=== PATIENT | male | born 1940 | race Caucasian/White ===

== ENCOUNTER → 2016-12-06 | Outpatient (CLI) | payer BC ==
[~2016-12-06] MED LIST: ALLO300T2 PO; ALPR0.5T PO; ASPI81TA28 PO; BUPRTAB51 PO; CHOL1TAB42 PO; CIPR-255 PO; CYAN100020 PO; FINA5TAB4 PO; HYG25 PO; IBUP-1277 PO; OMEG10007 PO; OXYC1TAB3 PO; SILO8CAP PO; TAMS0.4C38 PO; TNR25 PO; ZNTT/150 PO
--- NOTE | 2016-12-06 11:32 | DIAGNOSTIC IMAGING REPORT ---
KUB CLINICAL HISTORY: Ureteral tract infection. COMPARISON STUDY: 03/31/2016 FINDINGS: There is no pathologic bowel dilatation. There is a faint 4 mm density located lateral to the left L1 transverse process. A calculus cannot be excluded. There are postsurgical degenerative changes present within the lumbar spine. There are stable pelvic basin calcifications likely representing phleboliths. IMPRESSION: 1. No evidence of pathologic bowel dilatation 2. 4 mm left renal calculus versus overlying enteric contents Electronically signed by: Kaushik Obregon M.D. 12/06/2016 11:30 AM Dictated Date/Time: 12/06/2016 11:29 AM
--- NOTE | 2016-12-12 09:14 | CODING QUERY MEDICAL NECESSITY ---
SUPPORTING DIAGNOSIS NEEDED A supporting diagnosis is required for the test/procedure performed on this patient in order for us to be reimbursed by the patient's insurance. Please provide a supporting diagnosis for the following test/procedure listed below next to the test name along with your signature. *If there is no additional diagnosis for this patient that would support the following test/procedure please document that below next to the test/procedure. Test(s)/Procedure(s) that require a supporting diagnosis: DOS 12/06 * PSA DIAGNOSIS: Provider Signature: Date: Thank you Jia Rodgers [facility] Information Management Once completed, please kindly fax back to [phone] For questions please call [phone]
== END | disposition home or self-care (01) ==
LOC: C.RAD 10:44
PROVIDERS: ATTEND Urology
DX: N39.0 Urinary tract infection, site not specified (principal); N40.1 Benign prostatic hyperplasia with lower urinary tract symptoms

== ENCOUNTER → 2017-02-19 | Outpatient (CLI) | payer BC ==
[~2017-02-19] MED LIST changes: +GADAVIST IV PRN
--- NOTE | 2017-02-19 14:32 | DIAGNOSTIC IMAGING REPORT ---
LUMBAR SPINE MRI WITH AND WITHOUT CONTRAST HISTORY: Back pain LUMBAR SPINAL Stenosis, unstable BALANCE TECHNIQUE: Multiplanar multisequence MRI of the lumbar spine was performed both before and after the intravenous administration of contrast. COMPARISON: None. FINDINGS: For the purpose of the report the L5-S1 disc space will be located on axial image 23 of 25. Severe degenerative disc change throughout. This is most prominent from L2 through L5. L1-L2: No significant central canal or neural foraminal narrowing. L2-L3: Significant multifactorial spinal stenosis. Broad-based disc herniation. Hypertrophic change posterior elements and ligamentum flavum. L3-L4: Prior posterior laminectomy. Multifactorial spinal stenosis. Broad-based disc herniation with posterior osteophytic reaction. L4-L5: Broad-based posterior osteophytic reaction. Posterior laminectomy and fusion. Neuroforamina are patent bilaterally. L5-S1: Mild lateral bulging disc and mild narrowing of the neuroforamina bilaterally. No significant impact with thecal sac. IMPRESSION: 1. Severe degenerative disc changes throughout. 2. Findings consistent with posterior laminectomy and fusion at L4-L5. 3. Multifactorial spinal stenosis at L2-L3 and L3-L4. 4. Posterior bulging disc combined with posterior osteophytic reaction at L4-L5 and to lesser extent L5-S1. Electronically signed by: Edgard Nick M.D. 02/19/2017 2:30 PM Dictated Date/Time: 02/19/2017 2:22 PM
== END | disposition home or self-care (01) ==
LOC: C.MRIBC 13:10
PROVIDERS: ATTEND Family Medicine
DX: M51.16 Intervertebral disc disorders with radiculopathy, lumbar region (principal); Z98.1 Arthrodesis status; R26.89 Other abnormalities of gait and mobility

== ENCOUNTER → 2017-04-09 | Day surgery (SDC) | payer BC ==
[2017-04-03 10:11] VITALS: Ht 180.3 cm; Wt 93.2 kg
[~2017-04-09] VITALS: Ht 180.3 cm; Wt 93.2 kg
[~2017-04-09] MED LIST changes: -CIPR-255 PO; -FINA5TAB4 PO; -GADAVIST IV PRN; +LIDOCAINE HCL 1% MPF 5 ML VIAL ONE; -SILO8CAP PO; +SODIUM CHLORIDE 0.9% INJ 10 ML VIAL ONE
--- NOTE | 2017-04-09 14:29 | History & Physical Bridge - SC ---
H&P Re-Evaluation Bridge Note: I have examined the patient, reviewed the History & Physical and in the interval since the performance of the History & Physical I have noted the following changes of clinical significance: No changes noted
[2017-04-09 14:51] VITALS: TEMP 37
--- NOTE | 2017-04-09 14:56 | Discharge Instructions ---
Discharge Instructions Date of Service Apr 09, 2017. Visit Reason for Visit: Lumbar Radiculopathy Discharge Discharge Diagnosis / Problem: leg back pain Discharge Goals Goal(s): Decrease discomfort, Improve function Activity Recommendations Activity Limitations: resume your previous activity Anesthesia . Post Anesthesia Instructions: If you have had General Anesthesia or IV Sedation: * Do not drive today. * Resume driving when surgeon permits. * Do not make important decisions or sign legal documents today. * Call surgeon for: 1. Temperature elevations greater than 101 degrees F. 2. Uncontrollable pain. 3. Excessive bleeding. 4. Persistent nausea and vomiting. 5. Medication intolerance (nausea, vomiting or rash). * For nausea and vomiting use only clear liquids such as: tea, soda, bouillon until nausea subsides, then gradually increase diet as tolerated. * If you have any concerns or questions, call your surgeon's office. If physician is unavailable and it is an emergency, call 911 or go to the nearest emergency room. . Diet Recommendations Recommended Home Diet: resume previous diet Procedures Procedures Performed: Caudal Epidural Steroid Injection Pending Studies Studies pending at discharge: no Medical Emergencies . Who to Call and When: Medical Emergencies: If at any time you feel your situation is an emergency, please call 911 immediately. . Non-Emergent Contact Non-Emergency issues call your: Specialist . . "Provider Documentation" section prepared by Yaniv Stauffer. .
[2017-04-09 15:00] VITALS: BP 129/83; PULSE 80; O2SAT 99
--- NOTE | 2017-04-09 15:24 | OPERATIVE REPORT ---
DATE OF OPERATION: 04/09/2017 PREOPERATIVE DIAGNOSES: Post-laminectomy syndrome with residual right S1 radiculopathy and chronic low back pain. POSTOPERATIVE DIAGNOSES: Same. PROCEDURE: Caudal epidural steroid injection under fluoroscopic guidance. INDICATIONS: The patient is a 76-year-old white male who has a 10-year history of difficulty with ambulation following a lumbar decompression surgery. He has foot drop. He also has radicular pain from the back and follows an S1 dermatomal distribution. He presents today for a caudal epidural injection to help him with the pain he experiences. PHYSICAL EXAMINATION: Pleasant male seated comfortably. He is in a forward flexed posture. He has weakness with a left plantar flexor, 4+/5 and intact sensation distally. Negative seated straight leg raises. CONSENT: Verbal and written consent was obtained from the patient. Risks and benefits were reviewed. Risks include, but are not limited to abscess and allergic reaction. The patient wishes to proceed. DESCRIPTION OF PROCEDURE: The patient was taken back to the special procedures room of the [facility], where he was maintained in a prone position. Backside was cleansed with Betadine x3 and a dry sterile dressing was applied. Fluoroscope was used from a lateral view to identify the sacral hiatus and the canal and the overlying skin was anesthetized with 4 mL of lidocaine 1% with a 25-gauge 1-1/2 inch needle. A 25-gauge 3-1/2 inch needle was then directed through the hiatus and into the canal under lateral fluoroscopic guidance. He then underwent placement of the needle and injection after negative aspiration of 4 mL of preservative free sodium chloride and 40 mg of Depo-Medrol. Injection was well tolerated. DISPOSITION: 1. The patient was taken out into the discharge recovery area, where he will be discharged home once discharge criteria have been met. 2. Follow up in the [facility] office in 2-4 weeks. I attest to the content of the Intraoperative Record and any orders documented therein. Any exception s are noted below.
== END | disposition home or self-care (01) ==
LOC: X.SURG 13:20
PROVIDERS: ATTEND Physical Medicine & Rehabilitation
DX: M96.1 Postlaminectomy syndrome, not elsewhere classified (principal); M54.17 Radiculopathy, lumbosacral region; I10 Essential (primary) hypertension; F41.9 Anxiety disorder, unspecified; N40.0 Benign prostatic hyperplasia without lower urinary tract symptoms; Z79.82 Long term (current) use of aspirin; Z79.899 Other long term (current) drug therapy

== ENCOUNTER → 2017-08-29 | Day surgery (SDC) | payer BC ==
[2017-08-15 10:22] VITALS: Ht 180.3 cm; Wt 93.2 kg
[~2017-08-29] VITALS: Ht 180.3 cm; Wt 93.2 kg
[~2017-08-29] MED LIST changes: +IOPAMIDOL INJ 61% 15 ML VIAL ONE
[2017-08-29 13:18] VITALS: BP 134/80; PULSE 83; TEMP 36.5; O2SAT 98
--- NOTE | 2017-08-29 13:25 | Discharge Instructions ---
Discharge Instructions Date of Service Aug 29, 2017. Visit Reason for Visit: Lumbar Radiculopathy Discharge Discharge Diagnosis / Problem: leg pain Discharge Goals Goal(s): Decrease discomfort, Improve function Medications Stopped Medications Name(s): last dose asa and ibuprofen on thursday 08/23 Activity Recommendations Activity Limitations: resume your previous activity Anesthesia . Post Anesthesia Instructions: If you have had General Anesthesia or IV Sedation: * Do not drive today. * Resume driving when surgeon permits. * Do not make important decisions or sign legal documents today. * Call surgeon for: 1. Temperature elevations greater than 101 degrees F. 2. Uncontrollable pain. 3. Excessive bleeding. 4. Persistent nausea and vomiting. 5. Medication intolerance (nausea, vomiting or rash). * For nausea and vomiting use only clear liquids such as: tea, soda, bouillon until nausea subsides, then gradually increase diet as tolerated. * If you have any concerns or questions, call your surgeon's office. If physician is unavailable and it is an emergency, call 911 or go to the nearest emergency room. . Diet Recommendations Recommended Home Diet: resume previous diet Procedures Procedures Performed: Lumbar Epidural Steroid Injection via Caudal Approach Pending Studies Studies pending at discharge: no Medical Emergencies . Who to Call and When: Medical Emergencies: If at any time you feel your situation is an emergency, please call 911 immediately. . Non-Emergent Contact Non-Emergency issues call your: Specialist . . "Provider Documentation" section prepared by Yaniv Stauffer. .
--- NOTE | 2017-08-29 13:42 | OPERATIVE REPORT ---
DATE OF OPERATION: 08/29/2017 PREOPERATIVE DIAGNOSIS: Post-laminectomy syndrome with persistent radiculopathy. POSTOPERATIVE DIAGNOSIS: Same. PROCEDURE: Caudal epidural steroid injection under fluoroscopic guidance. SURGEON: Dr. Yaniv Stauffer. INDICATIONS: The patient is a 77-year-old white male who underwent a caudal epidural injection in March. He reports that he did fantastic for 3 months. Since that time the pain relief has been gradually wearing off and is problematic and symptomatic to him again. He wishes to have another caudal epidural injection to provide him with extended pain relief. PHYSICAL EXAMINATION: GENERAL: Pleasant male seated comfortably in no apparent distress. MUSCULOSKELETAL: The patient has a well-healed incision. He is nontender to palpation lumbar spine. He has no focal or motor deficit weaknesses of his lower extremities with negative seated straight leg raises. CONSENT: Verbal and written consent was obtained from the patient. Risks and benefits were reviewed. Risks include but are not limited to epidural abscess and allergic reaction. The patient wishes to proceed. PROCEDURE: The patient was taken back to the special procedures room of the [facility] where he was maintained in a prone position. Backside was cleansed with Betadine x3 and a dry sterile dressing was applied. Fluoroscope was used to identify the sacral hiatus and overlying skin was anesthetized with 4 mL of lidocaine 1% with a 25 gauge 1.5-inch needle. A 25 gauge 3.5 inch spinal needle was then directed under lateral fluoroscopic guidance into the canal. He then underwent injection after negative aspiration of 40 mg of Depo-Medrol, 4 mL of preservative free sodium chloride. Injection was well tolerated. DISPOSITION: 1. The patient is taken out into the discharge recovery area where he will be discharged home once discharge criteria have been met. 2. Follow up in the [facility] office in 2-4 weeks. I attest to the content of the Intraoperative Record and any orders documented therein. Any exception s are noted below.
== END | disposition home or self-care (01) ==
LOC: X.SURG 12:02
PROVIDERS: ATTEND Physical Medicine & Rehabilitation
DX: M96.1 Postlaminectomy syndrome, not elsewhere classified (principal); M54.16 Radiculopathy, lumbar region; Z98.890 Other specified postprocedural states; I10 Essential (primary) hypertension; Z82.49 Family history of ischemic heart disease and other diseases of the circulatory system; Z79.899 Other long term (current) drug therapy; Z79.82 Long term (current) use of aspirin

== ENCOUNTER → 2017-11-28 | Outpatient (CLI) | payer BC ==
[~2017-11-28] MED LIST changes: -IOPAMIDOL INJ 61% 15 ML VIAL ONE; -LIDOCAINE HCL 1% MPF 5 ML VIAL ONE; +RANI150T85 PO; -SODIUM CHLORIDE 0.9% INJ 10 ML VIAL ONE; -ZNTT/150 PO
--- NOTE | 2017-11-28 16:20 | DIAGNOSTIC IMAGING REPORT ---
KUB HISTORY: Acute urinary tract infection with history of kidney stones N39.0 Urinary tract infection COMPARISON: KUB 12/06/2016 FINDINGS: The bowel gas pattern is non-obstructive. There is no organomegaly. Previously questioned left renal calculus is not identified. No definite renal or ureteral calculi are identified. The renal shadows are partially secured by bowel gas. Calcifications of the pelvis appear unchanged suggesting phleboliths. No pneumoperitoneum or pneumatosis. No fracture. Degenerative changes are noted within the spine, hips and pelvis. IMPRESSION: No renal or ureteral calculi identified. Electronically signed by: Pedro Pablo Riggs M.D. 11/28/2017 4:19 PM Dictated Date/Time: 11/28/2017 4:17 PM
[2017-11-28 17:34] LABS: BLOOD UREA NITROGEN 25 mg/dl (7-18); CREATININE 1.42 mg/dl (0.60-1.40)
== END | disposition home or self-care (01) ==
LOC: C.LAB 15:34
PROVIDERS: ATTEND Urology
DX: N39.0 Urinary tract infection, site not specified (principal)

== ENCOUNTER → 2018-01-08 | Day surgery (SDC) | payer BC ==
[2018-01-01 10:06] VITALS: Ht 180.3 cm; Wt 93.2 kg
[~2018-01-08] VITALS: Ht 180.3 cm; Wt 93.2 kg
[~2018-01-08] MED LIST changes: -HYG25 PO; +IOPAMIDOL INJ 61% 15 ML VIAL ONE; +LIDOCAINE HCL 1% MPF 5 ML VIAL ONE; +SODIUM CHLORIDE 0.9% INJ 10 ML VIAL ONE
--- NOTE | 2018-01-08 13:50 | [facility] Post Operative Brief Note ---
Immediate Operative Summary Operative Date Jan 08, 2018. Pre-Operative Diagnosis LUMBAR RADICULOPATHY Post-Operative Diagnosis SAME. Procedure(s) Performed LUMBARE EPIDURAL STEROID INJECTION, CAUDAL APPROACH Surgeon DR. Berta ERVIN Shipping Support Surgeon(s) None Estimated Blood Loss 0 Findings Consistent with Post-Op Diagnosis Specimens NA Drains None Anesthesia Type Local Complication(s) none Disposition Disposition:
[2018-01-08 13:52] VITALS: TEMP 36.4
--- NOTE | 2018-01-08 13:52 | Discharge Instructions ---
Discharge Instructions Date of Service Jan 08, 2018. Visit Reason for Visit: Lumbar Radiculopathy Discharge Discharge Diagnosis / Problem: low back pain Discharge Goals Goal(s): Decrease discomfort, Improve function Medications Stopped Medications Name(s): aspirin 81mg daily and advil prn, last doses 01/03/18 Activity Recommendations Activity Limitations: resume your previous activity Anesthesia . Post Anesthesia Instructions: If you have had General Anesthesia or IV Sedation: * Do not drive today. * Resume driving when surgeon permits. * Do not make important decisions or sign legal documents today. * Call surgeon for: 1. Temperature elevations greater than 101 degrees F. 2. Uncontrollable pain. 3. Excessive bleeding. 4. Persistent nausea and vomiting. 5. Medication intolerance (nausea, vomiting or rash). * For nausea and vomiting use only clear liquids such as: tea, soda, bouillon until nausea subsides, then gradually increase diet as tolerated. * If you have any concerns or questions, call your surgeon's office. If physician is unavailable and it is an emergency, call 911 or go to the nearest emergency room. . Diet Recommendations Recommended Home Diet: resume previous diet Procedures Procedures Performed: LUMBARE EPIDURAL STEROID INJECTION, CAUDAL APPROACH Pending Studies Studies pending at discharge: no Medical Emergencies . Who to Call and When: Medical Emergencies: If at any time you feel your situation is an emergency, please call 911 immediately. . Non-Emergent Contact Non-Emergency issues call your: Specialist . . "Provider Documentation" section prepared by Yaniv Stauffer. .
[2018-01-08 14:21] VITALS: BP 152/84; PULSE 70; O2SAT 97
--- NOTE | 2018-01-08 16:09 | OPERATIVE REPORT ---
DATE OF OPERATION: 01/08/2018 PREOPERATIVE DIAGNOSES: Lumbar foraminal stenosis, post-laminectomy syndrome with persistent low back pain and proximal radicular complaints. POSTOPERATIVE DIAGNOSES: Same. PROCEDURE: Caudal epidural steroid injection under fluoroscopic guidance. INDICATIONS: The patient is a 77-year-old white male that had a caudal epidural injection on 08/29/2017. He has done very good for 3 months, essentially minimal pain; however, the pain is starting to return and become problematic to him. He presents today for an injection to provide him with relief. PHYSICAL EXAMINATION: GENERAL: Pleasant male, seated comfortably. EXTREMITIES: His lumbar paraspinal muscles were palpated and noted to be nontender. He has mild tenderness to palpation over the left sciatic notch. Left foot drop with a brace in place. Otherwise, no focal weakness. CONSENT: Verbal and written consent was obtained from the patient. Risks and benefits were reviewed. Risks include but are not limited to abscess and allergic reaction. The patient wishes to proceed. DESCRIPTION OF PROCEDURE: The patient was taken back to the special procedures room of the [facility] where he was maintained in a prone position. Backside was cleansed with Betadine x3 and a dry sterile dressing was applied. Fluoroscope was used to identify the sacral hiatus in the lateral view and the overlying skin was anesthetized with 4 mL of lidocaine 1% with a 25 gauge 1.5-inch needle. A 25 gauge 3.5 inch spinal needle was then directed into the spinal canal and advanced under lateral fluoroscopic guidance. He then underwent injection after negative aspiration of 4 mL of preservative free sodium chloride and 40 mg of Depo-Medrol. Injection was well tolerated. DISPOSITION: 1. The patient is taken out into the discharge recovery area where he will be discharged home once discharge criteria are met. 2. Follow up in the [facility] office in 4 weeks' time. I attest to the content of the Intraoperative Record and any orders documented therein. Any exception s are noted below.
== END | disposition home or self-care (01) ==
LOC: X.SURG 12:23
PROVIDERS: ATTEND Physical Medicine & Rehabilitation
DX: M48.061 Spinal stenosis, lumbar region without neurogenic claudication (principal); M54.17 Radiculopathy, lumbosacral region; M96.1 Postlaminectomy syndrome, not elsewhere classified; Z98.890 Other specified postprocedural states; Z85.828 Personal history of other malignant neoplasm of skin; N40.0 Benign prostatic hyperplasia without lower urinary tract symptoms; F32.9 Major depressive disorder, single episode, unspecified; I10 Essential (primary) hypertension; Z82.49 Family history of ischemic heart disease and other diseases of the circulatory system; Z88.0 Allergy status to penicillin; Z88.5 Allergy status to narcotic agent; F41.9 Anxiety disorder, unspecified

== ENCOUNTER 2019-12-18 23:29 | Observation (INO) ==
[2019-12-18] MEDS ORDERED: ONDANSETRON INJ 2 MG/ML 2 ML VIAL IV STA (23:39)
[2019-12-18] MEDS ORDERED: SODIUM CHLORIDE 0.9% 1000ML 1,000 ML IV ONE (23:39)
[2019-12-19 00:06] LABS: Basophils # (auto) 0.01 K/uL (0-0.2); Basophils % (auto) 0.1 %; Eosinophils # (auto) 0.02 K/uL (0-0.5); Eosinophils % (auto) 0.2 %; Hematocrit (blood only) 45.2 % (42-52); Hemoglobin 16.4 g/dL (14.0-18.0); Immature Granulocytes # (auto) 0.03 K/uL (0.00-0.02); Immature Granulocytes % (auto) 0.3 %; Lymphocytes # (auto) 1.29 K/uL (1.2-3.4); Lymphocytes % (auto) 11.1 %; Mean Corpuscular Hemoglobin 32.5 pg (25-34); Mean Corpuscular Hgb Conc 36.3 g/dL (32-36); Mean Corpuscular Volume 89.5 fL (80-100); Mean Platelet Volume 9.1 fL (7.4-10.4); Monocytes # (auto) 0.29 K/uL (0.11-0.59); Monocytes % (auto) 2.5 %; Neutrophils # (auto) 10.02 K/uL (1.4-6.5); Neutrophils % (auto) 85.8 %; Platelet Count 229 K/uL (130-400); RDW Coefficient of Variation 13.2 % (11.5-14.5); RDW Standard Deviation 42.5 fL (36.4-46.3); Red Blood Count 5.05 M/uL (4.7-6.1); White Blood Count 11.66 K/uL (4.8-10.8)
[2019-12-19] MEDS ORDERED: IOVERSOL 100ml IV PRN (00:08)
[2019-12-19 00:15] LABS: iSTAT Creatinine 0.9 mg/dl (0.6-1.3); iSTAT Hemoglobin 16.3 g/dl (14.0-18.0); iSTAT Ionized Calcium 1.17 mmol/l (1.12-1.32); iSTAT Potassium 3.8 mmol/L (3.3-5.0)
[2019-12-19 00:18] LABS: INR 1.1 (0.9-1.1); Partial Thromboplastin Ratio 0.8; Partial Thromboplastin Time 23.4 Seconds (21.0-31.0); Prothrombin Time 11.1 Seconds (9.0-12.0)
--- NOTE | 2019-12-19 00:18 | Emergency Department Note ---
History of Present Illness General Chief complaint: Vomiting Stated complaint: nausea vomitting Time Seen by Provider: 12/18/19 23:32 Source: patient, EMS, RN notes reviewed and old records reviewed Mode of arrival: EMS Limitations: no limitations History of Present Illness Provider complaint: Nausea, vomiting and diarrhea Onset (ago): day(s) 1 Location: abdomen Radiation: non-radiation Pain Consistency: + colicky Maximum Pain Intensity: 3 Current Pain Intensity: 0 Relieved By: + none Exacerbated By: + none Associated symptoms: + denies other symptoms Treatments prior to arrival: none This is an 79-year-old male that presents emergency department complaining of nausea vomiting and severe dizziness. Patient is complaining of nausea vomiting and diarrhea. He states it is been ongoing for the past 24 hours. He denies any sick contacts. He reports his is not sick. He also reports he has not had any abnormal food. He denies any abdominal pain. Patient reports the dizziness gets much worse if he looks down Home Medications Home Medications Medication Instructions Recorded Confirmed Type allopurinol 300 mg PO QAM 08/03/18 12/19/19 History alprazolam [Xanax] 0.5 mg PO Q6H PRN 08/03/18 12/19/19 History bupropion HCl [Wellbutrin XL] 300 mg PO QAM 08/03/18 12/19/19 History cholecalciferol (vitamin D3) 5,000 unit PO QAM 08/03/18 12/19/19 History [Vitamin D3] cyanocobalamin (vitamin B-12) 1,000 mcg PO QAM 08/03/18 12/19/19 History [Vitamin B-12] ibuprofen 200 - 600 mg PO QID PRN 08/03/18 12/19/19 History omega 6-uki-mqz-fish oil [Fish Oil] 1 cap PO QAM 08/03/18 12/19/19 History oxycodone [Roxicodone] 1 - 2 tab PO Q6H PRN 08/03/18 12/19/19 History ranitidine HCl [Zantac] 150 mg PO BID 08/03/18 12/19/19 History tamsulosin 0.4 mg capsule 0.4 mg PO DAILY #90 cap 12/03/19 12/19/19 Rx finasteride 5 mg tablet 5 mg PO DAILY #90 tab 12/06/19 12/19/19 Rx Allergies Allergy/AdvReac Type Severity Reaction Status Date / Time Penicillins Allergy Intermediate HIVES Verified 12/19/19 00:34 morphine AdvReac Mild N&V Verified 12/19/19 00:34 Past Med/Surg History Social History Preferred Language: [place] Communication Ability: Effective Bid Manager Required: No Beliefs That Will Affect Care: None Current Living Situation: Spouse Feels Safe at Home: Yes Smoking Status: Former smoker Tobacco Type: cigarettes ; Cigarettes Per Day: 55 years ago ; Second Hand Exposure: No ; Hx Alcohol Use: Yes Alcohol type: beer, wine and hard liquor Hx Substance Use: No Physical Exam Vital Signs Vital Signs - 24 hr 12/18/19 23:37 12/18/19 23:48 12/19/19 00:04 Temperature 37.1 C Temperature Source Oral Pulse Rate 89 Pulse Rate [Bilateral Apical] 95 H Respiratory Rate 20 20 Respiratory Effort / Characteristics Non-Labored Non-Labored Respiratory Depth Normal Normal Blood Pressure 159/100 H Blood Pressure [Right Arm] 179/103 H Blood Pressure Mean 119 Blood Pressure Mean [Right Arm] 128 Blood Pressure Position Lying Blood Pressure Position [Right Arm] Pulse Oximetry 97 97 96 Oxygen Delivery Method Room Air Room Air Room Air Sepsis Recent Fever Within 48 Hours No Sepsis Action Taken by Nursing No Action Required 12/19/19 00:39 12/19/19 01:15 12/19/19 01:39 Temperature Temperature Source Pulse Rate Pulse Rate [Bilateral Apical] 93 H 95 H 91 H Respiratory Rate 20 20 20 Respiratory Effort / Characteristics Non-Labored Respiratory Depth Normal Blood Pressure Blood Pressure [Right Arm] 185/97 H 187/113 H 184/93 H Blood Pressure Mean Blood Pressure Mean [Right Arm] 126 137 123 Blood Pressure Position Blood Pressure Position [Right Arm] Pulse Oximetry 96 96 94 Oxygen Delivery Method Room Air Room Air Room Air Sepsis Recent Fever Within 48 Hours Sepsis Action Taken by Nursing 12/19/19 01:53 12/19/19 02:43 12/19/19 03:34 Temperature Temperature Source Pulse Rate Pulse Rate [Bilateral Apical] 88 85 87 Respiratory Rate 18 20 20 Respiratory Effort / Characteristics Non-Labored Non-Labored Respiratory Depth Normal Normal Blood Pressure Blood Pressure [Right Arm] 143/77 H 156/93 H 137/70 Blood Pressure Mean Blood Pressure Mean [Right Arm] 99 114 92 Blood Pressure Position Blood Pressure Position [Right Arm] Lying Lying Pulse Oximetry 93 94 97 Oxygen Delivery Method Room Air Room Air Room Air Sepsis Recent Fever Within 48 Hours Sepsis Action Taken by Nursing Course Administered Medications Ondansetron HCl (Zofran Odt) 4 mg PO Q6H PRN PRN Reason: Nausea Stop: 01/18/20 05:00 Last Admin: 12/19/19 05:13 Dose: 4 mg Documented by: [id number] Discontinued Medications Hydromorphone HCl (Dilaudid) 0.5 mg IV Q15M PRN PRN Reason: Pain Stop: 01/02/20 00:32 Last Admin: 12/19/19 01:42 Dose: 0.5 mg Documented by: [id number] Admin: 12/19/19 00:43 Dose: 0.5 mg Documented by: [id number] Sodium Chloride (Nss 1000ml) 1,000 mls @ 999 mls/hr IV .Q1H1M ONE Stop: 12/19/19 00:39 Last Infusion: 12/19/19 01:29 Dose: 0 mls/hr Documented by: [id number] Admin: 12/19/19 00:00 Dose: 999 mls/hr Documented by: [id number] Acetaminophen (Ofirmev) 1,000 mg in 100 mls @ 400 mls/hr IV NOW STA Stop: 12/19/19 00:47 Last Infusion: 12/19/19 01:14 Dose: 0 mls/hr Documented by: [id number] Admin: 12/19/19 00:42 Dose: 400 mls/hr Documented by: [id number] Ioversol (Optiray 320 100ml) 119 ml IV ONCE PRN PRN Reason: Interaction Checking Stop: 12/23/19 00:07 Last Admin: 12/19/19 00:08 Dose: 119 ml Documented by: [id number] Meclizine HCl (Antivert) 25 mg PO NOW STA Stop: 12/19/19 00:34 Last Admin: 12/19/19 00:42 Dose: 25 mg Documented by: [id number] Metoclopramide HCl (Reglan) 10 mg IV NOW STA Stop: 12/19/19 00:34 Last Admin: 12/19/19 00:42 Dose: 10 mg Documented by: [id number] Ondansetron HCl (Zofran) 4 mg IV NOW STA Stop: 12/18/19 23:40 Last Admin: 12/19/19 00:00 Dose: 4 mg Documented by: [id number] Ondansetron HCl (Zofran Odt) Confirm Administered Dose 8 mg .ROUTE .STK-MED ONE Stop: 12/19/19 05:08 Last Admin: 12/19/19 05:09 Dose: Not Given Documented by: [id number] Medical Decision Making Differential Diagnosis Appendicitis, ovarian cyst, ovarian torsion, ectopic , TOA, PID, infections, diverticulitis, UTI, obstruction, mesenteric ischemia, aortic pathology, inflammatory bowel disease, renal colic, PUD, pancreatitis, biliary pathology, hernia, volvulus, constipation, as well as other pathologies. Medical Records Attestation: I reviewed the patient's medical records. Home Medications Current Medication List: was personally reviewed by me Laboratory Data Attestation: I reviewed the patient's lab results. Result diagrams: 12/18/19 23:55 12/18/19 23:55 Lab Results 12/18/19 12/18/19 12/18/19 Range/Units 23:55 23:55 23:55 WBC 11.66 H (4.8-10.8) K/uL RBC 5.05 (4.7-6.1) M/uL Hgb 16.4 (14.0-18.0) g/dL POC Hgb (14.0-18.0) g/dl Hct 45.2 (42-52) % POC Hct (42-52) % MCV 89.5 (80-100) fL MCH 32.5 (25-34) pg MCHC 36.3 H (32-36) g/dL RDW Std Deviation 42.5 (36.4-46.3) fL RDW Coeff of Jaelyn 13.2 (11.5-14.5) % Plt Count 229 (130-400) K/uL MPV 9.1 (7.4-10.4) fL Immature Gran % (Auto) 0.3 % Neut % (Auto) 85.8 % Lymph % (Auto) 11.1 % [place] % (Auto) 2.5 % Eos % (Auto) 0.2 % Baso % (Auto) 0.1 % Immature Gran # (Auto) 0.03 H (0.00-0.02) K/uL Neut # (Auto) 10.02 H (1.4-6.5) K/uL Lymph # (Auto) 1.29 (1.2-3.4) K/uL [place] # (Auto) 0.29 (0.11-0.59) K/uL Eos # (Auto) 0.02 (0-0.5) K/uL Baso # (Auto) 0.01 (0-0.2) K/uL PT 11.1 (9.0-12.0) Seconds INR 1.1 (0.9-1.1) APTT 23.4 (21.0-31.0) Seconds PTT Ratio 0.8 POC Sodium (135-144) mmol/L Sodium 137 (136-145) mmol/L POC Potassium (3.3-5.0) mmol/L Potassium 3.7 (3.5-5.1) mmol/L POC Chloride (101-112) mmol/L Chloride 104 (98-107) mmol/L Carbon Dioxide 27 (21-32) mmol/L POC Total CO2 (24-31) mEq/l Anion Gap 6.0 (3-11) POC Anion Gap (16-25) mmol/L POC BUN (7-18) mg/dl BUN 14 (7-18) mg/dl Creatinine 1.10 (0.6-1.4) mg/dl POC Creatinine (0.6-1.3) mg/dl Est Cr Clr Drug Dosing 62.1 ml/min Est GFR ( Amer) 72.6 Est GFR (Non-Af Amer) 62.6 BUN/Creatinine Ratio 12.7 (10-20) Glucose 140 H (70-99) mg/dl POC Glucose (other) (70-99) mg/dl Calcium 9.5 (8.5-10.1) mg/dl POC Ioniz Calcium Kevin (1.12-1.32) mmol/l Total Bilirubin 0.8 (0.2-1) mg/dl AST 34 (15-37) U/L ALT 45 (12-78) U/L Alkaline Phosphatase 102 (45-117) U/L Total Creatine Kinase 255 (39-308) U/L CK-MB (CK-2) 6.4 H (0.5-3.6) ng/ml CK/CKMB % Calc 2.5 (0-3.0) Troponin I < 0.015 (0-0.045) ng/ml Total Protein 8.1 (6.4-8.2) gm/dl Albumin 4.0 (3.4-5.0) gm/dl Globulin 4.1 H (2.5-4.0) gm/dl Albumin/Globulin Ratio 1.0 (0.9-2) Lipase 39 L (73-393) U/L 12/19/19 Range/Units 00:02 WBC (4.8-10.8) K/uL RBC (4.7-6.1) M/uL Hgb (14.0-18.0) g/dL POC Hgb 16.3 (14.0-18.0) g/dl Hct (42-52) % POC Hct 48 (42-52) % MCV (80-100) fL MCH (25-34) pg MCHC (32-36) g/dL RDW Std Deviation (36.4-46.3) fL RDW Coeff of Jaelyn (11.5-14.5) % Plt Count (130-400) K/uL MPV (7.4-10.4) fL Immature Gran % (Auto) % Neut % (Auto) % Lymph % (Auto) % [place] % (Auto) % Eos % (Auto) % Baso % (Auto) % Immature Gran # (Auto) (0.00-0.02) K/uL Neut # (Auto) (1.4-6.5) K/uL Lymph # (Auto) (1.2-3.4) K/uL [place] # (Auto) (0.11-0.59) K/uL Eos # (Auto) (0-0.5) K/uL Baso # (Auto) (0-0.2) K/uL PT (9.0-12.0) Seconds INR (0.9-1.1) APTT (21.0-31.0) Seconds PTT Ratio POC Sodium 139 (135-144) mmol/L Sodium (136-145) mmol/L POC Potassium 3.8 (3.3-5.0) mmol/L Potassium (3.5-5.1) mmol/L POC Chloride 100 L (101-112) mmol/L Chloride (98-107) mmol/L Carbon Dioxide (21-32) mmol/L POC Total CO2 26 (24-31) mEq/l Anion Gap (3-11) POC Anion Gap 18.0 (16-25) mmol/L POC BUN 14 (7-18) mg/dl BUN (7-18) mg/dl Creatinine (0.6-1.4) mg/dl POC Creatinine 0.9 (0.6-1.3) mg/dl Est Cr Clr Drug Dosing ml/min Est GFR ( Amer) Est GFR (Non-Af Amer) BUN/Creatinine Ratio (10-20) Glucose (70-99) mg/dl POC Glucose (other) 144 H (70-99) mg/dl Calcium (8.5-10.1) mg/dl POC Ioniz Calcium Kevin 1.17 (1.12-1.32) mmol/l Total Bilirubin (0.2-1) mg/dl AST (15-37) U/L ALT (12-78) U/L Alkaline Phosphatase (45-117) U/L Total Creatine Kinase (39-308) U/L CK-MB (CK-2) (0.5-3.6) ng/ml CK/CKMB % Calc (0-3.0) Troponin I (0-0.045) ng/ml Total Protein (6.4-8.2) gm/dl Albumin (3.4-5.0) gm/dl Globulin (2.5-4.0) gm/dl Albumin/Globulin Ratio (0.9-2) Lipase (73-393) U/L Imaging Data Attestation: I personally reviewed and interpreted this imaging study as follows: My Impression: 1 view of the chest was interpreted by me shows no evidence of pneumonia congestion or pneumothorax Radiologist's Impression: CT the head: No intracranial hemorrhage, mass-effect, edema or acute cortical infarct. Confluent chronic microvascular ischemic changes and age-related volume loss. CT abdomen pelvis with contrast: Colonic diverticulosis without diverticulitis. Liver gallbladder pancreas spleen adrenal glands, are within normal limits. Few cortical cysts and a single nonobstructing stone within the right kidney. Normal appendix. ECG Data Attestation: I personally reviewed and interpreted this ECG as follows: Indication: + vomiting Rate (beats per minute): 89 Rhythm: + normal sinus ECG Intervals/blocks: + First degree AV block ECG [place]: + Normal ECG ST segments: no ST depression and no ST elevation Comparison ECG Date: from (05/13/2012) Change: no significant change Blood Pressure Blood Pressure Findings: Elevated blood pressure Blood Pressure Disposition: elevated BP felt to be situational MDM Narrative This is an 79-year-old male who presents emergency department complaining of dizziness. Patient was given Zofran as well as a normal saline bolus. This had no improvement in the patient's symptoms. On my reexamination the patient reports feeling dizzy when he looks to the right. I suspect he has benign positional vertigo therefore tried Reglan along with meclizine with no improvement in his symptoms. The patient was also given Dilaudid for his chronic back pain. He was sent for CAT scan of the head and his EKG does not show any acute findings. I attempted to have the patient ambulated by nursing staff with no success. Because of this I did discuss the case with the hospitalist service who did agree to meet the patient. Patient is in agreement with the treatment plan. Impression & Plan Gastroenteritis, Dizziness Discharge Plan Visit Data *Final* Discharge Date/Time: 12/19/19 04:41 Chief Complaint: Vomiting Stated Complaint: nausea vomitting Other Complaint: Diarrhea Dizziness ED Provider: Johnathon Bautista Discharge Problem: Gastroenteritis, Dizziness Patient Disposition: Admitted As Inpatient Discharge Instructions Interventions: ED Discharge Assessment Last Done: 12/19/19 04:41
[2019-12-19 00:31] LABS: Alanine Aminotransferase 45 U/L (12-78); Aspartate Aminotransferase 34 U/L (15-37); BUN Creatinine Ratio 12.7 (10-20); Blood Urea Nitrogen 14 mg/dl (7-18); Calcium 9.5 mg/dl (8.5-10.1); Carbon Dioxide 27 mmol/L (21-32); Chloride 104 mmol/L (98-107); Creatinine Clr Calc Pharmacy 62.1 ml/min; Est GFR (African American) 72.6; Est GFR (Non-African American) 62.6; Glucose 140 mg/dl (70-99); Lipase 39 U/L (73-393); Potassium 3.7 mmol/L (3.5-5.1); Sodium 137 mmol/L (136-145)
[2019-12-19] MEDS ORDERED: ACETAMINOPHEN 1,000 MG/100 ML VIAL IV STA (00:33)
[2019-12-19] MEDS ORDERED: MECLIZINE HCL 25 MG TAB PO STA (00:33)
[2019-12-19] MEDS ORDERED: METOCLOPRAMIDE HCL INJ 5 MG/ML 2 ML VIAL IV STA (00:33)
[2019-12-19 00:37] LABS: Alkaline Phosphatase 102 U/L (45-117); Bilirubin,Total 0.8 mg/dl (0.2-1); Creatine Kinase 255 U/L (39-308); Creatine Kinase MB 6.4 ng/ml (0.5-3.6); Globulin 4.1 gm/dl (2.5-4.0); Total Protein 8.1 gm/dl (6.4-8.2); Troponin I < 0.015 ng/ml (0-0.045)
[2019-12-19] MEDS: HYDROmorphone INJ 0.5 MG/0.5 ML SYR IV PRN ×2 (00:43→01:42)
--- NOTE | 2019-12-19 04:27 | History & Physical Report ---
Date of Service December 19, 2019 Assessment & Plan (1) Diarrhea: Mr. Rosenthal is an 79yo gentleman with a PMHx significant for Anxiety, BPH, Gout, GERD and chronic pain who presents with a 2 day history of N/V and diarrhea. Diarrhea/Nausea/Vomiting -Pt with 2 day Hx of symptoms and associated dizziness -CT abdomen with no indication of diverticulitis or appendicitis -ED orders for c diff, stool culture and norovirus pending -has meclizine ordered for dizziness; no concern for need for fluid replacement given stable vitals. -Zofran ODT for nausea -Dilaudid ordered for pain -PT/OT pending Anxiety -continue home xanax Depression -continue home buproprion GERD -hold home Zantac; consider discontinuing on discharge given current warnings -started on famotidine/Pepcid 20mg BID Gout -continue home allopurinol BPH -continue home Flomax and Finasteride Chronic Pain -hold home ibuprofen -continue home oxycodone and IV Dilaudid as above FEN/GI: Full liquids DVT Prophylaxis: Lovenox SQ CODE STATUS: Full Dispo: Med Surg Admission and Anticipated Discharge Date Admission Date: 12/19/2019 History of Present Illness Primary Care Provider: Santosh Cassidy MD Mr. Rosenthal is an 79yo gentleman with a PMHx significant for Anxiety, BPH, Gout, GERD and chronic pain who presents with a 2 day history of N/V and diarrhea. States he has been going to the bathroom every 25 minutes, with semi- solid stool. Has not noticed any foul smell or blood in the stools. Does not recall any change to dietary habits before this, no recent hamburger meat ingestion. No recent travel. No associated fevers, chills or night sweats. No recent/known COVID contacts. Has associated dizziness and headache. PMHx: as above PSH: Hx of back surgery Meds: As below Allergies: morphine and penicillins SH: Quit smoking 55 years ago. No alcohol use and no recreational drug use. Lives at home with . [facility] house was remodeled to accommodate him on the first floor. Ambulatory and able to perform self care at baseline. ED Course: Dilaudid and meclizine, pending c diff, stool culture and norovirus Allergies Allergy/AdvReac Type Severity Reaction Status Date / Time Penicillins Allergy Intermediate HIVES Verified 12/19/19 00:34 morphine AdvReac Mild N&V Verified 12/19/19 00:34 Home Medications Home Medications Medication Instructions Recorded Confirmed Type allopurinol 300 mg PO QAM 08/03/18 12/19/19 History alprazolam [Xanax] 0.5 mg PO Q6H PRN 08/03/18 12/19/19 History bupropion HCl [Wellbutrin XL] 300 mg PO QAM 08/03/18 12/19/19 History cholecalciferol (vitamin D3) 5,000 unit PO QAM 08/03/18 12/19/19 History [Vitamin D3] cyanocobalamin (vitamin B-12) 1,000 mcg PO QAM 08/03/18 12/19/19 History [Vitamin B-12] ibuprofen 200 - 600 mg PO QID PRN 08/03/18 12/19/19 History omega 7-bcp-qvz-fish oil [Fish Oil] 1 cap PO QAM 08/03/18 12/19/19 History oxycodone [Roxicodone] 1 - 2 tab PO Q6H PRN 08/03/18 12/19/19 History ranitidine HCl [Zantac] 150 mg PO BID 08/03/18 12/19/19 History tamsulosin 0.4 mg capsule 0.4 mg PO DAILY #90 cap 12/03/19 12/19/19 Rx finasteride 5 mg tablet 5 mg PO DAILY #90 tab 12/06/19 12/19/19 Rx Past Med/Surg History Social History Preferred Language: Belgian Communication Ability: Effective Grounds Caretaker Required: No Beliefs That Will Affect Care: None Current Living Situation: Spouse Feels Safe at Home: Yes Smoking Status: Never smoker Second Hand Exposure: No ; Hx Alcohol Use: Yes Alcohol type: beer, wine and hard liquor Hx Substance Use: No Review of Systems Constitutional: no fever, no chills and no sweats Eyes: no worsening vision and no problem reported Ear, Nose, Mouth, Throat: + dizziness; no ear pain, no ear discharge, no nasal congestion and no sore throat Respiratory: no cough and no dyspnea Cardiovascular: + lightheadedness; no chest pain, no dyspnea, no palpitations and no syncope Gastrointestinal: + abdominal pain, + nausea, + vomiting and + diarrhea/loose stools; no constipation and no blood in stools Genitourinary: no dysuria Musculoskeletal: + back pain Neurologic: + dizziness and + headache(s); no tingling, no numbness and no syncope Physical Exam Physical Exam: General: Alert, oriented, laying in bed Skin: No noted rashes or bruises Psych: Appropriate mood and affect Neuro: CNII-XII grossly intact, strength 5/5 in UE and LE bilaterally. HEENT: NC/AT Chest: Nontender to palpation. CV: RRR, Normal s1, s2. No murmurs appreciated Resp: Breath sounds clear bilaterally, no increased effort of breathing. No crackles/rhonchi/rales. Abdomen: BS+. Soft, tender in lower abdominal quadrants to deep palpation, nondistended. No guarding. No organomegaly appreciated. Extremities: No edema in lower extremities bilaterally. Results & Data Results & Data ([facility]) Vital Signs (Past 12 Hours) Vital Signs Temp Pulse Pulse Resp BP BP Pulse Ox 12/19/19 03:34 87 20 137/70 97 12/19/19 02:43 85 20 156/93 H 94 12/19/19 01:53 88 18 143/77 H 93 12/19/19 01:39 91 H 20 184/93 H 94 12/19/19 01:15 95 H 20 187/113 H 96 12/19/19 00:39 93 H 20 185/97 H 96 12/19/19 00:04 95 H 20 179/103 H 96 12/18/19 23:48 97 12/18/19 23:37 37.1 C 89 20 159/100 H 97 Supervising Physician Co-Signing Physician Notes Patient seen and examined, chart reviewed, case discussed with Dr. Martinez and I agree with her assessment and plan as documented above. Briefly, patient is an 79yo C male presenting with n/v/d, vertigo, inability to walk On exam he is afebrile, HD stable, NAD Skin -no rash HEENT - NC/AT, PERRL, EOMI, MMM Heart - +S1/S2, regular, no m/r/g Lungs- CTA Abd - +BS, soft, NT/ND Ext - no edema Neuro - no deficits, +symptoms with head turning and ambulation Labs and images reviewed Assessment/Plan: -Symptomatic management of n/v/d, IVF and electrolytes -Meclizine PRN -Zofran PRN -PT/OT evaluation '-Remainder of plan as above Resident Activity Tracking Resident Involvement: Resident Care Provided Care Provided: [facility]
[2019-12-19] MEDS ORDERED: ALPRAZolam 0.5 MG TABLET PO PRN (05:01)
[2019-12-19] MEDS ORDERED: MECLIZINE HCL 25 MG TAB PO PRN (05:01)
[2019-12-19] MEDS ORDERED: HYDROmorphone INJ 1 MG/ML SYRINGE IV PRN (05:01)
[2019-12-19] MEDS ORDERED: ONDANSETRON 4 MG OD TAB PO PRN (05:01)
--- NOTE | 2019-12-19 05:01 | Billing Data ---
Date of Service December 19, 2019 Coding Level of Care Code 15498 OBS Care - Level 3
[2019-12-19] MEDS ORDERED: ONDANSETRON 4 MG OD TAB ONE (05:07)
[2019-12-19] MEDS ORDERED: OXYCODONE HCL IR 5 MG TAB (IMMEDIATE RELEASE) PO PRN (05:12)
--- NOTE | 2019-12-19 07:23 | CT Scan Report ---
CT OF THE HEAD WITHOUT CONTRAST CLINICAL HISTORY: Nausea and vomiting. COMPARISON STUDY: No previous studies for comparison. TECHNIQUE: Helical axial images of the head were obtained without IV contrast. Automated exposure con trol was utilized for the study. A dose lowering technique was utilized adhering to the principles o f ALARA. FINDINGS: No acute intracranial hemorrhage, midline shift or mass effect is present. The ventricular system is unremarkable. The basilar cisterns are patent. No extra-axial collections are present. Ther e are no findings to suggest acute dural sinus thrombosis or acute territorial infarct. No significan t calvarial abnormalities are present. Visualized portions of the sinuses and mastoid air cells are c lear. White matter hypodensities suggest extensive small vessel disease. IMPRESSION: 1. No acute intracranial findings. 2. Extensive small vessel disease. ACT 112: Negative or not required by law. Electronically signed by: Clifton Jasso M.D. 12/19/2019 7:22 AM
--- NOTE | 2019-12-19 07:31 | CT Scan Report ---
CT OF THE ABDOMEN AND PELVIS WITH CONTRAST CLINICAL HISTORY: Abdominal pain and nausea. COMPARISON STUDY: CT of the abdomen and pelvis January 25, 2014. KUB June 26, 2018. TECHNIQUE: Following IV administration of 93 mL of Optiray-320, axial images of the abdomen and pelvi s were obtained from the lung bases to the proximal femurs. Images were reviewed in the axial, sagitt al, and coronal planes. IV contrast was administered without complication. Automated exposure contro l was utilized for the study. A dose lowering technique was utilized adhering to the principles of A ANNIE. CT DOSE: 1939.53 mGy.cm FINDINGS: Lung bases are unremarkable. No pneumatosis, free air or portal venous gas is present. The liver, spleen, adrenal glands and pancreas are unremarkable. Water attenuation bilateral renal lesion s reflect cysts. A 4 mm right renal calculus is noted. There are no ureteral calculi or hydronephrosi s. There is no biliary or pancreatic ductal dilatation. The appendix is normal. Colonic diverticulosi s is noted without evidence for acute diverticulitis. The caliber and wall thickness of small and lar ge bowel are normal. Postoperative findings within the lumbar spine are noted. There are no suspiciou s osseous lesions. IMPRESSION: 1. No acute process within the abdomen or pelvis. 2. Colonic diverticulosis without evidence for acute diverticulitis. No bowel obstruction. 3. 4 mm right renal calculus. No ureteral calculi or hydronephrosis. ACT 112: Negative or not required by law. Electronically signed by: Clifton Jasso M.D. 12/19/2019 7:30 AM
--- NOTE | 2019-12-19 07:33 | XRay Report ---
XR chest 1V portable CLINICAL HISTORY: Chest Pain COMPARISON STUDY: Chest radiograph June 22, 2015. FINDINGS: Lung volumes are normal. Linear left basilar opacity suggests atelectasis. There is no pneu mothorax or pleural effusion. Cardiac size is normal. Mediastinal contours are normal. There is no ev idence for pulmonary edema. IMPRESSION: No acute cardiopulmonary findings. ACT 112: Negative or not required by law. Electronically signed by: Clifton Jasso M.D. 12/19/2019 7:31 AM
[2019-12-19] MEDS ORDERED: OMEGA-3 (PURIFIED FISH OIL) 1 GM CAP PO SCH (09:00)
[2019-12-19] MEDS ORDERED: CHOLECALCIFEROL 1,000 UNITS 25 MCG TAB PO SCH (09:00)
[2019-12-19] MEDS ORDERED: TAMSULOSIN HCL 0.4 MG CAP PO SCH (09:00)
[2019-12-19] MEDS ORDERED: FAMOTIDINE 20 MG TAB PO SCH (09:00)
[2019-12-19] MEDS ORDERED: allopurinoL 300 MG TAB PO SCH (09:00)
[2019-12-19] MEDS ORDERED: BuPROPion XL 300 MG TABCR PO SCH (09:00)
[2019-12-19] MEDS ORDERED: FINASTERIDE 5 MG TAB PO SCH (09:00)
[2019-12-19] MEDS ORDERED: CYANOCOBALAMIN 500 MCG TABLET (VITAMIN B-12) PO SCH (09:00)
[2019-12-19] MEDS ORDERED: ENOXAPARIN INJ 40 MG/0.4 ML SYR SQ SCH (09:00)
--- NOTE | 2019-12-19 10:12 | Electrocardiogram Report ---
Test Reason : Blood Pressure : / mmHG Vent. Rate : 089 BPM Atrial Rate : 092 BPM P-R Int : 226 ms QRS Dur : 078 ms QT Int : 374 ms P-R-T Axes : 053 052 046 degrees QTc Int : 455 ms Sinus rhythm with 1st degree A-V block Low voltage QRS Borderline ECG When compared with ECG of 13-MAY-2012 13:16, No significant change was found Confirmed by Erwin Stovall ([id number]) on 12/19/2019 10:12:25 AM Referred By: REFERRED SELF Confirmed By:Erwin Stovall
--- NOTE | 2019-12-19 13:56 | Discharge Summary ---
Date of Service December 19, 2019 Admission HPI Per Admitting Provider Mr. Rosenthal is an 79yo gentleman with a PMHx significant for Anxiety, BPH, Gout, GERD and chronic pain who presents with a 2 day history of N/V and diarrhea. States he has been going to the bathroom every 25 minutes, with semi- solid stool. Has not noticed any foul smell or blood in the stools. Does not recall any change to dietary habits before this, no recent hamburger meat ingestion. No recent travel. No associated fevers, chills or night sweats. No recent/known COVID contacts. Has associated dizziness and headache. PMHx: as above PSH: Hx of back surgery Meds: As below Allergies: morphine and penicillins SH: Quit smoking 55 years ago. No alcohol use and no recreational drug use. Rachana danay at home with . [facility] house was remodeled to accommodate him on the first floor. Ambulatory and able to perform self care at baseline. ED Course: Dilaudid and meclizine, pending c diff, stool culture and norovirus Principal Diagnosis Viral gastroenteritis Discharge Exam Constitutional WD/WN, vitals as above Eyes + anicteric sclerae; normal pupil size Respiratory normal respiratory effort, lungs clear to auscultation Cardiovascular RRR, no murmur, no edema Gastrointestinal (Abdomen) normal bowel sounds, soft, nontender, no hepatosplenomegaly Skin no rashes, warm and dry Neurologic moves all extremities and awake; not confused Genitourinary no CVA tenderness Lymphatic no cervical or axillary lymphadenopathy Discharge Data Allergies Allergy/AdvReac Type Severity Reaction Status Date / Time Penicillins Allergy Intermediate HIVES Verified 12/19/19 00:34 morphine AdvReac Mild N&V Verified 12/19/19 00:34 Consultations 12/19/19 02:53 ED Decision to Admit Stat Ordered Studies 12/18/19 23:39 CT abd pelvis IV con only Stat CT head/brain wo con Stat Hospital Course (1) Diarrhea: Shaggy Rosenthal is a 79 year old male observed at [facility] on December 19 2019 due to intractable nausea, vomiting and diarrhea. CT scan showed no acute pathology. Lab work was generally unremarkable other than a mildly raised white blood count. History, examination, labs and imaging consistent with viral gastroenteritis. Ondansetron prescribed as needed for any further nausea or vomiting. He improved throughout the day on full liquid diet and was discharged in the afternoon. Total Time Total Time Spent Total Time Spent (In Minutes): 25 Total Time Includes: Examination of the Patient, Discharge Planning and Medication Reconciliation Discharge Plan Discharge Items Patient Disposition: Home - Self-Care Reason For Visit: DIARRHEA Discharge Diagnosis: Gastroenteritis Activity: Resume your previous activity Non-emergency contact: Primary Care Provider Call non-emergency contact if: you have any medication questions and your symptoms worsen Follow-up/Referrals: Santosh Cassidy MD [Primary Care Provider] - (no routine follow up required) Diet: Regular Addtl Attending Provider Instructions: You were observed at [facility] on December 19 2019 due to intractable nausea, vomiting and diarrhea. CT scan showed no acute pathology. Lab work was generally unremarkable other than a mildly raised white blood count. History, examination, labs and imaging consistent with viral gastroenteritis. Ondansetron prescribed as needed for any further nausea or vomiting. Recommend slowly advancing your diet as tolerated over the next 24-48 hours. Kind regards, Dr Chau Zarco Pending Studies at Discharge: No Stand-Alone Forms: My [facility] Medications and DC Order Prescriptions: New ondansetron 4 mg tablet,disintegrating 4 mg PO Q6H PRN (Reason: nausea and vomiting) Qty: 10 RF: 0 Continued finasteride 5 mg tablet 5 mg PO DAILY Qty: 90 RF: 1 tamsulosin [Flomax] 0.4 mg capsule 0.4 mg PO DAILY Qty: 90 RF: 0 cyanocobalamin (vitamin B-12) [Vitamin B-12] 1,000 mcg Tablet 1,000 mcg PO QAM RF: 0 alprazolam [Xanax] 0.5 mg Tablet 0.5 mg PO Q6H PRN (Reason: Anxiety) RF: 0 ranitidine HCl [Zantac] 150 mg Tablet 150 mg PO BID RF: 0 ibuprofen 200 mg Tablet 200 - 600 mg PO QID PRN (Reason: Pain) RF: 0 allopurinol 300 mg Tablet 300 mg PO QAM RF: 0 oxycodone [Roxicodone] 5 mg Tablet 1 - 2 tab PO Q6H PRN (Reason: Pain) RF: 0 bupropion HCl [Wellbutrin XL] 300 mg Tablet Extended Release 24 Hr 300 mg PO QAM RF: 0 cholecalciferol (vitamin D3) [Vitamin D3] 5,000 unit Tablet 5,000 unit PO QAM RF: 0 omega 9-rlb-zwy-fish oil [Fish Oil] 1,000 mg (120 mg-180 mg) Capsule 1 cap PO QAM RF: 0 Discharge Orders: Discharge Order (Routine); Ordered 12/19/19 Ordered By: Chau Zarco Admission Data Admit Date/Time: 12/19/19 04:14 Attending Provider: Chau Zarco Admit Provider: Alyssia Martinez Primary Care Provider: Santosh Cassidy Other Interventions: Discharge Summary Assessment (RN) Last Done: 12/19/19 14:02 DC Date/Time DO NOT enter until pt leaves facility: 12/19/19 14:29 Coding Level of Care Code Admit/DC Same Day >8hr Level 2 Diagnoses Diarrhea R19.7
== END 2019-12-19 14:29 | disposition home or self-care (01) ==
LOC: 2N 23:29 → ED 23:29 → SUATTDRO 12-19 04:14 → 2N 12-19 04:41

== ENCOUNTER 2020-02-14 15:13 | Observation (INO) ==
[2020-02-14] MEDS ORDERED: SODIUM CHLORIDE 0.9% 500 ML IV SCH (16:00)
[2020-02-14 16:01] LABS: Basophils # (auto) 0.03 K/uL (0-0.2); Basophils % (auto) 0.3 %; Eosinophils # (auto) 0.32 K/uL (0-0.5); Eosinophils % (auto) 3.5 %; Hemoglobin 14.6 g/dL (14.0-18.0); Immature Granulocytes # (auto) 0.02 K/uL (0.00-0.02); Immature Granulocytes % (auto) 0.2 %; Lymphocytes # (auto) 2.91 K/uL (1.2-3.4); Lymphocytes % (auto) 31.6 %; Mean Corpuscular Hemoglobin 31.9 pg (25-34); Mean Corpuscular Hgb Conc 34.8 g/dL (32-36); Mean Corpuscular Volume 91.7 fL (80-100); Mean Platelet Volume 9.3 fL (7.4-10.4); Monocytes % (auto) 9.8 %; Neutrophils # (auto) 5.02 K/uL (1.4-6.5); Neutrophils % (auto) 54.6 %; Platelet Count 233 K/uL (130-400); RDW Coefficient of Variation 14.2 % (11.5-14.5); RDW Standard Deviation 47.4 fL (36.4-46.3); Red Blood Count 4.58 M/uL (4.7-6.1)
--- NOTE | 2020-02-14 16:06 | Emergency Department Note ---
Impression & Plan Weakness, Fall, Generally unsteady ED Provider Note NAME: ABIGAIL KAY AGE: 79 SEX: M : 1940 ARRIVES VIA: Walk-In INFORMANT: [Patient][son, josefina ] ED PROVIDER(S): [Naman Sullivan MD] CHIEF COMPLAINT: Weakness HISTORY OF PRESENT ILLNESS: The patient is an 79-year-old male who presents to the ED with weakness that has been increasing for 3 to 4 months. The patient had back surgery last year and seemed to be doing well. Since October, he has had a decline in his stability and has become more weak. In the last weeks timeframe, he has fallen at least 5 times. He denies any injury. Patient states that his weakness is diffuse. It is not one-sided. He states that he starts to lose his balance and then cannot recover and falls. He was able to get up the last time on his own but times before, he has required assistance. The patient spoke to his doctor's office today, they referred him to the ED for further work-up. Of note, the patient is on Bactrim. He has frequent UTIs and has been on Bactrim since testing positive for UTI 3 days ago. He does not feel any different since being on the Bactrim. He denies any urinary complaints currently or even before the Bactrim was prescribed. There has been no recent vomiting or diarrhea, no headache, no chest pain or shortness of breath. The patient states that he has not had fever. The patient denies any known coronavirus exposures. He is here with his son. His son lives just 2 doors down. REVIEW OF SYSTEMS: See HPI for pertinent positives and negatives. A total of ten systems were reviewed and were otherwise negative. PMHx/PSHx: See Below SOCIAL HISTORY: See Below. PHYSICAL EXAM: GENERAL: Patient is in no acute distress. HEENT: No acute trauma, normocephalic atraumatic, mucous membranes moist, no nasal congestion, no scleral icterus. NECK: No stridor, no adenopathy, no meningismus, trachea is midline. LUNGS: Clear to auscultation bilaterally, no wheeze, no rhonchi, breath sounds equal. HEART: Without murmurs gallops or rubs, regular rate and rhythm. ABDOMEN: Soft, nontender, bowel sounds positive, no hernias, no peritonitis. EXTREMITIES: No cyanosis, mild bilateral pedal edema, full range of motion of all the joints without pain or difficulty, no signs for acute trauma. NEUROLOGIC: Oriented x 3, no acute motor or sensory deficits, no focal weakness. No speech slur or facial droop, no one-sided weakness. No extremity drift or cerebellar dysfunction. He can raise both legs off the bed without any difficulty. SKIN: No rash, no jaundice, no diaphoresis. DIFFERENTIAL DIAGNOSIS: Infection, dehydration, metabolic abnormality, medication reaction, stroke, hypo/hyperglycemia, electrolyte disturbance, anemia, hypoxia, cardiac sources, intracerebral event, toxicologic, neurologic, as well as other pathologies. EMERGENCY DEPARTMENT COURSE/PROCEDURES: ECG: Indication is weakness. The EKG shows a sinus rhythm with a first-degree AV block. The rate is 89. The QTc is 467. There is no ST elevation, no PVCs. 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 Continuous Cardiac Monitoring: An order was placed for continuous cardiac monitoring. The monitor shows a rate of 88 with sinus rhythm and a first-degree AV block. Orthostatic vital signs are negative. MEDICAL DECISION MAKING: There is no leukocytosis or concerning anemia. There is a normal platelet count. No coagulopathy. No significant electrolyte abnormality or kidney failure. There were a few subtle liver enzyme elevations, the bilirubin though was normal. The patient appeared to be in a euthyroid state. Urinalysis did not show infection or significant hematuria. Some contamination was seen. EKG shows a sinus rhythm, no acute ischemia. Cardiac enzyme testing x1 is not consistent with acute cardiac injury. Chest film does not show pneumonia or CHF. There was no pneumothorax. Brain CT shows no acute bleed or mass-effect. On exam, the patient had equal strength in both lower extremities, there was no speech slur, he was awake and interactive. As per the nursing staff, the patient had a very difficult time ambulating to the bathroom. Official orthostatic vital signs were negative. The patient received IV saline for hydration. He is currently resting comfortably. Given the frequent falls, given his escalating symptoms, given the weakness noted by the nursing staff, I do not think the patient is safe for discharge home. Further work-up/care is required. The patient may in fact require rehab therapy at some point. I spoke to the patient and his son, case management has been involved. The on- call hospitalist was consulted. Past Med/Surg History Medical History Anxiety BPH (benign prostatic hyperplasia) Chronic pain syndrome GERD (gastroesophageal reflux disease) Gout Insomnia Kidney stones Microscopic hematuria Spinal stenosis Surgical History History of back surgery History of colonoscopy History of lithotripsy S/P TURP Family History Grandmother Family history of diabetes mellitus Social History Preferred Language: Salvadorean Communication Ability: Effective Senior Underwriter Required: No Beliefs That Will Affect Care: None Current Living Situation: Spouse Other Information That Helps Us Care for You: No Feels Safe at Home: Yes Safety Concerns: Feels Safe At This Time Smoking Status: Former smoker Tobacco Type: cigarettes ; Cigarettes Per Day: 55 years ago ; Do You Dip or Chew Tobacco: No ; Second Hand Exposure: No ; Tobacco Cessation Education Requested by Patient: No Hx Alcohol Use: No Hx Substance Use: No Allergies Allergies Allergy/AdvReac Type Severity Reaction Status Date / Time Penicillins Allergy Intermediate HIVES Verified 02/14/20 16:11 morphine AdvReac Mild N&V Verified 02/14/20 16:11 Home Meds Home Medications Medication Instructions Recorded Confirmed allopurinol [Zyloprim] 300 mg PO QAM 08/03/18 02/14/20 bupropion HCl [Wellbutrin XL] 300 mg PO QAM 08/03/18 02/14/20 cholecalciferol (vitamin D3) 5,000 unit PO QAM 08/03/18 02/14/20 [Vitamin D3] cyanocobalamin (vitamin B-12) 1,000 mcg PO QAM 08/03/18 02/14/20 [Vitamin B-12] ibuprofen [Advil] 200 - 600 mg PO QID PRN 08/03/18 02/14/20 omega 3-ksc-kvg-fish oil [Fish Oil] 1 cap PO QAM 08/03/18 02/14/20 oxycodone [Roxicodone] 1 - 2 tab PO Q6H PRN 08/03/18 02/14/20 alprazolam [Xanax] 1 mg PO Q6H PRN 02/14/20 02/14/20 finasteride [Proscar] 5 mg PO QAM 02/14/20 02/14/20 sulfamethoxazole-trimethoprim 1 tab PO BID 02/14/20 02/14/20 [Bactrim DS] tamsulosin [Flomax] 0.4 mg PO QAM 02/14/20 02/14/20 Results & Data (ED) Vital Signs Vital Signs - 24 hr 02/14/20 15:19 02/14/20 16:09 02/14/20 16:17 Temperature 36.8 C Temperature Source Oral Pulse Rate - Lying 87 Pulse Rate - Sitting 88 Pulse Rate - Standing 90 Pulse Rate 93 H Pulse Rate [Apical] 72 Pulse Rate from SpO2 Sensor Pulse Rhythm [Apical] Regular Respiratory Rate 20 18 Respiratory Effort / Characteristics Non-Labored Spontaneous Non-Labored Spontaneous Respiratory Depth Normal Normal Respiratory Pattern Regular Regular Blood Pressure - Lying 170/94 H Blood Pressure - Sitting 162/102 H Blood Pressure- Standing 165/100 H Blood Pressure 151/95 H Blood Pressure [Right Arm] 165/100 H Blood Pressure Mean 113 Blood Pressure Mean [Right Arm] 121 Pulse Oximetry 97 98 Oxygen Delivery Method Room Air Room Air Sepsis Recent Fever Within 48 Hours No Sepsis Action Taken by Nursing No Action Required 02/14/20 18:29 02/14/20 18:30 02/14/20 19:00 Temperature Temperature Source Pulse Rate - Lying Pulse Rate - Sitting Pulse Rate - Standing Pulse Rate 84 85 Pulse Rate [Apical] 84 Pulse Rate from SpO2 Sensor 84 87 Pulse Rhythm [Apical] Regular Respiratory Rate 18 15 19 Respiratory Effort / Characteristics Non-Labored Spontaneous Respiratory Depth Normal Respiratory Pattern Regular Blood Pressure - Lying Blood Pressure - Sitting Blood Pressure- Standing Blood Pressure 162/98 H 176/100 H Blood Pressure [Right Arm] 162/98 H Blood Pressure Mean 132 127 Blood Pressure Mean [Right Arm] 119 Pulse Oximetry 97 97 98 Oxygen Delivery Method Room Air Sepsis Recent Fever Within 48 Hours Sepsis Action Taken by Nursing 02/14/20 19:30 Temperature Temperature Source Pulse Rate - Lying Pulse Rate - Sitting Pulse Rate - Standing Pulse Rate 86 Pulse Rate [Apical] Pulse Rate from SpO2 Sensor Pulse Rhythm [Apical] Respiratory Rate 15 Respiratory Effort / Characteristics Respiratory Depth Respiratory Pattern Blood Pressure - Lying Blood Pressure - Sitting Blood Pressure- Standing Blood Pressure 144/91 H Blood Pressure [Right Arm] Blood Pressure Mean 121 Blood Pressure Mean [Right Arm] Pulse Oximetry Oxygen Delivery Method Sepsis Recent Fever Within 48 Hours Sepsis Action Taken by Half-Way Medications Current Medication List: was personally reviewed by me Laboratory Data Attestation: I reviewed the patient's lab results. Result diagrams: 02/14/20 15:49 02/14/20 15:49 Lab Results 02/14/20 02/14/20 02/14/20 Range/Units 15:49 15:49 15:49 WBC 9.20 (4.8-10.8) K/uL RBC 4.58 L (4.7-6.1) M/uL Hgb 14.6 (14.0-18.0) g/dL Hct 42.0 (42-52) % MCV 91.7 (80-100) fL MCH 31.9 (25-34) pg MCHC 34.8 (32-36) g/dL RDW Std Deviation 47.4 H (36.4-46.3) fL RDW Coeff of Jaelyn 14.2 (11.5-14.5) % Plt Count 233 (130-400) K/uL MPV 9.3 (7.4-10.4) fL Immature Gran % (Auto) 0.2 % Neut % (Auto) 54.6 % Lymph % (Auto) 31.6 % Warrick % (Auto) 9.8 % Eos % (Auto) 3.5 % Baso % (Auto) 0.3 % Immature Gran # (Auto) 0.02 (0.00-0.02) K/uL Neut # (Auto) 5.02 (1.4-6.5) K/uL Lymph # (Auto) 2.91 (1.2-3.4) K/uL Warrick # (Auto) 0.90 H (0.11-0.59) K/uL Eos # (Auto) 0.32 (0-0.5) K/uL Baso # (Auto) 0.03 (0-0.2) K/uL PT 10.9 (9.0-12.0) Seconds INR 1.0 (0.9-1.1) APTT 25.3 (21.0-31.0) Seconds PTT Ratio 0.9 Sodium 135 L (136-145) mmol/L Potassium 3.7 (3.5-5.1) mmol/L Chloride 105 (98-107) mmol/L Carbon Dioxide 24 (21-32) mmol/L Anion Gap 6.0 (3-11) BUN 16 (7-18) mg/dl Creatinine 1.06 (0.6-1.4) mg/dl Est Cr Clr Drug Dosing 59.6 ml/min Est GFR ( Amer) 75.9 Est GFR (Non-Af Amer) 65.5 BUN/Creatinine Ratio 14.8 (10-20) Glucose 100 H (70-99) mg/dl Calcium 9.0 (8.5-10.1) mg/dl Magnesium 2.1 (1.8-2.4) mg/dl Total Bilirubin 0.7 (0.2-1) mg/dl AST 90 H (15-37) U/L ALT 79 H (12-78) U/L Alkaline Phosphatase 82 (45-117) U/L Troponin I < 0.015 (0-0.045) ng/ml Total Protein 6.7 (6.4-8.2) gm/dl Albumin 3.6 (3.4-5.0) gm/dl Globulin 3.1 (2.5-4.0) gm/dl Albumin/Globulin Ratio 1.1 (0.9-2) TSH 1.320 (0.300-4.500) uIu/ml Urine Color Urine Appearance (Clear) Urine pH (4.5-7.5) Ur Specific [place] (1.000-1.030) Urine Protein (Negative) Urine Glucose (UA) (Negative) Urine Ketones (Negative) Urine Blood (Negative) Urine Nitrite (Negative) Urine Bilirubin (Negative) Urine Urobilinogen (Negative) Ur Leukocyte Esterase (Negative) Urine WBC (Auto) (0-5) /hpf Urine RBC (Auto) (0-4) /hpf U Hyaline Cast (Auto) (0-5) /lpf U Epithel Cells (Auto) (0-5) /lpf Urine Bacteria (Auto) (Negative) 02/14/20 Range/Units 16:52 WBC (4.8-10.8) K/uL RBC (4.7-6.1) M/uL Hgb (14.0-18.0) g/dL Hct (42-52) % MCV (80-100) fL MCH (25-34) pg MCHC (32-36) g/dL RDW Std Deviation (36.4-46.3) fL RDW Coeff of Jaelyn (11.5-14.5) % Plt Count (130-400) K/uL MPV (7.4-10.4) fL Immature Gran % (Auto) % Neut % (Auto) % Lymph % (Auto) % Warrick % (Auto) % Eos % (Auto) % Baso % (Auto) % Immature Gran # (Auto) (0.00-0.02) K/uL Neut # (Auto) (1.4-6.5) K/uL Lymph # (Auto) (1.2-3.4) K/uL Warrick # (Auto) (0.11-0.59) K/uL Eos # (Auto) (0-0.5) K/uL Baso # (Auto) (0-0.2) K/uL PT (9.0-12.0) Seconds INR (0.9-1.1) APTT (21.0-31.0) Seconds PTT Ratio Sodium (136-145) mmol/L Potassium (3.5-5.1) mmol/L Chloride (98-107) mmol/L Carbon Dioxide (21-32) mmol/L Anion Gap (3-11) BUN (7-18) mg/dl Creatinine (0.6-1.4) mg/dl Est Cr Clr Drug Dosing ml/min Est GFR ( Amer) Est GFR (Non-Af Amer) BUN/Creatinine Ratio (10-20) Glucose (70-99) mg/dl Calcium (8.5-10.1) mg/dl Magnesium (1.8-2.4) mg/dl Total Bilirubin (0.2-1) mg/dl AST (15-37) U/L ALT (12-78) U/L Alkaline Phosphatase (45-117) U/L Troponin I (0-0.045) ng/ml Total Protein (6.4-8.2) gm/dl Albumin (3.4-5.0) gm/dl Globulin (2.5-4.0) gm/dl Albumin/Globulin Ratio (0.9-2) TSH (0.300-4.500) uIu/ml Urine Color Yellow Urine Appearance Clear (Clear) Urine pH 6.5 (4.5-7.5) Ur Specific [place] 1.017 (1.000-1.030) Urine Protein Trace H (Negative) Urine Glucose (UA) Negative (Negative) Urine Ketones Negative (Negative) Urine Blood Trace H (Negative) Urine Nitrite Negative (Negative) Urine Bilirubin Negative (Negative) Urine Urobilinogen Negative (Negative) Ur Leukocyte Esterase Negative (Negative) Urine WBC (Auto) 1-5 (0-5) /hpf Urine RBC (Auto) 0-4 (0-4) /hpf U Hyaline Cast (Auto) 5-10 H (0-5) /lpf U Epithel Cells (Auto) >30 H (0-5) /lpf Urine Bacteria (Auto) Negative (Negative) Administered Medications Alprazolam (Xanax) 1 mg PO Q6H PRN PRN Reason: Anxiety Stop: 03/15/20 20:50 Last Admin: 02/14/20 21:43 Dose: 1 mg Documented by: [id number] Heparin Sodium (Porcine) (Heparin Sodium (Porcine)) 5,000 units SQ Q12 VÍCTOR Stop: 03/15/20 20:59 Last Admin: 02/14/20 21:51 Dose: Not Given Documented by: [id number] Zolpidem Tartrate (Ambien) 5 mg PO HS PRN PRN Reason: Sleep Stop: 03/15/20 20:50 Last Admin: 02/14/20 21:43 Dose: 5 mg Documented by: [id number] Discontinued Medications Sodium Chloride (Nss) 500 mls @ 999 mls/hr IV .Q31M VÍCTOR Stop: 02/14/20 16:30 Last Infusion: 02/14/20 17:48 Dose: 0 mls/hr Documented by: [id number] Admin: 02/14/20 16:00 Dose: 999 mls/hr Documented by: [id number] Imaging Data Radiologist's Impression: XR chest 1V portable CLINICAL HISTORY: weakness COMPARISON STUDY: 12/19/2019 FINDINGS: The cardiac and mediastinal contours are normal. There is no evidence of focal pulmonary consolidation. There is no evidence of failure. No pleural effusions are visualized.[Osteoarthritic changes are present within both shoulders IMPRESSION: No active disease in the chest. CT head/brain wo con CLINICAL HISTORY: confusion, falls, weakness COMPARISON STUDY: 12/19/2019 TECHNIQUE: Axial CT of the brain is performed from the vertex to the skull base. IV contrast was not administered for this examination. A dose lowering technique was utilized adhering to the principles of ALARA. CT DOSE: 614.27 mGy.cm FINDINGS: No intra or extra-axial mass lesions are visualized. There is no CT evidence of acute cortical infarction. There is no evidence of midline shift. There is no acute hemorrhage. No calvarial fractures are visualized. There are moderate white matter hypodensities likely on a small vessel basis. There is no evidence of pathologic ventricular dilatation. There is no evidence of acute sinusitis IMPRESSION: No acute intracranial findings Blood Pressure Blood Pressure Findings: Elevated blood pressure Blood Pressure Disposition: further management by hospitalist Discharge Plan Visit Data *Final* Discharge Date/Time: 02/14/20 20:29 Chief Complaint: Leg Weakness, Bilateral Stated Complaint: FALLING ALOT ED Provider: Naman Sullivan Discharge Problem: Weakness, Fall, Generally unsteady Patient Disposition: Admitted As Inpatient Condition: Good Discharge Instructions Interventions: ED Discharge Assessment Last Done: 02/14/20 20:29 Discharge Problem: Fall Qualifiers: Encounter type: initial encounter Qualified Code(s): W19.XXXA - Unspecified fall, initial encounter
[2020-02-14 16:11] LABS: Partial Thromboplastin Ratio 0.9; Partial Thromboplastin Time 25.3 Seconds (21.0-31.0); Prothrombin Time 10.9 Seconds (9.0-12.0)
[2020-02-14 16:19] LABS: Alanine Aminotransferase 79 U/L (12-78); Albumin Level 3.6 gm/dl (3.4-5.0); Aspartate Aminotransferase 90 U/L (15-37); BUN Creatinine Ratio 14.8 (10-20); Blood Urea Nitrogen 16 mg/dl (7-18); Carbon Dioxide 24 mmol/L (21-32); Chloride 105 mmol/L (98-107); Creatinine Clr Calc Pharmacy 59.6 ml/min; Est GFR (African American) 75.9; Est GFR (Non-African American) 65.5; Glucose 100 mg/dl (70-99); Magnesium 2.1 mg/dl (1.8-2.4); Potassium 3.7 mmol/L (3.5-5.1); Sodium 135 mmol/L (136-145)
[2020-02-14 16:28] LABS: Albumin Globulin Ratio 1.1 (0.9-2); Alkaline Phosphatase 82 U/L (45-117); Bilirubin,Total 0.7 mg/dl (0.2-1); Globulin 3.1 gm/dl (2.5-4.0); Total Protein 6.7 gm/dl (6.4-8.2); Troponin I < 0.015 ng/ml (0-0.045)
--- NOTE | 2020-02-14 17:15 | CT Scan Report ---
CT head/brain wo con CLINICAL HISTORY: confusion, falls, weakness COMPARISON STUDY: 12/19/2019 TECHNIQUE: Axial CT of the brain is performed from the vertex to the skull base. IV contrast was not administered for this examination. A dose lowering technique was utilized adhering to the principles of ALARA. CT DOSE: 614.27 mGy.cm FINDINGS: No intra or extra-axial mass lesions are visualized. There is no CT evidence of acute cortical infarc tion. There is no evidence of midline shift. There is no acute hemorrhage. No calvarial fractures ar e visualized. There are moderate white matter hypodensities likely on a small vessel basis. There is no evidence of pathologic ventricular dilatation. There is no evidence of acute sinusitis IMPRESSION: No acute intracranial findings ACT 112: Negative or not required by law. Electronically signed by: Kaushik Obregon M.D. 02/14/2020 5:14 PM
[2020-02-14 17:19] LABS: Appearance Urine Clear (Clear); Bacteria Urine Automated Negative (Negative); Bilirubin Urine Negative (Negative); Blood Urine Trace (Negative); Color Urine Yellow; Epithelial Cell Urine Auto >30 /lpf (0-5); Glucose Urine UA Negative (Negative); Ketones Urine Negative (Negative); Leukocyte Esterase Urine Negative (Negative); Nitrite Urine Negative (Negative); Protein Urine Trace (Negative); RBC Urine Automated 0-4 /hpf (0-4); Specific Gravity Urine 1.017 (1.000-1.030); Urobilinogen Urine Negative (Negative); pH Urine 6.5 (4.5-7.5)
--- NOTE | 2020-02-14 17:28 | XRay Report ---
XR chest 1V portable CLINICAL HISTORY: weakness COMPARISON STUDY: 12/19/2019 FINDINGS: The cardiac and mediastinal contours are normal. There is no evidence of focal pulmonary co nsolidation. There is no evidence of failure. No pleural effusions are visualized.[Osteoarthritic lianet nges are present within both shoulders IMPRESSION: No active disease in the chest. ACT 112: Negative or not required by law. Electronically signed by: Kaushik Obregon M.D. 02/14/2020 5:26 PM
--- NOTE | 2020-02-14 19:43 | History & Physical Report ---
Date of Service February 14, 2020 Assessment & Plan (1) Fall: Patient presents with progressive decline in strength over the last 3 months, with 5 falls in the last week. Falls seem to be related to bilateral lower extremity weakness, but are more like drop attacks. He has full strength throughout on physical examination here upon admission. He does have a history of lumbar spine surgery x2, the most recent being in the summer 2018 at [place]. He does have some urinary incontinence. CT of the head shows no pathologic dilatation of the ventricles, but question of could have NPH? Nonetheless, his falls do not seem to be related to orthostasis, and are not associated with chest pain or heart palpitations and are therefore not likely related to arrhythmias or cardiac ischemia. There is no evidence of infection at this time and antibiotics do not need to be continued. His AST and ALT are mildly elevated for unclear reason-could be induced by antibiotic hepatotoxicity versus viral infection versus tickborne illness although there is no fever now or ever in recent times. -Admit on observation for further evaluation for cause of falls -Check lumbar spine MRI and consider orthopedic spine surgery evaluation -Consideration could be made for brain MRI versus neuro consultation to further explore these signs and symptoms, giving consideration for NPH as above -PT/OT evaluations requested and patient likely needs acute rehab placement (2) Spinal stenosis: As noted above with a history of spinal surgery x2, most recently being [facility] in the summer 2018 -Obtaining MRI lumbar spine (3) Elevated transaminase level: AST and ALT are both minimally elevated at this time He denies any abdominal pain, denies nausea/vomiting/diarrhea or any bowel changes Will check CPK in the morning given that he does have positive blood on urinalysis dipstick with no RBCs on microscopy-could be myoglobinuria from mild rhabdo from multiple falls? -Follow LFTs in the morning -If worsening, consider imaging of the liver and testing for hepatitis -Discontinuing Bactrim that was started 3 days ago in case causing hepatotoxicity -Doubt he has a tickborne illness or any viral illness as he has no fevers (4) Insomnia: Chronic, is not treated well with his current alprazolam and given hospital setting, he is requesting something else -Will trial small dose of Ambien 5 mg p.o. nightly as needed (5) Gout: Continue allopurinol for prophylaxis (6) Kidney stones: Long history of such (7) BPH (benign prostatic hyperplasia): Continue Flomax, finasteride, and watch for urinary retention (8) Anxiety: Continue bupropion and Xanax as needed (9) Chronic pain syndrome: Of the lower back -Continue home oxycodone and ibuprofen as needed (10) DVT prophylaxis: SCDs, Heparin SQ FEN-continue home vitamins with vitamin D, vitamin B12, fish oil Disposition-admit on observation for further evaluation as above and possible acute rehab placement DNR/DNI as discussed with the patient and his son at the bedside. 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 History of Present Illness Chief Complaint: Multiple falls Primary Care Provider: Santosh Cassidy MD Mr. Rosenthal is an 79yo gentleman with a PMHx significant for Anxiety, insomnia, BPH, Gout, GERD, nephrolithiasis and chronic lower back pain who presents with multiple falls in the last week-up to 5. His son helps provide the history as the patient is obviously annoyed that he is being admitted for observation overnight in the hospital and does not want to be here. The son reports that since his back surgery last year at [place], he never really regained much strength, however his lower back pain is gone. He typically has weakness in the left greater than right lower extremities, but since October of this year, he has progressively declined with his strength. The patient denies any preceding lightheadedness or chest pain, no heart palpitations. He has no new focal weakness, and has chronic numbness of the toes of both feet, but no new numbness or tingling. His son reports sometimes he can take a whole lap around the yard with his walker, and other times he can barely walk and his legs give out and the patient is able to slide to the ground. He has hit his head a couple of times this past week, but has not lost consciousness and denies any major injuries. He denies any radicular shooting pains down the lower extremities and no new back pain. He denies any fevers or myalgias, no new joint pains, no rashes, no cough or shortness of breath, no chest pain, no nausea/vomiting since his admission here 6 weeks ago for such, and no changes in bowel habits. He has been complaining of polyuria and some mild urinary incontinence at times and in fact was placed on Bactrim 3 days ago by his PCP empirically for UTI but this has not changed any of his symptoms. He will be admitted on observation for further work-up for multiple falls and PT/OT evaluations for likely placement at acute rehab. Allergies Allergy/AdvReac Type Severity Reaction Status Date / Time Penicillins Allergy Intermediate HIVES Verified 02/14/20 16:11 morphine AdvReac Mild N&V Verified 02/14/20 16:11 Home Medications Home Medications Medication Instructions Recorded Confirmed Type allopurinol [Zyloprim] 300 mg PO QAM 08/03/18 02/14/20 History bupropion HCl [Wellbutrin XL] 300 mg PO QAM 08/03/18 02/14/20 History cholecalciferol (vitamin D3) 5,000 unit PO QAM 08/03/18 02/14/20 History [Vitamin D3] cyanocobalamin (vitamin B-12) 1,000 mcg PO QAM 08/03/18 02/14/20 History [Vitamin B-12] ibuprofen [Advil] 200 - 600 mg PO QID PRN 08/03/18 02/14/20 History omega 7-[id number]-[id number]-fish oil [Fish Oil] 1 cap PO QAM 08/03/18 02/14/20 History oxycodone [Roxicodone] 1 - 2 tab PO Q6H PRN 08/03/18 02/14/20 History alprazolam [Xanax] 1 mg PO Q6H PRN 02/14/20 02/14/20 History finasteride [Proscar] 5 mg PO QAM 02/14/20 02/14/20 History sulfamethoxazole-trimethoprim 1 tab PO BID 02/14/20 02/14/20 History [Bactrim DS] tamsulosin [Flomax] 0.4 mg PO QAM 02/14/20 02/14/20 History Past Med/Surg History Medical History Anxiety BPH (benign prostatic hyperplasia) GERD (gastroesophageal reflux disease) Gout Insomnia Kidney stones Spinal stenosis Surgical History History of back surgery History of colonoscopy History of lithotripsy S/P TURP Family History Grandmother Family history of diabetes mellitus Social History Preferred Language: Thai Communication Ability: Effective 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 Beliefs That Will Affect Care: None Current Living Situation: Spouse Other Information That Helps Us Care for You: No Feels Safe at Home: Yes Safety Concerns: Feels Safe At This Time Smoking Status: Former smoker Tobacco Type: cigarettes ; Cigarettes Per Day: 55 years ago ; Do You Dip or Chew Tobacco: No ; Second Hand Exposure: No ; Tobacco Cessation Education Requested by Patient: No Hx Alcohol Use: No Hx Substance Use: No Review of Systems Review of Systems: All systems reviewed & are unremarkable except as noted in HPI & below As per HPI, plus significant insomnia and requests "what are you going to give me for sleep tonight?" Physical Exam Constitutional: WD/WN, vitals as above Eyes: PERRL, conjunctivae normal, anicteric sclerae ENMT: external ear and nose normal, oropharynx normal Neck: trachea midline, no thyromegaly Respiratory: normal respiratory effort, lungs clear to auscultation Cardiovascular: RRR, no murmur, no edema Chest (Breasts): Chest: normal inspection of chest Gastrointestinal (Abdomen): normal bowel sounds, soft, nontender, no hepatosplenomegaly Musculoskeletal: Extremities: extremities normal to inspection; no cyanosis and no clubbing Skin: no rashes, warm and dry Neurologic: moves all extremities and awake; no focal motor deficits (Quite strong throughout bilateral lower and upper extremities 5/5) and not confused Motor/Sensory: + sensory deficit (Numbness in all toes bilaterally) Psychiatric: A+Ox3, euthymic affect Lymphatic: no lymphedema Results & Data Results & Data ([facility]) Vital Signs (Past 12 Hours) Vital Signs Temp Pulse Pulse Resp BP BP Pulse Ox 02/14/20 18:29 84 18 162/98 H 97 02/14/20 16:09 72 18 165/100 H 98 02/14/20 15:19 36.8 C 93 H 20 151/95 H 97 Laboratory Results 02/14/20 02/14/20 02/14/20 Range/Units 16:52 15:49 15:49 WBC (4.8-10.8) K/uL RBC (4.7-6.1) M/uL Hgb (14.0-18.0) g/dL Hct (42-52) % MCV (80-100) fL MCH (25-34) pg MCHC (32-36) g/dL RDW Std Deviation (36.4-46.3) fL RDW Coeff of Jaelyn (11.5-14.5) % Plt Count (130-400) K/uL MPV (7.4-10.4) fL Immature Gran % (Auto) % Neut % (Auto) % Lymph % (Auto) % [place] % (Auto) % Eos % (Auto) % Baso % (Auto) % Immature Gran # (Auto) (0.00-0.02) K/uL Neut # (Auto) (1.4-6.5) K/uL Lymph # (Auto) (1.2-3.4) K/uL [place] # (Auto) (0.11-0.59) K/uL Eos # (Auto) (0-0.5) K/uL Baso # (Auto) (0-0.2) K/uL PT 10.9 (9.0-12.0) Seconds INR 1.0 (0.9-1.1) APTT 25.3 (21.0-31.0) Seconds PTT Ratio 0.9 Sodium 135 L (136-145) mmol/L Potassium 3.7 (3.5-5.1) mmol/L Chloride 105 (98-107) mmol/L Carbon Dioxide 24 (21-32) mmol/L Anion Gap 6.0 (3-11) BUN 16 (7-18) mg/dl Creatinine 1.06 (0.6-1.4) mg/dl Est Cr Clr Drug Dosing 59.6 ml/min Est GFR ( Amer) 75.9 Est GFR (Non-Af Amer) 65.5 BUN/Creatinine Ratio 14.8 (10-20) Glucose 100 H (70-99) mg/dl Calcium 9.0 (8.5-10.1) mg/dl Magnesium 2.1 (1.8-2.4) mg/dl Total Bilirubin 0.7 (0.2-1) mg/dl AST 90 H (15-37) U/L ALT 79 H (12-78) U/L Alkaline Phosphatase 82 (45-117) U/L Troponin I < 0.015 (0-0.045) ng/ml Total Protein 6.7 (6.4-8.2) gm/dl Albumin 3.6 (3.4-5.0) gm/dl Globulin 3.1 (2.5-4.0) gm/dl Albumin/Globulin Ratio 1.1 (0.9-2) TSH 1.320 (0.300-4.500) uIu/ml Urine Color Yellow Urine Appearance Clear (Clear) Urine pH 6.5 (4.5-7.5) Ur Specific [place] 1.017 (1.000-1.030) Urine Protein Trace H (Negative) Urine Glucose (UA) Negative (Negative) Urine Ketones Negative (Negative) Urine Blood Trace H (Negative) Urine Nitrite Negative (Negative) Urine Bilirubin Negative (Negative) Urine Urobilinogen Negative (Negative) Ur Leukocyte Esterase Negative (Negative) Urine WBC (Auto) 1-5 (0-5) /hpf Urine RBC (Auto) 0-4 (0-4) /hpf U Hyaline Cast (Auto) 5-10 H (0-5) /lpf U Epithel Cells (Auto) >30 H (0-5) /lpf Urine Bacteria (Auto) Negative (Negative) 02/14/20 Range/Units 15:49 WBC 9.20 (4.8-10.8) K/uL RBC 4.58 L (4.7-6.1) M/uL Hgb 14.6 (14.0-18.0) g/dL Hct 42.0 (42-52) % MCV 91.7 (80-100) fL MCH 31.9 (25-34) pg MCHC 34.8 (32-36) g/dL RDW Std Deviation 47.4 H (36.4-46.3) fL RDW Coeff of Jaelyn 14.2 (11.5-14.5) % Plt Count 233 (130-400) K/uL MPV 9.3 (7.4-10.4) fL Immature Gran % (Auto) 0.2 % Neut % (Auto) 54.6 % Lymph % (Auto) 31.6 % [place] % (Auto) 9.8 % Eos % (Auto) 3.5 % Baso % (Auto) 0.3 % Immature Gran # (Auto) 0.02 (0.00-0.02) K/uL Neut # (Auto) 5.02 (1.4-6.5) K/uL Lymph # (Auto) 2.91 (1.2-3.4) K/uL [place] # (Auto) 0.90 H (0.11-0.59) K/uL Eos # (Auto) 0.32 (0-0.5) K/uL Baso # (Auto) 0.03 (0-0.2) K/uL PT (9.0-12.0) Seconds INR (0.9-1.1) APTT (21.0-31.0) Seconds PTT Ratio Sodium (136-145) mmol/L Potassium (3.5-5.1) mmol/L Chloride (98-107) mmol/L Carbon Dioxide (21-32) mmol/L Anion Gap (3-11) BUN (7-18) mg/dl Creatinine (0.6-1.4) mg/dl Est Cr Clr Drug Dosing ml/min Est GFR ( Amer) Est GFR (Non-Af Amer) BUN/Creatinine Ratio (10-20) Glucose (70-99) mg/dl Calcium (8.5-10.1) mg/dl Magnesium (1.8-2.4) mg/dl Total Bilirubin (0.2-1) mg/dl AST (15-37) U/L ALT (12-78) U/L Alkaline Phosphatase (45-117) U/L Troponin I (0-0.045) ng/ml Total Protein (6.4-8.2) gm/dl Albumin (3.4-5.0) gm/dl Globulin (2.5-4.0) gm/dl Albumin/Globulin Ratio (0.9-2) TSH (0.300-4.500) uIu/ml Urine Color Urine Appearance (Clear) Urine pH (4.5-7.5) Ur Specific [place] (1.000-1.030) Urine Protein (Negative) Urine Glucose (UA) (Negative) Urine Ketones (Negative) Urine Blood (Negative) Urine Nitrite (Negative) Urine Bilirubin (Negative) Urine Urobilinogen (Negative) Ur Leukocyte Esterase (Negative) Urine WBC (Auto) (0-5) /hpf Urine RBC (Auto) (0-4) /hpf U Hyaline Cast (Auto) (0-5) /lpf U Epithel Cells (Auto) (0-5) /lpf Urine Bacteria (Auto) (Negative) Diagnostic Findings CT head/brain wo con CLINICAL HISTORY: confusion, falls, weakness COMPARISON STUDY: 12/19/2019 TECHNIQUE: Axial CT of the brain is performed from the vertex to the skull base. IV contrast was not administered for this examination. A dose lowering technique was utilized adhering to the principles of ALARA. CT DOSE: 614.27 mGy.cm FINDINGS: No intra or extra-axial mass lesions are visualized. There is no CT evidence of acute cortical infarction. There is no evidence of midline shift. There is no acute hemorrhage. No calvarial fractures are visualized. There are moderate white matter hypodensities likely on a small vessel basis. There is no evidence of pathologic ventricular dilatation. There is no evidence of acute sinusitis IMPRESSION: No acute intracranial findings Chest x-ray-no acute disease ECG Additional Comments: ECG with sinus rhythm with first-degree AV block, inferior infarct now present compared to previous Code Status & VTE Plan Code Status DNR/DNI VTE Prophylaxis Plan VTE Prophylaxis will be ordered: Yes PG Care Time/CCT Total # of Minutes Spent Total Time Spent with Patient: Total time spent is greater than 50% in coordination of care (as documented) at patient's floor/unit and/or counseling patient: Coding Level of Care Code 84460 OBS Care - Level 3 Diagnoses Fall W19.XXXA Encounter type: initial encounter Spinal stenosis M48.00 Elevated transaminase level R74.0 Insomnia G47.00 Gout M10.9 Kidney stones N20.0 BPH (benign prostatic hyperplasia) N40.0 Anxiety F41.9 Chronic pain syndrome G89.4 DVT prophylaxis Z29.9 (1) Fall Encounter type: initial encounter Qualified Code(s): W19.XXXA - Unspecified fall, initial encounter
[2020-02-14] MEDS ORDERED: ALPRAZolam 0.5 MG TABLET PO PRN (20:51)
[2020-02-14] MEDS ORDERED: ALUMINUM/MAGNESIUM SUSP 30 ML UDC PO PRN (20:51)
[2020-02-14] MEDS ORDERED: ACETAMINOPHEN 325 MG TAB PO PRN (20:51)
[2020-02-14] MEDS ORDERED: ZOLPIDEM TARTRATE 5 MG TAB PO PRN (20:51)
[2020-02-14] MEDS ORDERED: POLYETHYLENE (MIRALAX) 17 GM PACK PO PRN (20:51)
[2020-02-14] MEDS ORDERED: MAGNESIUM HYDROXIDE SUSP 30 ML UDC PO PRN (20:51)
[2020-02-14] MEDS ORDERED: ONDANSETRON INJ 2 MG/ML 2 ML VIAL IV PRN (20:51)
--- NOTE | 2020-02-14 20:58 | Magnetic Resonance Report ---
MR lumbar spine wo con CLINICAL HISTORY: Leg weakness, inability to cannulate. History of lumbar spinal surgery x3. TECHNIQUE: Sagittal and axial T1, T2 and STIR images were obtained. The patient refused intravenous c ontrast. COMPARISON STUDY: 12/24/2018 OBSERVATIONS: The examination is significantly limited from a technical standpoint secondary to motion artifact. Th e technologist reports the patient was claustrophobic and in pain. The patient was unable to hold sti ll. The patient refused intravenous contrast. There are no areas of marrow edema to indicate osteomyelitis. There are no areas of marrow replacemen t to indicate neoplasm. There is artifact secondary to a posterior spinal decompression with L2-L5 bilateral pedicle screws a nd posterior spinal rods. L1-2: There is no evidence of disc herniation. There is facet joint arthropathy and ligamentous hyper trophy. There is mild spinal stenosis. L2-3: There are postsurgical changes of a posterior spinal decompression and fusion. There is left-si ded foraminal narrowing. There is no significant spinal stenosis L3-4: There is a grade 1 spinal listhesis of L3 on L4. There is evidence for posterior decompression. There is bilateral foraminal stenosis. L4-5: There are postsurgical changes of a posterior decompression. There are no focal herniations. Th ere is no spinal stenosis. There is mild bilateral foraminal narrowing L5-S1: There is minimal retrolisthesis of L5 and S1. There is a circumferential disc bulge. There is no significant spinal stenosis. There is mild to moderate right-sided foraminal narrowing. The conus medullaris and cauda equina appear normal. IMPRESSION: 1. Motion degraded examination 2. No evidence of osteomyelitis. No evidence of neoplasm 3. Interval spinal decompression with L2-L5 posterior spinal fusion 4. Mild L1-2 spinal stenosis 3. Multilevel foraminal narrowing most severe at the L3-4 level. ACT 112: Negative or not required by law. Electronically signed by: Kaushik Obregon M.D. 02/14/2020 8:56 PM
[2020-02-14] MEDS ORDERED: OXYCODONE HCL IR 5 MG TAB (IMMEDIATE RELEASE) PO PRN (21:02)
[2020-02-14] MEDS: HEPARIN SOD 5,000 UNIT/0.5 ML VIAL SQ SCH (21:51)
[2020-02-15] MEDS: IBUPROFEN 200 MG TAB PO PRN ×2 (00:24→20:30)
[2020-02-15] MEDS ORDERED: TRAZODONE HCL 50 MG TAB PO ONE (02:28)
[2020-02-15 05:05] LABS: Basophils # (auto) 0.03 K/uL (0-0.2); Basophils % (auto) 0.4 %; Eosinophils # (auto) 0.38 K/uL (0-0.5); Eosinophils % (auto) 4.6 %; Hematocrit (blood only) 38.6 % (42-52); Hemoglobin 13.4 g/dL (14.0-18.0); Immature Granulocytes # (auto) 0.01 K/uL (0.00-0.02); Immature Granulocytes % (auto) 0.1 %; Lymphocytes # (auto) 2.43 K/uL (1.2-3.4); Lymphocytes % (auto) 29.4 %; Mean Corpuscular Hemoglobin 31.7 pg (25-34); Mean Corpuscular Hgb Conc 34.7 g/dL (32-36); Mean Corpuscular Volume 91.3 fL (80-100); Mean Platelet Volume 9.3 fL (7.4-10.4); Monocytes # (auto) 0.92 K/uL (0.11-0.59); Monocytes % (auto) 11.1 %; Neutrophils # (auto) 4.49 K/uL (1.4-6.5); Neutrophils % (auto) 54.4 %; Platelet Count 218 K/uL (130-400); RDW Coefficient of Variation 14.2 % (11.5-14.5); RDW Standard Deviation 46.8 fL (36.4-46.3); Red Blood Count 4.23 M/uL (4.7-6.1); White Blood Count 8.26 K/uL (4.8-10.8)
[2020-02-15 05:30] LABS: Albumin Level 3.5 gm/dl (3.4-5.0); BUN Creatinine Ratio 11.6 (10-20); Bilirubin Direct 0.2 mg/dl (0-0.2); Calcium 8.3 mg/dl (8.5-10.1); Creatinine Clr Calc Pharmacy 65.2 ml/min; Est GFR (African American) 84.5; Est GFR (Non-African American) 72.9; Potassium 3.6 mmol/L (3.5-5.1)
[2020-02-15 05:37] LABS: Bilirubin,Total 0.9 mg/dl (0.2-1); Total Protein 6.6 gm/dl (6.4-8.2)
[2020-02-15 08:08] LABS: Hepatitis B Surface Antigen Neg (Neg)
[2020-02-15 08:36] LABS: Hepatitis C IgG 13Yrs+Old_Rflx Neg (Neg)
[2020-02-15] MEDS: FINASTERIDE 5 MG TAB PO SCH (08:41)
[2020-02-15] MEDS: BuPROPion XL 300 MG TABCR PO SCH (08:41)
[2020-02-15] MEDS: allopurinoL 300 MG TAB PO SCH (08:41)
[2020-02-15] MEDS: TAMSULOSIN HCL 0.4 MG CAP PO SCH (08:41)
[2020-02-15] MEDS: CHOLECALCIFEROL 1,000 UNITS 25 MCG TAB PO SCH (08:41)
[2020-02-15] MEDS: OMEGA-3 (PURIFIED FISH OIL) 1 GM CAP PO SCH (08:42)
[2020-02-15] MEDS: CYANOCOBALAMIN 500 MCG TABLET (VITAMIN B-12) PO SCH (08:42)
[2020-02-15] MEDS: HEPARIN SOD 5,000 UNIT/0.5 ML VIAL SQ SCH ×3 (08:42→20:33)
--- NOTE | 2020-02-15 11:51 | Electrocardiogram Report ---
Test Reason : Blood Pressure : / mmHG Vent. Rate : 089 BPM Atrial Rate : 089 BPM P-R Int : 216 ms QRS Dur : 076 ms QT Int : 384 ms P-R-T Axes : 052 -33 012 degrees QTc Int : 467 ms Sinus rhythm with 1st degree A-V block Left axis deviation Low voltage QRS Inferior infarct , age undetermined Abnormal ECG When compared with ECG of 18-DEC-2019 23:39, QRS axis Shifted left Inferior infarct is now Present Confirmed by Lopez Mendoza ([id number]) on 02/15/2020 11:51:04 AM Referred By: REFERRED SELF Confirmed By:Lopez Mendoza
--- NOTE | 2020-02-15 13:22 | Hospitalist Progress Note ---
Date of Service February 15, 2020 Assessment & Plan (1) Fall: 79 yo M with PMH Anxiety, Insomnia, BPH, Gout, GERD, chronic LBP presents after many falls at home admitted for PT/OT evals for probable acute rehab placement . Fall -CT Head: No acute intracranial findings. No pathologic dilatation of the ventricles -progressive decline in strength over the last 3 months, per son -pt states that falls are related to him slipping on surfaces with some mechanical falls rather than b/l LE weakness -history of lumbar spine surgery x2, the most recent being in the summer 2018 at [place] -No preceding syncope or near syncope, do not seem to be related to orthostasis. No preceding CP or palpitations so not likely related to arrhythmias or cardiac ischemia. Other labs are unremarkable as well -Admit on observation for further evaluation for cause of falls--PT/OT evals pen bruce. Likely needs acute rehab placement -Reviewed home meds. No other recent medication changes besided Bactrim, which was dc'd on admision. Pt states he takes Alprazolam 1mg TID , even though it it prn for anxiety. With additional 3mg dose at nighttime for sleep. Will wean off this starting with half dose reduction Chronic LBP -As noted above with a history of spinal surgery x2, most recently being [facility] in the summer 2018 -MRI lumbar spine: No evidence of osteomyelitis. No evidence of neoplasm. Interval spinal decompression with L2-L5 posterior spinal fusion. Mild L1-2 spinal stenosis. Multilevel foraminal narrowing most severe at the L3-4 level. -Defer orthopedic spine surgery evaluation at present -Continue home oxycodone and ibuprofen as needed Elevated CPK -CK 885 morning after admission -given that pt has positive blood on UA with no RBCs on microscopy, likely myoglobinuria with mild rhabdo from multiple falls Insomnia -Chronic, is not treated well with his current alprazolam and given hospital setting, he is requesting something else. We are cutting this as above, and it will be prn -Will trial small dose of Ambien 5 mg p.o. nightly as needed Gout -Continue allopurinol for prophylaxis BPH -Continue Flomax, finasteride Anxiety -Continue bupropion and Xanax as needed, with dose reductions as above -Can consider increasing dose of Buproprion if anxiety not well managed with xanax reduction FEN/GI: Regular Diet DVT Prophylaxis: SCDs, Heparin SQ DNR/DNI Dispo- Med Surg. PT/OT Evals pending. Likely to inpt rehab Admission and Anticipated Discharge Date Admission Date: February 14, 2020 Supervising Physician Co-Signing Physician Notes Resident Physician Supervision Note: I independently interviewed and examined the patient and verified the pickens history and physical, reviewed labs and image studies, discussed the case with the resident Dr. Esteban and agree with the findings and care plan. Subjective 79 yo M found in bed this AM in NAD. No reported overnight events. Pt upset that he is in hospital and requesting to leave. Was able to understand that we need to get therapy evals done, willing to work with them. Pt with no other acute concerns or complaints. Review of Systems Review of Systems: All systems reviewed & are unremarkable except as noted in HPI & below Physical Exam Constitutional: WD/WN, vitals as above Eyes: PERRL, conjunctivae normal, anicteric sclerae ENMT: external ear and nose normal, oropharynx normal Respiratory: normal respiratory effort, lungs clear to auscultation Cardiovascular: RRR, no murmur, no edema Gastrointestinal (Abdomen): normal bowel sounds, soft, nontender, no hepatosplenomegaly Skin: no rashes, warm and dry Neurologic: + abnormal touch/pain/proprioception (numbness b/l toes) and no focal motor deficits Psychiatric: A+Ox3, euthymic affect Results & Data Results & Data ([facility]) Vital Signs (Past 12 Hours) Vital Signs Temp Pulse Resp BP Pulse Ox 02/15/20 07:24 36.5 C 89 16 158/84 H 96 Laboratory Results Laboratory Results - last 24 hr 02/14/20 02/14/20 02/14/20 15:49 15:49 15:49 WBC 9.20 RBC 4.58 L Hgb 14.6 Hct 42.0 MCV 91.7 MCH 31.9 MCHC 34.8 RDW Std Deviation 47.4 H RDW Coeff of Jaelyn 14.2 Plt Count 233 MPV 9.3 Immature Gran % (Auto) 0.2 Neut % (Auto) 54.6 Lymph % (Auto) 31.6 [place] % (Auto) 9.8 Eos % (Auto) 3.5 Baso % (Auto) 0.3 Immature Gran # (Auto) 0.02 Neut # (Auto) 5.02 Lymph # (Auto) 2.91 [place] # (Auto) 0.90 H Eos # (Auto) 0.32 Baso # (Auto) 0.03 PT 10.9 INR 1.0 APTT 25.3 PTT Ratio 0.9 Sodium 135 L Potassium 3.7 Chloride 105 Carbon Dioxide 24 Anion Gap 6.0 BUN 16 Creatinine 1.06 Est Cr Clr Drug Dosing 59.6 Est GFR ( Amer) 75.9 Est GFR (Non-Af Amer) 65.5 BUN/Creatinine Ratio 14.8 Glucose 100 H Calcium 9.0 Magnesium 2.1 Total Bilirubin 0.7 Direct Bilirubin AST 90 H ALT 79 H Alkaline Phosphatase 82 Total Creatine Kinase Troponin I < 0.015 Total Protein 6.7 Albumin 3.6 Globulin 3.1 Albumin/Globulin Ratio 1.1 TSH 1.320 Urine Color Urine Appearance Urine pH Ur Specific [place] Urine Protein Urine Glucose (UA) Urine Ketones Urine Blood Urine Nitrite Urine Bilirubin Urine Urobilinogen Ur Leukocyte Esterase Urine WBC (Auto) Urine RBC (Auto) U Hyaline Cast (Auto) U Epithel Cells (Auto) Urine Bacteria (Auto) Hepatitis A IgM Ab Hep Bs Antigen Hep B Core IgM Ab Hepatitis C Antibody 02/14/20 02/15/20 02/15/20 16:52 04:29 04:29 WBC RBC Hgb Hct MCV MCH MCHC RDW Std Deviation RDW Coeff of Jaelyn Plt Count MPV Immature Gran % (Auto) Neut % (Auto) Lymph % (Auto) [place] % (Auto) Eos % (Auto) Baso % (Auto) Immature Gran # (Auto) Neut # (Auto) Lymph # (Auto) [place] # (Auto) Eos # (Auto) Baso # (Auto) PT INR APTT PTT Ratio Sodium Potassium Chloride Carbon Dioxide Anion Gap BUN Creatinine Est Cr Clr Drug Dosing Est GFR ( Amer) Est GFR (Non-Af Amer) BUN/Creatinine Ratio Glucose Calcium Magnesium Total Bilirubin Direct Bilirubin AST ALT Alkaline Phosphatase Total Creatine Kinase Troponin I Total Protein Albumin Globulin Albumin/Globulin Ratio TSH Urine Color Yellow Urine Appearance Clear Urine pH 6.5 Ur Specific [place] 1.017 Urine Protein Trace H Urine Glucose (UA) Negative Urine Ketones Negative Urine Blood Trace H Urine Nitrite Negative Urine Bilirubin Negative Urine Urobilinogen Negative Ur Leukocyte Esterase Negative Urine WBC (Auto) 1-5 Urine RBC (Auto) 0-4 U Hyaline Cast (Auto) 5-10 H U Epithel Cells (Auto) >30 H Urine Bacteria (Auto) Negative Hepatitis A IgM Ab Pending Hep Bs Antigen Neg Hep B Core IgM Ab Pending Hepatitis C Antibody Neg 02/15/20 02/15/20 04:29 04:29 WBC 8.26 RBC 4.23 L Hgb 13.4 L Hct 38.6 L MCV 91.3 MCH 31.7 MCHC 34.7 RDW Std Deviation 46.8 H RDW Coeff of Jaelyn 14.2 Plt Count 218 MPV 9.3 Immature Gran % (Auto) 0.1 Neut % (Auto) 54.4 Lymph % (Auto) 29.4 [place] % (Auto) 11.1 Eos % (Auto) 4.6 Baso % (Auto) 0.4 Immature Gran # (Auto) 0.01 Neut # (Auto) 4.49 Lymph # (Auto) 2.43 [place] # (Auto) 0.92 H Eos # (Auto) 0.38 Baso # (Auto) 0.03 PT INR APTT PTT Ratio Sodium 141 Potassium 3.6 Chloride 109 H Carbon Dioxide 25 Anion Gap 7.0 BUN 11 Creatinine 0.97 Est Cr Clr Drug Dosing 65.2 Est GFR ( Amer) 84.5 Est GFR (Non-Af Amer) 72.9 BUN/Creatinine Ratio 11.6 Glucose 96 Calcium 8.3 L Magnesium Total Bilirubin 0.9 Direct Bilirubin 0.2 AST 78 H ALT 77 Alkaline Phosphatase 73 Total Creatine Kinase 885 H Troponin I Total Protein 6.6 Albumin 3.5 Globulin Albumin/Globulin Ratio TSH Urine Color Urine Appearance Urine pH Ur Specific [place] Urine Protein Urine Glucose (UA) Urine Ketones Urine Blood Urine Nitrite Urine Bilirubin Urine Urobilinogen Ur Leukocyte Esterase Urine WBC (Auto) Urine RBC (Auto) U Hyaline Cast (Auto) U Epithel Cells (Auto) Urine Bacteria (Auto) Hepatitis A IgM Ab Hep Bs Antigen Hep B Core IgM Ab Hepatitis C Antibody Medications Administered Current Inpatient Medications Acetaminophen (Tylenol) 650 mg PO Q4H PRN PRN Reason: pain/fever Stop: 03/15/20 20:50 Al Hydrox/Mg Hydrox/Simethicone (Maalox) 30 ml PO Q6H PRN PRN Reason: Dyspepsia Stop: 03/15/20 20:50 Allopurinol (Zyloprim) 300 mg PO QAM [facility] Stop: 03/16/20 08:59 Last Admin: 02/15/20 08:41 Dose: 300 mg Documented by: Alprazolam (Xanax) 1 mg PO Q6H PRN PRN Reason: Anxiety Stop: 03/15/20 20:50 Last Admin: 02/14/20 21:43 Dose: 1 mg Documented by: Bupropion HCl (Wellbutrin-Xl) [facility] [place] Stop: 03/16/20 08:59 Last Admin: 02/15/20 08:41 Dose: 300 mg Documented by: Cyanocobalamin (Vitamin B-12) 1,000 mcg [facility] [place] Stop: 03/16/20 08:59 Last Admin: 02/15/20 08:42 Dose: 1,000 mcg Documented by: Finasteride (Proscar) 5 mg [facility] [place] Stop: 03/16/20 08:59 Last Admin: 02/15/20 08:41 Dose: 5 mg Documented by: Fish Oil ([place]-3 (Purified Fish Oil)) 1 gm [facility] [place] Stop: 03/16/20 08:59 Last Admin: 02/15/20 08:42 Dose: 1 gm Documented by: Heparin Sodium (Porcine) (Heparin Sodium (Porcine)) 5,000 units SQ Q12 [facility] Stop: 03/15/20 20:59 Last Admin: 02/15/20 08:42 Dose: 5,000 units Documented by: Ibuprofen (Advil) 400 mg PO QID PRN PRN Reason: Pain Stop: 03/15/20 20:50 Last Admin: 02/15/20 00:24 Dose: 400 mg Documented by: Magnesium Hydroxide (Milk Of Magnesia) 30 ml PO Q6H PRN PRN Reason: Constipation Stop: 03/15/20 20:50 Ondansetron HCl (Zofran) 4 mg IV Q6H PRN PRN Reason: Nausea Stop: 03/15/20 20:50 Oxycodone HCl (Roxicodone Immediate Rel) 5 mg PO Q6H PRN PRN Reason: Pain Stop: 02/28/20 21:01 Polyethylene Glycol (Miralax Powder Packet) 17 gm PO DAILY PRN PRN Reason: Constipation Stop: 03/15/20 20:50 Tamsulosin HCl (Flomax) 0.4 mg [facility] [place] Stop: 03/16/20 08:59 Last Admin: 02/15/20 08:41 Dose: 0.4 mg Documented by: Vitamin D (Vitamin D3) 5,000 units PO QAM [facility] Stop: 03/16/20 08:59 Last Admin: 02/15/20 08:41 Dose: 5,000 units Documented by: Resident Activity Tracking Resident Involvement: Resident Care Provided Care Provided: Adult Hospital Medicine (1) Fall Encounter type: initial encounter Qualified Code(s): W19.XXXA - Unspecified fall, initial encounter
[2020-02-15] MEDS ORDERED: TRAZODONE HCL 50 MG TAB PO PRN (16:28)
[2020-02-15] MEDS: ALPRAZolam 0.5 MG TABLET PO PRN (21:44)
[2020-02-16] MEDS: ALPRAZolam 0.5 MG TABLET PO PRN (03:34)
[2020-02-16 06:26] LABS: Basophils # (auto) 0.02 K/uL (0-0.2); Basophils % (auto) 0.2 %; Eosinophils # (auto) 0.19 K/uL (0-0.5); Eosinophils % (auto) 2.3 %; Hematocrit (blood only) 39.3 % (42-52); Hemoglobin 13.8 g/dL (14.0-18.0); Immature Granulocytes # (auto) 0.01 K/uL (0.00-0.02); Immature Granulocytes % (auto) 0.1 %; Lymphocytes # (auto) 2.36 K/uL (1.2-3.4); Lymphocytes % (auto) 28.5 %; Mean Corpuscular Hemoglobin 31.9 pg (25-34); Mean Corpuscular Hgb Conc 35.1 g/dL (32-36); Mean Corpuscular Volume 90.8 fL (80-100); Monocytes # (auto) 0.85 K/uL (0.11-0.59); Monocytes % (auto) 10.3 %; Neutrophils # (auto) 4.84 K/uL (1.4-6.5); Neutrophils % (auto) 58.6 %; Platelet Count 215 K/uL (130-400); RDW Standard Deviation 46.2 fL (36.4-46.3); Red Blood Count 4.33 M/uL (4.7-6.1); White Blood Count 8.27 K/uL (4.8-10.8)
[2020-02-16 06:46] LABS: Albumin Level 3.4 gm/dl (3.4-5.0); BUN Creatinine Ratio 12.6 (10-20); Calcium 8.7 mg/dl (8.5-10.1); Creatinine Clr Calc Pharmacy 60.8 ml/min; Est GFR (African American) 77.7; Potassium 3.7 mmol/L (3.5-5.1)
[2020-02-16 06:49] LABS: Albumin Globulin Ratio 1.1 (0.9-2); Bilirubin,Total 0.9 mg/dl (0.2-1); Total Protein 6.4 gm/dl (6.4-8.2)
[2020-02-16] MEDS: OMEGA-3 (PURIFIED FISH OIL) 1 GM CAP PO SCH (09:16)
[2020-02-16] MEDS: CYANOCOBALAMIN 500 MCG TABLET (VITAMIN B-12) PO SCH (09:16)
[2020-02-16] MEDS: allopurinoL 300 MG TAB PO SCH (09:16)
[2020-02-16] MEDS: CHOLECALCIFEROL 1,000 UNITS 25 MCG TAB PO SCH (09:16)
[2020-02-16] MEDS: FINASTERIDE 5 MG TAB PO SCH (09:17)
[2020-02-16] MEDS: BuPROPion XL 300 MG TABCR PO SCH (09:17)
[2020-02-16] MEDS: TAMSULOSIN HCL 0.4 MG CAP PO SCH (09:17)
[2020-02-16] MEDS: HEPARIN SOD 5,000 UNIT/0.5 ML VIAL SQ SCH ×2 (09:21→20:22)
[2020-02-16] MEDS ORDERED: TRAZODONE HCL 50 MG TAB PO PRN ×2 (11:07→15:02)
--- NOTE | 2020-02-16 14:45 | Hospitalist Progress Note ---
Date of Service February 16, 2020 Assessment & Plan (1) Fall: 79 yo M with PMH Anxiety, Insomnia, BPH, Gout, GERD, chronic LBP presents after many falls at home admitted for PT/OT evals. Awaiting insurance auth for [facility]. COVID neg. Fall -CT Head: No acute intracranial findings. 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 No preceding CP or palpitations so not likely related to arrhythmias or cardiac ischemia. Other labs are unremarkable as well -Reviewed home meds. No other recent medication changes besided Bactrim, which was dc'd on admision. Pt states he takes Alprazolam 1mg TID , even though it it prn for anxiety. With additional 3mg dose at nighttime for sleep. Will wean off this starting with half dose reduction -Admit on observation for further evaluation for cause of falls--PT/OT evals --recs rehab stay. Per CM, bed at [facility] available, pending insurance auth. COVID neg. Chronic LBP -As noted above with a history of spinal surgery x2, most recently being [facility] in the summer 2018 -MRI lumbar spine: No evidence of osteomyelitis. No evidence of neoplasm. Interval spinal decompression with L2-L5 posterior spinal fusion. Mild L1-2 spinal stenosis. Multilevel foraminal narrowing most severe at the L3-4 level. -Defer orthopedic spine surgery evaluation at present -Continue home oxycodone and ibuprofen as needed Insomnia -Chronic. In speaking with , she notes that pt normally uses pain meds, benzo, ambien, melatonin to sleep and able to sleep ~7hrs/night. -this admission, pt notes not getting much sleep. We have decreased alprazolam as above. Will decrease Ambien 2.5 mg p.o prn as both likely contributing to falls. If fails, then have ordered trazodone 50mg prn -will try and avoid benadryl given h/o BPH HTN -BP's have been elevated in range this admission that would warrant starting a ntihypertensive -will initiate lisinopril 5mg -good kidney function Elevated CPK -CK 885 morning after admission -given that pt has positive blood on UA with no RBCs on microscopy, likely myoglobinuria with mild rhabdo from multiple falls Gout -Continue allopurinol for prophylaxis BPH -Continue Flomax, finasteride Anxiety -Continue bupropion and Xanax as needed, with dose reductions as above -Can consider increasing dose of Buproprion if anxiety not well managed with xanax reduction FEN/GI: Regular Diet DVT Prophylaxis: SCDs, Heparin SQ DNR/DNI Dispo- Med Surg. Awaiting insurance auth for [facility]. Appreciate CM assistance. Admission and Anticipated Discharge Date Admission Date: February 14, 2020 Supervising Physician Co-Signing Physician Notes Resident Physician Supervision Note: I independently interviewed and examined the patient and verified the pickens history and physical, reviewed labs and image studies, discussed the case with the resident Dr. Esteban and agree with the findings and care plan. Subjective 79 yo M found in bed this AM in NAD. No reported overnight events. Pt upset that he is in hospital and requesting to leave. Awaiting snf auth. Pt with no other acute concerns or complaints. Review of Systems Review of Systems: All systems reviewed & are unremarkable except as noted in HPI & below Physical Exam Constitutional: WD/WN, vitals as above Eyes: PERRL, conjunctivae normal, anicteric sclerae ENMT: external ear and nose normal, oropharynx normal Respiratory: normal respiratory effort, lungs clear to auscultation Cardiovascular: RRR, no murmur, no edema Gastrointestinal (Abdomen): normal bowel sounds, soft, nontender, no hepatosplenomegaly Skin: no rashes, warm and dry Neurologic: + abnormal touch/pain/proprioception (numbness b/l toes) and no focal motor deficits Psychiatric: A+Ox3, euthymic affect Results & Data Results & Data ([facility]) Vital Signs (Past 12 Hours) Vital Signs Temp Pulse Resp BP Pulse Ox 02/16/20 07:29 36.6 C 92 H 18 177/95 H 94 Laboratory Results Laboratory Results - last 24 hr 02/15/20 02/16/20 02/16/20 13:25 06:12 06:12 WBC 8.27 RBC 4.33 L Hgb 13.8 L Hct 39.3 L MCV 90.8 MCH 31.9 MCHC 35.1 RDW Std Deviation 46.2 RDW Coeff of Jaelyn 14.0 Plt Count 215 MPV 9.0 Immature Gran % (Auto) 0.1 Neut % (Auto) 58.6 Lymph % (Auto) 28.5 [place] % (Auto) 10.3 Eos % (Auto) 2.3 Baso % (Auto) 0.2 Immature Gran # (Auto) 0.01 Neut # (Auto) 4.84 Lymph # (Auto) 2.36 [place] # (Auto) 0.85 H Eos # (Auto) 0.19 Baso # (Auto) 0.02 Sodium 138 Potassium 3.7 Chloride 108 H Carbon Dioxide 25 Anion Gap 4.0 BUN 13 Creatinine 1.04 Est Cr Clr Drug Dosing 60.8 Est GFR ( Amer) 77.7 Est GFR (Non-Af Amer) 67.0 BUN/Creatinine Ratio 12.6 Glucose 106 H Calcium 8.7 Total Bilirubin 0.9 AST 62 H ALT 71 Alkaline Phosphatase 76 Total Protein 6.4 Albumin 3.4 Globulin 3.0 Albumin/Globulin Ratio 1.1 SARS-CoV-2 RNA (RT-PCR) NEGATIVE Medications Administered Current Inpatient Medications Acetaminophen (Tylenol) 650 mg PO Q4H PRN PRN Reason: pain/fever Stop: 03/15/20 20:50 Al Hydrox/Mg Hydrox/Simethicone (Maalox) 30 ml PO Q6H PRN PRN Reason: Dyspepsia Stop: 03/15/20 20:50 Allopurinol (Zyloprim) 300 mg PO [facility] Stop: 03/16/20 08:59 Last Admin: 02/16/20 09:16 Dose: 300 mg Documented by: Alprazolam (Xanax) 0.5 mg PO Q6H PRN PRN Reason: Anxiety Stop: 03/15/20 20:50 Last Admin: 02/16/20 03:34 Dose: 0.5 mg Documented by: Bupropion HCl (Wellbutrin-Xl) 300 mg PO [facility] Stop: 03/16/20 08:59 Last Admin: 02/16/20 09:17 Dose: 300 mg Documented by: Cyanocobalamin (Vitamin B-12) 1,000 mcg PO [facility] Stop: 03/16/20 08:59 Last Admin: 02/16/20 09:16 Dose: 1,000 mcg Documented by: Finasteride (Proscar) 5 mg PO QAM [facility] Stop: 03/16/20 08:59 Last Admin: 02/16/20 09:17 Dose: 5 mg Documented by: Fish Oil ([place]-3 (Purified Fish Oil)) 1 gm PO QAM [facility] Stop: 03/16/20 08:59 Last Admin: 02/16/20 09:16 Dose: 1 gm Documented by: Heparin Sodium (Porcine) (Heparin Sodium (Porcine)) 5,000 units SQ Q12 [facility] Stop: 03/15/20 20:59 Last Admin: 02/16/20 09:21 Dose: Not Given Documented by: Ibuprofen (Advil) 400 mg PO QID PRN PRN Reason: Pain Stop: 03/15/20 20:50 Last Admin: 02/15/20 20:30 Dose: 400 mg Documented by: Magnesium Hydroxide (Milk Of Magnesia) 30 ml PO Q6H PRN PRN Reason: Constipation Stop: 03/15/20 20:50 Ondansetron HCl (Zofran) 4 mg IV Q6H PRN PRN Reason: Nausea Stop: 03/15/20 20:50 Oxycodone HCl (Roxicodone Immediate Rel) 5 mg PO Q6H PRN PRN Reason: Pain Stop: 02/28/20 21:01 Polyethylene Glycol (Miralax Powder Packet) 17 gm PO DAILY PRN PRN Reason: Constipation Stop: 03/15/20 20:50 Tamsulosin HCl (Flomax) 0.4 mg PO QAM [facility] Stop: 03/16/20 08:59 Last Admin: 02/16/20 09:17 Dose: 0.4 mg Documented by: Trazodone HCl (Desyrel) 50 mg PO HS PRN PRN Reason: Insomnia Stop: 03/16/20 20:59 Vitamin D (Vitamin D3) 5,000 units PO QAM [facility] Stop: 03/16/20 08:59 Last Admin: 02/16/20 09:16 Dose: 5,000 units Documented by: Resident Activity Tracking Resident Involvement: Resident Care Provided Care Provided: Adult Hospital Medicine (1) Fall Encounter type: initial encounter Qualified Code(s): W19.XXXA - Unspecified fall, initial encounter
[2020-02-16 14:55] LABS: Hepatitis A Antibody IgM NON-REACTIVE (NON-REACTIVE); Hepatitis B Core Antibody IgM NON-REACTIVE (NON-REACTIVE)
[2020-02-16] MEDS ORDERED: ZOLPIDEM TARTRATE 5 MG TAB PO PRN (15:00)
[2020-02-17] MEDS: ALPRAZolam 0.5 MG TABLET PO PRN ×2 (00:16→07:40)
[2020-02-17 06:12] LABS: Basophils # (auto) 0.03 K/uL (0-0.2); Basophils % (auto) 0.3 %; Eosinophils # (auto) 0.24 K/uL (0-0.5); Eosinophils % (auto) 2.4 %; Hematocrit (blood only) 42.1 % (42-52); Hemoglobin 14.4 g/dL (14.0-18.0); Immature Granulocytes # (auto) 0.01 K/uL (0.00-0.02); Immature Granulocytes % (auto) 0.1 %; Lymphocytes # (auto) 2.87 K/uL (1.2-3.4); Lymphocytes % (auto) 29.2 %; Mean Corpuscular Hgb Conc 34.2 g/dL (32-36); Mean Corpuscular Volume 90.7 fL (80-100); Monocytes % (auto) 11.2 %; Neutrophils # (auto) 5.58 K/uL (1.4-6.5); Neutrophils % (auto) 56.8 %; Platelet Count 242 K/uL (130-400); RDW Standard Deviation 45.7 fL (36.4-46.3); Red Blood Count 4.64 M/uL (4.7-6.1); White Blood Count 9.83 K/uL (4.8-10.8)
[2020-02-17 06:45] LABS: BUN Creatinine Ratio 14.3 (10-20); Calcium 8.5 mg/dl (8.5-10.1); Creatinine Clr Calc Pharmacy 63.8 ml/min; Est GFR (African American) 82.4; Est GFR (Non-African American) 71.1; Potassium 3.7 mmol/L (3.5-5.1)
[2020-02-17] MEDS: allopurinoL 300 MG TAB PO SCH (09:00)
[2020-02-17] MEDS: TAMSULOSIN HCL 0.4 MG CAP PO SCH (09:00)
[2020-02-17] MEDS ORDERED: lisinopriL 5 MG TAB PO SCH (09:00)
[2020-02-17] MEDS: FINASTERIDE 5 MG TAB PO SCH (09:01)
[2020-02-17] MEDS: BuPROPion XL 300 MG TABCR PO SCH (09:01)
[2020-02-17] MEDS: CYANOCOBALAMIN 500 MCG TABLET (VITAMIN B-12) PO SCH (09:01)
[2020-02-17] MEDS: OMEGA-3 (PURIFIED FISH OIL) 1 GM CAP PO SCH (09:01)
[2020-02-17] MEDS: CHOLECALCIFEROL 1,000 UNITS 25 MCG TAB PO SCH (09:02)
[2020-02-17] MEDS: HEPARIN SOD 5,000 UNIT/0.5 ML VIAL SQ SCH (09:02)
--- NOTE | 2020-02-17 11:39 | Discharge Summary ---
Date of Service February 17, 2020 Admission HPI Per Admitting Provider Mr. Rosenthal is an 79yo gentleman with a PMHx significant for Anxiety, insomnia, BPH, Gout, GERD, nephrolithiasis and chronic lower back pain who presents with multiple falls in the last week-up to 5. His son helps provide the history as the patient is obviously annoyed that he is being admitted for observation overnight in the hospital and does not want to be here. The son reports that since his back surgery last year at [facility], he never really regained much strength, however his lower back pain is gone. He typically has weakness in the left greater than right lower extremities, but since October of this year, he has progressively declined with his strength. The patient denies any preceding lightheadedness or chest pain, no heart palpitations. He has no new focal weakness, and has chronic numbness of the toes of both feet, but no new numbness or tingling. His son reports sometimes he can take a whole lap around the yard with his walker, and other times he can barely walk and his legs give out and the patient is able to slide to the ground. He has hit his head a couple of times this past week, but has not lost consciousness and denies any major injuries. He denies any radicular shooting pains down the lower extremities and no new back pain. He denies any fevers or myalgias, no new joint pains, no rashes, no cough or shortness of breath, no chest pain, no nausea/vomiting since his admission here 6 weeks ago for such, and no changes in bowel habits. He has been complaining of polyuria and some mild urinary incontinence at times and in fact was placed on Bactrim 3 days ago by his PCP empirically for UTI but this has not changed any of his symptoms. He will be admitted on observation for further work-up for multiple falls and PT/OT evaluations for likely placement at acute rehab. Principal Diagnosis falls 2/2 weakness Discharge Exam Constitutional WD/WN, vitals as above Eyes PERRL, conjunctivae normal, anicteric sclerae ENMT external ear and nose normal, oropharynx normal Respiratory normal respiratory effort, lungs clear to auscultation Cardiovascular RRR, no murmur, no edema Gastrointestinal (Abdomen) normal bowel sounds, soft, nontender, no hepatosplenomegaly Skin no rashes, warm and dry Neurologic + abnormal touch/pain/proprioception (numbness b/l toes) and no focal motor deficits Psychiatric A+Ox3, euthymic affect Discharge Data Allergies Allergy/AdvReac Type Severity Reaction Status Date / Time Penicillins Allergy Intermediate HIVES Verified 02/14/20 16:11 morphine AdvReac Mild N&V Verified 02/14/20 16:11 Consultations 02/14/20 17:50 ED Decision to Admit Stat Ordered Studies 02/14/20 15:59 CT head/brain wo con Stat 02/14/20 19:43 MR lumbar spine wo con Routine Hospital Course (1) Fall: 79 yo M with PMH Anxiety, Insomnia, BPH, Gout, GERD, chronic LBP presents after many falls at home admitted for PT/OT evals. The following is the medical management during stay here: Fall -CT Head: No acute intracranial findings. No pathologic dilatation of the ventricles -progressive decline in strength over the last 3 months, per son -pt states that falls are related to him slipping on surfaces with some mechanical falls rather than b/l LE weakness -history of lumbar spine surgery x2, the most recent being in the summer 2018 at [facility] -No preceding syncope or near syncope, do not seem to be related to orthostasis. No preceding CP or palpitations so not likely related to arrhythmias or cardiac ischemia. Other labs are unremarkable as well -Reviewed home meds. No other recent medication changes besides Bactrim, which was dc'd on admission. Pt states he takes Alprazolam 1mg TID , even though it it prn for anxiety. With additional 3mg dose at nighttime for sleep. Will wean off this starting with half dose reduction. This can be further weaned down on d/c by PCP -Admit on observation for further evaluation for cause of falls--PT/OT evals --recs rehab stay. Accepted [facility]. COVID neg. Chronic LBP -As noted above with a history of spinal surgery x2, most recently being [facility] in the summer 2018 -MRI lumbar spine: No evidence of osteomyelitis. No evidence of neoplasm. Interval spinal decompression with L2-L5 posterior spinal fusion. Mild L1-2 spinal stenosis. Multilevel foraminal narrowing most severe at the L3-4 level. -Defer orthopedic spine surgery evaluation at present -Continue home oxycodone and ibuprofen as needed Insomnia -Chronic. In speaking with , she notes that pt normally uses pain meds, benzo, ambien, melatonin to sleep and able to sleep ~7hrs/night. -this admission, pt notes not getting much sleep. However, this was largely likely 2/2 being in hospital environment. We have decreased alprazolam as above. Will decrease Ambien 2.5 mg p.o prn as both likely contributing to falls. 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 At time of d/c, pt with no other acute concerns or complaints. Total Time Total Time Spent Total Time Spent (In Minutes): 30 Discharge Plan Discharge Items Patient Disposition: Transfer [facility] Reason For Visit: FALLS Discharge Diagnosis: falls Condition on Discharge: Good Activity: Per Instructions section Non-emergency contact: Primary Care Provider Call non-emergency contact if: you have any medication questions and your symptoms worsen Follow-up/Referrals: Santosh Cassidy MD [Primary Care Provider] - Diet: Regular Addtl Attending Provider Instructions: 79 yo M with PMH Anxiety, Insomnia, BPH, Gout, GERD, chronic LBP presents after many falls at home admitted for PT/OT evals. The following is the medical management during stay here: Fall -CT Head: No acute intracranial findings. No pathologic dilatation of the ventricles -progressive decline in strength over the last 3 months, per son -pt states that falls are related to him slipping on surfaces with some mechanical falls rather than b/l LE weakness -history of lumbar spine surgery x2, the most recent being in the summer 2019 at [facility] -No preceding syncope or near syncope, do not seem to be related to orthostasis. No preceding CP or palpitations so not likely related to arrhythmias or cardiac ischemia. Other labs are unremarkable as well -Reviewed home meds. No other recent medication changes besides Bactrim, which was dc'd on admission. Pt states he takes Alprazolam 1mg TID , even though it it prn for anxiety. With additional 3mg dose at nighttime for sleep. Will wean off this starting with half dose reduction. This can be further weaned down on d/c by PCP -Admit on observation for further evaluation for cause of falls--PT/OT evals --recs rehab stay. Accepted [facility]. COVID neg. Chronic LBP -As noted above with a history of spinal surgery x2, most recently being [facility] in the summer 2018 -MRI lumbar spine: No evidence of osteomyelitis. No evidence of neoplasm. Interval spinal decompression with L2-L5 posterior spinal fusion. Mild L1-2 spinal stenosis. Multilevel foraminal narrowing most severe at the L3-4 level. -Defer orthopedic spine surgery evaluation at present -Continue home oxycodone and ibuprofen as needed Insomnia -Chronic. In speaking with , she notes that pt normally uses pain meds, benzo, ambien, melatonin to sleep and able to sleep ~7hrs/night. -this admission, pt notes not getting much sleep. However, this was largely likely 2/2 being in hospital environment. We have decreased alprazolam as above. Will decrease Ambien 2.5 mg p.o prn as both likely contributing to falls. 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 At time of d/c, pt with no other acute concerns or complaints. Pending Studies at Discharge: No Stand-Alone Forms: My [facility] Skilled Items Patient informed of condition?: Yes DNR: Yes Discharge Level of Care: Skilled Communicable Disease: No Discharge Prognosis: Stable Lines: None Urinary Catheter: No Medications and DC Order Prescriptions: Continued cyanocobalamin (vitamin B-12) [Vitamin B-12] 1,000 mcg Tablet 1,000 mcg PO QAM RF: 0 ibuprofen [Advil] 200 mg Tablet 200 - 600 mg PO QID PRN (Reason: Pain) RF: 0 allopurinol [Zyloprim] 300 mg Tablet 300 mg PO QAM RF: 0 oxycodone [Roxicodone] 5 mg Tablet 1 - 2 tab PO Q6H PRN (Reason: Pain) RF: 0 bupropion HCl [Wellbutrin XL] 300 mg Tablet Extended Release 24 Hr 300 mg PO QAM RF: 0 cholecalciferol (vitamin D3) [Vitamin D3] 5,000 unit Tablet 5,000 unit PO QAM RF: 0 omega 1-ohm-bip-fish oil [Fish Oil] 1,000 mg (120 mg-180 mg) Capsule 1 cap PO QAM RF: 0 tamsulosin [Flomax] 0.4 mg capsule 0.4 mg PO QAM RF: 0 finasteride [Proscar] 5 mg tablet 5 mg PO QAM RF: 0 Changed alprazolam [Xanax] 1 mg tablet 0.5 mg PO Q6H PRN (Reason: Anxiety) Qty: 0 RF: 0 Discontinued sulfamethoxazole-trimethoprim [Bactrim DS] 800-160 mg tablet 1 tab PO BID RF: 0 Discharge Orders: Discharge Order (Routine); Ordered 02/17/20 Ordered By: Pelon Esteban Admission Data Admit Date/Time: 02/14/20 19:43 Attending Provider: Savanna Pichardo Admit Provider: Kaye Bansal Primary Care Provider: Santosh Cassidy Other Providers: Kaye Bansal ; Alphonso Ignacio [facility] Resident Activity Tracking Resident Involvement: Resident Care Provided Care Provided: Adult Hospital Medicine
== END 2020-02-17 14:10 ==
LOC: 3E 15:13 → ED 15:13 → SUATTDRO 19:43 → 3E 20:29

== ENCOUNTER 2020-12-10 14:57 | Inpatient (IN) ==
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
--- NOTE | 2020-12-10 16:04 | CT Scan Report ---
CT head/brain wo con CLINICAL HISTORY: 80 years-old Male with weakness, confusion. Acutely altered mental status with wea kness and confusion TECHNIQUE: Multiple axial CT images of the head were obtained without contrast. A dose lowering tech nique was utilized adhering to the principles of ALARA. CT DOSE: 810.83 mGy.cm COMPARISON: Head CT 10/12/2020 FINDINGS: No acute intracranial hemorrhage, midline shift, intracranial mass, hydrocephalus, territorial ischem ia or abnormal extra-axial collection. Age-related involutional changes with ex vacuo ventriculomegal y. Extensive white matter hypodensities suggest chronic microvascular ischemic disease. Cerebral vasc ular calcifications. The calvarium is intact. The paranasal sinuses, mastoid air cells, and middle ear cavities are clear . IMPRESSION: No acute intracranial abnormality. ACT 112: Negative or not required by law. The above report was generated using voice recognition software. It may contain grammatical, syntax o r spelling errors. Electronically signed by: Pedro Pablo Riggs M.D. 12/10/2020 4:03 PM
--- NOTE | 2020-12-10 16:16 | XRay Report ---
XR chest 1V portable HISTORY: 80 years-old Male weakness . Acute weakness COMPARISON: Chest radiograph 10/12/2020 TECHNIQUE: Portable AP view of the chest FINDINGS: Cardiomediastinal and hilar silhouettes are within normal limits. Calcified plaque of the thoracic ao rta. No pneumothorax, pleural effusion, airspace consolidation or overt pulmonary edema. Degenerative changes of the shoulders and spine. IMPRESSION: No acute process. ACT 112: Negative or not required by law. The above report was generated using voice recognition software. It may contain grammatical, syntax o r spelling errors. Electronically signed by: Pedro Pablo Riggs M.D. 12/10/2020 4:14 PM
[2020-12-10 16:28] LABS: Basophils # (auto) 0.04 K/uL (0-0.2); Basophils % (auto) 0.4 %; Eosinophils # (auto) 0.23 K/uL (0-0.5); Eosinophils % (auto) 2.3 %; Hematocrit (blood only) 40.6 % (42-52); Hemoglobin 14.9 g/dL (14.0-18.0); Immature Granulocytes # (auto) 0.01 K/uL (0.00-0.02); Immature Granulocytes % (auto) 0.1 %; Lymphocytes # (auto) 2.91 K/uL (1.2-3.4); Lymphocytes % (auto) 28.8 %; Mean Corpuscular Hemoglobin 32.7 pg (25-34); Mean Corpuscular Hgb Conc 36.7 g/dL (32-36); Mean Platelet Volume 9.1 fL (7.4-10.4); Monocytes # (auto) 0.71 K/uL (0.11-0.59); Neutrophils # (auto) 6.19 K/uL (1.4-6.5); Neutrophils % (auto) 61.4 %; Platelet Count 268 K/uL (130-400); RDW Coefficient of Variation 13.6 % (11.5-14.5); RDW Standard Deviation 44.3 fL (36.4-46.3); Red Blood Count 4.56 M/uL (4.7-6.1); White Blood Count 10.09 K/uL (4.8-10.8)
[2020-12-10 17:26] LABS: Influenza A virus by PCR Negative (Neg); Influenza B virus by PCR Negative (Neg); RSV by PCR Negative (Neg); SARS CoV2 RNA(COVID-19) InHosp NEGATIVE (Negative)
[2020-12-10 17:31] LABS: Appearance Urine Clear (Clear); Bacteria Urine Automated Negative (Negative); Bilirubin Urine Negative (Negative); Blood Urine Negative (Negative); Color Urine Yellow; Epithelial Cell Urine Auto 20-30 /lpf (0-5); Glucose Urine UA Negative (Negative); Ketones Urine Negative (Negative); Leukocyte Esterase Urine 1+ (Negative); Nitrite Urine Negative (Negative); Protein Urine Trace (Negative); RBC Urine Automated 0-4 /hpf (0-4); Specific Gravity Urine 1.015 (1.000-1.030); Urobilinogen Urine Negative (Negative)
[2020-12-10 17:40] LABS: Acetaminophen < 2 ug/ml (10-30); Salicylate < 1.7 mg/dl (2.8-20)
[2020-12-10 17:42] LABS: Alanine Aminotransferase 67 U/L (12-78); Albumin Level 3.6 gm/dl (3.4-5.0); Aspartate Aminotransferase 86 U/L (15-37); BUN Creatinine Ratio 12.4 (10-20); Blood Urea Nitrogen 17 mg/dl (7-18); Calcium 10.2 mg/dl (8.5-10.1); Carbon Dioxide 30 mmol/L (21-32); Chloride 104 mmol/L (98-107); Est GFR (African American) 53.8; Est GFR (Non-African American) 46.5; Glucose 100 mg/dl (70-99); Magnesium 1.7 mg/dl (1.8-2.4); Potassium 2.2 mmol/L (3.5-5.1); Sodium 140 mmol/L (136-145)
[2020-12-10] MEDS ORDERED: MAGNESIUM SULFATE / D5W 1 GM/100 ML BAG IV STA (17:47)
[2020-12-10] MEDS ORDERED: cefTRIAXone SODIUM 2,000 MG/70 ML BAG IV STA (17:48)
[2020-12-10 17:59] LABS: Amphetamines+Metham, Urine Neg (Neg); Barbiturates, Urine Neg (Neg); Benzodiazepine, Urine Pos (Neg); Cocaine, Urine Neg (Neg); MDMA (Ecstacy), Urine Pos (Neg); Methadone, Urine Neg (Neg); Opiate, Urine Neg (Neg); Phencyclidine, Urine Neg (Neg)
[2020-12-10 18:06] LABS: Albumin Globulin Ratio 1.1 (0.9-2); Alkaline Phosphatase 79 U/L (45-117); Bilirubin,Total 0.8 mg/dl (0.2-1); Globulin 3.2 gm/dl (2.5-4.0); Total Protein 6.8 gm/dl (6.4-8.2); Troponin I < 0.015 ng/ml (0-0.045)
--- NOTE | 2020-12-10 18:19 | History & Physical Report ---
Date of Service December 10, 2020 Assessment & Plan (1) Encephalopathy: Patient reportedly had waxing and waning symptoms over the last month but this evening broke a glass table threatened his police were summoned he has a 302 petition which has been signed CT scan head unremarkable 12/10/2020 chest x-ray is unremarkable. EKG is low voltages with inferior Q waves sinus rhythm however EKG changes do not appear to be new Patient has mildly abnormal urinalysis with leukocyte esterase and 3-10 whites no nitrates but epithelial cells are noted as a dirty urine tox screen is only positive for MDMA but the patient takes Wellbutrin and benzodiazepenes he is prescribed alprazolam. Calcium is 10.2 albumin is normal TSH is normal We will check a urine culture will hydrate him hold any psychotropic medications watching for benzodiazepine withdrawal, alcohol is negative We will give the patient a banana bag check B12 and B6 order thiamine after the banana bag 500 3 times daily for 3 days (2) Hypokalemia: Because of the degree of reduction of his potassium he will be in a monitored setting we use both intravenous and oral potassium because his magnesium is also profoundly low will also supplement his magnesium parenterally checking levels in the morning (3) Abnormal urinalysis: Mildly abnormal urinalysis we will start Rocephin therapy awaiting culture results as possible cause of metabolic encephalopathy (4) Elevated transaminase level: Chronically isolated elevated AST level this is been noted in the past (5) Spinal stenosis: No focal complaints of back pain (6) Gout: Patient remains on allopurinol (7) BPH (benign prostatic hyperplasia): Patient is on finasteride patient has both myrbetriq and Vesicare listed in his medication list, myrbetriq can increase toxicity of vesicare by competing for hepatic metabolism (8) DVT prophylaxis: Heparin will be used for DVT prevention History of Present Illness Primary Care Provider: Santosh Cassidy MD 80-who reportedly over last month has had bouts of confusion, agitation and combative behavior. Today, he broke a glass table. The patient grabbed a piece of the glass from the broken table and was threatening his with the sharp fragment. The police were summoned. A 302 petition was created and the warrant was signed. Patient remembers the event with his . He denies shortness of breath or chest pain. Patient's was contacted tonight she states that episodes of his anger have been waxing and waning for the last 11 months. She states his memory has declined also over that time. she has had them to the primary care doctor multiple times with testing done without direct cause. Patient states that he has had lifelong issues with depression but he does not use substances and he is not taking any [id number] medications. He does have frequent issues with urinary retention and frequent UTIs but was tested on November 20, 2020 when things were escalating and had a negative urinalysis at that point time the states throughout her lifetime when he did become depressed he would tend to get angry with her not talk to her 4 days on and but generally then he would come back around. His states he is never been evaluated by a psychiatrist Of note, the patient was incontinent of stool when he arrived. He urinated on the floor when he was placed in his room. Allergies Allergy/AdvReac Type Severity Reaction Status Date / Time Penicillins Allergy Intermediate HIVES Verified 10/12/20 15:15 morphine AdvReac Mild N&V Verified 10/12/20 15:15 Home Medications Medication Instructions Recorded Confirmed Type allopurinol [Zyloprim] 300 mg PO QAM 08/03/18 10/12/20 History bupropion HCl [Wellbutrin XL] 300 mg PO QAM 08/03/18 10/12/20 History cholecalciferol (vitamin D3) 5,000 unit PO QAM 08/03/18 10/12/20 History [Vitamin D3] cyanocobalamin (vitamin B-12) 1,000 mcg PO QAM 08/03/18 10/12/20 History [Vitamin B-12] ibuprofen [Advil] 200 - 600 mg PO QID PRN 08/03/18 10/12/20 History finasteride 5 mg tablet 5 mg PO DAILY #90 tab 05/10/20 10/12/20 Rx solifenacin 10 mg tablet 10 mg PO DAILY #30 tab 09/25/20 10/12/20 Rx alprazolam 0.25 mg PO TID 10/12/20 10/12/20 History alprazolam 0.5 mg PO HS 10/12/20 10/12/20 History docusate sodium [Stool Softener] 100 mg PO DAILY 10/12/20 10/12/20 History famotidine 20 mg PO BID 10/12/20 10/12/20 History polyethylene glycol 3350 [Miralax] 4.25 g PO DAILY 10/12/20 10/12/20 History methenamine hippurate 1 gram tablet 1 g PO Q12H #60 tab 10/23/20 10/23/20 Rx mirabegron 25 mg tablet,extended 25 mg PO DAILY #30 tab 10/23/20 10/23/20 Rx release 24 hr Past Med/Surg History Medical History Anxiety BPH (benign prostatic hyperplasia) Chronic pain syndrome GERD (gastroesophageal reflux disease) Gout Insomnia Kidney stones Microscopic hematuria Spinal stenosis Urinary incontinence, urge Surgical History History of back surgery History of colonoscopy History of lithotripsy S/P TURP Family History Grandmother Family history of diabetes mellitus Social History Smoking Status: Former smoker Tobacco Type: Cigarettes Age Quit Using Tobacco: 25; Second Hand Exposure: No; Hx Alcohol Use: No Hx Substance Use: No Preferred Language: Danish Communication Ability: Effective 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 Beliefs That Will Affect Care: None marital status: Current Living Situation: Spouse Feels Safe at Home: Yes Assistive Devices: Walker Review of Systems Review of Systems: Unobtainable due to cognitive status no headache, blurry or double vision no speech or swallowing issues no chest pain, pressure or palpitations no shortness of breath, cough or wheezes no abdominal pain, nausea or vomiting, diarrhea or constipation Urinary incontinence Bruising to his toes and lower legs likely from crawling about Only oriented to person not place or time Physical Exam Physical Exam: The patient appeared well nourished and normally developed. He is oriented only to person he is conversational but his cannot make much sense past light conversation Vital signs as documented. Head exam is normocephalic atraumatic no scleral icterus Neck is without JVD, thyromegaly, or carotid bruits. Lungs are clear to auscultation, no focal loss of breath sounds Cardiac exam, Rhythm is regular.. No murmurs, rubs or gallops. Abdominal exam reveals normal bowel sounds, soft non tender, no masses Extremities are bilateral pretibial edema with some minor abrasions on his lower legs Neurologic exam is alert and oriented x1, cooperative and can respond to neurological confrontational exam he has no focal loss of strength to upper or lower extremities has some difficulty understanding questioning for coordinated movement his [id number] seems to be intact bilaterally but rapid alternating finger movements he cannot seem to grasp Skin is with small surface abrasions to his lower extremities Psychologically is with memory impairment currently Results & Data Results & Data ([facility]) Vital Signs (Past 12 Hours) Vital Signs Temp Pulse Resp BP Pulse Ox 12/10/20 15:12 98.4 F 88 18 142/81 H 96 PG Care Time/CCT Total # of Minutes Spent Total Time Spent with Patient: Total time spent is greater than 50% in coordination of care (as documented) at patient's floor/unit and/or counseling patient: Coding Level of Care Code 12374 Initial Inpt Care Lvl 3 Diagnoses Encephalopathy G93.40 Hypokalemia E87.6 Abnormal urinalysis R82.90 Elevated transaminase level R74.0 Spinal stenosis M48.00 Gout M10.9 BPH (benign prostatic hyperplasia) N40.0 DVT prophylaxis Z29.9
[2020-12-10] MEDS: POTASSIUM CHLORIDE / WTR 10 MEQ/100 ML PLCT IV SCH ×3 (19:04→22:09)
[2020-12-10] MEDS ORDERED: ALUMINUM/MAGNESIUM SUSP 30 ML UDC PO PRN (21:36)
[2020-12-10] MEDS ORDERED: ONDANSETRON INJ 2 MG/ML 2 ML VIAL IV PRN (21:36)
[2020-12-10] MEDS ORDERED: POTASSIUM CHLORIDE 10 MEQ / 100ML WTR IV STA (21:36)
[2020-12-10] MEDS ORDERED: MULTI-VITAMIN INFUSION 10 ML, THIAMINE HCL 100 MG, FOLIC ACID 1 MG in SODIUM CHLORIDE 0... IV ONE (22:00)
[2020-12-10] MEDS: MAGNESIUM SULFATE / D5W 1 GM/100 ML BAG IV SCH ×2 (22:09→23:45)
[2020-12-10] MEDS: HEPARIN SOD 5,000 UNIT/0.5 ML VIAL SQ SCH (22:17)
[2020-12-10] MEDS: POTASSIUM CHLORIDE CRTAB 20 MEQ TABCR PO SCH (22:17)
[2020-12-10] MEDS: THIAMINE HCL 500 MG in SODIUM CHLORIDE 0.9% 50 ML IV SCH (22:17)
[2020-12-10] MEDS: SODIUM CHLORIDE 0.9% 1000ML 1,000 ML IV SCH (23:43)
[2020-12-10 23:55] LABS: Vitamin B12 > 2000 pg/ml (193-986)
[2020-12-11] MEDS: POTASSIUM CHLORIDE / WTR 10 MEQ/100 ML PLCT IV SCH ×2 (01:44→02:45)
[2020-12-11] MEDS: THIAMINE HCL 500 MG in SODIUM CHLORIDE 0.9% 50 ML IV SCH ×3 (05:56→21:10)
[2020-12-11] MEDS: POTASSIUM CHLORIDE CRTAB 20 MEQ TABCR PO SCH ×3 (08:37→22:13)
[2020-12-11] MEDS: HEPARIN SOD 5,000 UNIT/0.5 ML VIAL SQ SCH ×2 (08:37→19:44)
[2020-12-11] MEDS: FINASTERIDE 5 MG TAB PO SCH (08:37)
[2020-12-11] MEDS: SODIUM CHLORIDE 0.9% 1000ML 1,000 ML IV SCH (08:40)
[2020-12-11 09:03] LABS: BUN Creatinine Ratio 10.6 (10-20); Calcium 9.2 mg/dl (8.5-10.1); Creatinine Clr Calc Pharmacy 48.9 ml/min; Est GFR (African American) 69.8; Est GFR (Non-African American) 60.2; Magnesium 2.1 mg/dl (1.8-2.4); Potassium 2.3 mmol/L (3.5-5.1)
[2020-12-11] MEDS ORDERED: QUEtiapine FUMARATE 25 MG TABLET PO STA (09:57)
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
--- NOTE | 2020-12-11 12:20 | Electrocardiogram Report ---
Test Reason : Blood Pressure : / mmHG Vent. 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 lead placement vs. LVH Abnormal ECG When compared with ECG of 12-OCT-2020 13:56, Borderline criteria for Anterior infarct are now Present Confirmed by Santosh Clement ([id number]) on 12/11/2020 12:19:56 PM Referred By: REFERRED SELF Confirmed By:Santosh Clement
[2020-12-11] MEDS: cefTRIAXone SODIUM 2,000 MG in DEXTROSE 5% 50 ML IV SCH (18:13)
[2020-12-11] MEDS: QUEtiapine FUMARATE 25 MG TABLET PO SCH (21:10)
--- NOTE | 2020-12-11 21:15 | Hospitalist Progress Note ---
Date of Service December 11, 2020 Assessment & Plan (1) Encephalopathy: uncertain if I am simply seeing a progressive cognitive impairment/dementia process vs encephalopathy vs encephalopathy in setting of underlying dementia vs a primary mood disorder masquerading as "pseudodementia" vs other. suspect the former but will see if any change in cognitive status while here. MRI brain in 09/2020 with large ventricles/atrophy. CT head this admission w/o acute findings. B12/TSH wnl. On high dose thiamine. Checking B1 level at this time would not be helpful and results likely skewed because of replacement. Deserves neuropsych eval post-d/c at neurology clinic. Appreciate psych assistance. (2) Dementia with behavioral disturbance: suspected. seroquel 25mg HS. seroquel 25mg prn during the daytime. see "encephalopathy" above. (3) Cognitive impairment: patient with either cognitive impairment vs full-blown dementia see above (4) Hypokalemia: Severe. cause? no diuretic use. no reports of diarrhea. states he has been eating well. Replaced IV/PO yesterday. K still low. Replace, repeat level tonight and again in am. Keep on telemetry. Mag level wnl. (5) Abnormal urinalysis: Mildly abnormal urinalysis. may have UTI. while awaiting urine culture continue IV Rocephin. (6) Elevated transaminase level: Chronically isolated elevated AST level. Fatty liver? other? trend. (7) Spinal stenosis: NO issues at this time. (8) Gout: Cont allopurinol for prophylaxis. No flares at this time. (9) BPH (benign prostatic hyperplasia): Cont finasteride (10) Chronic prescription benzodiazepine use: PDMP shows patient has been on xanax TID for several years. To avoid withdrawal and seizures will place back on xanax for now. (11) DVT prophylaxis: Heparin SC extensively updated by phone Admission and Anticipated Discharge Date Admission Date: December 10, 2020 Subjective tele stable / normal overnight. patient confused during the visit. could not tell me why he was in the hospital or the year. he was mildly paranoid - was accusing the [employer] of "making him pee" when he didn't have to. he mentioned "his family was made at him" but he couldn't relate any details. he didn't recall the events leading up to the hospital stay. he mentioned several times that he "feels terrible" but when asked to elaborate he couldn't give specifics. he did voice that he "was never gonna get out of here" and that he felt trapped. admitted to feeling depressed - again couldn't elaborate. [employer] reported he ate 50% of lunch. staff this am reported agitation which prompted a page to me. seroquel x 1 given with good effect and no excess sedation. Review of Systems Constitutional: no fatigue Respiratory: no dyspnea Cardiovascular: no chest pain Gastrointestinal: no abdominal pain Psychiatric: + depression Physical Exam Constitutional: + altered mental status; no acute distress Eyes: PERRL; no nystagmus ENMT: external ear and nose normal, oropharynx normal Respiratory: normal respiratory effort, lungs clear to auscultation Cardiovascular: Rate/Rhythm: regular rate and regular rhythm Heart Sounds: normal S1 and normal S2; no murmur Vessels: posterior tibial pulses present and dorsalis pedis pulses present; no JVD Extremities: no edema Gastrointestinal (Abdomen): normal bowel sounds, soft, nontender, no hepatosplenomegaly Neurologic: Motor/Sensory: no tremor Psychiatric: Orientation: alert and oriented to person; + not oriented to place and + not oriented to time Affect: + depressed affect Results & Data Results & Data ([facility]) Vital Signs (Past 12 Hours) Vital Signs Temp Pulse Pulse Resp BP Pulse Ox 12/11/20 20:15 81 12/11/20 18:59 36.7 C 84 18 189/97 H 97 12/11/20 16:56 82 12/11/20 15:03 36.7 C 89 18 179/90 H 95 12/11/20 10:00 84 Laboratory Results Laboratory Results - last 24 hr 12/10/20 12/10/20 12/11/20 22:21 22:21 07:06 Sodium 143 Potassium 2.3 L* Chloride 109 H Carbon Dioxide 27 Anion Gap 7.0 BUN 12 Creatinine 1.13 Est Cr Clr Drug Dosing 48.9 Est GFR ( Amer) 69.8 Est GFR (Non-Af Amer) 60.2 BUN/Creatinine Ratio 10.6 Glucose 78 Calcium 9.2 Magnesium 2.1 Vitamin B6 Pending Vitamin B12 > 2000 H Folate 9.70 12/11/20 20:51 Sodium Pending Potassium Pending Chloride Pending Carbon Dioxide Pending Anion Gap Pending BUN Pending Creatinine Pending Est Cr Clr Drug Dosing Pending Est GFR ( Amer) Pending Est GFR (Non-Af Amer) Pending BUN/Creatinine Ratio Pending Glucose Pending Calcium Pending Magnesium Vitamin B6 Vitamin B12 Folate PG Care Time/CCT Total # of Minutes Spent Total Time Spent with Patient: Total time spent is greater than 50% in coordination of care (as documented) at patient's floor/unit and/or counseling patient: Coding Level of Care Code 86006 Subseq Hosp Care Lvl 3 Diagnoses Encephalopathy G93.40 Dementia with behavioral disturbance F03.91 Cognitive impairment R41.89 Hypokalemia E87.6 Abnormal urinalysis R82.90 Elevated transaminase level R74.0 Spinal stenosis M48.00 Gout M10.9 BPH (benign prostatic hyperplasia) N40.0 Chronic prescription benzodiazepine use Z79.899 DVT prophylaxis Z29.9
[2020-12-11 21:31] LABS: BUN Creatinine Ratio 9.6 (10-20); Calcium 8.6 mg/dl (8.5-10.1); Creatinine Clr Calc Pharmacy 36.1 ml/min; Est GFR (African American) 48.4; Est GFR (Non-African American) 41.7
[2020-12-11 21:50] LABS: Potassium 2.7 mmol/L (3.5-5.1)
[2020-12-12] MEDS: POTASSIUM CHLORIDE / WTR 10 MEQ/100 ML PLCT IV SCH ×4 (00:18→11:40)
[2020-12-12] MEDS ORDERED: LABETALOL HCL IV 5 MG/ML 20ML IV STA ×2 (00:39→01:30)
[2020-12-12] MEDS: THIAMINE HCL 500 MG in SODIUM CHLORIDE 0.9% 50 ML IV SCH ×3 (05:30→21:52)
[2020-12-12 07:26] LABS: Hematocrit (blood only) 37.3 % (42-52); Hemoglobin 13.1 g/dL (14.0-18.0); Mean Corpuscular Hemoglobin 31.6 pg (25-34); Mean Corpuscular Hgb Conc 35.1 g/dL (32-36); Mean Corpuscular Volume 90.1 fL (80-100); Platelet Count 224 K/uL (130-400); RDW Coefficient of Variation 13.9 % (11.5-14.5); RDW Standard Deviation 45.6 fL (36.4-46.3); Red Blood Count 4.14 M/uL (4.7-6.1); White Blood Count 8.85 K/uL (4.8-10.8)
[2020-12-12 07:58] LABS: BUN Creatinine Ratio 10.1 (10-20); Calcium 8.6 mg/dl (8.5-10.1); Creatinine Clr Calc Pharmacy 42.9 ml/min; Est GFR (African American) 59.4; Est GFR (Non-African American) 51.3; Magnesium 1.9 mg/dl (1.8-2.4); Potassium 2.9 mmol/L (3.5-5.1)
[2020-12-12] MEDS: ALPRAZolam 0.25 MG TABLET PO SCH ×3 (08:59→20:07)
[2020-12-12] MEDS: POTASSIUM CHLORIDE CRTAB 20 MEQ TABCR PO SCH ×2 (08:59→13:14)
[2020-12-12] MEDS: HEPARIN SOD 5,000 UNIT/0.5 ML VIAL SQ SCH ×2 (09:00→20:03)
[2020-12-12] MEDS: FINASTERIDE 5 MG TAB PO SCH (09:00)
[2020-12-12] MEDS ORDERED: carvediloL 3.125 MG TAB PO ONE (09:21)
--- NOTE | 2020-12-12 11:49 | Hospitalist Progress Note ---
Date of Service December 12, 2020 Assessment & Plan (1) Dementia with behavioral disturbance: Patient states that he was admitted for disagreement family. He chooses not to elaborate on conversation at home. CT scan of the head this admission with no acute findings MRI brain 10/04/2020 with no evidence of masses or malignancy. There was evidence of large ventricles with atrophy Patient was appropriate the time of my examination with no behavioral issues On high-dose thiamine. May choose to follow thiamine levels as an outpatient Vitamin B12 and TSH within normal limits Psychiatry consulted as result of 302 request At this point patient continues to have electrolyte imbalance and is not medically stable to determine disposition Continue to treat underlying medical conditions Follow daily Appreciate psychiatric consult and input Alprazolam held on admission. PDMP reviewed. Restart alprazolam at half dose at 0.25 p.o. 3 times daily and titrate as tolerated Continue with as needed Seroquel as well as 25 mg of Seroquel at bedtime Continue with as needed Haldol (2) Hypokalemia: Patient receiving potassium riders as well as oral potassium Magnesium was slightly low at 1.7 on admission. This is now at 1.9 No diarrhea or vomiting Continue with potassium repletion Check repeat labs today at 6 PM and again in the morning (3) Hypomagnesemia: Lowest level is 1.7. Currently 1.9. Continue to follow lab values and replete as necessary (4) Encephalopathy: Hard to determine if this is acute on chronic and whether or not is progressive Could be cognitive impairment versus dementia versus transient changes Continue treat underlying medical issues (5) GERD (gastroesophageal reflux disease): Patient appears to be has famotidine 20 mg p.o. twice daily at home This seems to have been held on admission Restart famotidine while inpatient No complaints of epigastric pain at the time of my examination (6) Gout: Restart allopurinol at 100 mg p.o. daily now the patient is more alert (home dose is 300 mg every morning) No complaints of arthropathy (7) BPH (benign prostatic hyperplasia): Continue finasteride 5 mg p.o. daily (8) Anxiety: Continue low-dose alprazolam at 0.25 mg p.o. 3 times daily Patient also started on Seroquel as listed above Continue to hold bupropion Follow and treat expectantly (9) Weakness: This appears to be progressive We will request PT OT evaluation and treatment Out of bed with assistance Continue to monitor closely (10) Hypertension: Hypertension as listed on the outpatient family practice notes but there does not appear to be any treatment or outpatient medications for hypertension Patient started on carvedilol 3.125 mg p.o. twice daily Blood pressure was 194 systolically this morning Patient given 10 mg of IV hydralazine and pressure improved to a systolic pressure of 146/69 We will schedule Norvasc 5 mg p.o. daily beginning tomorrow morning Continue as needed IV hydralazine 5 mg IV for systolic blood pressure over 180 (11) DVT prophylaxis: Heparin 5000 units subcu every 12 hours Continue fall precautions Admission and Anticipated Discharge Date Admission Date: December 10, 2020 Supervising Physician Co-Signing Physician Notes Attending Attestation: Chart reviewed in detail, care plan reviewed, labs reviewed. I agree with the pickens components of JOSH Kraus's documentation. Patient to remain on 302; not medically clear for discharge, and unsafe at this time to return home with family due to prior behavior. Chau Santana MD Subjective Attending: Dr. Santana Patient seen and examined at bedside. He is pleasant and talkative. He states that he is at [place]. When I stated that he is actually in [place] he replied appropriately but often times people refer to [facility] as [place] or [place]. He was easily reoriented. He knows his name and date of . He is aware that he is in the hospital because of some "family issues". He is also able to give a complete review of systems. He does reply that the potassium martínez his veins with the IV infusion and that he has no pain with normal saline. He denies any chest pain or tightness. He is unaware of any arrhythmias. He denies fever, chills, sweats, rigors. When asked about the family issues he said he would rather not discuss. Interaction was completely appropriate at the time of my examination and interview. Review of Systems Review of Systems: All systems reviewed & are unremarkable except as noted in Subjective Physical Exam Physical Exam: GENERAL : No acute distress EYES: No icterus, gaze conjugate. Pupils equal round and reactive to light. NOSE: No evidence of epistaxis MOUTH: No lesions or candidiasis. Dentures in place. Tongue is midline. NECK: Supple LUNGS: Very fine crackles at the bilateral bases. No bronchospasm. No rhonchi. Good inspirational effort. No cough induced with deep breathing. HEART: Regular, rate controlled ABDOMEN: Soft, NT, ND, BS Present EXTREMITIES: No LE edema, pedal pulses intact and equal bilaterally. NEURO: A&OX3. Pleasant. Behaviorally appropriate. Results & Data Results & Data ([facility]) Vital Signs (Past 12 Hours) Vital Signs Temp Pulse Pulse Pulse Resp BP BP 12/12/20 11:03 36.9 C 73 16 182/93 H 12/12/20 07:09 75 12/12/20 06:48 36.6 C 74 16 194/63 H 12/12/20 03:51 36.7 C 72 18 187/107 H 12/12/20 01:51 179/103 H 12/12/20 01:28 84 193/90 H 12/12/20 01:02 85 191/101 H 12/12/20 00:44 84 12/12/20 00:20 206/109 H Pulse Ox 12/12/20 11:03 93 12/12/20 07:09 12/12/20 06:48 95 12/12/20 03:51 95 12/12/20 01:51 12/12/20 01:28 12/12/20 01:02 12/12/20 00:44 12/12/20 00:20 Laboratory Results 12/12/20 07:03 12/12/20 07:03 Laboratory Tests 12/10/20 12/11/20 12/12/20 16:08 07:06 07:03 Magnesium 1.7 L 2.1 1.9 PG Care Time/CCT Total # of Minutes Spent Total Time Spent with Patient: Total time spent is greater than 50% in coordination of care (as documented) at patient's floor/unit and/or counseling patient: Coding Level of Care Code 65514 Subseq Hosp Care Lvl 3 Diagnoses Dementia with behavioral disturbance F03.91 Hypokalemia E87.6 Hypomagnesemia E83.42 Encephalopathy G93.40 GERD (gastroesophageal reflux disease) K21.9 Gout M10.9 BPH (benign prostatic hyperplasia) N40.0 Anxiety F41.9 Weakness R53.1 Hypertension I10 Hypertension type: essential hypertension DVT prophylaxis Z29.9 Time Spent (min) 40 (1) Hypertension Hypertension type: essential hypertension Qualified Code(s): I10 - Essential (primary) hypertension
[2020-12-12] MEDS ORDERED: hydrALAZINE HCL 20 MG/ML VIAL IV STA (11:50)
[2020-12-12] MEDS: cefTRIAXone SODIUM 2,000 MG in DEXTROSE 5% 50 ML IV SCH (17:09)
[2020-12-12] MEDS ORDERED: hydrALAZINE HCL 20 MG/ML VIAL IV PRN (17:55)
[2020-12-12 18:05] LABS: BUN Creatinine Ratio 8.8 (10-20); Calcium 8.9 mg/dl (8.5-10.1); Creatinine Clr Calc Pharmacy 38.1 ml/min; Est GFR (African American) 51.6; Est GFR (Non-African American) 44.5; Potassium 3.3 mmol/L (3.5-5.1)
[2020-12-12] MEDS: FAMOTIDINE 20 MG TAB PO SCH (20:01)
[2020-12-12] MEDS: carvediloL 3.125 MG TAB PO SCH (20:02)
[2020-12-12] MEDS: QUEtiapine FUMARATE 25 MG TABLET PO SCH (20:02)
[2020-12-13] MEDS: THIAMINE HCL 500 MG in SODIUM CHLORIDE 0.9% 50 ML IV SCH ×3 (05:47→21:33)
[2020-12-13 06:37] LABS: BUN Creatinine Ratio 10.8 (10-20); Calcium 8.5 mg/dl (8.5-10.1); Creatinine Clr Calc Pharmacy 38.4 ml/min; Est GFR (African American) 52.5; Est GFR (Non-African American) 45.3; Potassium 3.3 mmol/L (3.5-5.1)
[2020-12-13] MEDS: carvediloL 3.125 MG TAB PO SCH ×2 (08:48→21:22)
[2020-12-13] MEDS: FAMOTIDINE 20 MG TAB PO SCH ×2 (08:48→21:23)
[2020-12-13] MEDS: ALPRAZolam 0.25 MG TABLET PO SCH ×3 (08:48→21:34)
[2020-12-13] MEDS: FINASTERIDE 5 MG TAB PO SCH (08:48)
[2020-12-13] MEDS: amLODIPine BESYLATE 5 MG TAB PO SCH (08:48)
[2020-12-13] MEDS: allopurinoL 100 MG TAB PO SCH (08:48)
[2020-12-13] MEDS: POTASSIUM CHLORIDE CRTAB 20 MEQ TABCR PO SCH ×2 (09:31→21:23)
[2020-12-13] MEDS: HEPARIN SOD 5,000 UNIT/0.5 ML VIAL SQ SCH ×2 (09:31→21:22)
--- NOTE | 2020-12-13 13:46 | Hospitalist Progress Note ---
Date of Service December 13, 2020 Assessment & Plan (1) Encephalopathy: Metabolic encephalopathy versus dementia with behavior disorder. He is now on Seroquel at bedtime and bupropion has been discontinued. Will discontinue one-on-one supervision today. MRI brain in 09/2020 with large ventricles/atrophy. CT head this admission w/o acute findings. B12/TSH wnl. Appreciate psych assistance. (2) Dementia with behavioral disturbance: seroquel 25mg HS started this admission. seroquel 25mg prn during the daytime. (3) Cognitive impairment: patient with cognitive impairment due to dementia. Supportive care (4) Hypokalemia: Severe. Improving with replacement. Serial labs. (5) Abnormal urinalysis: Mildly abnormal urinalysis. Urine culture negative however. Rocephin discontinued. (6) Elevated transaminase level: Chronically isolated elevated AST level. Asymptomatic. (7) Spinal stenosis: NO issues at this time. (8) Gout: Cont allopurinol for prophylaxis. No flares at this time. (9) BPH (benign prostatic hyperplasia): Cont finasteride (10) Chronic prescription benzodiazepine use: PDMP shows patient has been on xanax TID for several years. To avoid withdrawal and seizures will continue xanax for now. (11) DVT prophylaxis: Heparin SC Disposition: Probable placement as the is afraid to take the patient home Admission and Anticipated Discharge Date Admission Date: December 10, 2020 Subjective The patient was sleeping at the time of my rounds. One-to-one sitter states that his behavior has improved. His however is afraid for him to come home. It appears he will need placement. Blood pressure remains moderately elevated. Coreg and amlodipine are new. Urine and blood cultures are negative and antibiotics discontinued. We will also discontinue one-on-one supervision. Oral potassium replacement continues. Review of Systems Review of Systems: Unobtainable due to cognitive status Physical Exam Physical Exam: General-somnolent HEENT-head atraumatic and normocephalic, pupils equal and reactive to light, extraocular muscles intact Neck-no lymphadenopathy or thyromegaly, trachea midline Chest-clear to auscultation percussion. No rales wheezing or rhonchi Cardiac-regular rate and rhythm, normal S1 and S2, no murmurs Abdomen-normal bowel sounds, nontender, no hepatosplenomegaly Extremities-no cyanosis, clubbing, or edema Neuro-cranial nerves II through XII intact, motor and sensory function within normal limits, strength symmetrical , no focal deficits Psych-baseline dementia and confusion Results & Data Results & Data ([facility]) Vital Signs (Past 12 Hours) Vital Signs Temp Pulse Pulse Resp BP Pulse Ox 12/13/20 08:30 78 12/13/20 06:49 36.4 C L 79 16 177/98 H 95 12/13/20 04:37 36.5 C 82 20 170/93 H 95 Laboratory Results 12/12/20 07:03 12/13/20 05:24 PG Care Time/CCT Total # of Minutes Spent Total Time Spent with Patient: Total time spent is greater than 50% in coordination of care (as documented) at patient's floor/unit and/or counseling patient: Coding Level of Care Code 24057 Subseq Hosp Care Lvl 3 Diagnoses Encephalopathy G93.40 Dementia with behavioral disturbance F03.91 Cognitive impairment R41.89 Hypokalemia E87.6 Abnormal urinalysis R82.90 Elevated transaminase level R74.0 Spinal stenosis M48.00 Gout M10.9 BPH (benign prostatic hyperplasia) N40.0 Chronic prescription benzodiazepine use Z79.899 DVT prophylaxis Z29.9
[2020-12-13] MEDS: QUEtiapine FUMARATE 25 MG TABLET PO SCH (21:23)
[2020-12-14] MEDS: THIAMINE HCL 500 MG in SODIUM CHLORIDE 0.9% 50 ML IV SCH ×3 (05:12→22:00)
[2020-12-14 07:31] LABS: 7-Aminoclonaz, Confirm NEGATIVE ng/mL (<25); Hydro-Alp Ur, GC/MS 237 ng/mL (<25); Hydroxyethylflurazepam, Conf NEGATIVE ng/mL (<50); Hydroxymidazolam Ur, GC/MS NEGATIVE ng/mL (<50); Hydroxytriazolam NEGATIVE ng/mL (<50); Lorazepam, Ur GC/MS NEGATIVE ng/mL (<50); MDA negative; MDEA negative; MDMA (Ecstasy) Urine, Confirm negative; Nordiazepam, Confirm NEGATIVE ng/mL (<50); Oxazepam Ur, GC/MS NEGATIVE ng/mL (<50); Temazepam, Confirm NEGATIVE ng/mL (<50)
[2020-12-14 08:26] LABS: BUN Creatinine Ratio 11.9 (10-20); Calcium 8.7 mg/dl (8.5-10.1); Creatinine Clr Calc Pharmacy 40.4 ml/min; Est GFR (African American) 55.8; Est GFR (Non-African American) 48.1; Magnesium 1.8 mg/dl (1.8-2.4); Potassium 3.3 mmol/L (3.5-5.1)
[2020-12-14] MEDS: carvediloL 3.125 MG TAB PO SCH ×2 (09:03→20:31)
[2020-12-14] MEDS: allopurinoL 100 MG TAB PO SCH (09:03)
[2020-12-14] MEDS: amLODIPine BESYLATE 5 MG TAB PO SCH (09:03)
[2020-12-14] MEDS: FINASTERIDE 5 MG TAB PO SCH (09:03)
[2020-12-14] MEDS: HEPARIN SOD 5,000 UNIT/0.5 ML VIAL SQ SCH ×2 (09:03→20:28)
[2020-12-14] MEDS: ALPRAZolam 0.25 MG TABLET PO SCH ×3 (09:03→20:43)
[2020-12-14] MEDS: POTASSIUM CHLORIDE CRTAB 20 MEQ TABCR PO SCH ×3 (09:03→20:32)
[2020-12-14] MEDS: FAMOTIDINE 20 MG TAB PO SCH ×2 (09:03→20:32)
[2020-12-14] MEDS ORDERED: amLODIPine BESYLATE 5 MG TAB PO ONE (10:15)
--- NOTE | 2020-12-14 14:23 | Hospitalist Progress Note ---
Date of Service December 14, 2020 Assessment & Plan (1) Dementia with behavioral disturbance: seroquel 25mg HS started this admission. Bupropion discontinued. Appreciate psychiatry consultation and recommendations. Much improved. (2) Hypokalemia: Continue oral replacement. Serial labs (3) Hypomagnesemia: Parenteral and oral replacement. Serial labs (4) Encephalopathy: Due to dementia with behavior disorder. He is now on Seroquel at bedtime and bupropion has been discontinued. One-on-one supervision was discontinued 12/13. MRI brain in 09/2020 with large ventricles/atrophy. CT head this admission w/o acute findings. B12/TSH wnl. Appreciate psych assistance. (5) GERD (gastroesophageal reflux disease): Treated with famotidine (6) Gout: Cont allopurinol for prophylaxis. No flares at this time. (7) BPH (benign prostatic hyperplasia): Cont finasteride (8) Anxiety: Currently stable. Will treat if necessary (9) Weakness: Continue OT and PT (10) Hypertension: Treated with Coreg and amlodipine (11) DVT prophylaxis: Heparin subcu Disposition: He will need to be discharged to an SNF facility which is pending. Admission and Anticipated Discharge Date Admission Date: December 10, 2020 Subjective Alert and pleasant. The switch from bupropion to Seroquel seems to have helped with his behavior considerably. Amlodipine dosage uptitrated for better blood pressure control. Continue carvedilol. Potassium replacement also uptitrated today. He no longer needs a 302 which has been canceled. Review of Systems Review of Systems: All systems reviewed & are unremarkable except as noted in HPI & below Physical Exam Physical Exam: General-alert and oriented x1, no fevers, no chills HEENT-head atraumatic and normocephalic, TMs intact bilaterally, pupils equal an d reactive to light, extraocular muscles intact Neck-no lymphadenopathy or thyromegaly, trachea midline Chest-clear to auscultation percussion. No rales wheezing or rhonchi Cardiac-regular rate and rhythm, normal S1 and S2, no murmurs Abdomen-normal bowel sounds, nontender, no hepatosplenomegaly Extremities-no cyanosis, clubbing, or edema Neuro-cranial nerves II through XII intact, motor and sensory function within normal limits, strength symmetrical , no focal deficits Psych-normal affect, normal mood Results & Data Results & Data ([facility]) Vital Signs (Past 12 Hours) Vital Signs Temp Pulse Pulse Resp BP Pulse Ox 12/14/20 11:27 36.4 C L 70 19 153/79 H 96 12/14/20 07:56 36.6 C 62 20 162/93 H 95 12/14/20 07:14 77 12/14/20 04:01 36.6 C 83 18 159/94 H 95 Laboratory Results 12/12/20 07:03 12/14/20 07:16 PG Care Time/CCT Total # of Minutes Spent Total Time Spent with Patient: Total time spent is greater than 50% in coord ination of care (as documented) at patient's floor/unit and/or counseling patient: Coding Level of Care Code 80447 Subseq Hosp Care Lvl 3 Diagnoses Dementia with behavioral disturbance F03.91 Hypokalemia E87.6 Hypomagnesemia E83.42 Encephalopathy G93.40 GERD (gastroesophageal reflux disease) K21.9 Gout M10.9 BPH (benign prostatic hyperplasia) N40.0 Anxiety F41.9 Weakness R53.1 Hypertension I10 Hypertension type: essential hypertension DVT prophylaxis Z29.9 (1) Hypertension Hypertension type: essential hypertension Qualified Code(s): I10 - Essential (primary) hypertension
[2020-12-14] MEDS: QUEtiapine FUMARATE 25 MG TABLET PO SCH (20:32)
[2020-12-15] MEDS: HALOPERIDOL LACTATE 5 MG/ML 1 ML VIAL IM PRN (01:38)
[2020-12-15] MEDS: ACETAMINOPHEN 325 MG TAB PO PRN (04:10)
[2020-12-15] MEDS: THIAMINE HCL 500 MG in SODIUM CHLORIDE 0.9% 50 ML IV SCH ×3 (05:30→21:56)
[2020-12-15 08:12] LABS: BUN Creatinine Ratio 14.6 (10-20); Calcium 8.4 mg/dl (8.5-10.1); Creatinine Clr Calc Pharmacy 37.9 ml/min; Est GFR (African American) 51.6; Est GFR (Non-African American) 44.5; Potassium 3.7 mmol/L (3.5-5.1)
[2020-12-15] MEDS: carvediloL 3.125 MG TAB PO SCH ×2 (09:49→20:45)
[2020-12-15] MEDS: FINASTERIDE 5 MG TAB PO SCH (09:49)
[2020-12-15] MEDS: POTASSIUM CHLORIDE CRTAB 20 MEQ TABCR PO SCH ×3 (09:49→20:44)
[2020-12-15] MEDS: HEPARIN SOD 5,000 UNIT/0.5 ML VIAL SQ SCH ×2 (09:49→20:45)
[2020-12-15] MEDS: allopurinoL 100 MG TAB PO SCH (09:50)
[2020-12-15] MEDS: amLODIPine BESYLATE 5 MG TAB PO SCH (09:50)
[2020-12-15] MEDS: FAMOTIDINE 20 MG TAB PO SCH ×2 (09:50→20:44)
[2020-12-15] MEDS: ALPRAZolam 0.25 MG TABLET PO SCH ×3 (09:51→20:47)
--- NOTE | 2020-12-15 13:28 | Hospitalist Progress Note ---
Date of Service December 15, 2020 Assessment & Plan (1) Dementia with behavioral disturbance: seroquel 25mg HS started this admission. Bupropion discontinued. Appreciate psychiatry consultation and recommendations. Much improved. (2) Hypokalemia: Continue oral replacement. Serial labs. Corrected (3) Hypomagnesemia: Parenteral and oral replacement. Serial labs. Corrected (4) Encephalopathy: Due to dementia with behavior disorder. He is now on Seroquel at bedtime and bupropion has been discontinued. One-on-one supervision was discontinued 12/13. MRI brain in 09/2020 with large ventricles/atrophy. CT head this admission w/o acute findings. B12/TSH wnl. Appreciate psych assistance. (5) GERD (gastroesophageal reflux disease): Treated with famotidine (6) Gout: Cont allopurinol for prophylaxis. No flares at this time. (7) BPH (benign prostatic hyperplasia): Cont finasteride (8) Anxiety: Currently stable. Will treat if necessary (9) Weakness: Continue OT and PT (10) Hypertension: Treated with Coreg and amlodipine (11) DVT prophylaxis: Heparin subcu Disposition: He will need to be discharged to an SNF facility which is pending. Admission and Anticipated Discharge Date Admission Date: December 10, 2020 Subjective The patient is complaining of nausea but otherwise stable this morning. No significant physical findings. Blood pressure is better since amlodipine uptitrated yesterday December 14. Awaiting placement at SNF facility. Mild hypokalemia corrected. Bupropion has been switched to Seroquel which seems to have helped his behavior considerably. Review of Systems Review of Systems: Unobtainable due to cognitive status Physical Exam Physical Exam: General-alert and oriented x1, no fevers, no chills HEENT-head atraumatic and normocephalic, pupils equal and reactive to light, extraocular muscles intact Neck-no lymphadenopathy or thyromegaly, trachea midline Chest-clear to auscultation percussion. No rales wheezing or rhonchi Cardiac-regular rate and rhythm, normal S1 and S2 Abdomen-normal bowel sounds, nontender, no hepatosplenomegaly Extremities-no cyanosis, clubbing, or edema Neuro-cranial nerves II through XII intact, motor and sensory function within normal limits, strength symmetrical , no focal deficits Psych-baseline dementia and confusion. No behavioral outburst however while on Seroquel Results & Data Results & Data ([facility]) Vital Signs (Past 12 Hours) Vital Signs Temp Pulse Pulse Resp BP Pulse Ox 12/15/20 12:02 36.7 C 70 19 109/70 95 12/15/20 07:34 36.8 C 78 18 148/79 H 95 12/15/20 07:00 88 12/15/20 03:04 87 Laboratory Results 12/12/20 07:03 12/15/20 06:54 PG Care Time/CCT Total # of Minutes Spent Total Time Spent with Patient: Total time spent is greater than 50% in coordination of care (as documented) at patient's floor/unit and/or counseling patient: Coding Level of Care Code 20264 Subseq Hosp Care Lvl 2 Diagnoses Dementia with behavioral disturbance F03.91 Hypokalemia E87.6 Hypomagnesemia E83.42 Encephalopathy G93.40 GERD (gastroesophageal reflux disease) K21.9 Gout M10.9 BPH (benign prostatic hyperplasia) N40.0 Anxiety F41.9 Weakness R53.1 Hypertension I10 Hypertension type: essential hypertension DVT prophylaxis Z29.9 (1) Hypertension Hypertension type: essential hypertension Qualified Code(s): I10 - Essential (primary) hypertension
[2020-12-15] MEDS ORDERED: PROMETHAZINE HCL 12.5 MG in SODIUM CHLORIDE 0.9% 50 ML IV STA (14:38)
[2020-12-15] MEDS: QUEtiapine FUMARATE 25 MG TABLET PO SCH (20:45)
[2020-12-16] MEDS: THIAMINE HCL 500 MG in SODIUM CHLORIDE 0.9% 50 ML IV SCH ×2 (06:18→14:11)
[2020-12-16 07:38] LABS: BUN Creatinine Ratio 15.8 (10-20); Calcium 8.5 mg/dl (8.5-10.1); Est GFR (African American) 51.6; Est GFR (Non-African American) 44.5; Potassium 4.3 mmol/L (3.5-5.1)
[2020-12-16] MEDS: FINASTERIDE 5 MG TAB PO SCH (07:59)
[2020-12-16] MEDS: POTASSIUM CHLORIDE CRTAB 20 MEQ TABCR PO SCH ×2 (07:59→14:07)
[2020-12-16] MEDS: amLODIPine BESYLATE 5 MG TAB PO SCH (07:59)
[2020-12-16] MEDS: FAMOTIDINE 20 MG TAB PO SCH ×2 (07:59→21:39)
[2020-12-16] MEDS: ALPRAZolam 0.25 MG TABLET PO SCH ×3 (07:59→21:38)
[2020-12-16] MEDS: allopurinoL 100 MG TAB PO SCH (07:59)
[2020-12-16] MEDS: carvediloL 3.125 MG TAB PO SCH ×2 (07:59→21:39)
[2020-12-16] MEDS: HEPARIN SOD 5,000 UNIT/0.5 ML VIAL SQ SCH ×2 (07:59→21:41)
[2020-12-16 13:06] LABS: Appearance Urine Clear (Clear); Bacteria Urine Automated Negative (Negative); Bilirubin Urine Negative (Negative); Blood Urine Trace (Negative); Cast Urine Automated 0 /lpf (0-5); Color Urine Yellow; Glucose Urine UA Negative (Negative); Ketones Urine Negative (Negative); Leukocyte Esterase Urine Negative (Negative); Nitrite Urine Negative (Negative); Protein Urine Negative (Negative); RBC Urine Automated 0-4 /hpf (0-4); Urobilinogen Urine Negative (Negative); pH Urine 7.5 (4.5-7.5)
[2020-12-16] MEDS ORDERED: OXYBUTYNIN CHLORIDE 5 MG TAB PO STA (14:21)
--- NOTE | 2020-12-16 20:22 | Hospitalist Progress Note ---
Date of Service December 16, 2020 Assessment & Plan (1) Dementia with behavioral disturbance: behavior disturbance improved s/p initiation of seroquel several days ago. orientation improved with seroquel as well. cont seroquel 25mg HS. (2) Hypokalemia: resolved. stop supplementation. (3) Hypomagnesemia: resolved. (4) Encephalopathy: MRI brain in 09/2020 with large ventricles/atrophy. CT head this admission w/o acute findings. B12/TSH wnl. Has received 5+ days of high dose IV thiamine. Stop such, change to po thiamine 100mg daily. Deserves neuropsych eval post-d/c at neurology clinic. Overall encephalopathy in setting of dementia has improved with seroquel. (5) GERD (gastroesophageal reflux disease): cont pepcid 20mg bid (6) Gout: Cont allopurinol for prophylaxis. No flares at this time. (7) BPH (benign prostatic hyperplasia): Cont finasteride Add flomax due to severe urinary retention Moore placed today (8) Anxiety: xanax 0.25 TID resumed patient was taking this prior to admission as it was a chronic med (9) Weakness: general deconditioning in setting of progressive dementia, etc PT, OT (10) Hypertension: cont coreg cont amlodipine flomax for BPH will also help BPs overall improved (11) Urinary retention due to benign prostatic hyperplasia: moore flomax added today cont finasteride (12) Chronic renal failure, stage 3b: baseline CrCl 30s/40s bmp today stable (13) DVT prophylaxis: heparin SC - change to TID dosing for bladder spasms - oxybutinin x 1 given today dispo - [facility] vs [facility], [facility] vs other Admission and Anticipated Discharge Date Admission Date: December 10, 2020 Subjective pt had urinary retention earlier this am requiring straight cath. this yielded 900cc+. he had urinary retention again this afternoon and bladder scan showed 765cc. moore placed. following moore placement he c/o bladder spasms and suprapubic discomfort. has been sleeping ok with seroquel. eating well. during the visit today he was oriented to place ("[facility]"), time (2020) and person. Review of Systems Constitutional: no fatigue, no weakness and no anorexia Respiratory: no dyspnea Cardiovascular: no chest pain Gastrointestinal: as per Subjective / HPI and + abdominal pain; no nausea and no vomiting Physical Exam Constitutional: no acute distress ENMT: external ear and nose normal, oropharynx normal Respiratory: normal respiratory effort, lungs clear to auscultation Cardiovascular: Rate/Rhythm: regular rate and regular rhythm Heart Sounds: normal S1 and normal S2; no murmur Vessels: posterior tibial pulses present and dorsalis pedis pulses present; no JVD Extremities: no edema Gastrointestinal (Abdomen): normal bowel sounds, soft, nontender, no hepatosplenomegaly Psychiatric: Orientation: alert, oriented to person, oriented to place and oriented to time Results & Data Results & Data ([facility]) Vital Signs (Past 12 Hours) Vital Signs Temp Pulse Pulse Resp BP BP Pulse Ox 12/16/20 19:56 37.2 C 83 18 154/82 H 94 12/16/20 15:27 36.6 C 66 18 163/81 H 94 12/16/20 15:25 78 12/16/20 11:00 36.6 C 77 18 138/79 96 Laboratory Results Laboratory Results - last 24 hr 12/16/20 12/16/20 06:28 Unknown Sodium 141 Potassium 4.3 D Chloride 111 H Carbon Dioxide 26 Anion Gap 4.0 BUN 23 H Creatinine 1.45 H Est Cr Clr Drug Dosing 38.0 Est GFR ( Amer) 51.6 Est GFR (Non-Af Amer) 44.5 BUN/Creatinine Ratio 15.8 Glucose 95 Calcium 8.5 Urine Color Yellow Urine Appearance Clear Urine pH 7.5 Ur Specific [place] 1.010 Urine Protein Negative Urine Glucose (UA) Negative Urine Ketones Negative Urine Blood Trace H Urine Nitrite Negative Urine Bilirubin Negative Urine Urobilinogen Negative Ur Leukocyte Esterase Negative Urine WBC (Auto) 1-5 Urine RBC (Auto) 0-4 U Hyaline Cast (Auto) 0 U Epithel Cells (Auto) 5-10 H Urine Bacteria (Auto) Negative PG Care Time/CCT Total # of Minutes Spent Total Time Spent with Patient: Total time spent is greater than 50% in coordination of care (as documented) at patient's floor/unit and/or counseling patient: Coding Level of Care Code 79416 Subseq Hosp Care Lvl 2 Diagnoses Dementia with behavioral disturbance F03.91 Hypokalemia E87.6 Hypomagnesemia E83.42 Encephalopathy G93.40 GERD (gastroesophageal reflux disease) K21.9 Gout M10.9 BPH (benign prostatic hyperplasia) N40.0 Anxiety F41.9 Weakness R53.1 Hypertension I10 Hypertension type: essential hypertension Urinary retention due to benign prostatic hyperplasia N40.1; R33.8 Chronic renal failure, stage 3b N18.32 DVT prophylaxis Z29.9 (1) Hypertension Hypertension type: essential hypertension Qualified Code(s): I10 - Essential (primary) hypertension
[2020-12-16] MEDS ORDERED: TAMSULOSIN HCL 0.4 MG CAP PO STA (20:25)
[2020-12-16] MEDS: QUEtiapine FUMARATE 25 MG TABLET PO SCH (21:38)
[2020-12-17] MEDS: ALPRAZolam 0.25 MG TABLET PO SCH ×3 (08:06→20:11)
[2020-12-17] MEDS: allopurinoL 100 MG TAB PO SCH (08:06)
[2020-12-17] MEDS: FINASTERIDE 5 MG TAB PO SCH (08:06)
[2020-12-17] MEDS: TAMSULOSIN HCL 0.4 MG CAP PO SCH (08:06)
[2020-12-17] MEDS: THIAMINE HCL 100 MG TAB PO SCH (08:06)
[2020-12-17] MEDS: FAMOTIDINE 20 MG TAB PO SCH ×2 (08:06→20:06)
[2020-12-17] MEDS: carvediloL 3.125 MG TAB PO SCH ×2 (08:06→20:05)
[2020-12-17] MEDS: amLODIPine BESYLATE 5 MG TAB PO SCH (08:06)
[2020-12-17] MEDS: HEPARIN SOD 5,000 UNIT/0.5 ML VIAL SQ SCH ×2 (08:06→20:06)
--- NOTE | 2020-12-17 16:10 | XRay Report ---
SINGLE VIEW CHEST CLINICAL HISTORY: Aspiration event. FINDINGS: An AP, portable, upright chest radiograph is compared to study dated 12/10/2020. The examina tion is degraded by portable technique and patient rotation. The heart is top normal for projection noting atherosclerotic calcification of the thoracic aorta. There is mild elevation of right hemidiap hragm and bibasilar atelectasis. Chronic interstitial thickening is similar to previous. There is no airspace consolidation or large pleural effusion. No pneumothorax is seen. The skeletal structures ar e osteopenic. The bony thorax is grossly intact. IMPRESSION: No active disease in the chest. ACT 112: Negative or not required by law. Electronically signed by: Naman Ramirez M.D. 12/17/2020 4:08 PM
[2020-12-17] MEDS ORDERED: ACETAMINOPHEN 1000 MG/100 ML IV IV STA (16:43)
[2020-12-17] MEDS ORDERED: IPRATROPIUM BROMIDE/ALBUTEROL respimat INH INH STA (16:45)
[2020-12-17] MEDS ORDERED: Albuterol HFA 8 GM Inhaler (Combivent Respimat P&T Subs) INH STA (16:49)
[2020-12-17] MEDS ORDERED: Ipratropium HFA Inhaler (Combivent Respimat P&T Subs) INH STA (16:49)
[2020-12-17 17:44] LABS: Influenza A virus by PCR Negative (Neg); Influenza B virus by PCR Negative (Neg); RSV by PCR Negative (Neg); SARS CoV2 RNA(COVID-19) InHosp NEGATIVE (Negative)
[2020-12-17 18:48] LABS: Basophils # (auto) 0.03 K/uL (0-0.2); Basophils % (auto) 0.2 %; Eosinophils # (auto) 0.01 K/uL (0-0.5); Eosinophils % (auto) 0.1 %; Hematocrit (blood only) 40.1 % (42-52); Hemoglobin 14.1 g/dL (14.0-18.0); Immature Granulocytes # (auto) 0.04 K/uL (0.00-0.02); Immature Granulocytes % (auto) 0.2 %; Lymphocytes # (auto) 3.05 K/uL (1.2-3.4); Mean Corpuscular Hemoglobin 32.6 pg (25-34); Mean Corpuscular Hgb Conc 35.2 g/dL (32-36); Mean Corpuscular Volume 92.6 fL (80-100); Mean Platelet Volume 9.8 fL (7.4-10.4); Monocytes # (auto) 1.62 K/uL (0.11-0.59); Monocytes % (auto) 8.5 %; Neutrophils # (auto) 14.34 K/uL (1.4-6.5); Platelet Count 227 K/uL (130-400); RDW Coefficient of Variation 13.9 % (11.5-14.5); RDW Standard Deviation 47.3 fL (36.4-46.3); Red Blood Count 4.33 M/uL (4.7-6.1); White Blood Count 19.09 K/uL (4.8-10.8)
[2020-12-17 19:07] LABS: BUN Creatinine Ratio 17.7 (10-20); Calcium 8.3 mg/dl (8.5-10.1); Creatinine Clr Calc Pharmacy 30.3 ml/min; Est GFR (Non-African American) 34.5; Potassium 4.3 mmol/L (3.5-5.1)
[2020-12-17 19:10] LABS: Albumin Globulin Ratio 0.9 (0.9-2); Bilirubin,Total 0.7 mg/dl (0.2-1); Globulin 3.2 gm/dl (2.5-4.0); Total Protein 6.2 gm/dl (6.4-8.2)
[2020-12-17] MEDS: CEFEPIME 2,000 MG in SYRINGE 0 ML IV SCH (19:59)
[2020-12-17] MEDS: QUEtiapine FUMARATE 25 MG TABLET PO SCH (20:06)
[2020-12-17] MEDS: SODIUM CHLORIDE 0.9% 1000ML 1,000 ML IV SCH (21:41)
--- NOTE | 2020-12-17 21:45 | Hospitalist Progress Note ---
Date of Service December 17, 2020 Assessment & Plan (1) SIRS (systemic inflammatory response syndrome): fever, cough, abnormal lung findings on exam, and what sounds like aspiration event today. also confirming that he has chronic cough w/ eating at home. cxr was obtained - no discrete infiltrates, but [id number] I am concerned he had aspiration event. with fever, lethargy, altered MS, and leukocytosis on cbc I am suspicious he is developing pneumonia but we simply cannot see yet on cxr. plan - PCN allergy; thus use cefepime defer on atypical coverage MRSA swab neg- defer on MRSA coverage NPO, IVF, speech eval tomorrow blood cx's x 2 sets cbc, cmp obtained and reviewed repeat COVID 19 testing/flu/RSV -- again negative repeat cxr in am to see if infiltrates are now present (2) Dementia with behavioral disturbance: behavior disturbance improved s/p initiation of seroquel several days ago. orientation improved with seroquel as well. now altered again and lethargic - suspect encephalopathy 2nd to fever/infection. see above. (3) Hypokalemia: resolved. stop supplementation. (4) Hypomagnesemia: resolved. (5) Encephalopathy: MRI brain in 09/2020 with large ventricles/atrophy. CT head this admission w/o acute findings. B12/TSH wnl. Has received 5+ days of high dose IV thiamine. Stopped such, changed to po thiamine 100mg daily. Deserves neuropsych eval post-d/c at neurology clinic. Overall encephalopathy in setting of dementia had improved with seroquel. Now altered again - suspect from developing pulmonary infection. see above. (6) GERD (gastroesophageal reflux disease): cont pepcid 20mg bid (7) Gout: Cont allopurinol for prophylaxis. No flares at this time. (8) BPH (benign prostatic hyperplasia): Cont finasteride severe urinary retention this weekend leading to moore placement flomax started yesterday in addition to finasteride u/a sent - no signs of infection; blood/protein seen -- CT abd/pelvis earlier this year without stones urine cx negative (9) Anxiety: xanax 0.25 TID resumed patient was taking this prior to admission as it was a chronic med (10) Weakness: general deconditioning in setting of progressive dementia, etc PT, OT (11) Hypertension: cont coreg cont amlodipine flomax for BPH will also help BPs overall improved (12) Urinary retention due to benign prostatic hyperplasia: moore finasteride flomax (13) Chronic renal failure, stage 3b: baseline CrCl 30s/40s bmp today shows mild increase in creatinine hydrate, repeat BMP am (14) Dysphagia: per and now suspected aspiration of easter candy today speech therapy consult in am npo until then IVF (15) DVT prophylaxis: heparin SC TID dispo - [facility] vs [facility] vs other extensively updated today by phone Admission and Anticipated Discharge Date Admission Date: December 10, 2020 Subjective patient very lethargic today wakes up to name being called answered a few questions with single-word answers then fell back asleep unable to provide any meaningful history/ros today staff report he had an episode of dysphagia earlier in the afternoon delivered Easter candy apparently he choked/aspirated some of the candy I updated by phone she said that for some time he typically coughs during meals/eating/drinking has never had choking spell but again he consistently coughs and sometimes even has dyspnea w/ meals Review of Systems Review of Systems: Unobtainable due to cognitive status Physical Exam Constitutional: + altered mental status; no acute distress lethargic today; coughing ENMT: external ear and nose normal, oropharynx normal Respiratory: course BS b/l with occasional rhonchi and b/l crackles much worse RLL Cardiovascular: Rate/Rhythm: regular rate and regular rhythm Heart Sounds: normal S1 and normal S2; no murmur Vessels: posterior tibial pulses present and dorsalis pedis pulses present; no JVD Extremities: no edema Gastrointestinal (Abdomen): normal bowel sounds, soft, nontender, no hepatosplenomegaly Psychiatric: Orientation: + not alert and + not oriented x 3 Results & Data Results & Data ([facility]) Vital Signs (Past 12 Hours) Vital Signs Temp Pulse Resp BP Pulse Ox 12/17/20 19:45 36.5 C 79 16 115/61 95 12/17/20 19:22 81 20 95 12/17/20 18:46 36.9 C 12/17/20 15:46 38.5 C H 85 19 110/66 93 Laboratory Results Laboratory Results - last 24 hr 12/17/20 12/17/20 12/17/20 16:14 16:14 18:27 WBC 19.09 H RBC 4.33 L Hgb 14.1 Hct 40.1 L MCV 92.6 MCH 32.6 MCHC 35.2 RDW Std Deviation 47.3 H RDW Coeff of Jaelyn 13.9 Plt Count 227 MPV 9.8 Immature Gran % (Auto) 0.2 Neut % (Auto) 75.0 Lymph % (Auto) 16.0 [place] % (Auto) 8.5 Eos % (Auto) 0.1 Baso % (Auto) 0.2 Neut # (Auto) 14.34 H Lymph # (Auto) 3.05 [place] # (Auto) 1.62 H Eos # (Auto) 0.01 Baso # (Auto) 0.03 Immature Gran # (Auto) 0.04 H Sodium Potassium Chloride Carbon Dioxide Anion Gap BUN Creatinine Est Cr Clr Drug Dosing Est GFR ( Amer) Est GFR (Non-Af Amer) BUN/Creatinine Ratio Glucose Calcium Total Bilirubin AST ALT Alkaline Phosphatase Total Protein Albumin Globulin Albumin/Globulin Ratio Nasal Screen MRSA (PCR) COVID-19 Eval Order CovFluRsv at [facility] SARS-CoV-2 (PCR) NEGATIVE Influenza Type A (PCR) Negative Influenza Type B (PCR) Negative RSV (RT-PCR) Negative 12/17/20 12/17/20 18:27 18:31 WBC RBC Hgb Hct MCV MCH MCHC RDW Std Deviation RDW Coeff of Jaelyn Plt Count MPV Immature Gran % (Auto) Neut % (Auto) Lymph % (Auto) [place] % (Auto) Eos % (Auto) Baso % (Auto) Neut # (Auto) Lymph # (Auto) [place] # (Auto) Eos # (Auto) Baso # (Auto) Immature Gran # (Auto) Sodium 137 Potassium 4.3 Chloride 106 Carbon Dioxide 24 Anion Gap 7.0 BUN 32 H Creatinine 1.79 H D Est Cr Clr Drug Dosing 30.3 Est GFR ( Amer) 40.0 Est GFR (Non-Af Amer) 34.5 BUN/Creatinine Ratio 17.7 Glucose 138 H Calcium 8.3 L Total Bilirubin 0.7 AST 29 ALT 47 Alkaline Phosphatase 78 Total Protein 6.2 L Albumin 3.0 L Globulin 3.2 Albumin/Globulin Ratio 0.9 Nasal Screen MRSA (PCR) Negative COVID-19 Eval Order SARS-CoV-2 (PCR) Influenza Type A (PCR) Influenza Type B (PCR) RSV (RT-PCR) PG Care Time/CCT Total # of Minutes Spent Total Time Spent with Patient: Total time spent is greater than 50% in coordination of care (as documented) at patient's floor/unit and/or counseling patient: Coding Level of Care Code 88593 Subseq Hosp Care Lvl 3 Diagnoses SIRS (systemic inflammatory response syndrome) R65.10 Dementia with behavioral disturbance F03.91 Hypokalemia E87.6 Hypomagnesemia E83.42 Encephalopathy G93.40 GERD (gastroesophageal reflux disease) K21.9 Gout M10.9 BPH (benign prostatic hyperplasia) N40.0 Anxiety F41.9 Weakness R53.1 Hypertension I10 Hypertension type: essential hypertension Urinary retention due to benign prostatic hyperplasia N40.1; R33.8 Chronic renal failure, stage 3b N18.32 Dysphagia R13.10 DVT prophylaxis Z29.9 (1) Hypertension Hypertension type: essential hypertension Qualified Code(s): I10 - Essential (primary) hypertension
[2020-12-17] MEDS ORDERED: ACETAMINOPHEN 1,000 MG/100 ML VIAL IV STA (23:32)
[2020-12-18 05:47] LABS: Hematocrit (blood only) 40.7 % (42-52); Hemoglobin 14.1 g/dL (14.0-18.0); Mean Corpuscular Hemoglobin 32.3 pg (25-34); Mean Corpuscular Hgb Conc 34.6 g/dL (32-36); Mean Corpuscular Volume 93.1 fL (80-100); Mean Platelet Volume 9.7 fL (7.4-10.4); Platelet Count 190 K/uL (130-400); RDW Coefficient of Variation 13.9 % (11.5-14.5); RDW Standard Deviation 47.1 fL (36.4-46.3); Red Blood Count 4.37 M/uL (4.7-6.1); White Blood Count 19.25 K/uL (4.8-10.8)
[2020-12-18] MEDS: CEFEPIME 2,000 MG in SYRINGE 0 ML IV SCH ×2 (05:52→17:52)
[2020-12-18 06:24] LABS: Creatinine Clr Calc Pharmacy 32.7 ml/min; Est GFR (African American) 43.8; Est GFR (Non-African American) 37.8; Potassium 4.3 mmol/L (3.5-5.1)
--- NOTE | 2020-12-18 07:40 | XRay Report ---
XR chest 1V portable CLINICAL HISTORY: Aspiration. Possible pneumonia COMPARISON STUDY: 12/17/2020 FINDINGS: The cardiac and mediastinal contours are normal. There is no evidence of focal pulmonary co nsolidation. There is no evidence of failure. No pleural effusions are visualized.[ IMPRESSION: No active disease in the chest. ACT 112: Negative or not required by law. Electronically signed by: Kaushik Obregon M.D. 12/18/2020 7:39 AM
--- NOTE | 2020-12-18 08:02 | Hospitalist Progress Note ---
Date of Service December 18, 2020 Assessment & Plan (1) SIRS (systemic inflammatory response syndrome): concern for aspiration event 12/17/20, is on Cefepime also confirming that he has chronic cough w/ eating at home. MRSA swab neg- defer on MRSA coverage speech eval, will allow nectar thick liquids and puree diets blood cx's x 2 sets, negative, negative urine, repeat urine 12/18 as has indwelling moore COVID 19 testing/flu/RSV --negative repeat cxr 12/18/20 no active disease in the chest metabolic encephalopathy from uti? toxic encephalopathy secondary to alprazolam (2) Dementia with behavioral disturbance: behavior disturbance improved s/p initiation of seroquel several days ago. orientation improved with seroquel as well. now seems to be overly sedate, stop scheduled alprazolam, have some mild prn oxycodone for pain, may need some other anxiety control but will hopefully allow to clear 302-petitioning statement was completed by the patient's daughter and depicts threatening and violent behavior as well as decreased physical capabilities with regard to caring for himself. Agree with treating likely causes of encephalopathy while observing patient's mood and behaviors. 302 warrant remains on patient's chart - will need to disposition (uphold or deny) warrant once patient is considered medically cleared. (3) Hypokalemia: resolved. stop supplementation. (4) Hypomagnesemia: resolved. (5) Encephalopathy: MRI brain in 09/2020 with large ventricles/atrophy. CT head this admission w/o acute findings. B12/TSH wnl. Has received 5+ days of high dose IV thiamine. Stopped such, changed to po thiamine 100mg daily. Deserves neuropsych eval post-d/c at neurology clinic. Overall encephalopathy in setting of dementia had improved with seroquel. (6) GERD (gastroesophageal reflux disease): cont pepcid 20mg bid (7) Gout: Cont allopurinol for prophylaxis. No flares at this time. (8) BPH (benign prostatic hyperplasia): Cont finasteride severe urinary retention this weekend leading to moore placement flomax started yesterday in addition to finasteride u/a sent - no signs of infection; blood/protein seen -- CT abd/pelvis earlier this year without stones urine cx negative 12/16 repeat 4/5 (9) Anxiety: xanax 0.25 TID held 12/18/20 patient was taking this prior to admission as it was a chronic med (10) Weakness: general deconditioning in setting of progressive dementia, etc PT, OT (11) Hypertension: cont coreg cont amlodipine flomax for BPH will also help BPs overall improved (12) Urinary retention due to benign prostatic hyperplasia: moore finasteride flomax (13) Chronic renal failure, stage 3b: baseline CrCl 30s/40s (14) Dysphagia: per speech therapy consult allows for puree and nectar thick (15) DVT prophylaxis: heparin SC TID dispo - [facility] vs [facility] vs other extensively updated today by phone Admission and Anticipated Discharge Date Admission Date: December 10, 2020 Subjective pt was lethargic almost oversedate, later in the afternoon was more awake, asking for pain medicine. still weak and not able to move well, is on cefepime and will receck urine at this time Review of Systems Review of Systems: Unobtainable due to cognitive status lethargic and obtunded in am, improved in afternoon, Physical Exam Physical Exam: The patient appeared well nourished and normally developed. he was only responsive to pain and voice Vital signs as documented. Head exam is normocephalic atraumatic no scleral icterus Neck is without JVD, thyromegaly, or carotid bruits. Lungs are clear to auscultation, no focal loss of breath sounds Cardiac exam, Rhythm is regular.. No murmurs, rubs or gallops. Abdominal exam reveals normal bowel sounds, soft non tender, no masses Extremities are nonedematous and both pedal pulses are present Neurologic exam is arousable to pain and voice Psychologically is unable to be assessed Results & Data Results & Data ([facility]) Vital Signs (Past 12 Hours) Vital Signs Temp Pulse Pulse Resp BP Pulse Ox 12/18/20 07:41 98.1 F 75 20 120/70 96 12/18/20 07:37 80 12/18/20 03:23 97.3 F L 77 16 114/61 91 12/18/20 00:10 90 12/17/20 23:14 98.8 F 86 18 107/63 91 PG Care Time/CCT Total # of Minutes Spent Total Time Spent with Patient: Total time spent is greater than 50% in coordination of care (as documented) at patient's floor/unit and/or counseling patient: Coding Level of Care Code 90530 Subseq Hosp Care Lvl 3 Diagnoses SIRS (systemic inflammatory response syndrome) R65.10 Dementia with behavioral disturbance F03.91 Hypokalemia E87.6 Hypomagnesemia E83.42 Encephalopathy G93.40 GERD (gastroesophageal reflux disease) K21.9 Gout M10.9 BPH (benign prostatic hyperplasia) N40.0 Anxiety F41.9 Weakness R53.1 Hypertension I10 Hypertension type: essential hypertension Urinary retention due to benign prostatic hyperplasia N40.1; R33.8 Chronic renal failure, stage 3b N18.32 Dysphagia R13.10 DVT prophylaxis Z29.9 (1) Hypertension Hypertension type: essential hypertension Qualified Code(s): I10 - Essential (primary) hypertension
[2020-12-18] MEDS: TAMSULOSIN HCL 0.4 MG CAP PO SCH (09:11)
[2020-12-18] MEDS: THIAMINE HCL 100 MG TAB PO SCH (09:11)
[2020-12-18] MEDS: carvediloL 3.125 MG TAB PO SCH ×2 (09:12→21:59)
[2020-12-18] MEDS: allopurinoL 100 MG TAB PO SCH (09:12)
[2020-12-18] MEDS: FINASTERIDE 5 MG TAB PO SCH (09:12)
[2020-12-18] MEDS: amLODIPine BESYLATE 5 MG TAB PO SCH (09:12)
[2020-12-18] MEDS: FAMOTIDINE 20 MG TAB PO SCH ×2 (09:12→21:59)
[2020-12-18] MEDS: ACETAMINOPHEN 325 MG TAB PO PRN (09:13)
[2020-12-18] MEDS: ALPRAZolam 0.25 MG TABLET PO SCH ×2 (09:13→13:21)
[2020-12-18] MEDS: HEPARIN SOD 5,000 UNIT/0.5 ML VIAL SQ SCH ×2 (09:23→21:59)
[2020-12-18] MEDS: SODIUM CHLORIDE 0.9% 1000ML 1,000 ML IV SCH (11:12)
[2020-12-18] MEDS: oxyCODONE HCL IR 5 MG TAB (IMMEDIATE RELEASE) PO PRN (17:52)
[2020-12-18] MEDS: QUEtiapine FUMARATE 25 MG TABLET PO SCH (21:59)
[2020-12-19] MEDS: CEFEPIME 2,000 MG in SYRINGE 0 ML IV SCH ×2 (05:55→17:59)
[2020-12-19] MEDS: carvediloL 3.125 MG TAB PO SCH ×2 (08:06→20:54)
[2020-12-19] MEDS: FINASTERIDE 5 MG TAB PO SCH (08:07)
[2020-12-19] MEDS: allopurinoL 100 MG TAB PO SCH (08:07)
[2020-12-19] MEDS: TAMSULOSIN HCL 0.4 MG CAP PO SCH (08:07)
[2020-12-19] MEDS: THIAMINE HCL 100 MG TAB PO SCH (08:07)
[2020-12-19] MEDS: FAMOTIDINE 20 MG TAB PO SCH ×2 (08:07→20:55)
[2020-12-19] MEDS: amLODIPine BESYLATE 5 MG TAB PO SCH (08:08)
[2020-12-19] MEDS: HEPARIN SOD 5,000 UNIT/0.5 ML VIAL SQ SCH ×2 (08:09→20:54)
--- NOTE | 2020-12-19 08:20 | Hospitalist Progress Note ---
Date of Service December 19, 2020 Assessment & Plan (1) SIRS (systemic inflammatory response syndrome): concern for aspiration event 12/17/20, is on Cefepime, now that aspiration has been ruled out continue antiboitcs for possible uti, foul smelling urine also confirming that he has chronic cough w/ eating at home. MRSA swab neg- defer on MRSA coverage speech eval, will allow nectar thick liquids and puree diets blood cx's x 2 sets, negative, negative urine, repeat urine 12/18 as has indwelling moore COVID 19 testing/flu/RSV --negative repeat cxr 12/18/20 no active disease in the chest aspiration ruled out metabolic encephalopathy from uti? toxic encephalopathy secondary to alprazolam did clear with cessaation (2) Dementia with behavioral disturbance: behavior disturbance improved s/p initiation of seroquel several days ago. orientation improved with seroquel as well. 12/18 was overly sedate, stopped scheduled alprazolam, have some mild prn oxycodone for pain, did clear will try scheduled zyprexa and buspar 302-petitioning statement was completed by the patient's daughter and depicts threatening and violent behavior as well as decreased physical capabilities with regard to caring for himself. Agree with treating likely causes of encephalopathy while observing patient's mood and behaviors. 302 warrant remains on patient's chart - will need to disposition (uphold or deny) warrant once patient is considered medically cleared. (3) Hypokalemia: resolved. stop supplementation. (4) Hypomagnesemia: resolved. (5) Encephalopathy: MRI brain in 09/2020 with large ventricles/atrophy. CT head this admission w/o acute findings. B12/TSH wnl. Has received 5+ days of high dose IV thiamine. Stopped such, changed to po thiamine 100mg daily. Deserves neuropsych eval post-d/c at neurology clinic. Overall encephalopathy in setting of dementia had improved with seroquel. updated 12/19 (6) GERD (gastroesophageal reflux disease): cont pepcid 20mg bid (7) Gout: Cont allopurinol for prophylaxis. No flares at this time. (8) BPH (benign prostatic hyperplasia): Cont finasteride severe urinary retention this weekend leading to moore placement flomax started yesterday in addition to finasteride u/a sent - no signs of infection; blood/protein seen -- CT abd/pelvis earlier this year without stones urine cx negative 12/16 repeat 12/18 negative to date (9) Anxiety: xanax 0.25 TID held 12/18/20 patient was taking this prior to admission as it was a chronic med (10) Weakness: general deconditioning in setting of progressive dementia, etc PT, OT (11) Hypertension: cont coreg cont amlodipine flomax for BPH will also help BPs overall improved (12) Urinary retention due to benign prostatic hyperplasia: moore finasteride flomax (13) Chronic renal failure, stage 3b: baseline CrCl 30s/40s (14) Dysphagia: per speech therapy consult allows for puree and nectar thick (15) DVT prophylaxis: heparin SC TID dispo - [facility] vs [facility] vs other extensively updated today by phone Admission and Anticipated Discharge Date Admission Date: December 10, 2020 Subjective pt was belligerent and angry, he did require Haldol, and was more calm after administration of this, will try bid Risperdal Review of Systems Review of Systems: Mild distress and fatigue no headache, blurry or double vision no speech or swallowing issues no chest pain, pressure or palpitations no shortness of breath, cough or wheezes no abdominal pain, nausea or vomiting, diarrhea or constipation no dysuria, hematuria or frequency no focal joint pain or swelling no back pain, CVA tenderness or radicular pain no bruising, bleeding or rashes no focal signs of weakness or numbness or altered sensation belligerent and confused at times Physical Exam Physical Exam: The patient appeared well nourished and normally developed. he was only responsive to pain and voice Vital signs as documented. Head exam is normocephalic atraumatic no scleral icterus Neck is without JVD, thyromegaly, or carotid bruits. Lungs are clear to auscultation, no focal loss of breath sounds Cardiac exam, Rhythm is regular.. No murmurs, rubs or gallops. Abdominal exam reveals normal bowel sounds, soft non tender, no masses Extremities are nonedematous and both pedal pulses are present Neurologic exam is arousable to pain and voice Psychologically is unable to be assessed Results & Data Results & Data ([facility]) Vital Signs (Past 12 Hours) Vital Signs Temp Pulse Pulse Resp BP BP Pulse Ox 04/06/21 07:02 98.6 F 91 H 20 120/66 95 12/19/20 03:00 98.4 F 99 H 18 120/72 95 12/19/20 00:18 96 H PG Care Time/CCT Total # of Minutes Spent Total Time Spent with Patient: Total time spent is greater than 50% in coordina tion of care (as documented) at patient's floor/unit and/or counseling patient: Coding Level of Care Code 50573 Subseq Hosp Care Lvl 3 Diagnoses SIRS (systemic inflammatory response syndrome) R65.10 Dementia with behavioral disturbance F03.91 Hypokalemia E87.6 Hypomagnesemia E83.42 Encephalopathy G93.40 GERD (gastroesophageal reflux disease) K21.9 Gout M10.9 BPH (benign prostatic hyperplasia) N40.0 Anxiety F41.9 Weakness R53.1 Hypertension I10 Hypertension type: essential hypertension Urinary retention due to benign prostatic hyperplasia N40.1; R33.8 Chronic renal failure, stage 3b N18.32 Dysphagia R13.10 DVT prophylaxis Z29.9 (1) Hypertension Hypertension type: essential hypertension Qualified Code(s): I10 - Essential (primary) hypertension
[2020-12-19] MEDS ORDERED: OLANZapine ZYDIS 5 MG ORALLY DIS. TAB PO ONE (12:01)
[2020-12-19] MEDS: HALOPERIDOL LACTATE 5 MG/ML 1 ML VIAL IM PRN ×2 (12:48→19:56)
[2020-12-19] MEDS: oxyCODONE HCL IR 5 MG TAB (IMMEDIATE RELEASE) PO PRN (15:12)
[2020-12-19] MEDS: risperiDONE ODT 0.5 MG SOLTAB PO SCH (20:54)
[2020-12-19] MEDS: busPIRone 5 MG TAB PO SCH (20:54)
[2020-12-19] MEDS ORDERED: OLANZapine 10 MG/2.1 ML SDV IM STA (21:35)
[2020-12-20] MEDS ORDERED: LORazepam 1 MG/2 ML VIAL IV PRN (00:41)
--- NOTE | 2020-12-20 02:12 | Communication Note ---
Date of Service: December 20, 2020 Notified that patient had been agitated throughout the night including disconnecting his moore, attempting to hit staff. Was given PRN haldol with minimal improvement. Ordered for 5mg Zyprexa IM as well as patient refused PO and was still actively attempting to harm staff. Evaluated patient at bedside and while he was calmer, was still fairly agitated noting that "you're the cause of all of this stupidity" and that "people are trying to kill me." When asking whom was trying to harm him patient noted that it was "no one in the hospital," however when pressed he stated that "I don't want to go down that road, how about I give you my psych 101 book instead." -Patient with haldol 5mg q6h PRN due at this point in time, if becomes aggressive again will give. -Also ordered for 1 time dosing of Ativan 1mg IV PRN if no improvement with haldol. Resident Activity Tracking Resident Involvement: Resident Care Provided and Bus Trolley And [employer] Instructor Coverage Note Care Provided: Adult Hospital Medicine
[2020-12-20] MEDS: HALOPERIDOL LACTATE 5 MG/ML 1 ML VIAL IM PRN (05:35)
[2020-12-20] MEDS: CEFEPIME 2,000 MG in SYRINGE 0 ML IV SCH ×2 (05:45→17:41)
[2020-12-20] MEDS ORDERED: LORazepam 2 MG/ML VIAL (IM USE) IM STA (06:04)
--- NOTE | 2020-12-20 07:08 | Hospitalist Progress Note ---
Date of Service December 20, 2020 Assessment & Plan (1) Dementia with behavioral disturbance: behavior disturbance improved s/p initiation of seroquel several days ago. orientation improved with seroquel as well. 12/18 was overly sedate, stopped scheduled alprazolam, have some mild prn oxycodone for pain, did clear will try scheduled zyprexa and buspar from 12/19-12/20 the patient did not receive dosing as he refused. Required restraints overnight improved in the a.m. of 12/20 using Zyprexa and BuSpar patient was awake and alert throughout the day confirmed with psychological consultation will add as needed Zyprexa between scheduled dosing until the patient progresses 302-petitioning statement was completed by the patient's daughter and depicts threatening and violent behavior as well as decreased physical capabilities with regard to caring for himself. Agree with treating likely causes of encephalopathy while observing patient's mood and behaviors. 302 warrant remains on patient's chart - will need to disposition (uphold or deny) warrant once patient is considered medically cleared. (2) SIRS (systemic inflammatory response syndrome): concern for aspiration event 12/17/20, is on Cefepime, now that aspiration has been ruled out continue antiboitcs for possible uti, foul smelling urine cultures have been negative stopping antibiotics also confirming that he has chronic cough w/ eating at home. The swallow was passed he is resuming pured diet MRSA swab neg- defer on MRSA coverage speech eval, will allow nectar thick liquids and puree diets blood cx's x 2 sets, negative, negative urine, repeat urine 12/18 as has i ndwelling moore COVID 19 testing/flu/RSV --negative repeat cxr 12/18/20 no active disease in the chest aspiration ruled out metabolic encephalopathy from uti has been ruled out now will most consider toxic encephalopathy secondary to alprazolam now improved (3) Encephalopathy: MRI brain in 09/2020 with large ventricles/atrophy. CT head this admission w/o acute findings. B12/TSH wnl. Has received 5+ days of high dose IV thiamine. Stopped such, changed to po thiamine 100mg daily. Deserves neuropsych eval post-d/c at neurology clinic. Overall encephalopathy in setting of dementia had improved with seroquel. updated 12/19 (4) Anxiety: xanax 0.25 TID held 12/18/20 patient was taking this prior to admission as it was a chronic med this may be a poor choice for this patient's elderly status and dementia will attempt to use BuSpar in its stead (5) GERD (gastroesophageal reflux disease): cont pepcid 20mg bid (6) Gout: Cont allopurinol for prophylaxis. No flares at this time. (7) BPH (benign prostatic hyperplasia): Cont finasteride severe urinary retention this weekend leading to moore placement flomax started in addition to finasteride u/a sent - no signs of infection; blood/protein seen -- CT abd/pelvis earlier this year without stones urine cx negative 12/16 repeat 12/18 negative to date (8) Weakness: general deconditioning in setting of progressive dementia, etc PT, OT (9) Hypertension: cont coreg cont amlodipine flomax for BPH will also help BPs overall improved (10) Urinary retention due to benign prostatic hyperplasia: moore finasteride flomax (11) Chronic renal failure, stage 3b: baseline CrCl 30s/40s (12) Dysphagia: per speech therapy consult allows for puree and nectar thick (13) Hypokalemia: resolved. stop supplementation. (14) Hypomagnesemia: resolved. (15) DVT prophylaxis: heparin SC TID dispo - [facility] vs [facility] vs other extensively updated today by phone Admission and Anticipated Discharge Date Admission Date: December 10, 2020 Subjective pt became agitated yesterday afternoon, refused to take po, did receive im haldol, was ordered zyprexa odt in the pm patient reportedly refused dose, overnight became worse and was placed in restraints and patient was agreeable to take oral Zyprexa and BuSpar is much more quiet and complacent did undergo video swallow and eat his meals hopefully this will be a good regimen for the patient for the future Review of Systems Review of Systems: Mild distress and fatigue no headache, blurry or double vision no speech or swallowing issues no chest pain, pressure or palpitations no shortness of breath, cough or wheezes no abdominal pain, nausea or vomiting, diarrhea or constipation no dysuria, hematuria or frequency no focal joint pain or swelling no back pain, CVA tenderness or radicular pain no bruising, bleeding or rashes no focal signs of weakness or numbness or altered sensation belligerent and confused at times at times with jumbled speech but not garbled speech Physical Exam Physical Exam: The patient appeared well nourished and normally developed. he was only responsive to pain and voice Vital signs as documented. Head exam is normocephalic atraumatic no scleral icterus Neck is without JVD, thyromegaly, or carotid bruits. Lungs are clear to auscultation, no focal loss of breath sounds Cardiac exam, Rhythm is regular.. No murmurs, rubs or gallops. Abdominal exam reveals normal bowel sounds, soft non tender, no masses Extremities are nonedematous and both pedal pulses are present Neurologic exam is able to follow commands and spontaneously moves all extremities does move extremities to command Psychologically is more calm and able to be directed Results & Data Results & Data ([facility]) Vital Signs (Past 12 Hours) Vital Signs Temp Pulse Resp BP Pulse Ox 12/19/20 23:49 98.2 F 78 20 143/80 H 96 PG Care Time/CCT Total # of Minutes Spent Total Time Spent with Patient: Total time spent is greater than 50% in coordination of care (as documented) at patient's floor/unit and/or counseling patient: Coding Level of Care Code 75167 Subseq Hosp Care Lvl 2 Diagnoses Dementia with behavioral disturbance F03.91 SIRS (systemic inflammatory response syndrome) R65.10 Encephalopathy G93.40 Anxiety F41.9 GERD (gastroesophageal reflux disease) K21.9 Gout M10.9 BPH (benign prostatic hyperplasia) N40.0 Weakness R53.1 Hypertension I10 Hypertension type: essential hypertension Urinary retention due to benign prostatic hyperplasia N40.1; R33.8 Chronic renal failure, stage 3b N18.32 Dysphagia R13.10 Hypokalemia E87.6 Hypomagnesemia E83.42 DVT prophylaxis Z29.9 (1) Hypertension Hypertension type: essential hypertension Qualified Code(s): I10 - Essential (primary) hypertension
[2020-12-20] MEDS: busPIRone 5 MG TAB PO SCH ×2 (07:27→21:12)
[2020-12-20] MEDS: risperiDONE ODT 0.5 MG SOLTAB PO SCH ×2 (07:27→21:12)
[2020-12-20] MEDS: FINASTERIDE 5 MG TAB PO SCH (07:28)
[2020-12-20] MEDS: amLODIPine BESYLATE 5 MG TAB PO SCH (07:28)
[2020-12-20] MEDS: carvediloL 3.125 MG TAB PO SCH ×2 (07:28→21:13)
[2020-12-20] MEDS: THIAMINE HCL 100 MG TAB PO SCH (07:29)
[2020-12-20] MEDS: FAMOTIDINE 20 MG TAB PO SCH ×2 (07:29→21:11)
[2020-12-20] MEDS: TAMSULOSIN HCL 0.4 MG CAP PO SCH (07:29)
[2020-12-20] MEDS: allopurinoL 100 MG TAB PO SCH (07:30)
--- NOTE | 2020-12-20 07:31 | Communication Note ---
Date of Service: December 20, 2020 video production coordinator psychiatrist contacted by liaison for increase in agitation. Received Zyprexa 5 mg IM last night and then Haldol 5 mg earlier this am, currently in wrist restraints per liasion for safety. Primary team requesting additional medication recommendations given decline since weekend. Patient has hx of aspiration risk so would like to avoid additional antipsychotics until seen by regular psych consult service today. Appears to have been order Ativan 2 mg IM prn and not administered yet this am, order now appears d/c. Reviewed that Ativan 1-2 mg IVX1 appropriate next trial until seen by consult team, hold if sedation (doubt since asking for recs for agitation). We try to avoid benzos and anticholinergics with derlirium but patient's longstanding rx of low dose Xanax held on 12/17 for sedation so could be withdrawal on top of behavioral disturbance related to dementa.
[2020-12-20] MEDS: HEPARIN SOD 5,000 UNIT/0.5 ML VIAL SQ SCH ×2 (07:35→21:14)
[2020-12-20] MEDS: oxyCODONE HCL IR 5 MG TAB (IMMEDIATE RELEASE) PO PRN (08:09)
--- NOTE | 2020-12-20 11:36 | Fluoroscopy Report ---
FL video swallow CLINICAL HISTORY: 80 years-old Male with assess for aspiration. Dysphasia. TECHNIQUE: Video fluoroscopic evaluation of swallowing was performed in the AP and lateral projection s by the speech pathology staff. The patient is fed nectar-thick and thin liquid barium, a barium coa shruthi wafer, and barium pudding. FLUOROSCOPY TIME: 1.7 minutes. COMPARISON STUDY: Chest radiograph 12/18/2020 FINDINGS: Penetration without aspiration with thin liquid barium. Mild vallecular retention noted wit h pudding and cracker consistencies. No aspiration identified. IMPRESSION: 1. No aspiration identified. 2. Please see the speech pathologist report for detailed findings and recommendations. ACT 112: Negative or not required by law. Electronically signed by: Pedro Pablo Riggs M.D. 12/20/2020 11:34 AM
--- NOTE | 2020-12-20 13:45 | Psychiatric Progress Note ---
Date of Service December 20, 2020 Impression / Recommendations Impression 12/14 -spoke with Dr. Thomas, patient agitated overnight, course consistent with delirium. He was just started on risperidone today, recommend discontinuing quetiapine and titrating risperidone to an effective dose, can add additional 0.5 mg as needed dose. -Standard delirium precautions 12/11/20 - Psychiatric consultation requested by our hospitalist service to evaluate patient due to him presenting to the ED on a 302 warrant for agitated and combative behavior. Pt was admitted medically for encephalopathy. - has reported significant change in patient's memory and behavioral changes since February 2020. 302-petitioning statement was completed by the patient's daughter and depicts threatening and violent behavior as well as decreased physical capabilities with regard to caring for himself. Agree with treating likely causes of encephalopathy while observing patient's mood and behaviors. 302 warrant remains on patient's chart - will need to disposition (uphold or deny) warrant once patient is considered medically cleared. - Agree with holding bupropion due to concern for increased agitation and irritability. Primary team holding alprazolam as well, recommend monitoring for signs of benzodiazepine withdrawal. It is also possible that the benzodiazepines were disinhibiting with regard to patient's agitated behaviors. - Pt was given quetiapine 25mg this morning. He also has a prn order for IM haloperidol for acute agitation. - Patient's reported behavior is not clearly consistent with a primary mental health condition. He denies significant mood concerns and denies dowell llucinations, paranoia, or delusions. Recommend treating suspected causes of encephalopathy, consider possible neurodegenerative/dementing process in the differential as well. - Would recommend case management consultation with regard to facilitating conversation with the family regarding any care or placement concerns. No determination at this time whether patient will meet criteria for psychiatric admission when medically cleared, and would suggest exploring discharge planning goals with family in the event that he does not meet criteria to uphold 302 warrant. - Appreciate the opportunity to participate in the care of this patient. Please reach out to our service with any additional questions or updates. Risk Factors Assessment Do You Have Access To A Gun?: No Interval History Chief Complaint Patient somnolent, unarousable. Subjective Subjective Patient was seen & assessed and interval progress reviewed with liaison nurse. He had a difficult night, was accusing staff of trying to kill him, at 1 point becoming agitated and pulling at his Joyce catheter, disconnecting it. When staff were changing his linen, he was grabbing at them, punching, and kicking. He required soft wrist restraints. And received 3 doses of haloperidol 5 mg in a 24-hour period, as well as a dose of olanzapine 5 mg. The on-call psychiatrist was consulted and recommended holding off on further antipsychotics. He is also on quetiapine 25 mg at bedtime scheduled, which he did not receive last night as he refused it, and risperidone 0.5 mg twice daily, received first dose this morning. On my assessment, he was somnolent, snoring, unable to be aroused. Unit staff indicated he was scheduled for a swallow study today, but it would likely need to be postponed due to sedation. Physical Exam Mental Examination Somnolent, snoring, unarousable. Vital Signs (Past 24 Hours) Last Vital Signs Temp 36.6 C 12/20/20 07:25 Pulse 96 H 12/20/20 07:25 Resp 17 12/20/20 07:25 BP 146/69 H 12/20/20 07:25 Pulse Ox 95 12/20/20 07:25 Results & Data ([facility]) Current Inpatient Medications Current Inpatient Medications: Current Inpatient Medications Acetaminophen (Acetaminophen 325 Mg Tab) 650 mg PO Q4H PRN PRN Reason: pain/fever Stop: 01/09/21 21:35 Last Admin: 12/18/20 09:13 Dose: 650 mg Documented by: Al Hydrox/Mg Hydrox/Simethicone (Aluminum/Magnesium Susp 30 Ml Udc) 30 ml PO Q6H PRN PRN Reason: Dyspepsia Stop: 01/09/21 21:35 Allopurinol (Allopurinol 100 Mg Tab) 100 mg PO QAM [facility] Stop: 01/12/21 08:59 Last Admin: 12/20/20 07:30 Dose: 100 mg Documented by: Amlodipine Besylate (Amlodipine Besylate 5 Mg Tab) 10 mg PO QAM [facility] Stop: 01/14/21 08:59 Last Admin: 12/20/20 07:28 Dose: 10 mg Documented by: Buspirone HCl (Buspirone 5 Mg Tab) 5 mg PO BID [facility] Stop: 01/18/21 20:59 Last Admin: 12/20/20 07:27 Dose: 5 mg Documented by: Carvedilol (Carvedilol 3.125 Mg Tab) 3.125 mg PO BID [facility] Stop: 01/11/21 20:59 Last Admin: 12/20/20 07:28 Dose: 3.125 mg Documented by: Famotidine (Famotidine 20 Mg Tab) 20 mg PO BID [facility] Stop: 01/11/21 20:59 Last Admin: 12/20/20 07:29 Dose: 20 mg Documented by: Finasteride (Finasteride 5 Mg Tab) 5 mg PO DAILY [facility] Stop: 01/10/21 08:59 Last Admin: 12/20/20 07:28 Dose: 5 mg Documented by: Haloperidol Lactate (Haloperidol Lactate 5 Mg/Ml 1 Ml Vial) 5 mg IM Q6 PRN PRN Reason: Agitation Stop: 01/09/21 21:35 Last Admin: 12/20/20 05:35 Dose: 5 mg Documented by: Heparin Sodium (Porcine) (Heparin Sod 5,000 Unit/0.5 Ml Vial) 5,000 units SQ Q12 VÍCTOR Stop: 01/09/21 21:35 Last Admin: 12/20/20 07:35 Dose: 5,000 units Documented by: Hydralazine HCl (Hydralazine Hcl 20 Mg/Ml Vial) 5 mg IV Q6H PRN PRN Reason: Blood Pressure - High Stop: 01/11/21 17:54 Cefepime HCl 2,000 mg/ Syringe 20 mls @ 5 mls/min IV Q12H [facility]; Protocol Stop: 12/24/20 17:59 Last Admin: 12/20/20 05:45 Dose: Not Given Documented by: Ondansetron HCl (Ondansetron Inj 2 Mg/Ml 2 Ml Vial) 4 mg IV Q6H PRN PRN Reason: Nausea Stop: 01/09/21 21:35 Last Admin: 12/15/20 11:20 Dose: 4 mg Documented by: Oxycodone HCl (Oxycodone Hcl Ir 5 Mg Tab (Immediate Release)) 5 mg PO Q6H PRN PRN Reason: Moderate Pain Stop: 01/01/21 17:22 Last Admin: 12/20/20 08:09 Dose: 5 mg Documented by: Quetiapine Fumarate (Quetiapine Fumarate 25 Mg Tablet) 25 mg PO HS [facility] Stop: 01/10/21 20:59 Last Admin: 12/18/20 21:59 Dose: Not Given Documented by: Risperidone (Risperidone Odt 0.5 Mg Soltab) 0.5 mg PO BID@0800,1999 [facility] Stop: 01/18/21 19:59 Last Admin: 12/20/20 07:27 Dose: 0.5 mg Documented by: Tamsulosin HCl (Tamsulosin Hcl 0.4 Mg Cap) 0.4 mg PO [facility] Stop: 01/16/21 08:59 Last Admin: 12/20/20 07:29 Dose: 0.4 mg Documented by: Thiamine HCl (Thiamine Hcl 100 Mg Tab) 100 mg PO [facility] Stop: 01/16/21 08:59 Last Admin: 12/20/20 07:29 Dose: 100 mg Documented by:
[2020-12-21 07:17] LABS: Creatinine Clr Calc Pharmacy 52.8 ml/min; Est GFR (Non-African American) 67.3
[2020-12-21] MEDS: HEPARIN SOD 5,000 UNIT/0.5 ML VIAL SQ SCH ×2 (08:47→19:28)
[2020-12-21] MEDS: FINASTERIDE 5 MG TAB PO SCH (08:47)
[2020-12-21] MEDS: THIAMINE HCL 100 MG TAB PO SCH (08:47)
[2020-12-21] MEDS: TAMSULOSIN HCL 0.4 MG CAP PO SCH (08:47)
[2020-12-21] MEDS: FAMOTIDINE 20 MG TAB PO SCH ×2 (08:47→19:29)
[2020-12-21] MEDS: allopurinoL 100 MG TAB PO SCH (08:47)
[2020-12-21] MEDS: busPIRone 5 MG TAB PO SCH ×2 (08:47→19:29)
[2020-12-21] MEDS: amLODIPine BESYLATE 5 MG TAB PO SCH (08:47)
[2020-12-21] MEDS: carvediloL 3.125 MG TAB PO SCH ×2 (08:48→19:29)
[2020-12-21] MEDS: risperiDONE ODT 0.5 MG SOLTAB PO SCH ×2 (09:48→19:29)
[2020-12-21] MEDS: ACETAMINOPHEN 325 MG TAB PO PRN (16:08)
[2020-12-21] MEDS: oxyCODONE HCL IR 5 MG TAB (IMMEDIATE RELEASE) PO PRN ×2 (16:47→23:28)
--- NOTE | 2020-12-21 20:25 | Hospitalist Progress Note ---
Date of Service December 21, 2020 Assessment & Plan (1) Dementia with behavioral disturbance: behavior disturbance 12/18 was overly sedate, stopped scheduled alprazolam, have some mild prn oxycodone for pain, did clear will try scheduled zyprexa and buspar from 12/19-12/20 the patient did not receive dosing as he refused. Required restraints overnight improved in the a.m. of 12/20 using Zyprexa and BuSpar patient was awake and alert throughout the day confirmed with psychological consultation, add as needed Zyprexa between scheduled dosing pt seems to be tolerant of this regiment and will be hopefully discharged on this 302-petitioning statement was completed by the patient's daughter and depicts threatening and violent behavior as well as decreased physical capabilities with regard to caring for himself. Agree with treating likely causes of encephalopathy while observing patient's mood and behaviors. 302 warrant remains on patient's chart - will need to disposition (uphold or deny) warrant once patient is considered medically cleared. (2) SIRS (systemic inflammatory response syndrome): concern for aspiration event 12/17/20, is on Cefepime, now that aspiration has been ruled out continue antiboitcs for possible uti, foul smelling urine cultures have been negative stopping antibiotics also confirming that he has chronic cough w/ eating at home. The swallow was passed he is resuming pured diet MRSA swab neg- defer on MRSA coverage speech eval, will allow nectar thick liquids and puree diets blood cx's x 2 sets, negative, negative urine, repeat urine 12/18 as has indwelling moore COVID 19 testing/flu/RSV --negative repeat cxr 12/18/20 no active disease in the chest aspiration ruled out metabolic encephalopathy from uti has been ruled out now will most consider toxic encephalopathy secondary to alprazolam now improved (3) Encephalopathy: MRI brain in 09/2020 with large ventricles/atrophy. CT head this admission w/o acute findings. B12/TSH wnl. Has received 5+ days of high dose IV thiamine. Stopped such, changed to po thiamine 100mg daily. Deserves neuropsych eval post-d/c at neurology clinic. Overall encephalopathy in setting of dementia had improved with seroquel. updated 12/19 (4) Anxiety: xanax 0.25 TID held 12/18/20 patient was taking this prior to admission as it was a chronic med this may be a poor choice for this patient's elderly status and dementia will attempt to use BuSpar in its stead (5) GERD (gastroesophageal reflux disease): cont pepcid 20mg bid (6) Gout: Cont allopurinol for prophylaxis. No flares at this time. (7) BPH (benign prostatic hyperplasia): Cont finasteride severe urinary retention this weekend leading to moore placement flomax started in addition to finasteride u/a sent - no signs of infection; blood/protein seen -- CT abd/pelvis earlier this year without stones urine cx negative 12/16 repeat 12/18 negative to date (8) Weakness: general deconditioning in setting of progressive dementia, etc PT, OT (9) Hypertension: cont coreg cont amlodipine flomax for BPH will also help BPs overall improved (10) Urinary retention due to benign prostatic hyperplasia: moore finasteride flomax (11) Chronic renal failure, stage 3b: baseline CrCl 30s/40s (12) Dysphagia: per speech therapy consult allows for puree and nectar thick, will allow a cookie to try to keep happy (13) Hypokalemia: resolved. stop supplementation. (14) Hypomagnesemia: resolved. (15) DVT prophylaxis: heparin SC TID dispo - snf Admission and Anticipated Discharge Date Admission Date: December 10, 2020 Subjective pt is more pleasant and agreeable on oral Zyprexa and BuSpar is much more quiet and complacent did undergo video swallow and eat his meals hopefully this will be a good regimen for the patient for the future, will look for snf placement Review of Systems Review of Systems: Mild distress and fatigue no headache, blurry or double vision no speech or swallowing issues no chest pain, pressure or palpitations no shortness of breath, cough or wheezes no abdominal pain, nausea or vomiting, diarrhea or constipation no dysuria, hematuria or frequency no focal joint pain or swelling no back pain, CVA tenderness or radicular pain no bruising, bleeding or rashes no focal signs of weakness or numbness or altered sensation belligerent and confused at times at times with jumbled speech but not garbled speech Physical Exam Physical Exam: The patient appeared well nourished and normally developed. he was only responsive to pain and voice Vital signs as documented. Head exam is normocephalic atraumatic no scleral icterus Neck is without JVD, thyromegaly, or carotid bruits. Lungs are clear to auscultation, no focal loss of breath sounds Cardiac exam, Rhythm is regular.. No murmurs, rubs or gallops. Abdominal exam reveals normal bowel sounds, soft non tender, no masses Extremities are nonedematous and both pedal pulses are present Neurologic exam is able to follow commands and spontaneously moves all extremities does move extremities to command Psychologically is more calm and able to be directed Results & Data Results & Data ([facility]) Vital Signs (Past 12 Hours) Vital Signs Temp Pulse Resp BP Pulse Ox 12/21/20 15:48 97.9 F 76 20 124/72 97 PG Care Time/CCT Total # of Minutes Spent Total Time Spent with Patient: Total time spent is greater than 50% in coordination of care (as documented) at patient's floor/unit and/or counseling patient: Coding Level of Care Code 79828 Subseq Hosp Care Lvl 2 Diagnoses Dementia with behavioral disturbance F03.91 SIRS (systemic inflammatory response syndrome) R65.10 Encephalopathy G93.40 Anxiety F41.9 GERD (gastroesophageal reflux disease) K21.9 Gout M10.9 BPH (benign prostatic hyperplasia) N40.0 Weakness R53.1 Hypertension I10 Hypertension type: essential hypertension Urinary retention due to benign prostatic hyperplasia N40.1; R33.8 Chronic renal failure, stage 3b N18.32 Dysphagia R13.10 Hypokalemia E87.6 Hypomagnesemia E83.42 DVT prophylaxis Z29.9 (1) Hypertension Hypertension type: essential hypertension Qualified Code(s): I10 - Essential (primary) hypertension
[2020-12-22] MEDS: ACETAMINOPHEN 325 MG TAB PO PRN ×2 (00:27→04:13)
[2020-12-22] MEDS: FINASTERIDE 5 MG TAB PO SCH (08:22)
[2020-12-22] MEDS: allopurinoL 100 MG TAB PO SCH (08:23)
[2020-12-22] MEDS: oxyCODONE HCL IR 5 MG TAB (IMMEDIATE RELEASE) PO PRN (08:23)
[2020-12-22] MEDS: THIAMINE HCL 100 MG TAB PO SCH (08:23)
[2020-12-22] MEDS: TAMSULOSIN HCL 0.4 MG CAP PO SCH (08:23)
[2020-12-22] MEDS: carvediloL 3.125 MG TAB PO SCH ×2 (08:23→19:30)
[2020-12-22] MEDS: risperiDONE ODT 0.5 MG SOLTAB PO SCH ×2 (08:23→19:31)
[2020-12-22] MEDS: busPIRone 5 MG TAB PO SCH ×2 (08:23→21:10)
[2020-12-22] MEDS: FAMOTIDINE 20 MG TAB PO SCH ×2 (08:23→21:10)
[2020-12-22] MEDS: amLODIPine BESYLATE 5 MG TAB PO SCH (08:23)
[2020-12-22] MEDS: HEPARIN SOD 5,000 UNIT/0.5 ML VIAL SQ SCH ×2 (09:12→19:31)
[2020-12-22] MEDS: risperiDONE 0.5 MG TABLET PO PRN (18:02)
--- NOTE | 2020-12-22 18:07 | Hospitalist Progress Note ---
Date of Service December 22, 2020 Assessment & Plan (1) Dementia with behavioral disturbance: behavior disturbance 12/18 was overly sedate, stopped scheduled alprazolam, have some mild prn oxycodone for pain, did clear will try scheduled zyprexa and buspar from 12/19-12/20 the patient did not receive dosing as he refused. Required restraints overnight improved in the a.m. of 12/20 using Zyprexa and BuSpar patient was awake and alert throughout the day confirmed with psychological consultation, add as needed Zyprexa between scheduled dosing pt seems to be tolerant of this regiment and will be hopefully discharged on this 302-petitioning statement was completed by the patient's daughter and depicts threatening and violent behavior as well as decreased physical capabilities with regard to caring for himself. Agree with treating likely causes of encephalopathy while observing patient's mood and behaviors. 302 warrant remains on patient's chart - will need to disposition (uphold or deny) warrant once patient is considered medically cleared. (2) SIRS (systemic inflammatory response syndrome): concern for aspiration event 12/17/20, is on Cefepime, now that aspiration has been ruled out continue antiboitcs for possible uti, foul smelling urine cultures have been negative stopping antibiotics also confirming that he has chronic cough w/ eating at home. The swallow was passed he is resuming pured diet MRSA swab neg- defer on MRSA coverage speech eval, will allow nectar thick liquids and puree diets blood cx's x 2 sets, negative, negative urine, repeat urine 12/18 as has indwelling moore COVID 19 testing/flu/RSV --negative repeat cxr 12/18/20 no active disease in the chest aspiration ruled out metabolic encephalopathy from uti has been ruled out now will most consider toxic encephalopathy secondary to alprazolam now improved (3) Encephalopathy: MRI brain in 09/2020 with large ventricles/atrophy. CT head this admission w/o acute findings. B12/TSH wnl. Has received 5+ days of high dose IV thiamine. Stopped such, changed to po thiamine 100mg daily. Deserves neuropsych eval post-d/c at neurology clinic. Overall encephalopathy in setting of dementia had improved stopping bzd, and scheduling antipsychotics updated 12/19 (4) Anxiety: xanax 0.25 TID held 12/18/20 patient was taking this prior to admission as it was a chronic med this may be a poor choice for this patient's elderly status and dementia will attempt to use BuSpar in its stead (5) GERD (gastroesophageal reflux disease): cont pepcid 20mg bid (6) Gout: Cont allopurinol for prophylaxis. No flares at this time. (7) BPH (benign prostatic hyperplasia): Cont finasteride severe urinary retention this weekend leading to moore placement flomax started in addition to finasteride u/a sent - no signs of infection; blood/protein seen -- CT abd/pelvis earlier this year without stones urine cx negative 12/16 repeat 12/18 negative to date (8) Weakness: general deconditioning in setting of progressive dementia, etc PT, OT (9) Hypertension: cont coreg cont amlodipine flomax for BPH will also help BPs overall improved (10) Urinary retention due to benign prostatic hyperplasia: moore finasteride flomax (11) Chronic renal failure, stage 3b: baseline CrCl 30s/40s (12) Dysphagia: per speech therapy consult allows for puree and nectar thick, will allow a cookie to try to keep happy (13) Hypokalemia: resolved. stop supplementation. (14) Hypomagnesemia: resolved. (15) DVT prophylaxis: heparin SC TID dispo - snf Admission and Anticipated Discharge Date Admission Date: December 10, 2020 Subjective pt is more pleasant and agreeable on oral Zyprexa and BuSpar is much more quiet and complacent did undergo video swallow and eat his meals hopefully this will be a good regimen for the patient for the future, will look for snf placement did have some back pain and had some oxycodone, this caused sedation, will stop and use Lidoderm and Tylenol Review of Systems Review of Systems: Mild distress and fatigue no headache, blurry or double vision no speech or swallowing issues no chest pain, pressure or palpitations no shortness of breath, cough or wheezes no abdominal pain, nausea or vomiting, diarrhea or constipation no dysuria, hematuria or frequency no focal joint pain or swelling no back pain, CVA tenderness or radicular pain no bruising, bleeding or rashes no focal signs of weakness or numbness or altered sensation belligerent and confused at times at times with jumbled speech but not garbled speech Physical Exam Physical Exam: The patient appeared well nourished and normally developed. he was only responsive to pain and voice Vital signs as documented. Head exam is normocephalic atraumatic no scleral icterus Neck is without JVD, thyromegaly, or carotid bruits. Lungs are clear to auscultation, no focal loss of breath sounds Cardiac exam, Rhythm is regular.. No murmurs, rubs or gallops. Abdominal exam reveals normal bowel sounds, soft non tender, no masses Extremities are nonedematous and both pedal pulses are present Neurologic exam is able to follow commands and spontaneously moves all extremities does move extremities to command Psychologically is more calm and able to be directed Results & Data Results & Data ([facility]) Vital Signs (Past 12 Hours) Vital Signs Temp Pulse Resp BP BP Pulse Ox 12/22/20 16:20 98.2 F 87 18 122/72 96 12/22/20 07:13 97.7 F 90 18 142/76 H 95 PG Care Time/CCT Total # of Minutes Spent Total Time Spent with Patient: Total time spent is greater than 50% in coordination of care (as documented) at patient's floor/unit and/or counseling patient: Coding Level of Care Code 02247 Subseq Hosp Care Lvl 2 Diagnoses Dementia with behavioral disturbance F03.91 SIRS (systemic inflammatory response syndrome) R65.10 Encephalopathy G93.40 Anxiety F41.9 GERD (gastroesophageal reflux disease) K21.9 Gout M10.9 BPH (benign prostatic hyperplasia) N40.0 Weakness R53.1 Hypertension I10 Hypertension type: essential hypertension Urinary retention due to benign prostatic hyperplasia N40.1; R33.8 Chronic renal failure, stage 3b N18.32 Dysphagia R13.10 Hypokalemia E87.6 Hypomagnesemia E83.42 DVT prophylaxis Z29.9 (1) Hypertension Hypertension type: essential hypertension Qualified Code(s): I10 - Essential (primary) hypertension
[2020-12-22] MEDS: LIDOCAINE 5% 1 PATCH TD SCH (19:30)
[2020-12-23] MEDS: risperiDONE 0.5 MG TABLET PO PRN ×2 (03:17→17:42)
[2020-12-23] MEDS: risperiDONE ODT 0.5 MG SOLTAB PO SCH ×2 (07:49→19:22)
[2020-12-23] MEDS: carvediloL 3.125 MG TAB PO SCH ×2 (07:49→19:20)
[2020-12-23] MEDS: busPIRone 5 MG TAB PO SCH ×2 (07:50→19:19)
[2020-12-23] MEDS: FINASTERIDE 5 MG TAB PO SCH (07:50)
[2020-12-23] MEDS: allopurinoL 100 MG TAB PO SCH (07:50)
[2020-12-23] MEDS: FAMOTIDINE 20 MG TAB PO SCH ×2 (07:50→19:18)
[2020-12-23] MEDS: THIAMINE HCL 100 MG TAB PO SCH (07:50)
[2020-12-23] MEDS: TAMSULOSIN HCL 0.4 MG CAP PO SCH (07:50)
[2020-12-23] MEDS: HEPARIN SOD 5,000 UNIT/0.5 ML VIAL SQ SCH ×2 (07:51→19:22)
[2020-12-23] MEDS: LIDOCAINE 5% 1 PATCH TD SCH (07:51)
[2020-12-23] MEDS: amLODIPine BESYLATE 5 MG TAB PO SCH (07:52)
[2020-12-23] MEDS: ACETAMINOPHEN 500 MG TAB PO PRN (19:11)
--- NOTE | 2020-12-23 19:11 | Hospitalist Progress Note ---
Date of Service December 23, 2020 Assessment & Plan (1) Dementia with behavioral disturbance: behavior disturbance 12/18 was overly sedate, stopped scheduled alprazolam, have some mild prn oxycodone for pain, did clear will try scheduled zyprexa and buspar from 12/19-12/20 the patient did not receive dosing as he refused. Required restraints overnight improved in the a.m. of 12/20 using Zyprexa and BuSpar patient was awake and alert throughout the day confirmed with psychological consultation, add as needed Zyprexa between scheduled dosing pt seems to be tolerant of this regiment and will be hopefully discharged on this 302-petitioning statement was completed by the patient's daughter and depicts threatening and violent behavior as well as decreased physical capabilities with regard to caring for himself. Agree with treating likely causes of encephalopathy while observing patient's mood and behaviors. 302 warrant remains on patient's chart - will need to disposition (uphold or deny) warrant once patient is considered medically cleared. (2) SIRS (systemic inflammatory response syndrome): Resolved concern for aspiration event 12/17/20, is on Cefepime, now that aspiration has been ruled out continue antiboitcs for possible uti, foul smelling urine cultures have been negative stopping antibiotics also confirming that he has chronic cough w/ eating at home. The swallow was passed he is resuming pured diet MRSA swab neg- defer on MRSA coverage speech eval, will allow nectar thick liquids and puree diets blood cx's x 2 sets, negative, negative urine, repeat urine 12/18 as has indwelling moore COVID 19 testing/flu/RSV --negative repeat cxr 12/18/20 no active disease in the chest aspiration ruled out metabolic encephalopathy from uti has been ruled out now will most consider toxic encephalopathy secondary to alprazolam now improved (3) Encephalopathy: MRI brain in 09/2020 with large ventricles/atrophy. CT head this admission w/o acute findings. B12/TSH wnl. Has received 5+ days of high dose IV thiamine. Stopped such, changed to po thiamine 100mg daily. Deserves neuropsych eval post-d/c at neurology clinic. Overall encephalopathy in setting of dementia had improved stopping bzd, and scheduling antipsychotics updated 12/19 (4) Anxiety: xanax 0.25 TID held 12/18/20 patient was taking this prior to admission as it was a chronic med this may be a poor choice for this patient's elderly status and dementia will attempt to use BuSpar in its stead (5) GERD (gastroesophageal reflux disease): cont pepcid 20mg bid (6) Gout: Cont allopurinol for prophylaxis. No flares at this time. (7) BPH (benign prostatic hyperplasia): Cont finasteride severe urinary retention this weekend leading to moore placement flomax started in addition to finasteride u/a sent - no signs of infection; blood/protein seen -- CT abd/pelvis earlier this year without stones urine cx negative 12/16 repeat 12/18 negative to date (8) Weakness: general deconditioning in setting of progressive dementia, etc PT, OT (9) Hypertension: cont coreg cont amlodipine flomax for BPH will also help BPs overall improved (10) Urinary retention due to benign prostatic hyperplasia: moore finasteride flomax (11) Chronic renal failure, stage 3b: baseline CrCl 30s/40s (12) Dysphagia: per speech therapy consult allows for puree and nectar thick, will allow a cookie to try to keep happy (13) Hypokalemia: resolved. stop supplementation. (14) Hypomagnesemia: resolved. (15) DVT prophylaxis: heparin SC TID dispo - snf Admission and Anticipated Discharge Date Admission Date: December 10, 2020 Subjective This patient continues to be pleasant and agreeable on oral Zyprexa and BuSpar cooperative and following commands hopefully this will be a good regimen for the patient for the future, will look for snf placement did have some back pain and had some oxycodone, this caused sedation, pain is controlled with Lidoderm and Tylenol Review of Systems Review of Systems: Mild distress and fatigue no headache, blurry or double vision no speech or swallowing issues no chest pain, pressure or palpitations no shortness of breath, cough or wheezes no abdominal pain, nausea or vomiting, diarrhea or constipation no dysuria, hematuria or frequency no focal joint pain or swelling no back pain, CVA tenderness or radicular pain no bruising, bleeding or rashes no focal signs of weakness or numbness or altered sensation belligerent and confused at times at times with jumbled speech but not garbled speech Physical Exam Physical Exam: The patient appeared well nourished and normally developed. he was only responsive to pain and voice Vital signs as documented. Head exam is normocephalic atraumatic no scleral icterus Neck is without JVD, thyromegaly, or carotid bruits. Lungs are clear to auscultation, no focal loss of breath sounds Cardiac exam, Rhythm is regular.. No murmurs, rubs or gallops. Abdominal exam reveals normal bowel sounds, soft non tender, no masses Extremities are nonedematous and both pedal pulses are present Neurologic exam is able to follow commands and spontaneously moves all extremities does move extremities to command Psychologically is more calm and able to be directed Results & Data Results & Data ([facility]) Vital Signs (Past 12 Hours) Vital Signs Temp Pulse Resp BP Pulse Ox 12/23/20 15:44 98.4 F 81 18 119/76 97 12/23/20 07:16 97.3 F L 96 H 18 138/75 97 PG Care Time/CCT Total # of Minutes Spent Total Time Spent with Patient: Total time spent is greater than 50% in coordi nation of care (as documented) at patient's floor/unit and/or counseling patient: Coding Level of Care Code 63866 Subseq Hosp Care Lvl 2 Diagnoses Dementia with behavioral disturbance F03.91 SIRS (systemic inflammatory response syndrome) R65.10 Encephalopathy G93.40 Anxiety F41.9 GERD (gastroesophageal reflux disease) K21.9 Gout M10.9 BPH (benign prostatic hyperplasia) N40.0 Weakness R53.1 Hypertension I10 Hypertension type: essential hypertension Urinary retention due to benign prostatic hyperplasia N40.1; R33.8 Chronic renal failure, stage 3b N18.32 Dysphagia R13.10 Hypokalemia E87.6 Hypomagnesemia E83.42 DVT prophylaxis Z29.9 (1) Hypertension Hypertension type: essential hypertension Qualified Code(s): I10 - Essential (primary) hypertension
[2020-12-24] MEDS: HEPARIN SOD 5,000 UNIT/0.5 ML VIAL SQ SCH ×2 (08:48→19:18)
[2020-12-24] MEDS: LIDOCAINE 5% 1 PATCH TD SCH (08:48)
[2020-12-24] MEDS: TAMSULOSIN HCL 0.4 MG CAP PO SCH ×2 (10:15→13:13)
[2020-12-24] MEDS: carvediloL 3.125 MG TAB PO SCH ×3 (10:15→21:01)
[2020-12-24] MEDS: risperiDONE ODT 0.5 MG SOLTAB PO SCH ×2 (10:15→19:18)
[2020-12-24] MEDS: busPIRone 5 MG TAB PO SCH ×3 (10:15→19:17)
[2020-12-24] MEDS: amLODIPine BESYLATE 5 MG TAB PO SCH ×2 (10:16→13:10)
[2020-12-24] MEDS: THIAMINE HCL 100 MG TAB PO SCH ×2 (10:16→13:13)
[2020-12-24] MEDS: allopurinoL 100 MG TAB PO SCH ×2 (10:16→13:09)
[2020-12-24] MEDS: FINASTERIDE 5 MG TAB PO SCH ×2 (10:16→13:08)
[2020-12-24] MEDS: FAMOTIDINE 20 MG TAB PO SCH ×3 (10:16→19:17)
--- NOTE | 2020-12-24 17:52 | Hospitalist Progress Note ---
Date of Service December 24, 2020 Assessment & Plan (1) Dementia with behavioral disturbance: behavior disturbance 12/18 was overly sedate, stopped scheduled alprazolam, have some mild prn oxycodone for pain, did clear will try scheduled zyprexa and buspar from 12/19-12/20 the patient did not receive dosing as he refused. Required restraints overnight improved in the a.m. of 12/20 using Zyprexa and BuSpar patient was awake and alert throughout the day confirmed with psychological consultation, add as needed Zyprexa between scheduled dosing pt seems to be tolerant of this regiment and will be hopefully discharged on this 12/24 over sedate, stopped am risperdal keep pm risperdal, continue bid buspar 302-petitioning statement was completed by the patient's daughter and depicts threatening and violent behavior as well as decreased physical capabilities with regard to caring for himself. Agree with treating likely causes of encephalopathy while observing patient's mood and behaviors. 302 warrant remains on patient's chart - will need to disposition (uphold or deny) warrant once patient is considered medically cleared. (2) SIRS (systemic inflammatory response syndrome): Resolved concern for aspiration event 12/17/20, is on Cefepime, now that aspiration has been ruled out continue antiboitcs for possible uti, foul smelling urine cultures have been negative stopping antibiotics also confirming that he has chronic cough w/ eating at home. The swallow was passed he is resuming pured diet MRSA swab neg- defer on MRSA coverage speech eval, will allow nectar thick liquids and puree diets blood cx's x 2 sets, negative, negative urine, repeat urine 12/18 as has indwelling moore COVID 19 testing/flu/RSV --negative repeat cxr 12/18/20 no active disease in the chest aspiration ruled out metabolic encephalopathy from uti has been ruled out now will most consider toxic encephalopathy secondary to alprazolam now improved (3) Encephalopathy: MRI brain in 09/2020 with large ventricles/atrophy. CT head this admission w/o acute findings. B12/TSH wnl. Has received 5+ days of high dose IV thiamine. Stopped such, changed to po thiamine 100mg daily. Deserves neuropsych eval post-d/c at neurology clinic. Overall encephalopathy in setting of dementia had improved stopping bzd, and scheduling antipsychotics updated 12/19 (4) Anxiety: xanax 0.25 TID held 12/18/20 patient was taking this prior to admission as it was a chronic med this may be a poor choice for this patient's elderly status and dementia will attempt to use BuSpar in its stead (5) GERD (gastroesophageal reflux disease): cont pepcid 20mg bid (6) Gout: Cont allopurinol for prophylaxis. No flares at this time. (7) BPH (benign prostatic hyperplasia): Cont finasteride severe urinary retention this weekend leading to moore placement flomax started in addition to finasteride u/a sent - no signs of infection; blood/protein seen -- CT abd/pelvis earlier this year without stones urine cx negative 12/16 repeat 12/18 negative to date (8) Weakness: general deconditioning in setting of progressive dementia, etc PT, OT (9) Hypertension: cont coreg cont amlodipine flomax for BPH will also help BPs overall improved (10) Urinary retention due to benign prostatic hyperplasia: moore finasteride flomax (11) Chronic renal failure, stage 3b: baseline CrCl 30s/40s (12) Dysphagia: per speech therapy consult allows for puree and nectar thick, will allow a cookie to try to keep happy (13) Hypokalemia: resolved. stop supplementation. (14) Hypomagnesemia: resolved. (15) DVT prophylaxis: heparin SC TID dispo - snf Admission and Anticipated Discharge Date Admission Date: December 10, 2020 Subjective This patient continues to be pleasant and agreeable on oral Zyprexa and BuSpar was over sedate in the am of 12/24 will keep bid buspar and stop am risperdal continuing pm dose but have prn available hopefully this will be a good regimen for the patient for the future, will look for snf placement back pain seems controlled with Lidoderm and Tylenol Review of Systems Review of Systems: Mild distress and fatigue no headache, blurry or double vision no speech or swallowing issues no chest pain, pressure or palpitations no shortness of breath, cough or wheezes no abdominal pain, nausea or vomiting, diarrhea or constipation no dysuria, hematuria or frequency no focal joint pain or swelling no back pain, CVA tenderness or radicular pain no bruising, bleeding or rashes no focal signs of weakness or numbness or altered sensation belligerent and confused at times at times with jumbled speech but not garbled speech Physical Exam Physical Exam: The patient appeared well nourished and normally developed. he was only responsive to pain and voice Vital signs as documented. Head exam is normocephalic atraumatic no scleral icterus Neck is without JVD, thyromegaly, or carotid bruits. Lungs are clear to auscultation, no focal loss of breath sounds Cardiac exam, Rhythm is regular.. No murmurs, rubs or gallops. Abdominal exam reveals normal bowel sounds, soft non tender, no masses Extremities are nonedematous and both pedal pulses are present Neurologic exam is able to follow commands and spontaneously moves all extremities does move extremities to command Psychologically is more calm and able to be directed Results & Data Results & Data ([facility]) Vital Signs (Past 12 Hours) Vital Signs Temp Pulse Resp BP BP Pulse Ox 12/24/20 15:36 98.6 F 88 16 117/69 96 12/24/20 08:30 97.7 F 102 H 18 132/81 93 PG Care Time/CCT Total # of Minutes Spent Total Time Spent with Patient: Total time spent is greater than 50% in coordination of care (as documented) at patient's floor/unit and/or counseling patient: Coding Level of Care Code 28000 Subseq Hosp Care Lvl 2 Diagnoses Dementia with behavioral disturbance F03.91 SIRS (systemic inflammatory response syndrome) R65.10 Encephalopathy G93.40 Anxiety F41.9 GERD (gastroesophageal reflux disease) K21.9 Gout M10.9 BPH (benign prostatic hyperplasia) N40.0 Weakness R53.1 Hypertension I10 Hypertension type: essential hypertension Urinary retention due to benign prostatic hyperplasia N40.1; R33.8 Chronic renal failure, stage 3b N18.32 Dysphagia R13.10 Hypokalemia E87.6 Hypomagnesemia E83.42 DVT prophylaxis Z29.9 (1) Hypertension Hypertension type: essential hypertension Qualified Code(s): I10 - Essential (primary) hypertension
[2020-12-24] MEDS: ACETAMINOPHEN 500 MG TAB PO PRN (18:09)
[2020-12-25] MEDS: busPIRone 5 MG TAB PO SCH ×2 (08:52→19:34)
[2020-12-25] MEDS: carvediloL 3.125 MG TAB PO SCH ×2 (08:53→19:35)
[2020-12-25] MEDS: HEPARIN SOD 5,000 UNIT/0.5 ML VIAL SQ SCH ×3 (08:53→19:35)
[2020-12-25] MEDS: TAMSULOSIN HCL 0.4 MG CAP PO SCH (08:53)
[2020-12-25] MEDS: amLODIPine BESYLATE 5 MG TAB PO SCH (08:54)
[2020-12-25] MEDS: LIDOCAINE 5% 1 PATCH TD SCH (08:54)
[2020-12-25] MEDS: FAMOTIDINE 20 MG TAB PO SCH ×2 (08:55→19:35)
[2020-12-25] MEDS: FINASTERIDE 5 MG TAB PO SCH (08:55)
[2020-12-25] MEDS: allopurinoL 100 MG TAB PO SCH (08:56)
[2020-12-25] MEDS: THIAMINE HCL 100 MG TAB PO SCH (08:56)
[2020-12-25] MEDS: ACETAMINOPHEN 500 MG TAB PO PRN (13:03)
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
[2020-12-25 19:16] LABS: Cdiff Antigen Negative
[2020-12-25 19:17] LABS: Cdiff Toxin A+B Positive Cdiff Toxin (Negative)
[2020-12-25] MEDS: risperiDONE ODT 0.5 MG SOLTAB PO SCH (19:34)
--- NOTE | 2020-12-25 19:53 | Communication Note ---
Date of Service: December 25, 2020 Nursing notified that the patient was potive for C. diff, Gene and toxin were positive. - Started on Vancomycin PO QID 125 mg for c. diff infection Resident Activity Tracking Resident Involvement: Resident Care Provided Care Provided: [facility] Medicine CBC Results Results Complete Blood Count Results: RBC 4.37 M/uL (4.7-6.1) L 12/18/20 WBC 19.25 K/uL (4.8-10.8) H 12/18/20 Hgb 14.1 g/dL (14.0-18.0) 12/18/20 Hct 40.7 % (42-52) L 12/18/20 Plt Count 190 K/uL (130-400) 12/18/20
[2020-12-25] MEDS: VANCOMYCIN HCL 125 MG/2.5ML SOLN PO SCH (23:25)
[2020-12-25] MEDS: RASPBERRY SYRUP 5 ML UDP PO SCH (23:25)
[2020-12-26] MEDS: VANCOMYCIN HCL 125 MG/2.5ML SOLN PO SCH ×4 (05:37→23:49)
[2020-12-26] MEDS: RASPBERRY SYRUP 5 ML UDP PO SCH ×4 (05:37→23:48)
[2020-12-26 08:03] LABS: Hematocrit (blood only) 39.3 % (42-52); Hemoglobin 14.3 g/dL (14.0-18.0); Mean Corpuscular Hemoglobin 32.9 pg (25-34); Mean Corpuscular Hgb Conc 36.4 g/dL (32-36); Mean Corpuscular Volume 90.3 fL (80-100); Mean Platelet Volume 9.1 fL (7.4-10.4); Platelet Count 275 K/uL (130-400); RDW Coefficient of Variation 13.7 % (11.5-14.5); RDW Standard Deviation 45.2 fL (36.4-46.3); Red Blood Count 4.35 M/uL (4.7-6.1); White Blood Count 13.86 K/uL (4.8-10.8)
[2020-12-26 08:41] LABS: BUN Creatinine Ratio 22.2 (10-20); Calcium 8.5 mg/dl (8.5-10.1); Creatinine Clr Calc Pharmacy 54.9 ml/min; Est GFR (African American) 81.9; Est GFR (Non-African American) 70.6; Magnesium 2.1 mg/dl (1.8-2.4); Potassium 3.7 mmol/L (3.5-5.1)
[2020-12-26] MEDS: LIDOCAINE 5% 1 PATCH TD SCH (13:38)
[2020-12-26] MEDS: HEPARIN SOD 5,000 UNIT/0.5 ML VIAL SQ SCH ×2 (13:40→19:25)
[2020-12-26] MEDS: busPIRone 5 MG TAB PO SCH ×2 (13:40→19:24)
[2020-12-26] MEDS: TAMSULOSIN HCL 0.4 MG CAP PO SCH ×2 (13:41→13:50)
[2020-12-26] MEDS: carvediloL 3.125 MG TAB PO SCH ×2 (13:41→19:24)
[2020-12-26] MEDS: FAMOTIDINE 20 MG TAB PO SCH ×2 (13:42→19:24)
[2020-12-26] MEDS: amLODIPine BESYLATE 5 MG TAB PO SCH (13:42)
[2020-12-26] MEDS: allopurinoL 100 MG TAB PO SCH (13:43)
[2020-12-26] MEDS: FINASTERIDE 5 MG TAB PO SCH (13:43)
[2020-12-26] MEDS: THIAMINE HCL 100 MG TAB PO SCH (13:43)
[2020-12-26] MEDS: ACETAMINOPHEN 500 MG TAB PO PRN ×2 (16:47→22:38)
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
[2020-12-26] MEDS: risperiDONE ODT 0.5 MG SOLTAB PO SCH (19:24)
[2020-12-27] MEDS: RASPBERRY SYRUP 5 ML UDP PO SCH ×3 (05:11→17:45)
[2020-12-27] MEDS: VANCOMYCIN HCL 125 MG/2.5ML SOLN PO SCH ×3 (05:11→17:45)
[2020-12-27] MEDS: LIDOCAINE 5% 1 PATCH TD SCH (08:48)
[2020-12-27] MEDS: HEPARIN SOD 5,000 UNIT/0.5 ML VIAL SQ SCH ×2 (08:49→20:26)
[2020-12-27] MEDS: carvediloL 3.125 MG TAB PO SCH ×2 (08:49→20:25)
[2020-12-27] MEDS: amLODIPine BESYLATE 5 MG TAB PO SCH (08:49)
[2020-12-27] MEDS: busPIRone 5 MG TAB PO SCH ×2 (08:49→20:26)
[2020-12-27] MEDS: allopurinoL 100 MG TAB PO SCH (08:49)
[2020-12-27] MEDS: FINASTERIDE 5 MG TAB PO SCH (08:49)
[2020-12-27] MEDS: THIAMINE HCL 100 MG TAB PO SCH (08:50)
[2020-12-27] MEDS: TAMSULOSIN HCL 0.4 MG CAP PO SCH (08:50)
[2020-12-27] MEDS: FAMOTIDINE 20 MG TAB PO SCH ×2 (08:50→20:26)
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
[2020-12-27] MEDS: ACETAMINOPHEN 500 MG TAB PO PRN (19:44)
[2020-12-27] MEDS: risperiDONE ODT 0.5 MG SOLTAB PO SCH (20:27)
[2020-12-28] MEDS: VANCOMYCIN HCL 125 MG/2.5ML SOLN PO SCH ×4 (00:17→17:27)
[2020-12-28] MEDS: RASPBERRY SYRUP 5 ML UDP PO SCH ×4 (00:18→17:27)
[2020-12-28] MEDS: LIDOCAINE 5% 1 PATCH TD SCH (08:39)
[2020-12-28] MEDS: busPIRone 5 MG TAB PO SCH ×2 (08:39→21:12)
[2020-12-28] MEDS: HEPARIN SOD 5,000 UNIT/0.5 ML VIAL SQ SCH ×3 (08:39→21:13)
[2020-12-28] MEDS: allopurinoL 100 MG TAB PO SCH (08:40)
[2020-12-28] MEDS: FAMOTIDINE 20 MG TAB PO SCH ×2 (08:40→21:12)
[2020-12-28] MEDS: carvediloL 3.125 MG TAB PO SCH ×2 (08:40→21:12)
[2020-12-28] MEDS: TAMSULOSIN HCL 0.4 MG CAP PO SCH (08:40)
[2020-12-28] MEDS: amLODIPine BESYLATE 5 MG TAB PO SCH (08:40)
[2020-12-28] MEDS: FINASTERIDE 5 MG TAB PO SCH (08:40)
[2020-12-28] MEDS: THIAMINE HCL 100 MG TAB PO SCH (08:40)
[2020-12-28] MEDS ORDERED: LOPERAMIDE LIQUID 120 ML BOTTLE PO STA (16:53)
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
[2020-12-28] MEDS: ACETAMINOPHEN 500 MG TAB PO PRN ×2 (17:27→21:18)
[2020-12-28] MEDS: risperiDONE ODT 0.5 MG SOLTAB PO SCH (21:13)
[2020-12-29] MEDS: RASPBERRY SYRUP 5 ML UDP PO SCH ×3 (00:04→11:01)
[2020-12-29] MEDS: VANCOMYCIN HCL 125 MG/2.5ML SOLN PO SCH ×3 (00:04→11:01)
[2020-12-29 05:53] LABS: Hematocrit (blood only) 40.2 % (42-52); Hemoglobin 13.9 g/dL (14.0-18.0); Mean Corpuscular Hemoglobin 31.7 pg (25-34); Mean Corpuscular Hgb Conc 34.6 g/dL (32-36); Mean Corpuscular Volume 91.8 fL (80-100); Mean Platelet Volume 8.5 fL (7.4-10.4); Platelet Count 248 K/uL (130-400); RDW Coefficient of Variation 13.7 % (11.5-14.5); RDW Standard Deviation 46.4 fL (36.4-46.3); Red Blood Count 4.38 M/uL (4.7-6.1); White Blood Count 11.59 K/uL (4.8-10.8)
[2020-12-29 06:31] LABS: BUN Creatinine Ratio 19.2 (10-20); Calcium 8.3 mg/dl (8.5-10.1); Creatinine Clr Calc Pharmacy 53.3 ml/min; Est GFR (Non-African American) 68.1; Potassium 3.9 mmol/L (3.5-5.1)
[2020-12-29] MEDS: busPIRone 5 MG TAB PO SCH (08:01)
[2020-12-29] MEDS: carvediloL 3.125 MG TAB PO SCH (08:01)
[2020-12-29] MEDS: THIAMINE HCL 100 MG TAB PO SCH (08:02)
[2020-12-29] MEDS: amLODIPine BESYLATE 5 MG TAB PO SCH (08:02)
[2020-12-29] MEDS: FAMOTIDINE 20 MG TAB PO SCH (08:02)
[2020-12-29] MEDS: TAMSULOSIN HCL 0.4 MG CAP PO SCH ×2 (08:02→08:11)
[2020-12-29] MEDS: allopurinoL 100 MG TAB PO SCH (08:03)
[2020-12-29] MEDS: LIDOCAINE 5% 1 PATCH TD SCH (08:03)
[2020-12-29] MEDS: FINASTERIDE 5 MG TAB PO SCH (08:03)
[2020-12-29] MEDS: HEPARIN SOD 5,000 UNIT/0.5 ML VIAL SQ SCH ×2 (08:04→08:11)
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
== END 2020-12-29 14:21 | disposition home or self-care (01) | DRG 92 ==
LOC: ED 14:57 → SUATTDRO 18:44 → 2N 18:44 → 3N 12-22 04:08

== ENCOUNTER 2021-04-26 14:52 | Inpatient (IN) ==
--- NOTE | 2021-04-26 15:30 | Communication Note ---
Date of Service: April 26, 2021 This patient was seen in concert with Dr. Bautista and we discussed and agreed upon the history, physical, assessment, and plan. See attending's note for details. Resident Activity Tracking Resident Involvement: Resident Care Provided Care Provided: Adult ED
--- NOTE | 2021-04-26 16:03 | Emergency Department Note ---
Impression & Plan Urinary tract infection, Weakness ED Provider Note NAME: ABIGAIL KAY AGE: 80 SEX: M : 1940 ARRIVES VIA: Ambulance INFORMANT: Patient, ED PROVIDER(S): Santosh Valdovinos DO CHIEF COMPLAINT: Weakness HPI: Matthias is an 80-year-old gentleman with a notable past medical history of CKD stage III, nephrolithiasis, cognitive impairment, spinal stenosis who was referred to [facility] emergency department for abnormal labs and progressive weakness. Patient and his provide history together. Patient says that over the last 4 to 5 days, he has grown progressively weak. This has been global. He also says that he has been voiding much more frequently than prior. At baseline, patient reports that he is incontinent. He does state that he has had some dysuria throughout this process too. Denies any blood in his urine. Further, endorses a mild cough; his notes that staff at his facility have been concerned about his swallowing function and possibility of aspiration. At baseline, patient does require a walker for ambulation. Staff at his facility has reported that he has had progressively more difficult ambulating over this time. He has not had any falls. He denies any shortness of breath. Denies any fevers, chills, night sweats. Endorses significant loss of appetite. No nausea or vomiting. Denies any chest pain or palpitations. Denies any bloody or black bowel movements. Denies any headaches or changes in vision. He is fully vaccinated against Covid. ROS: See above HPI for pertinent positives & negatives. A total of 10 systems reviewed and were otherwise negative. PAST MEDICAL HISTORY: See Below PAST SURGICAL HISTORY: See Below FAMILY HISTORY: See Below SOCIAL HISTORY: See Below HOME MEDICATIONS: See Below ALLERGIES: See Below VITALS: See Below PHYSICAL EXAMINATION: GENERAL: Patient is awake and alert. The patient appears somewhat absent but responds to questions. EYES: The conjunctivae are clear. The pupils are constricted bilaterally. EARS, NOSE, MOUTH AND THROAT: The nose is without any evidence of any deformity. Mucous membranes are dry. NECK: The neck is nontender and supple. RESPIRATORY: Normal respiratory effort is noted there is no evidence of wheezing rhonchi or rales CARDIOVASCULAR: Regular rate and rhythm noted there no murmurs rubs or gallops normal S1 normal S2. GASTROINTESTINAL: The abdomen is soft. Abdomen is nontender. MUSCULOSKELETAL/EXTREMITIES: There is no evidence of gross deformity full range of motion is noted in the hips and shoulders. SKIN: Skin was warm and dry. Trace pedal edema was noted bilaterally. NEUROLOGIC: Patient is awake and looking around the room. Strength was diminished but symmetric. MEDICAL DECISION MAKING: The patient is an 80-year-old male who presented to the emergency department for an evaluation of generalized weakness. The patient presented from personal fpc. The patient was found to have signs of urinary tract infection on u rinalysis. The patient was treated with IV antibiotics. The patient was reevaluated multiple times. We discussed the patient's laboratory and radiographic studies with him as well as his significant other. His significant other was very concerned given the patient's ongoing weakness and was concerned he may not do well for discharge back to home. For this reason I discussed his case with the on-call [facility] hospitalist. They have agreed to evaluate the patient in the emergency department for further management and disposition. Triage Nursing notes reviewed. Prior medical records reviewed Vital Signs: reviewed and remarkable for elevated blood pressure. Differential diagnosis: Infection, dehydration, metabolic abnormality, hypo/hyperglycemia, electrolyte disturbance, anemia, hypoxia, cardiac sources, intracerebral event, toxicologic, neurologic, as well as other pathologies. ER treatment provided: See below Diagnostics interpreted by me: ECG: EKG was obtained in the emergency department my interpretation is normal sinus rhythm at 69 bpm. There was no ectopy. There was no acute ST segment abnormalities noted. This was compared to a tracing from December 102020. No significant changes were noted. Cardiac Monitoring: An order was placed for continuous cardiac monitoring. The monitor shows a rate of 82 bpm with sinus rhythm. Laboratory studies: As stated above and show below. Imaging studies: See below Consultation(s): 1840: Dr. Petty was notified about the patient. He will evaluate the patient in the emergency department for further management and disposition. Past Med/Surg History Medical History Anxiety BPH (benign prostatic hyperplasia) Chronic pain syndrome GERD (gastroesophageal reflux disease) Gout Insomnia Kidney stones Microscopic hematuria Spinal stenosis Urinary incontinence, urge Surgical History History of back surgery History of colonoscopy History of lithotripsy S/P TURP Family History Grandmother Family history of diabetes mellitus Social History Smoking Status: Never smoker Tobacco Type: Cigarettes Age Quit Using Tobacco: 25; Second Hand Exposure: No; Hx Alcohol Use: Yes Alcohol type: hard liquor Hx Substance Use: No Preferred Language: [place] Communication Ability: Effective Vest Backer Required: No Beliefs That Will Affect Care: None marital status: Current Living Situation: Spouse Current Living Situation Comment: Lives w/ at home Feels Safe at Home: Yes Assistive Devices: Glasses, Hearing Aid - Left and Walker Allergies Allergies Allergy/AdvReac Type Severity Reaction Status Date / Time Penicillins Allergy Intermediate HIVES Verified 02/05/21 22:35 morphine AdvReac Mild N&V Verified 02/05/21 22:35 codeine AdvReac Unknown Unknown Unverified 02/05/21 22:35 Home Meds Home Medications Medication Instructions Recorded Confirmed cholecalciferol (vitamin D3) 125 5,000 unit PO QAM 08/03/18 04/26/21 mcg (5,000 unit) tablet (Vitamin D3) cyanocobalamin (vitamin B-12) 1,000 mcg PO QAM 08/03/18 04/26/21 1,000 mcg tablet (Vitamin B-12) buspirone 5 mg tablet 5 mg PO BIDM 01/12/21 04/26/21 carvedilol 6.25 mg tablet 6.25 mg PO BIDM 01/12/21 04/26/21 finasteride 5 mg tablet (Proscar) 5 mg PO QAM 01/12/21 04/26/21 acetaminophen 500 mg tablet 1,000 mg PO Q6H PRN 02/05/21 04/26/21 (Tylenol Extra Strength) melatonin 5 mg tablet 5 mg PO HS 02/05/21 04/26/21 allopurinol 300 mg tablet 300 mg PO DAILY 04/26/21 04/26/21 hydroxyzine HCl 50 mg tablet 50 mg PO DAILY 04/26/21 04/26/21 Previous Rx's Medication Instructions Recorded amlodipine 5 mg tablet 5 mg PO HS #30 tab 12/29/20 famotidine 20 mg tablet 20 mg PO HS #30 tab 12/29/20 risperidone 0.5 mg tablet 0.5 mg PO HS #30 tab 12/29/20 tamsulosin 0.4 mg capsule 0.4 mg PO HS #30 cap 12/29/20 Results & Data (ED) Vital Signs Vital Signs - 24 hr 04/26/21 14:56 04/26/21 15:01 04/26/21 15:15 Temperature 37.0 C Temperature Source Oral Pulse Rate 88 72 72 Pulse Rate from SpO2 Sensor 74 Pulse Rhythm Regular Regular Pulse Strength Normal Respiratory Rate 22 20 20 Respiratory Effort / Characteristics Non-Labored Spontaneous Respiratory Depth Normal Respiratory Pattern Regular Blood Pressure 136/82 136/82 Blood Pressure Mean 100 100 Blood Pressure Position Sitting Pulse Oximetry 98 97 97 Oxygen Delivery Method Room Air Room Air Room Air Sepsis Recent Fever Within 48 Hours No Sepsis New/Unexplained Change in Mental Status No Sepsis Action Taken by Nursing No Action Required 04/26/21 16:38 04/26/21 18:09 04/26/21 18:30 Temperature Temperature Source Pulse Rate 79 82 83 Pulse Rate from SpO2 Sensor 78 85 82 Pulse Rhythm Pulse Strength Respiratory Rate 20 18 16 Respiratory Effort / Characteristics Respiratory Depth Respiratory Pattern Blood Pressure 150/80 H 155/93 H 150/86 H Blood Pressure Mean 103 113 107 Blood Pressure Position Pulse Oximetry 98 97 96 Oxygen Delivery Method Room Air Room Air Room Air Sepsis Recent Fever Within 48 Hours Sepsis New/Unexplained Change in Mental Status Sepsis Action Taken by Nursing 04/26/21 19:00 Temperature Temperature Source Pulse Rate 82 Pulse Rate from SpO2 Sensor 82 Pulse Rhythm Pulse Strength Respiratory Rate 21 Respiratory Effort / Characteristics Respiratory Depth Respiratory Pattern Blood Pressure 164/82 H Blood Pressure Mean 109 Blood Pressure Position Pulse Oximetry 96 Oxygen Delivery Method Room Air Sepsis Recent Fever Within 48 Hours Sepsis New/Unexplained Change in Mental Status Sepsis Action Taken by Detention Medications Current Medication List: was personally reviewed by me Laboratory Data Attestation: I reviewed the patient's lab results. Result diagrams: 04/26/21 16:12 04/26/21 15:46 Lab Results 04/26/21 04/26/21 04/26/21 Range/Units 15:38 15:38 15:46 WBC (4.8-10.8) K/uL RBC (4.7-6.1) M/uL Hgb (14.0-18.0) g/dL Hct (42-52) % MCV (80-100) fL MCH (25-34) pg MCHC (32-36) g/dL RDW Std Deviation (36.4-46.3) fL RDW Coeff of Jaelyn (11.5-14.5) % Plt Count (130-400) K/uL MPV (7.4-10.4) fL Immature Gran % (Auto) % Neut % (Auto) % Lymph % (Auto) % Beadle % (Auto) % Eos % (Auto) % Baso % (Auto) % Neut # (Auto) (1.4-6.5) K/uL Lymph # (Auto) (1.2-3.4) K/uL Beadle # (Auto) (0.11-0.59) K/uL Eos # (Auto) (0-0.5) K/uL Baso # (Auto) (0-0.2) K/uL Immature Gran # (Auto) (0.00-0.02) K/uL Sodium 137 (136-145) mmol/L Potassium 4.8 (3.5-5.1) mmol/L Chloride 107 (98-107) mmol/L Carbon Dioxide 24 (21-32) mmol/L Anion Gap 6.0 (3-11) BUN 26 H (7-18) mg/dl Creatinine 1.21 (0.6-1.4) mg/dl Est Cr Clr Drug Dosing 56.5 ml/min Est GFR ( Amer) 64.2 ml/min Est GFR (Non-Af Amer) 55.4 ml/min BUN/Creatinine Ratio 21.5 H (10-20) Glucose 111 H (70-99) mg/dl Lactate (0.4-2.0) mmol/L Calcium 8.9 (8.5-10.1) mg/dl Total Bilirubin 0.4 (0.2-1) mg/dl AST 32 (15-37) U/L ALT 42 (12-78) U/L Alkaline Phosphatase 82 (45-117) U/L C-Reactive Protein 5.51 H (0-0.29) mg/dl Total Protein 7.2 (6.4-8.2) gm/dl Albumin 3.2 L (3.4-5.0) gm/dl Globulin 4.0 (2.5-4.0) gm/dl Albumin/Globulin Ratio 0.8 L (0.9-2) Procalcitonin (0-0.5) ng/ml TSH 2.040 (0.300-4.500) uIu/ml Specimen Hemolysis Urine Color Urine Appearance (Clear) Urine pH (4.5-7.5) Ur Specific [employer] (1.000-1.030) Urine Protein (Negative) Urine Glucose (UA) (Negative) Urine Ketones (Negative) Urine Blood (Negative) Urine Nitrite (Negative) Urine Bilirubin (Negative) Urine Urobilinogen (Negative) Ur Leukocyte Esterase (Negative) Urine WBC (Auto) (0-5) /hpf Urine RBC (Auto) (0-4) /hpf U Hyaline Cast (Auto) (0-5) /lpf U Epithel Cells (Auto) (0-5) /lpf Urine Bacteria (Auto) (Negative) COVID-19 Eval Order Covid19 at [facility] SARS-CoV-2 (PCR) NEGATIVE (Negative) 04/26/21 04/26/21 04/26/21 Range/Units 16:00 16:12 16:12 WBC 13.96 H (4.8-10.8) K/uL RBC 4.50 L (4.7-6.1) M/uL Hgb 14.2 (14.0-18.0) g/dL Hct 41.0 L (42-52) % MCV 91.1 (80-100) fL MCH 31.6 (25-34) pg MCHC 34.6 (32-36) g/dL RDW Std Deviation 43.0 (36.4-46.3) fL RDW Coeff of Jaelyn 13.0 (11.5-14.5) % Plt Count 250 (130-400) K/uL MPV 8.7 (7.4-10.4) fL Immature Gran % (Auto) 0.3 % Neut % (Auto) 65.4 % Lymph % (Auto) 22.4 % Beadle % (Auto) 10.6 % Eos % (Auto) 1.1 % Baso % (Auto) 0.2 % Neut # (Auto) 9.12 H (1.4-6.5) K/uL Lymph # (Auto) 3.13 (1.2-3.4) K/uL Beadle # (Auto) 1.48 H (0.11-0.59) K/uL Eos # (Auto) 0.16 (0-0.5) K/uL Baso # (Auto) 0.03 (0-0.2) K/uL Immature Gran # (Auto) 0.04 H (0.00-0.02) K/uL Sodium (136-145) mmol/L Potassium (3.5-5.1) mmol/L Chloride (98-107) mmol/L Carbon Dioxide (21-32) mmol/L Anion Gap (3-11) BUN (7-18) mg/dl Creatinine (0.6-1.4) mg/dl Est Cr Clr Drug Dosing ml/min Est GFR ( Amer) ml/min Est GFR (Non-Af Amer) ml/min BUN/Creatinine Ratio (10-20) Glucose (70-99) mg/dl Lactate 1.4 (0.4-2.0) mmol/L Calcium (8.5-10.1) mg/dl Total Bilirubin (0.2-1) mg/dl AST (15-37) U/L ALT (12-78) U/L Alkaline Phosphatase (45-117) U/L C-Reactive Protein (0-0.29) mg/dl Total Protein (6.4-8.2) gm/dl Albumin (3.4-5.0) gm/dl Globulin (2.5-4.0) gm/dl Albumin/Globulin Ratio (0.9-2) Procalcitonin (0-0.5) ng/ml TSH (0.300-4.500) uIu/ml Specimen Hemolysis Urine Color Yellow Urine Appearance Turbid A (Clear) Urine pH 6.0 (4.5-7.5) Ur Specific [employer] 1.013 (1.000-1.030) Urine Protein 1+ H (Negative) Urine Glucose (UA) Negative (Negative) Urine Ketones Negative (Negative) Urine Blood 2+ H (Negative) Urine Nitrite Negative (Negative) Urine Bilirubin Negative (Negative) Urine Urobilinogen Negative (Negative) Ur Leukocyte Esterase 3+ H (Negative) Urine WBC (Auto) >30 H (0-5) /hpf Urine RBC (Auto) 5-10 H (0-4) /hpf U Hyaline Cast (Auto) 1-5 (0-5) /lpf U Epithel Cells (Auto) 5-10 H (0-5) /lpf Urine Bacteria (Auto) 1+ H (Negative) COVID-19 Eval Order SARS-CoV-2 (PCR) (Negative) 04/26/21 Range/Units 16:12 WBC (4.8-10.8) K/uL RBC (4.7-6.1) M/uL Hgb (14.0-18.0) g/dL Hct (42-52) % MCV (80-100) fL MCH (25-34) pg MCHC (32-36) g/dL RDW Std Deviation (36.4-46.3) fL RDW Coeff of Jaelyn (11.5-14.5) % Plt Count (130-400) K/uL MPV (7.4-10.4) fL Immature Gran % (Auto) % Neut % (Auto) % Lymph % (Auto) % Beadle % (Auto) % Eos % (Auto) % Baso % (Auto) % Neut # (Auto) (1.4-6.5) K/uL Lymph # (Auto) (1.2-3.4) K/uL Beadle # (Auto) (0.11-0.59) K/uL Eos # (Auto) (0-0.5) K/uL Baso # (Auto) (0-0.2) K/uL Immature Gran # (Auto) (0.00-0.02) K/uL Sodium (136-145) mmol/L Potassium (3.5-5.1) mmol/L Chloride (98-107) mmol/L Carbon Dioxide (21-32) mmol/L Anion Gap (3-11) BUN (7-18) mg/dl Creatinine (0.6-1.4) mg/dl Est Cr Clr Drug Dosing ml/min Est GFR ( Amer) ml/min Est GFR (Non-Af Amer) ml/min BUN/Creatinine Ratio (10-20) Glucose (70-99) mg/dl Lactate (0.4-2.0) mmol/L Calcium (8.5-10.1) mg/dl Total Bilirubin (0.2-1) mg/dl AST (15-37) U/L ALT (12-78) U/L Alkaline Phosphatase (45-117) U/L C-Reactive Protein (0-0.29) mg/dl Total Protein (6.4-8.2) gm/dl Albumin (3.4-5.0) gm/dl Globulin (2.5-4.0) gm/dl Albumin/Globulin Ratio (0.9-2) Procalcitonin < 0.05 (0-0.5) ng/ml TSH (0.300-4.500) uIu/ml Specimen Hemolysis Urine Color Urine Appearance (Clear) Urine pH (4.5-7.5) Ur Specific [employer] (1.000-1.030) Urine Protein (Negative) Urine Glucose (UA) (Negative) Urine Ketones (Negative) Urine Blood (Negative) Urine Nitrite (Negative) Urine Bilirubin (Negative) Urine Urobilinogen (Negative) Ur Leukocyte Esterase (Negative) Urine WBC (Auto) (0-5) /hpf Urine RBC (Auto) (0-4) /hpf U Hyaline Cast (Auto) (0-5) /lpf U Epithel Cells (Auto) (0-5) /lpf Urine Bacteria (Auto) (Negative) COVID-19 Eval Order SARS-CoV-2 (PCR) (Negative) Administered Medications Discontinued Medications Ceftriaxone Sodium (Rocephin) 1,000 mg in 50 mls @ 100 mls/hr IV NOW STA Stop: 04/26/21 18:00 Last Infusion: 04/26/21 18:56 Dose: 0 mls/hr Documented by: [id number] Admin: 04/26/21 18:07 Dose: 100 mls/hr Documented by: [id number] Imaging Data Radiologist's Impression: Chest X-Ray 04/26/21 15:04 SINGLE VIEW CHEST CLINICAL HISTORY: Generalized weakness. FINDINGS: An AP, portable, upright chest radiograph is compared to study dated 12/18/2020. The heart is mildly enlarged noting atherosclerotic calcification of the thoracic aorta. The pulmonary vasculature is noncongested. Atelectasis is seen at the lung bases. The lungs and pleural spaces are otherwise clear. No pneumothorax is seen. The skeletal structures are osteopenic. The bony thorax is grossly intact. Degenerative change is noted in the shoulders and thoracic spine. IMPRESSION: No active disease in the chest. ACT 112: Negative or not required by law. Electronically signed by: Naman Ramirez M.D. 04/26/2021 4:[address] 04/26/21 16:21 CT SCAN OF THE BRAIN WITHOUT IV CONTRAST CLINICAL HISTORY: Change in mental status. COMPARISON STUDY: CT of the brain dated 02/05/2021. TECHNIQUE: Unenhanced axial CT scan of the brain is performed from the vertex to the skull base. A dose lowering technique was utilized adhering to the principles of ALARA. CT DOSE: 614.27 mGy.cm FINDINGS: Brain parenchyma: There are age-related involutional changes noting moderate to advanced confluent subcortical and periventricular microangiopathic change. There is no hemorrhage, mass effect, or evidence of acute territorial ischemia by CT criteria. Abrams-white matter differentiation is preserved. No extra-axial fluid collection is seen. Ventricles, sulci, cisterns: Prominent secondary to involutional change. Intracranial vasculature: There is atherosclerotic calcification of the cavernous carotid and vertebral arteries. Calvarium: Unremarkable. Sinuses and mastoids: The visualized paranasal sinuses are clear. The mastoid air cells are well pneumatized. Orbits: The bony orbits are grossly intact. IMPRESSION: There is no hemorrhage, mass effect, or evidence of acute territorial ischemia by CT criteria. ACT 112: Negative or not required by law. Electronically signed by: Naman Ramirez M.D. 04/26/2021 4:49 PM Discharge Plan Visit Data Chief Complaint: Weakness Stated Complaint: ABNORMAL LABS, MENTAL STATUS CHANGE ED Provider: Santosh Valdovinos ED Midlevel Provider: Raghav Stone Discharge Problem: Urinary tract infection, Weakness Patient Disposition: Being Evaluated by Hospitalist Condition: Good Forms Stand Alone Forms: [facility] Prescriptions Prescriptions: No Action cyanocobalamin (vitamin B-12) [Vitamin B-12] 1,000 mcg Tablet 1,000 mcg PO QAM RF: 0 cholecalciferol (vitamin D3) [Vitamin D3] 5,000 unit Tablet 5,000 unit PO QAM RF: 0 acetaminophen [Tylenol Extra Strength] 500 mg Tablet 1,000 mg PO Q6H PRN (Reason: Pain) RF: 0 melatonin 5 mg Tablet 5 mg PO HS RF: 0 hydroxyzine HCl 50 mg tablet 50 mg PO DAILY RF: 0 allopurinol 300 mg tablet 300 mg PO DAILY RF: 0 tamsulosin 0.4 mg capsule 0.4 mg PO HS Qty: 30 RF: 0 amlodipine 5 mg tablet 5 mg PO HS Qty: 30 RF: 0 risperidone 0.5 mg tablet 0.5 mg PO HS Qty: 30 RF: 0 famotidine 20 mg tablet 20 mg PO HS Qty: 30 RF: 0 buspirone 5 mg tablet 5 mg PO BIDM RF: 0 carvedilol 6.25 mg tablet 6.25 mg PO BIDM RF: 0 finasteride [Proscar] 5 mg tablet 5 mg PO QAM RF: 0 Referrals Referrals: Santosh Cassidy MD [Primary Care Provider] -
--- NOTE | 2021-04-26 16:22 | XRay Report ---
SINGLE VIEW CHEST CLINICAL HISTORY: Generalized weakness. FINDINGS: An AP, portable, upright chest radiograph is compared to study dated 12/18/2020. The heart is mildly enlarged noting atherosclerotic calcification of the thoracic aorta. The pulmonary vasculatur e is noncongested. Atelectasis is seen at the lung bases. The lungs and pleural spaces are otherwise clear. No pneumothorax is seen. The skeletal structures are osteopenic. The bony thorax is grossly in tact. Degenerative change is noted in the shoulders and thoracic spine. IMPRESSION: No active disease in the chest. ACT 112: Negative or not required by law. Electronically signed by: Naman Ramirez M.D. 04/26/2021 4:20 PM
[2021-04-26 16:24] LABS: Appearance Urine Turbid (Clear); Bacteria Urine Automated 1+ (Negative); Bilirubin Urine Negative (Negative); Blood Urine 2+ (Negative); Color Urine Yellow; Glucose Urine UA Negative (Negative); Ketones Urine Negative (Negative); Leukocyte Esterase Urine 3+ (Negative); Nitrite Urine Negative (Negative); Protein Urine 1+ (Negative); Specific Gravity Urine 1.013 (1.000-1.030); Urobilinogen Urine Negative (Negative); WBC Urine Automated >30 /hpf (0-5)
[2021-04-26 16:50] LABS: Basophils # (auto) 0.03 K/uL (0-0.2); Basophils % (auto) 0.2 %; Eosinophils # (auto) 0.16 K/uL (0-0.5); Eosinophils % (auto) 1.1 %; Hemoglobin 14.2 g/dL (14.0-18.0); Immature Granulocytes # (auto) 0.04 K/uL (0.00-0.02); Immature Granulocytes % (auto) 0.3 %; Lymphocytes # (auto) 3.13 K/uL (1.2-3.4); Lymphocytes % (auto) 22.4 %; Mean Corpuscular Hemoglobin 31.6 pg (25-34); Mean Corpuscular Hgb Conc 34.6 g/dL (32-36); Mean Corpuscular Volume 91.1 fL (80-100); Mean Platelet Volume 8.7 fL (7.4-10.4); Monocytes # (auto) 1.48 K/uL (0.11-0.59); Monocytes % (auto) 10.6 %; Neutrophils # (auto) 9.12 K/uL (1.4-6.5); Neutrophils % (auto) 65.4 %; Platelet Count 250 K/uL (130-400); White Blood Count 13.96 K/uL (4.8-10.8)
--- NOTE | 2021-04-26 16:50 | CT Scan Report ---
CT SCAN OF THE BRAIN WITHOUT IV CONTRAST CLINICAL HISTORY: Change in mental status. COMPARISON STUDY: CT of the brain dated 02/05/2021. TECHNIQUE: Unenhanced axial CT scan of the brain is performed from the vertex to the skull base. A do se lowering technique was utilized adhering to the principles of ALARA. CT DOSE: 614.27 mGy.cm FINDINGS: Brain parenchyma: There are age-related involutional changes noting moderate to advanced confluent s ubcortical and periventricular microangiopathic change. There is no hemorrhage, mass effect, or evide nce of acute territorial ischemia by CT criteria. Abrams-white matter differentiation is preserved. No extra-axial fluid collection is seen. Ventricles, sulci, cisterns: Prominent secondary to involutional change. Intracranial vasculature: There is atherosclerotic calcification of the cavernous carotid and vertebr al arteries. Calvarium: Unremarkable. Sinuses and mastoids: The visualized paranasal sinuses are clear. The mastoid air cells are well pneu matized. Orbits: The bony orbits are grossly intact. IMPRESSION: There is no hemorrhage, mass effect, or evidence of acute territorial ischemia by CT jordan martinez. ACT 112: Negative or not required by law. Electronically signed by: Naman Ramirez M.D. 04/26/2021 4:49 PM
[2021-04-26 17:24] LABS: Albumin Level 3.2 gm/dl (3.4-5.0); BUN Creatinine Ratio 21.5 (10-20); Calcium 8.9 mg/dl (8.5-10.1); Creatinine Clr Calc Pharmacy 56.5 ml/min; Est GFR (African American) 64.2 ml/min; Est GFR (Non-African American) 55.4 ml/min; Potassium 4.8 mmol/L (3.5-5.1)
[2021-04-26 17:26] LABS: Albumin Globulin Ratio 0.8 (0.9-2); Bilirubin,Total 0.4 mg/dl (0.2-1); C Reactive Protein 5.51 mg/dl (0-0.29); Thyroid Stimulating Hormone 2.04 uIu/ml (0.300-4.500); Total Protein 7.2 gm/dl (6.4-8.2)
[2021-04-26] MEDS ORDERED: cefTRIAXone SODIUM 1,000 MG/50 ML BAG IV STA (17:31)
--- NOTE | 2021-04-26 18:50 | History & Physical Report ---
Date of Service April 26, 2021 Assessment & Plan (1) Acute UTI: Plan: Shaggy Rosenthal is an 80 yo male with PMHx significant for BPH s/p TURP, urinary incontinence, nephrolithiasis, several previous UTIs, cognitive impairment, CKDIII, HTN, GERD and chronic pain, who presented to [facility] ED on 04/26 from [facility] LTC is [facility] for progressive generalized weakness, dysuria, increased urinary frequency and decreased PO intake x4 days. Urinary Tract Infection Chronic urinary incontinence with several previous UTIs, urinary symptoms with associated generalized weakness and decreased PO intake x4 days, intermittently tachycardic, WBC 14 and CRP 5.51, dirty UA --> UTI. Patient at increased risk due to urinary incontinence. - received Ceftriaxone x1 in the ED, will continue with Ceftriaxone 1g IV Q24H - will start NSS @80cc/hr x2 liters, will continue with further mIVFs if necessary - follow blood/urine cx - trend CBC daily Generalized Weakness Acute on chronic weakness in light of above, [facility] staff unable to care for patient with current state of weakness. - UTI tx as stated above - fall precautions - PT/OT consults placed - CM consulted for assistance with disposition plan/possible rehab placement Dysphagia Chronic. Patient's reports that the patient often coughs while eating but does not think he aspirates. - ordered AUTOMOTIVE LEASING SALES REPRESENTATIVE consult HTN - continue home Carvedilol, Amlodipine BPH s/p TURP - continue home Flomax, Proscar CKDIII Cr currently 1.21, eGFR 55.4, at ~baseline. - renally dose medications Cognitive Impairment Chronic, with h/o behavioral disturbance. - continue home Risperidone Anxiety - continue home Buspar, Hydroxyzine Gout - continue home Amlodipine GERD - continue home Pepcid FEN/GI: regular diet, NSS @80cc/hr x2 liters DVT Prophylaxis: SCDs Code Status: DNR/DNI Disposition: med/surg (2) Weakness: (3) Chronic renal failure, stage 3b: (4) Hypertension: (5) Dementia with behavioral disturbance: (6) Cognitive impairment: (7) Urinary incontinence, urge: (8) Chronic pain syndrome: (9) Kidney stones: (10) Gout: (11) GERD (gastroesophageal reflux disease): (12) BPH (benign prostatic hyperplasia): History of Present Illness Chief Complaint: weakness and urinary symptoms Primary Care Provider: Santosh Cassidy MD History obtained from the patient and his . Shaggy Rosenthal is an 80 yo male with PMHx significant for BPH s/p TURP, urinary incontinence, nephrolithiasis, several previous UTIs, CKDIII, GERD and chronic pain, who presents from [facility] LTC is [facility] for progressive generalized weakness, dysuria, increased urinary frequency and decreased PO intake x4 days. Patient usually ambulates on his own with a walker but has needed more assistance in the last several days, and has mostly been in bed over the last two days. Denies associated fever/chills or flank pain. Of note patient has chronic urinary incontinence and wears diapers. In the ED the patient was mildly hypertensive to SBP 150s and intermittently tachycardic to 100s, but afebrile and otherwise stable. Laboratory evaluation was notable for WBC 14 (neutrophilic predominance and mild L shift), CRP 5.51 (but negative Lactate/Procal), dirty UA (1+ bacteria, >30 WBCs ,). CXR without acute cardiopulmonary process and COVID-19 negative. He was given Ceftriaxone 1g IV x1 and we were called for admission. Allergies Allergy/AdvReac Type Severity Reaction Status Date / Time Penicillins Allergy Intermediate HIVES Verified 02/05/21 22:35 morphine AdvReac Mild N&V Verified 02/05/21 22:35 codeine AdvReac Unknown Unknown Unverified 02/05/21 22:35 Home Medications Medication Instructions Recorded Confirmed Type cholecalciferol (vitamin D3) 125 5,000 unit PO QAM 08/03/18 04/26/21 History mcg (5,000 unit) tablet (Vitamin D3) cyanocobalamin (vitamin B-12) 1,000 mcg PO QAM 08/03/18 04/26/21 History 1,000 mcg tablet (Vitamin B-12) amlodipine 5 mg tablet 5 mg PO HS #30 tab 12/29/20 04/26/21 Rx famotidine 20 mg tablet 20 mg PO HS #30 tab 12/29/20 04/26/21 Rx risperidone 0.5 mg tablet 0.5 mg PO HS #30 tab 12/29/20 04/26/21 Rx tamsulosin 0.4 mg capsule 0.4 mg PO HS #30 cap 12/29/20 04/26/21 Rx buspirone 5 mg tablet 5 mg PO BIDM 01/12/21 04/26/21 History carvedilol 6.25 mg tablet 6.25 mg PO BIDM 01/12/21 04/26/21 History finasteride 5 mg tablet (Proscar) 5 mg PO QAM 01/12/21 04/26/21 History acetaminophen 500 mg tablet 1,000 mg PO Q6H PRN 02/05/21 04/26/21 History (Tylenol Extra Strength) melatonin 5 mg tablet 5 mg PO HS 02/05/21 04/26/21 History allopurinol 300 mg tablet 300 mg PO DAILY 04/26/21 04/26/21 History hydroxyzine HCl 50 mg tablet 50 mg PO DAILY 04/26/21 04/26/21 History Past Med/Surg History Medical History Anxiety BPH (benign prostatic hyperplasia) Chronic pain syndrome GERD (gastroesophageal reflux disease) Gout Insomnia Kidney stones Microscopic hematuria Spinal stenosis Urinary incontinence, urge Surgical History History of back surgery History of colonoscopy History of lithotripsy S/P TURP Family History Grandmother Family history of diabetes mellitus Social History Smoking Status: Never smoker Tobacco Type: Cigarettes Age Quit Using Tobacco: 25; Second Hand Exposure: No; Hx Alcohol Use: Yes Alcohol type: beer, wine and hard liquor Hx Substance Use: No Preferred Language: Puerto [place]ican Communication Ability: Effective Import Clerk Required: No Beliefs That Will Affect Care: None marital status: Current Living Situation: Personal Care Facility Current Living Situation Comment: [facility]. Other Information That Helps Us Care for You: No Feels Safe at Home: Yes Safety Concerns: Feels Safe At This Time Assistive Devices: Walker Review of Systems Review of Systems: All systems reviewed & are unremarkable except as noted in HPI & below Physical Exam Physical Exam: General: A&Ox3. NAD. Cooperative. HEENT: Atraumatic, normocephalic. Pulm: CTAB A&P. -wheezes, -rales, -rhonchi. Symmetrical chest rise. No increase work of breathing. No respiratory distress. Cardiac: RRR, -mrg. Radial pulses intact and symmetrical. Abdominal: soft, non-tender, non-distended, BS x 4, no CVA tenderness Skin: warm, dry, no rash Results & Data Results & Data ([facility]) Vital Signs (Past 12 Hours) Vital Signs Temp Pulse Resp BP Pulse Ox 04/26/21 18:09 82 18 155/93 H 97 04/26/21 16:38 79 20 150/80 H 98 04/26/21 15:15 72 20 97 04/26/21 15:01 37.0 C 72 20 136/82 97 04/26/21 14:56 88 22 136/82 98 Code Status & VTE Plan Code Status DNR/DNI - discussed with patient and Supervising Physician Co-Signing Physician Notes Attending addendum: I have physically seen this patient, have supervised the medical residents activities, and agree with the H&P unless as otherwise noted. Assessment and Plan: Acute urinary tract infection/BPH with LUTS/status post TURP/urinary incontinence- Follow urine culture and sensitivity Ceftriaxone 1 g IV daily NSS at 80 mils per hour x2 L Generalized weakness- Acute on chronic changes Consult PT/OT Patient may need possible rehab placement Remaining orders and notations as noted Resident Activity Tracking Resident Involvement: Resident Care Provided Care Provided: Adult Hospital Medicine (1) Hypertension Hypertension type: essential hypertension Qualified Code(s): I10 - Essential (primary) hypertension
[2021-04-26] MEDS ORDERED: ACETAMINOPHEN 325 MG TAB PO PRN (21:06)
[2021-04-26] MEDS ORDERED: POLYETHYLENE (MIRALAX) 17 GM PACK PO PRN (21:06)
[2021-04-26] MEDS ORDERED: MELATONIN 3 MG TAB PO PRN (21:06)
[2021-04-26] MEDS: SODIUM CHLORIDE 0.9% 1000ML 1,000 ML IV SCH (22:19)
[2021-04-26] MEDS: FAMOTIDINE 20 MG TAB PO SCH (22:20)
[2021-04-26] MEDS: risperiDONE 0.5 MG TABLET PO SCH (22:20)
[2021-04-26] MEDS: amLODIPine BESYLATE 5 MG TAB PO SCH (22:20)
[2021-04-26] MEDS: TAMSULOSIN HCL 0.4 MG CAP PO SCH (22:20)
--- NOTE | 2021-04-27 08:24 | Hospitalist Progress Note ---
Date of Service April 27, 2021 Assessment & Plan (1) Acute UTI: Plan: Shaggy Rosenthal is an 80 yo male with PMHx significant for BPH s/p TURP, urinary incontinence, nephrolithiasis, several previous UTIs, cognitive impairment, CKDIII, HTN, GERD and chronic pain, who presented to [facility] ED on 04/26 from [facility] LTC is [facility] for progressive generalized weakness, dysuria, increased urinary frequency and decreased PO intake x4 days. Urinary Tract Infection Chronic urinary incontinence with several previous UTIs, urinary symptoms with associated generalized weakness and decreased PO intake x4 days, intermittently tachycardic, WBC 14 and CRP 5.51, dirty UA --> UTI. Patient at increased risk due to urinary incontinence. - Continue with Ceftriaxone 1g IV Q24H - will start NSS @80cc/hr x2 liters, will continue with further mIVFs if necessary - UCx with pin-point growth present--reincubating - Blood Cx NGTD @ 24hrs - trend CBC daily Generalized Weakness Acute on chronic weakness in light of above, LTC staff unable to care for patient with current state of weakness. - UTI tx as stated above - fall precautions - PT/OT consults--SNF recommended at this time - CM consulted for assistance with disposition plan/possible rehab placement Dysphagia Chronic. Patient's reports that the patient often coughs while eating but does not think he aspirates. - HEMATOLOGY NURSE consult HTN - continue home Carvedilol, Amlodipine BPH s/p TURP - continue home Flomax, Proscar CKDIII Currentl around baseline - renally dose medications Cognitive Impairment Chronic, with h/o behavioral disturbance. - continue home Risperidone Anxiety - continue home Buspar, Hydroxyzine Gout - continue home Amlodipine GERD - continue home Pepcid FEN/GI: regular diet DVT Prophylaxis: SCD Code Status: DNR/DNI Disposition: med/surg (2) Weakness: (3) Chronic renal failure, stage 3b: (4) Hypertension: (5) Dementia with behavioral disturbance: (6) Cognitive impairment: (7) Urinary incontinence, urge: (8) Chronic pain syndrome: (9) Kidney stones: (10) Gout: (11) GERD (gastroesophageal reflux disease): (12) BPH (benign prostatic hyperplasia): Admission and Anticipated Discharge Date Admission Date: April 26, 2021 Supervising Physician Co-Signing Physician Notes Attending attestation Pt seen and examined in concert with Dr. Dave. In agreement with the documented findings as noted in the resident documentation with any exceptions or additions as noted here. at bedside contributing history in addition to patient. Overall, feeling better though still having mild urinary burning and suprapubic discomfort without fever, chills, etc. On examination, S1/S2 nl RRR no MCG. CTAB. Abd mild suprapubic TTP/ND BS+ve Urinary tract infection w/ h/o TURP - continue IV ceftriaxone. Follow up cultures and montior WBC count. Generalized weakness w/ ambulatory dysfunction - PT/OT consultation rec'd rehab - encouraged to engage with services, notify CM for dispo planning Dysphagia - coughing while swallowing per spouse - HEMATOLOGY NURSE consultation Else see resident documentation as noted. Subjective Patient seen at bedside this AM. He was initially somewhat lethargic but on revisiting him in the afternoon he was much more conversational. Reports ongoing urinary symptoms, specifically dysuria. was in the room in PM and was updated as well. Review of Systems Review of Systems: All systems reviewed & are unremarkable except as noted in Subjective Physical Exam Physical Exam: General: A&Ox3. NAD. Cooperative. HEENT: Atraumatic, normocephalic. Pulm: CTAB A&P. -wheezes, -rales, -rhonchi. Symmetrical chest rise. No increase work of breathing. No respiratory distress. Cardiac: RRR, -mrg. Radial pulses intact and symmetrical. Abdominal: soft, mild suprapubic tenderness, non-distended, BS x 4, no CVA tenderness Skin: warm, dry, no rash Results & Data Results & Data ([facility]) Vital Signs (Past 12 Hours) Vital Signs Temp Pulse Resp BP BP Pulse Ox 04/27/21 07:43 36.8 C 82 19 118/71 92 04/26/21 22:16 36.9 C 86 18 145/56 H 96 04/26/21 21:10 36.6 C 82 18 133/64 94 Resident Activity Tracking Resident Involvement: Resident Care Provided Care Provided: Adult Hospital Medicine (1) Hypertension Hypertension type: essential hypertension Qualified Code(s): I10 - Essential (primary) hypertension
[2021-04-27] MEDS: allopurinoL 300 MG TAB PO SCH (08:42)
[2021-04-27] MEDS: carvediloL 6.25 MG TAB PO SCH ×2 (08:42→17:07)
[2021-04-27] MEDS: busPIRone 5 MG TAB PO SCH ×2 (08:42→17:07)
[2021-04-27] MEDS: CHOLECALCIFEROL 1,000 UNITS 25 MCG TAB PO SCH ×2 (08:43→10:06)
[2021-04-27] MEDS: CYANOCOBALAMIN 500 MCG TABLET (VITAMIN B-12) PO SCH ×2 (08:45→10:06)
[2021-04-27] MEDS: FINASTERIDE 5 MG TAB PO SCH (08:45)
[2021-04-27] MEDS: hydrOXYzine HCl 25 MG TAB PO SCH (08:46)
[2021-04-27 09:02] LABS: Basophils # (auto) 0.03 K/uL (0-0.2); Basophils % (auto) 0.2 %; Eosinophils # (auto) 0.15 K/uL (0-0.5); Eosinophils % (auto) 1.2 %; Hemoglobin 12.7 g/dL (14.0-18.0); Immature Granulocytes # (auto) 0.04 K/uL (0.00-0.02); Immature Granulocytes % (auto) 0.3 %; Lymphocytes # (auto) 3.36 K/uL (1.2-3.4); Lymphocytes % (auto) 26.4 %; Mean Corpuscular Hemoglobin 31.4 pg (25-34); Mean Corpuscular Hgb Conc 34.3 g/dL (32-36); Mean Corpuscular Volume 91.6 fL (80-100); Mean Platelet Volume 8.5 fL (7.4-10.4); Monocytes # (auto) 1.33 K/uL (0.11-0.59); Monocytes % (auto) 10.4 %; Neutrophils # (auto) 7.84 K/uL (1.4-6.5); Neutrophils % (auto) 61.5 %; Platelet Count 233 K/uL (130-400); RDW Standard Deviation 43.8 fL (36.4-46.3); Red Blood Count 4.04 M/uL (4.7-6.1); White Blood Count 12.75 K/uL (4.8-10.8)
[2021-04-27 10:31] LABS: BUN Creatinine Ratio 23.4 (10-20); Calcium 8.5 mg/dl (8.5-10.1); Creatinine Clr Calc Pharmacy 73.4 ml/min; Est GFR (African American) 88.3 ml/min; Est GFR (Non-African American) 76.2 ml/min; Phosphorus 2.7 mg/dl (2.5-4.9); Potassium 3.9 mmol/L (3.5-5.1)
[2021-04-27] MEDS: SODIUM CHLORIDE 0.9% 1000ML 1,000 ML IV SCH (10:43)
[2021-04-27] MEDS: cefTRIAXone SODIUM 2,000 MG in DEXTROSE 5% 50 ML IV SCH (14:02)
[2021-04-27] MEDS ORDERED: MICONAZOLE NITRATE POWDER 43 GM EXT PRN (17:33)
--- NOTE | 2021-04-27 17:33 | Electrocardiogram Report ---
Test Reason : Blood Pressure : / mmHG Vent. Rate : 069 BPM Atrial Rate : 069 BPM P-R Int : 196 ms QRS Dur : 074 ms QT Int : 400 ms P-R-T Axes : 056 037 055 degrees QTc Int : 428 ms Normal sinus rhythm with sinus arrhythmia Low voltage QRS Borderline ECG When compared with ECG of 10-DEC-2020 15:56, NH interval has decreased QRS axis Shifted right Borderline criteria for Anterior infarct are no longer Present Borderline criteria for Anterolateral infarct are no longer Present Criteria for Inferior infarct are no longer Present Nonspecific T wave abnormality no longer evident in Inferior leads Confirmed by Jarad Sommer ([id number]) on 04/27/2021 5:33:24 PM Referred By: [facility] Confirmed By:Jasper Sommer
[2021-04-27] MEDS: FAMOTIDINE 20 MG TAB PO SCH (20:21)
[2021-04-27] MEDS: TAMSULOSIN HCL 0.4 MG CAP PO SCH (20:21)
[2021-04-27] MEDS: risperiDONE 0.5 MG TABLET PO SCH (20:21)
[2021-04-27] MEDS: amLODIPine BESYLATE 5 MG TAB PO SCH (20:21)
--- NOTE | 2021-04-28 06:49 | Hospitalist Progress Note ---
Date of Service April 28, 2021 Assessment & Plan (1) Acute UTI: Plan: 80yo male with PMHx significant for BPH s/p TURP, urinary incontinence, nephrolithiasis, several previous UTIs, cognitive impairment, CKDIII, HTN, GERD and chronic pain, who presented to [facility] ED on 04/26 from [facility] with progressive generalized weakness, dysuria, increased urinary frequency and decreased PO intake x4 days. Urinary Tract Infection - Chronic urinary incontinence with several previous UTIs - Urinary symptoms with associated generalized weakness and decreased PO intake x4 days - Intermittently tachycardic, WBC 14 and CRP 5.51 - Continue with Ceftriaxone 1g IV Q24H - Will start NSS @80cc/hr x2 liters, will continue with further mIVFs if necessary - UCx with pin-point growth present--reincubating - Blood Cx NGTD @ 24hrs - Trend CBC daily UE numbness, weakness - New-onset finger numbness and hand weakness on 04/28 - EKG nsr with PVCs - CT head without acute process - XR c-spine ordered Generalized Weakness - Acute on chronic weakness in light of above - UTI tx as stated above - Fall precautions - PT/OT consults--SNF recommended at this time - CM consulted for assistance with disposition plan/possible rehab placement Dysphagia - Chronic; patient's reports that the patient often coughs while eating but does not think he aspirate - PROGRAM DIRECTOR/MORNING SHOW HOST consult HTN - Continue home carvedilol, amlodipine BPH s/p TURP - Continue home flomax, proscar CKD3 - Currently around baseline - Renally dose medications Cognitive Impairment - Chronic, with h/o behavioral disturbance - Continue home risperidone Anxiety - Continue home buspar, hydroxyzine Gout - Continue home amlodipine GERD - Continue home pepcid FEN/GI: regular diet DVT Prophylaxis: SCD Code Status: DNR/DNI Disposition: med/surg (2) Weakness: (3) Chronic renal failure, stage 3b: (4) Hypertension: (5) Dementia with behavioral disturbance: (6) Cognitive impairment: (7) Urinary incontinence, urge: (8) Chronic pain syndrome: (9) Kidney stones: (10) Gout: (11) GERD (gastroesophageal reflux disease): (12) BPH (benign prostatic hyperplasia): Admission and Anticipated Discharge Date Admission Date: April 26, 2021 Supervising Physician Co-Signing Physician Notes Attending attestation Pt seen and examined in concert with Dr. Valenzuela. In agreement with the documented findings as noted in the resident documentation with any exceptions or additions as noted here. New complaint of bilateral hand numbness and weakness per patient which is newly reported without accompanying WILKS, incontinence, CP/SOB/palpitations, vision/hearing changes. unavailable for cooboration at time of examination. On examination, S1/S2 nl RRR no MCG. CTAB. Abd mild suprapubic TTP/ND BS+ve. Decreased bowling alley manager strength bilateral 4-/5 with ?subjective decreased sensation to the distal FA. Bilateral hand weakness and numbness - CT head without acute process, EKG as no shruthi. XR neck pending. h/o cervical radiculopathy may be impacting complaint, further eval pending. d/w spouse. Urinary tract infection w/ h/o TURP - continue IV ceftriaxone. Follow up cultures and montior WBC count. Generalized weakness w/ ambulatory dysfunction - PT/OT consultation rec'd rehab - encouraged to engage with services, notify CM for dispo planning Dysphagia - coughing while swallowing per spouse - PROGRAM DIRECTOR/MORNING SHOW HOST consultation Else see resident documentation as noted. Subjective Patient seen and evaluated at bedside this morning. No acute events overnight. Patient reports new-onset hand/finger numbness and reduced bowling alley manager strength. Otherwise feeling well. Denies CP, SOB, fever, chills, or other symptoms. Review of Systems Review of Systems: See HPI Physical Exam Physical Exam: Constitutional: well-appearing, no acute distress CV: regular rhythm, no murmur appreciated, extremities well-perfused, no LE edema Resp: CTABL, no wheezes/rales/rhonchi appreciated, no increased work of breathing MSK: 4/5 bowling alley manager strength bilaterally Neuro: AOx4, 4/5 bowling alley manager strength bilaterally, numbness of the 1-3rd fingers Results & Data Results & Data ([facility]) Vital Signs (Past 12 Hours) Vital Signs Temp Pulse Resp BP BP Pulse Ox 04/28/21 06:28 36.4 C L 95 H 16 165/71 H 94 04/27/21 23:07 37.0 C 78 22 134/75 95 Resident Activity Tracking Resident Involvement: Resident Care Provided Care Provided: Adult Hospital Medicine (1) Hypertension Hypertension type: essential hypertension Qualified Code(s): I10 - Essential (primary) hypertension
[2021-04-28 07:17] LABS: Basophils # (auto) 0.02 K/uL (0-0.2); Basophils % (auto) 0.2 %; Eosinophils # (auto) 0.14 K/uL (0-0.5); Eosinophils % (auto) 1.1 %; Hematocrit (blood only) 36.8 % (42-52); Hemoglobin 12.5 g/dL (14.0-18.0); Immature Granulocytes # (auto) 0.04 K/uL (0.00-0.02); Immature Granulocytes % (auto) 0.3 %; Lymphocytes # (auto) 3.22 K/uL (1.2-3.4); Lymphocytes % (auto) 24.2 %; Mean Corpuscular Hemoglobin 30.8 pg (25-34); Mean Corpuscular Volume 90.6 fL (80-100); Mean Platelet Volume 8.5 fL (7.4-10.4); Monocytes % (auto) 12.8 %; Neutrophils # (auto) 8.17 K/uL (1.4-6.5); Neutrophils % (auto) 61.4 %; Platelet Count 213 K/uL (130-400); RDW Coefficient of Variation 12.8 % (11.5-14.5); RDW Standard Deviation 42.4 fL (36.4-46.3); Red Blood Count 4.06 M/uL (4.7-6.1); White Blood Count 13.29 K/uL (4.8-10.8)
[2021-04-28 07:47] LABS: BUN Creatinine Ratio 24.1 (10-20); Calcium 8.4 mg/dl (8.5-10.1); Creatinine Clr Calc Pharmacy 75.8 ml/min; Est GFR (African American) 91.9 ml/min; Est GFR (Non-African American) 79.3 ml/min; Potassium 3.7 mmol/L (3.5-5.1)
[2021-04-28] MEDS: hydrOXYzine HCl 25 MG TAB PO SCH (08:38)
[2021-04-28] MEDS: CHOLECALCIFEROL 1,000 UNITS 25 MCG TAB PO SCH (08:39)
[2021-04-28] MEDS: carvediloL 6.25 MG TAB PO SCH ×2 (08:39→17:56)
[2021-04-28] MEDS: CYANOCOBALAMIN 500 MCG TABLET (VITAMIN B-12) PO SCH (08:39)
[2021-04-28] MEDS: allopurinoL 300 MG TAB PO SCH (08:39)
[2021-04-28] MEDS: busPIRone 5 MG TAB PO SCH ×2 (08:39→17:56)
[2021-04-28] MEDS: FINASTERIDE 5 MG TAB PO SCH (08:39)
--- NOTE | 2021-04-28 14:07 | CT Scan Report ---
CT head/brain wo con CLINICAL HISTORY: 80 years-old Male with new onset bilateral hand numbness. Acute bilateral upper ex tremity weakness TECHNIQUE: Multiple axial CT images of the head were obtained without contrast. A dose lowering tech nique was utilized adhering to the principles of ALARA. CT DOSE: 760.68 mGycm COMPARISON: Head CT 04/26/2021 FINDINGS: No acute intracranial hemorrhage, midline shift, intracranial mass, hydrocephalus, territorial ischem ia or abnormal extra-axial collection. Age-related additional changes. White matter hypodensities sug gestive of chronic microvascular ischemic disease. Cerebral vascular calcifications. The calvarium is intact. The paranasal sinuses, mastoid air cells, and middle ear cavities are clear . IMPRESSION: No acute intracranial abnormality. ACT 112: Negative or not required by law. The above report was generated using voice recognition software. It may contain grammatical, syntax o r spelling errors. Electronically signed by: Royal Riggs M.D. 04/28/2021 2:06 PM
[2021-04-28] MEDS: cefTRIAXone SODIUM 2,000 MG in DEXTROSE 5% 50 ML IV SCH (14:42)
--- NOTE | 2021-04-28 18:41 | XRay Report ---
XR cervical spine 2 or 3V HISTORY: 80 years-old Male new onset hand numbness chronic neck pain with radicular symptoms of the upper extremities COMPARISON: None TECHNIQUE: 3 views of the cervical spine FINDINGS: The C5-C7 vertebral segments are not well visualized secondary to positioning. Moderate multilevel fa cet arthrosis. There is suggestion of moderate to severe intervertebral disc space narrowing with mod erate spondylitic spurring of the lower cervical spine. No acute fracture or subluxation identified. No prevertebral soft tissue swelling. Lung apices are clear. Nuchal ligament calcifications. IMPRESSION: 1. No acute fracture or subluxation. 2. Degenerative changes of the lower cervical spine as above. ACT 112: Negative or not required by law. The above report was generated using voice recognition software. It may contain grammatical, syntax o r spelling errors. Electronically signed by: Royal Riggs M.D. 04/28/2021 6:39 PM
[2021-04-28] MEDS: FAMOTIDINE 20 MG TAB PO SCH (19:44)
[2021-04-28] MEDS: risperiDONE 0.5 MG TABLET PO SCH (19:45)
[2021-04-28] MEDS: TAMSULOSIN HCL 0.4 MG CAP PO SCH (19:45)
[2021-04-28] MEDS: amLODIPine BESYLATE 5 MG TAB PO SCH (19:45)
--- NOTE | 2021-04-29 06:43 | Hospitalist Progress Note ---
Date of Service April 29, 2021 Assessment & Plan (1) Acute UTI: Plan: 80yo male with PMHx significant for BPH s/p TURP, urinary incontinence, nephrolithiasis, several previous UTIs, cognitive impairment, CKDIII, HTN, GERD and chronic pain, who presented to [facility] ED on 04/26 from [facility] with progressive generalized weakness, dysuria, increased urinary frequency and decreased PO intake x4 days. Urinary Tract Infection - Chronic urinary incontinence with several previous UTIs - Urinary symptoms with associated generalized weakness and decreased PO intake x4 days - Intermittently tachycardic, WBC 14 and CRP 5.51 - Continue with Ceftriaxone 1g IV Q24H - Will start NSS @80cc/hr x2 liters, will continue with further mIVFs if necessary - UCx with pin-point growth present--reincubating - Blood Cx NGTD @ 24hrs - Trend CBC daily UE numbness, weakness - New-onset finger numbness and hand weakness on 04/28 (improved on 04/29) - EKG nsr with PVCs - CT head and XR c-spine without acute processes - Likely represents patient's known cervical radiculopathy; however, will continue to monitor Generalized Weakness - Acute on chronic weakness in light of above - UTI tx as stated above - Fall precautions - PT/OT consults--SNF recommended at this time - CM consulted for assistance with disposition plan/possible rehab placement Dysphagia - Chronic; patient's reports that the patient often coughs while eating but does not think he aspirate - DEPUTY CHIEF MAGISTRATE consult HTN - Continue home carvedilol, amlodipine BPH s/p TURP - Continue home flomax, proscar CKD3 - Currently around baseline - Renally dose medications Cognitive Impairment - Chronic, with h/o behavioral disturbance - Continue home risperidone Anxiety - Continue home buspar, hydroxyzine Gout - Continue home amlodipine GERD - Continue home pepcid FEN/GI: regular diet DVT Prophylaxis: SCD Code Status: DNR/DNI Disposition: med/surg (2) Weakness: (3) Chronic renal failure, stage 3b: (4) Hypertension: (5) Dementia with behavioral disturbance: (6) Cognitive impairment: (7) Urinary incontinence, urge: (8) Chronic pain syndrome: (9) Kidney stones: (10) Gout: (11) GERD (gastroesophageal reflux disease): (12) BPH (benign prostatic hyperplasia): Admission and Anticipated Discharge Date Admission Date: April 26, 2021 Supervising Physician Co-Signing Physician Notes Attending attestation Pt seen and examined in concert with Dr. Valenzuela. In agreement with the documented findings as noted in the resident documentation with any exceptions or additions as noted here. Essential resolution of bilateral hand numbness/weakness per patient. No h/o same per spouse or patient. On examination, S1/S2 nl RRR no MCG. CTAB. Abd mild suprapubic TTP/ND BS+ve. Oil Speculator strength bilateral 4+/5 with nl sensation of the b/l UE Bilateral hand weakness and numbness - CT head without acute process, EKG as noted. XR neck without significant findings. h/o cervical radiculopathy may be impacting complaint Urinary tract infection w/ h/o TURP - UCx with alpha strep - can convert to Keflex Generalized weakness w/ ambulatory dysfunction - PT/OT consultation rec'd rehab Dysphagia - coughing while swallowing per spouse - DEPUTY CHIEF MAGISTRATE consultation with study pending Else see resident documentation as noted. Subjective Patient seen and evaluated at bedside this morning. No acute events overnight. Patient reports his hand/finger numbness has improved compared to yesterday. Otherwise feeling well. Denies pain. Denies CP, SOB, fever, chills, or other symptoms. Review of Systems Review of Systems: See HPI Physical Exam Physical Exam: Constitutional: well-appearing, no acute distress CV: regular rhythm, no murmur appreciated, extremities well-perfused, no LE edema Resp: CTABL, no wheezes/rales/rhonchi appreciated, no increased work of breathing MSK: 4+/5 hand bootmaker strength bilaterally Neuro: AOx4, normal sensation in fingers bilaterally Results & Data Results & Data ([facility]) Vital Signs (Past 12 Hours) Vital Signs Temp Pulse Resp BP Pulse Ox 04/29/21 00:45 37.1 C 04/28/21 21:57 37.7 C H 78 16 134/73 94 Resident Activity Tracking Resident Involvement: Resident Care Provided Care Provided: Adult Hospital Medicine (1) Hypertension Hypertension type: essential hypertension Qualified Code(s): I10 - Essential (primary) hypertension
[2021-04-29 07:25] LABS: Basophils # (auto) 0.02 K/uL (0-0.2); Basophils % (auto) 0.2 %; Eosinophils # (auto) 0.11 K/uL (0-0.5); Hematocrit (blood only) 35.7 % (42-52); Hemoglobin 12.3 g/dL (14.0-18.0); Immature Granulocytes # (auto) 0.02 K/uL (0.00-0.02); Immature Granulocytes % (auto) 0.2 %; Lymphocytes # (auto) 2.98 K/uL (1.2-3.4); Lymphocytes % (auto) 26.8 %; Mean Corpuscular Hemoglobin 31.4 pg (25-34); Mean Corpuscular Hgb Conc 34.5 g/dL (32-36); Mean Corpuscular Volume 91.1 fL (80-100); Mean Platelet Volume 8.6 fL (7.4-10.4); Monocytes # (auto) 1.47 K/uL (0.11-0.59); Monocytes % (auto) 13.2 %; Neutrophils # (auto) 6.51 K/uL (1.4-6.5); Neutrophils % (auto) 58.6 %; Platelet Count 231 K/uL (130-400); RDW Coefficient of Variation 12.9 % (11.5-14.5); RDW Standard Deviation 42.7 fL (36.4-46.3); Red Blood Count 3.92 M/uL (4.7-6.1); White Blood Count 11.11 K/uL (4.8-10.8)
[2021-04-29 07:51] LABS: BUN Creatinine Ratio 24.8 (10-20); Calcium 8.5 mg/dl (8.5-10.1); Creatinine Clr Calc Pharmacy 73.4 ml/min; Est GFR (African American) 88.3 ml/min; Est GFR (Non-African American) 76.2 ml/min; Potassium 3.7 mmol/L (3.5-5.1)
[2021-04-29] MEDS: hydrOXYzine HCl 25 MG TAB PO SCH (08:26)
[2021-04-29] MEDS: allopurinoL 300 MG TAB PO SCH (08:26)
[2021-04-29] MEDS: CHOLECALCIFEROL 1,000 UNITS 25 MCG TAB PO SCH (08:26)
[2021-04-29] MEDS: carvediloL 6.25 MG TAB PO SCH ×2 (08:26→17:10)
[2021-04-29] MEDS: busPIRone 5 MG TAB PO SCH ×2 (08:26→17:10)
[2021-04-29] MEDS: CYANOCOBALAMIN 500 MCG TABLET (VITAMIN B-12) PO SCH (08:26)
[2021-04-29] MEDS: FINASTERIDE 5 MG TAB PO SCH (08:26)
--- NOTE | 2021-04-29 09:33 | Electrocardiogram Report ---
Test Reason : Blood Pressure : / mmHG Vent. Rate : 082 BPM Atrial Rate : 082 BPM P-R Int : 202 ms QRS Dur : 078 ms QT Int : 378 ms P-R-T Axes : 066 042 048 degrees QTc Int : 441 ms Sinus rhythm with occasional Premature ventricular complexes Low voltage QRS Borderline ECG When compared with ECG of 26-APR-2021 15:01, Premature ventricular complexes are now Present Confirmed by Nixon Carias ([id number]) on 04/29/2021 9:33:00 AM Referred By: [facility] Confirmed By:Nixon Carias
[2021-04-29] MEDS: cefTRIAXone SODIUM 2,000 MG in DEXTROSE 5% 50 ML IV SCH (13:46)
[2021-04-29] MEDS ORDERED: SODIUM CHLORIDE 0.9% 1000ML 500 ML IV ONE (15:57)
[2021-04-29] MEDS: cephALEXin 500 MG CAP PO SCH ×2 (17:10→20:29)
[2021-04-29] MEDS: FAMOTIDINE 20 MG TAB PO SCH (20:30)
[2021-04-29] MEDS: TAMSULOSIN HCL 0.4 MG CAP PO SCH (20:30)
[2021-04-29] MEDS: risperiDONE 0.5 MG TABLET PO SCH (20:30)
[2021-04-29] MEDS: amLODIPine BESYLATE 5 MG TAB PO SCH (20:31)
[2021-04-30 07:53] LABS: Basophils # (auto) 0.02 K/uL (0-0.2); Basophils % (auto) 0.2 %; Eosinophils # (auto) 0.13 K/uL (0-0.5); Hemoglobin 12.9 g/dL (14.0-18.0); Immature Granulocytes # (auto) 0.03 K/uL (0.00-0.02); Immature Granulocytes % (auto) 0.2 %; Lymphocytes # (auto) 3.34 K/uL (1.2-3.4); Lymphocytes % (auto) 26.7 %; Mean Corpuscular Hemoglobin 31.3 pg (25-34); Mean Corpuscular Hgb Conc 34.9 g/dL (32-36); Mean Corpuscular Volume 89.8 fL (80-100); Mean Platelet Volume 8.8 fL (7.4-10.4); Monocytes # (auto) 1.59 K/uL (0.11-0.59); Monocytes % (auto) 12.7 %; Neutrophils % (auto) 59.2 %; Platelet Count 227 K/uL (130-400); RDW Coefficient of Variation 12.8 % (11.5-14.5); RDW Standard Deviation 41.4 fL (36.4-46.3); Red Blood Count 4.12 M/uL (4.7-6.1); White Blood Count 12.51 K/uL (4.8-10.8)
[2021-04-30 08:23] LABS: BUN Creatinine Ratio 25.8 (10-20); Calcium 8.7 mg/dl (8.5-10.1); Creatinine Clr Calc Pharmacy 74.2 ml/min; Est GFR (African American) 89.5 ml/min; Est GFR (Non-African American) 77.2 ml/min; Potassium 3.6 mmol/L (3.5-5.1)
[2021-04-30] MEDS: FINASTERIDE 5 MG TAB PO SCH (09:54)
[2021-04-30] MEDS: CYANOCOBALAMIN 500 MCG TABLET (VITAMIN B-12) PO SCH (09:55)
[2021-04-30] MEDS: allopurinoL 300 MG TAB PO SCH (09:55)
[2021-04-30] MEDS: carvediloL 6.25 MG TAB PO SCH ×2 (09:55→17:59)
[2021-04-30] MEDS: CHOLECALCIFEROL 1,000 UNITS 25 MCG TAB PO SCH (09:55)
[2021-04-30] MEDS: busPIRone 5 MG TAB PO SCH ×2 (09:55→17:59)
[2021-04-30] MEDS: hydrOXYzine HCl 25 MG TAB PO SCH (09:55)
[2021-04-30] MEDS: cephALEXin 500 MG CAP PO SCH ×4 (09:56→20:58)
--- NOTE | 2021-04-30 10:10 | Hospitalist Progress Note ---
Date of Service April 30, 2021 Assessment & Plan (1) Acute UTI: Plan: 80yo male with PMHx significant for BPH s/p TURP, urinary incontinence, nephrolithiasis, several previous UTIs, cognitive impairment, CKDIII, HTN, GERD and chronic pain, who presented to [facility] ED on 04/26 from [facility] with progressive generalized weakness, dysuria, increased urinary frequency and decreased PO intake x4 days. Urinary Tract Infection - Chronic urinary incontinence with several previous UTIs - Urinary symptoms with associated generalized weakness and decreased PO intake x4 days - Intermittently tachycardic, WBC 14 and CRP 5.51 - Order cefdinir 300mg BID for 10-14 days total antibiotics (On day 5 of antibiotics) - UCx growing Alpha strep. not enterococcus - Blood Cx NGTD @ 48hrs - Trend CBC daily UE numbness, weakness - New-onset finger numbness and hand weakness on 04/28 (improved on 04/29) - EKG nsr with PVCs - CT head and XR c-spine without acute processes - Likely represents patient's known cervical radiculopathy; however, will continue to monitor Generalized Weakness - Acute on chronic weakness in light of above - UTI tx as stated above - Fall precautions - PT/OT consults--SNF recommended at this time - CM consulted for assistance with disposition plan/possible rehab placement Dysphagia - Chronic; patient's reports that the patient often coughs while eating but does not think he aspirate - DIRECTOR TRANSPORTATION consult HTN - Continue home carvedilol, amlodipine BPH s/p TURP - Continue home flomax, proscar CKD3 - Currently around baseline - Renally dose medications Cognitive Impairment - Chronic, with h/o behavioral disturbance - Continue home risperidone Anxiety - Continue home buspar, hydroxyzine Gout - Continue home amlodipine GERD - Continue home pepcid FEN/GI: regular diet DVT Prophylaxis: SCD Code Status: DNR/DNI Disposition: med/surg (2) Weakness: (3) Chronic renal failure, stage 3b: (4) Hypertension: (5) Dementia with behavioral disturbance: (6) Cognitive impairment: (7) Urinary incontinence, urge: (8) Chronic pain syndrome: (9) Kidney stones: (10) Gout: (11) GERD (gastroesophageal reflux disease): (12) BPH (benign prostatic hyperplasia): Admission and Anticipated Discharge Date Admission Date: April 26, 2021 Supervising Physician Co-Signing Physician Notes I personally examined the patient and verified all pickens points of history and exam, discussed case, and agree with decision making with Dr Dave. Feeling weak. Otherwise no acute complaints. Vitals noted, in general he is awake and alert pleasant but appears fatigued. No distress. HEENT normocephalic atraumatic mucous membranes moist. Breathing unlabored no accessory muscle use good effort. Skin shows no rashes no pallor or icterus. Neuro without new focal deficits. Bilateral hand weakness and numbness - CT head without acute process, EKG as noted. XR neck without significant findings. h/o cervical radiculopathy may be impacting complaint Urinary tract infection w/ h/o TURP - UCx with alpha strep -improved Generalized weakness w/ ambulatory dysfunction - PT/OT eval and treat, SNF once approved versus back to [facility] with additional therapy if they can take care of him in his current state Dysphagia - coughing while swallowing per spouse -speech input appreciated. Otherwise as above Subjective Patient evaluated at bedside this morning. No acute events overnight. He continues to report bilateral hand numbness, denies weakness. Continues to report dysuria. Has been eating well. Review of Systems Review of Systems: per HPI Physical Exam Physical Exam: Constitutional: well-appearing, no acute distress CV: regular rhythm, no murmur appreciated, extremities well-perfused, no LE edema Resp: CTABL, no wheezes/rales/rhonchi appreciated, no increased work of breathing MSK: 4+/5 architectural renderer strength bilaterally Neuro: AOx4, normal sensation in fingers bilaterally Results & Data Results & Data ([facility]) Vital Signs (Past 12 Hours) Vital Signs Temp Pulse Resp BP Pulse Ox 04/30/21 07:33 37 C 91 H 16 127/76 94 04/29/21 23:54 36.8 C Resident Activity Tracking Resident Involvement: Resident Care Provided Care Provided: Adult Hospital Medicine (1) Hypertension Hypertension type: essential hypertension Qualified Code(s): I10 - Essential (primary) hypertension
--- NOTE | 2021-04-30 19:29 | Billing Data ---
Date of Service April 30, 2021 Coding Level of Care Code 50631 Subseq Hosp Care Lvl 2
--- NOTE | 2021-04-30 20:31 | Billing Data ---
Date of Service April 30, 2021 Coding Level of Care Code 86313 Initial Inpt Care Lvl 2
[2021-04-30] MEDS: TAMSULOSIN HCL 0.4 MG CAP PO SCH (20:56)
[2021-04-30] MEDS: risperiDONE 0.5 MG TABLET PO SCH (20:57)
[2021-04-30] MEDS: FAMOTIDINE 20 MG TAB PO SCH (20:57)
[2021-04-30] MEDS: amLODIPine BESYLATE 5 MG TAB PO SCH (20:57)
[2021-04-30] MEDS: CEFDINIR 300 MG CAP PO SCH (20:58)
[2021-05-01] MEDS: hydrOXYzine HCl 25 MG TAB PO SCH (08:06)
[2021-05-01] MEDS: busPIRone 5 MG TAB PO SCH ×2 (08:06→15:40)
[2021-05-01] MEDS: CEFDINIR 300 MG CAP PO SCH ×2 (08:06→20:15)
[2021-05-01] MEDS: CHOLECALCIFEROL 1,000 UNITS 25 MCG TAB PO SCH (08:06)
[2021-05-01] MEDS: cephALEXin 500 MG CAP PO SCH ×4 (08:06→20:12)
[2021-05-01] MEDS: allopurinoL 300 MG TAB PO SCH (08:06)
[2021-05-01] MEDS: CYANOCOBALAMIN 500 MCG TABLET (VITAMIN B-12) PO SCH (08:06)
[2021-05-01] MEDS: carvediloL 6.25 MG TAB PO SCH ×2 (08:07→15:41)
[2021-05-01] MEDS: FINASTERIDE 5 MG TAB PO SCH (08:07)
[2021-05-01 08:30] LABS: Basophils # (auto) 0.03 K/uL (0-0.2); Basophils % (auto) 0.3 %; Eosinophils # (auto) 0.15 K/uL (0-0.5); Eosinophils % (auto) 1.5 %; Hematocrit (blood only) 37.7 % (42-52); Hemoglobin 12.9 g/dL (14.0-18.0); Immature Granulocytes # (auto) 0.01 K/uL (0.00-0.02); Immature Granulocytes % (auto) 0.1 %; Lymphocytes # (auto) 2.58 K/uL (1.2-3.4); Lymphocytes % (auto) 26.4 %; Mean Corpuscular Hemoglobin 30.9 pg (25-34); Mean Corpuscular Hgb Conc 34.2 g/dL (32-36); Mean Corpuscular Volume 90.4 fL (80-100); Mean Platelet Volume 8.8 fL (7.4-10.4); Monocytes # (auto) 1.01 K/uL (0.11-0.59); Monocytes % (auto) 10.3 %; Neutrophils % (auto) 61.4 %; Platelet Count 253 K/uL (130-400); RDW Coefficient of Variation 12.8 % (11.5-14.5); RDW Standard Deviation 42.4 fL (36.4-46.3); Red Blood Count 4.17 M/uL (4.7-6.1); White Blood Count 9.78 K/uL (4.8-10.8)
[2021-05-01 08:57] LABS: BUN Creatinine Ratio 27.5 (10-20); Calcium 8.7 mg/dl (8.5-10.1); Creatinine Clr Calc Pharmacy 84.2 ml/min; Est GFR (African American) 95.9 ml/min; Est GFR (Non-African American) 82.8 ml/min; Potassium 3.6 mmol/L (3.5-5.1)
--- NOTE | 2021-05-01 10:04 | Discharge Summary ---
Date of Service May 01, 2021 Admission HPI Per Admitting Provider History obtained from the patient and his . Shaggy Rosenthal is an 80 yo male with PMHx significant for BPH s/p TURP, urinary incontinence, nephrolithiasis, several previous UTIs, CKDIII, GERD and chronic pain, who [facility] for progressive generalized weakness, dysuria, increased urinary frequency and decreased PO intake x4 days. Patient usually ambulates on his own with a walker but has needed more assistance in the last several days, and has mostly been in bed over the last two days. Denies associated fever/chills or flank pain. Of note patient has chronic urinary incontinence and wears diapers. In the ED the patient was mildly hypertensive to SBP 150s and intermittently tachycardic to 100s, but afebrile and otherwise stable. Laboratory evaluation was notable for WBC 14 (neutrophilic predominance and mild L shift), CRP 5.51 (but negative Lactate/Procal), dirty UA (1+ bacteria, >30 WBCs ,). CXR without acute cardiopulmonary process and COVID-19 negative. He was given Ceftriaxone 1g IV x1 and we were called for admission. 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 apprentice strength bilaterally Neuro: AOx4, normal sensation in fingers bilaterally Discharge Data Allergies Allergy/AdvReac Type Severity Reaction Status Date / Time Penicillins Allergy Intermediate HIVES Verified 02/05/21 22:35 morphine AdvReac Mild N&V Verified 02/05/21 22:35 codeine AdvReac Unknown Unknown Unverified 02/05/21 22:35 Consultations 04/26/21 18:35 ED Decision to Admit Stat Ordered Studies 04/26/21 16:21 CT head/brain wo con Stat 04/28/21 12:53 CT head/brain wo con Stat Hospital Course (1) Acute UTI: 80yo male with PMHx significant for BPH s/p TURP, urinary incontinence, nephrolithiasis, several previous UTIs, cognitive impairment, CKDIII, HTN, GERD and chronic pain, who presented to [facility] ED on 04/26 from [facility] with progressive generalized weakness, dysuria, increased urinary frequency and decreased PO intake x4 days. Urinary Tract Infection - Chronic urinary incontinence with several previous UTIs - Urinary symptoms with associated generalized weakness and decreased PO intake x4 days - Intermittently tachycardic, WBC 14 and CRP 5.51 - Order cefdinir 300mg BID for 14 days total antibiotics (On day 6 of antibiotics)--continue for 8 more days after DC - UCx growing Alpha strep. not enterococcus - Blood Cx NGTD @ 48hrs - Trend CBC daily UE numbness, weakness - New-onset finger numbness and hand weakness on 04/28 (improved on 04/29) - EKG nsr with PVCs - CT head and XR c-spine without acute processes - Likely represents patient's known cervical radiculopathy Generalized Weakness - Acute on chronic weakness in light of above - UTI tx as stated above - Fall precautions - PT/OT consults--SNF recommended at this time Dysphagia - Chronic; patient's reports that the patient often coughs while eating but does not think he aspirate - TECHNICAL INSPECTOR consult--recommend min/moist, aspiration precautions (no straws, fully upright for oral intake, alternate solids and liquids), follow-up speech therapy services for carryover of diet and safe swallow strategies HTN - Continued home carvedilol, amlodipine BPH s/p TURP - Continued home flomax, proscar CKD3 - Currently around baseline - Renally dose medications Cognitive Impairment - Chronic, with h/o behavioral disturbance - Continued home risperidone Anxiety - Continued home buspar, hydroxyzine Gout - Continued home amlodipine GERD - Continued home Pepcid FEN/GI: regular diet DVT Prophylaxis: SCD Code Status: DNR/DNI Disposition: med/surg (2) Weakness: (3) Chronic renal failure, stage 3b: (4) Hypertension: (5) Dementia with behavioral disturbance: (6) Cognitive impairment: (7) Urinary incontinence, urge: (8) Chronic pain syndrome: (9) Kidney stones: (10) Gout: (11) GERD (gastroesophageal reflux disease): (12) BPH (benign prostatic hyperplasia): Discharge Plan Discharge Items Patient Disposition: Transfer Assisted Fac Reason For Visit: UTI, WEAKNESS Discharge Diagnosis: UTI, weakness Condition on Discharge: Good Activity: Per Instructions section Non-emergency contact: Primary Care Provider Call non-emergency contact if: you have any medication questions, your symptoms worsen, your pain is not controlled and your temperature is above 101 Follow-up/Referrals: Santosh Cassidy MD [Primary Care Provider] - Diet: Heart Healthy Diet Texture: Dental soft (bite-sized) Addtl Attending Provider Instructions: Mr. Shaggy Rosenthal was admitted to [facility] due to progressive weakness, dysuria, increased urinary frequency, and decreased oral intake for 4 days. He was found to have a urinary tract infection in the setting of chronic urinary incontinence with several previous UTIs. He was initially on ceftriaxone IV until urine cultures resulted with alpha strep not Enterococcus. As such, he was transitioned to oral cefdinir 300 mg twice daily for 10 to 14 days of total antibiotics. Day of discharge is day 6 total of antibiotic treatment will require 8 more days of the oral cefdinir for completion of treatment. Blood cultures remain negative at time of discharge. His generalized weakness is most likely multifactorial in the setting of his urinary tract infection but likely some degree of malnutrition has led to deconditioning as well. During his admission oral nutrition and hydration have been adequate. He was evaluated by PT/OT for his generalized weakness and SNF was recommended. Patient's reported concern for dysphagia. As such, speech consult was consulted. They recommended minced/moist diet, aspiration precautions open (no straws, fully upright for all intake, alternate solids and fluid), and follow-up speech therapy services for carryover of diet and safe swallow strategies. As above, patient will continue on cefdinir for 8 more days all other medications will be continued per home regimen. Pending Studies at Discharge: No Stand-Alone Forms: My [facility] Skilled Items Patient informed of condition?: Yes DNR: Yes Discharge Level of Care: Skilled Communicable Disease: No Discharge Prognosis: Stable Lines: None Urinary Catheter: No Medications and DC Order Prescriptions: New cefdinir 300 mg Capsule 300 mg PO BID 8 Days Qty: 16 RF: 0 Continued cyanocobalamin (vitamin B-12) [Vitamin B-12] 1,000 mcg Tablet 1,000 mcg PO QAM RF: 0 cholecalciferol (vitamin D3) [Vitamin D3] 5,000 unit Tablet 5,000 unit PO QAM RF: 0 acetaminophen [Tylenol Extra Strength] 500 mg Tablet 1,000 mg PO Q6H PRN (Reason: Pain) RF: 0 melatonin 5 mg Tablet 5 mg PO HS RF: 0 hydroxyzine HCl 50 mg tablet 50 mg PO DAILY RF: 0 allopurinol 300 mg tablet 300 mg PO DAILY RF: 0 tamsulosin 0.4 mg capsule 0.4 mg PO HS Qty: 30 RF: 0 amlodipine 5 mg tablet 5 mg PO HS Qty: 30 RF: 0 risperidone 0.5 mg tablet 0.5 mg PO HS Qty: 30 RF: 0 famotidine 20 mg tablet 20 mg PO HS Qty: 30 RF: 0 buspirone 5 mg tablet 5 mg PO BIDM RF: 0 carvedilol 6.25 mg tablet 6.25 mg PO BIDM RF: 0 finasteride [Proscar] 5 mg tablet 5 mg PO QAM RF: 0 Admission Data Admit Date/Time: 04/26/21 18:56 Attending Provider: Raghav Kearney Admit Provider: Ho Weathers Primary Care Provider: Santosh Cassidy Other Providers: Melvin Petty
--- NOTE | 2021-05-01 17:52 | Hospitalist Progress Note ---
Date of Service May 01, 2021 Assessment & Plan (1) Acute UTI: Plan: 80yo male with PMHx significant for BPH s/p TURP, urinary incontinence, nephrolithiasis, several previous UTIs, cognitive impairment, CKDIII, HTN, GERD and chronic pain, who presented to [facility] ED on 04/26 from [facility] with progressive generalized weakness, dysuria, increased urinary frequency and decreased PO intake x4 days. Urinary Tract Infection - Chronic urinary incontinence with several previous UTIs - Urinary symptoms with associated generalized weakness and decreased PO intake x4 days - Intermittently tachycardic, WBC 14 and CRP 5.51 - Continue cefdinir 300mg BID for 14 days total antibiotics (On day 6 of antibiotics) - UCx growing Alpha strep. not enterococcus - Blood Cx NGTD @ 48hrs - Trend CBC daily UE numbness, weakness - New-onset finger numbness and hand weakness on 04/28 (improved on 04/29) - EKG nsr with PVCs - CT head and XR c-spine without acute processes - Likely represents patient's known cervical radiculopathy--continue to monitor Generalized Weakness - Acute on chronic weakness in light of above - UTI tx as stated above - Fall precautions - PT/OT consults--SNF recommended at this time - Working with CM to find placement for patient Dysphagia - Chronic; patient's reports that the patient often coughs while eating but does not think he aspirate - BIT SHARPENER consult--recommend min/moist, aspiration precautions (no straws, fully upright for oral intake, alternate solids and liquids), follow-up speech therapy services for carryover of diet and safe swallow strategies HTN - Continue home carvedilol, amlodipine BPH s/p TURP - Continue home flomax, proscar CKD3 - Currently around baseline - Renally dose medications Cognitive Impairment - Chronic, with h/o behavioral disturbance - Continue home risperidone Anxiety - Continued home buspar, hydroxyzine Gout - Continued home amlodipine GERD - Continued home Pepcid FEN/GI: regular diet DVT Prophylaxis: SCD Code Status: DNR/DNI Disposition: med/surg (2) Weakness: (3) Chronic renal failure, stage 3b: (4) Hypertension: (5) Dementia with behavioral disturbance: (6) Cognitive impairment: (7) Urinary incontinence, urge: (8) Chronic pain syndrome: (9) Kidney stones: (10) Gout: (11) GERD (gastroesophageal reflux disease): (12) BPH (benign prostatic hyperplasia): Admission and Anticipated Discharge Date Admission Date: April 26, 2021 Supervising Physician Co-Signing Physician Notes I personally examined the patient and verified all pickens points of history and exam, discussed case, and agree with decision making with Dr Dave. Resting comfortably. Still waiting on placement options. Vitals noted, robert distress. HEENT normocephalic atraumatic mucous membranes moist. Breathing unlabored no accessory muscle use good effort. Skin shows no rashes no pallor or icterus. Neuro without new focal deficits at rest. Bilateral hand weakness and numbness - CT head without acute process, EKG as noted. XR neck without significant findings. h/o cervical radiculopathy may be impacting complaint Urinary tract infection w/ h/o TURP - UCx with alpha strep -improved Generalized weakness w/ ambulatory dysfunction - PT/OT eval and treat, appears will need to go to SNF prior to return to [facility]. Case management working on options Dysphagia - coughing while swallowing per spouse -speech input appreciated. Otherwise as above Subjective Patient evaluated at bedside this morning. No acute events overnight. Denies dysuria today. Has been eating well. 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
--- NOTE | 2021-05-01 18:08 | Billing Data ---
Date of Service May 01, 2021 Coding Level of Care Code 31828 Subseq Hosp Care Lvl 1
[2021-05-01] MEDS: TAMSULOSIN HCL 0.4 MG CAP PO SCH (20:13)
[2021-05-01] MEDS: amLODIPine BESYLATE 5 MG TAB PO SCH (20:13)
[2021-05-01] MEDS: risperiDONE 0.5 MG TABLET PO SCH (20:13)
[2021-05-01] MEDS: FAMOTIDINE 20 MG TAB PO SCH (20:15)
[2021-05-02 08:06] LABS: Basophils # (auto) 0.04 K/uL (0-0.2); Basophils % (auto) 0.4 %; Hematocrit (blood only) 36.8 % (42-52); Hemoglobin 12.8 g/dL (14.0-18.0); Immature Granulocytes # (auto) 0.02 K/uL (0.00-0.02); Immature Granulocytes % (auto) 0.2 %; Lymphocytes % (auto) 23.8 %; Mean Corpuscular Hemoglobin 31.5 pg (25-34); Mean Corpuscular Hgb Conc 34.8 g/dL (32-36); Mean Corpuscular Volume 90.6 fL (80-100); Mean Platelet Volume 8.8 fL (7.4-10.4); Monocytes # (auto) 0.91 K/uL (0.11-0.59); Neutrophils % (auto) 64.6 %; Platelet Count 259 K/uL (130-400); RDW Coefficient of Variation 12.8 % (11.5-14.5); RDW Standard Deviation 42.4 fL (36.4-46.3); Red Blood Count 4.06 M/uL (4.7-6.1); White Blood Count 10.07 K/uL (4.8-10.8)
[2021-05-02 08:34] LABS: BUN Creatinine Ratio 27.2 (10-20); Calcium 8.9 mg/dl (8.5-10.1); Creatinine Clr Calc Pharmacy 93.5 ml/min; Est GFR (African American) 100.1 ml/min; Est GFR (Non-African American) 86.4 ml/min; Potassium 3.5 mmol/L (3.5-5.1)
[2021-05-02] MEDS: busPIRone 5 MG TAB PO SCH ×2 (09:39→16:17)
[2021-05-02] MEDS: CHOLECALCIFEROL 1,000 UNITS 25 MCG TAB PO SCH (09:39)
[2021-05-02] MEDS: hydrOXYzine HCl 25 MG TAB PO SCH (09:39)
[2021-05-02] MEDS: CYANOCOBALAMIN 500 MCG TABLET (VITAMIN B-12) PO SCH (09:39)
[2021-05-02] MEDS: allopurinoL 300 MG TAB PO SCH (09:39)
[2021-05-02] MEDS: FINASTERIDE 5 MG TAB PO SCH (09:39)
[2021-05-02] MEDS: CEFDINIR 300 MG CAP PO SCH ×2 (09:40→19:33)
[2021-05-02] MEDS: carvediloL 6.25 MG TAB PO SCH ×2 (09:40→16:17)
[2021-05-02] MEDS: cephALEXin 500 MG CAP PO SCH ×3 (09:40→18:18)
--- NOTE | 2021-05-02 11:37 | Hospitalist Progress Note ---
Date of Service May 02, 2021 Assessment & Plan (1) Acute UTI: Plan: 80yo male with PMHx significant for BPH s/p TURP, urinary incontinence, nephrolithiasis, several previous UTIs, cognitive impairment, CKDIII, HTN, GERD and chronic pain, who presented to [facility] ED on 04/26 from [facility] with progressive generalized weakness, dysuria, increased urinary frequency and decreased PO intake x4 days. Urinary Tract Infection - Chronic urinary incontinence with several previous UTIs - Urinary symptoms with associated generalized weakness and decreased PO intake x4 days - Continue cefdinir 300mg BID for 14 days total antibiotics (On day 7 of antibiotics) - UCx with Alpha strep. not enterococcus - Blood Cx negative - Trend CBC daily UE numbness, weakness - New-onset finger numbness and hand weakness on 04/28 (improved on 04/29) - EKG nsr with PVCs - CT head and XR c-spine without acute processes - Likely represents patient's known cervical radiculopathy--continue to monitor Generalized Weakness - Acute on chronic weakness in light of above - UTI tx as stated above - Fall precautions - PT/OT consults--SNF recommended at this time - Working with CM to find placement for patient--no beds available at [facility] or [facility] pending Dysphagia - Chronic; patient's reports that the patient often coughs while eating but does not think he aspirate - ORACLE ENGINEER consult--recommend min/moist, aspiration precautions (no straws, fully upright for oral intake, alternate solids and liquids), follow-up speech therapy services for carryover of diet and safe swallow strategies HTN - Continue home carvedilol, amlodipine BPH s/p TURP - Continue home flomax, proscar CKD3 - Currently around baseline - Renally dose medications Cognitive Impairment - Chronic, with h/o behavioral disturbance - Continue home risperidone Anxiety - Continued home buspar, hydroxyzine Gout - Continued home amlodipine GERD - Continued home Pepcid FEN/GI: regular diet DVT Prophylaxis: SCD Code Status: DNR/DNI Disposition: med/surg (2) Weakness: (3) Chronic renal failure, stage 3b: (4) Hypertension: (5) Dementia with behavioral disturbance: (6) Cognitive impairment: (7) Urinary incontinence, urge: (8) Chronic pain syndrome: (9) Kidney stones: (10) Gout: (11) GERD (gastroesophageal reflux disease): (12) BPH (benign prostatic hyperplasia): Admission and Anticipated Discharge Date Admission Date: April 26, 2021 Supervising Physician Co-Signing Physician Notes I personally examined the patient and verified all pickens points of history and exam, discussed case, and agree with decision making with Dr Dave. Visited several times, sleeping each time. Still waiting on placement options. Vitals noted, robert distress. HEENT normocephalic atraumatic mucous membranes moist. Breathing unlabored no accessory muscle use good effort. Skin shows no rashes no pallor or icterus. Neuro without new focal deficits at rest. Bilateral hand weakness and numbness - CT head without acute process, EKG as noted. XR neck without significant findings. h/o cervical radiculopathy may be impacting complaint Urinary tract infection w/ h/o TURP - UCx with alpha strep -improved, can treat for 7 days total. Generalized weakness w/ ambulatory dysfunction - PT/OT eval and treat, appears will need to go to SNF prior to return to [facility]. Case management working on optionsstable to go once situation is set up Dysphagia - coughing while swallowing per spouse -speech input appreciated. Otherwise as above Subjective Patient seen at bedside this AM. No acute events overnight. No longer reporting dysuria. Review of Systems Review of Systems: per HPI Physical Exam Physical Exam: Constitutional: well-appearing, no acute distress CV: regular rhythm, no murmur appreciated, extremities well-perfused, no LE edema Resp: CTABL, no wheezes/rales/rhonchi appreciated, no increased work of breathing Neuro: AOx4, normal sensation in fingers bilaterally Results & Data Results & Data ([facility]) Vital Signs (Past 12 Hours) Vital Signs Temp Pulse Pulse Resp BP BP Pulse Ox 05/02/21 08:06 37.0 C 74 73 23 126/76 94 05/02/21 07:21 36.5 C 78 16 128/70 96 Resident Activity Tracking Resident Involvement: Resident Care Provided Care Provided: Adult Hospital Medicine (1) Hypertension Hypertension type: essential hypertension Qualified Code(s): I10 - Essential (primary) hypertension
--- NOTE | 2021-05-02 17:47 | Billing Data ---
Date of Service May 02, 2021 Coding Level of Care Code 52846 Subseq Hosp Care Lvl 1
[2021-05-02] MEDS: amLODIPine BESYLATE 5 MG TAB PO SCH (19:33)
[2021-05-02] MEDS: FAMOTIDINE 20 MG TAB PO SCH (19:34)
[2021-05-02] MEDS: risperiDONE 0.5 MG TABLET PO SCH (19:34)
[2021-05-02] MEDS: TAMSULOSIN HCL 0.4 MG CAP PO SCH (19:34)
[2021-05-03] MEDS: CEFDINIR 300 MG CAP PO SCH ×2 (08:18→20:38)
[2021-05-03] MEDS: FINASTERIDE 5 MG TAB PO SCH (08:18)
[2021-05-03] MEDS: carvediloL 6.25 MG TAB PO SCH ×2 (08:18→17:35)
[2021-05-03] MEDS: allopurinoL 300 MG TAB PO SCH (08:19)
[2021-05-03] MEDS: CYANOCOBALAMIN 500 MCG TABLET (VITAMIN B-12) PO SCH (08:20)
[2021-05-03] MEDS: busPIRone 5 MG TAB PO SCH ×2 (08:20→17:35)
[2021-05-03] MEDS: hydrOXYzine HCl 25 MG TAB PO SCH (08:20)
[2021-05-03] MEDS: CHOLECALCIFEROL 1,000 UNITS 25 MCG TAB PO SCH (08:20)
--- NOTE | 2021-05-03 10:33 | Hospitalist Progress Note ---
Date of Service May 03, 2021 Assessment & Plan (1) Acute UTI: Plan: 80yo male with PMHx significant for BPH s/p TURP, urinary incontinence, nephrolithiasis, several previous UTIs, cognitive impairment, CKDIII, HTN, GERD and chronic pain, who presented to [facility] ED on 04/26 from [facility] with progressive generalized weakness, dysuria, increased urinary frequency and decreased PO intake x4 days. Urinary Tract Infection - Chronic urinary incontinence with several previous UTIs - Urinary symptoms with associated generalized weakness and decreased PO intake x4 days - Continue cefdinir 300mg BID for 14 days total antibiotics (On day 8 of antibiotics) - UCx with Alpha strep. not enterococcus - Blood Cx negative UE numbness, weakness - New-onset finger numbness and hand weakness on 04/28 (improved on 04/29) - EKG nsr with PVCs - CT head and XR c-spine without acute processes - Likely represents patient's known cervical radiculopathy--continue to monitor Generalized Weakness - Acute on chronic weakness in light of above - UTI tx as stated above - Fall precautions - PT/OT consults--SNF recommended at this time - Working with CM to find placement for patient--no beds available at [facility] or [place], referrals to multiple other facilities pending Dysphagia - Chronic; patient's reports that the patient often coughs while eating but does not think he aspirate - SENIOR RESEARCH EXECUTIVE consult--recommend min/moist, aspiration precautions (no straws, fully upright for oral intake, alternate solids and liquids), follow-up speech therapy services for carryover of diet and safe swallow strategies HTN - Continue home carvedilol, amlodipine BPH s/p TURP - Continue home flomax, proscar CKD3 - Currently around baseline - Renally dose medications Cognitive Impairment - Chronic, with h/o behavioral disturbance - Continue home risperidone Anxiety - Continued home buspar, hydroxyzine Gout - Continued home amlodipine GERD - Continued home Pepcid FEN/GI: regular diet DVT Prophylaxis: SCD Code Status: DNR/DNI Disposition: med/surg (2) Weakness: (3) Chronic renal failure, stage 3b: (4) Hypertension: (5) Dementia with behavioral disturbance: (6) Cognitive impairment: (7) Urinary incontinence, urge: (8) Chronic pain syndrome: (9) Kidney stones: (10) Gout: (11) GERD (gastroesophageal reflux disease): (12) BPH (benign prostatic hyperplasia): Admission and Anticipated Discharge Date Admission Date: April 26, 2021 Supervising Physician Co-Signing Physician Notes I personally examined the patient and verified all pickens points of history and exam, discussed case, and agree with decision making with Dr Dave. awake, pleasant but fatigued and weak. main complaint is being weak. Vitals noted,aao pleasant no distress. HEENT normocephalic atraumatic mucous membranes moist. Breathing unlabored no accessory muscle use good effort. Skin shows no rashes no pallor or icterus. Neuro without new focal deficits at rest. Bilateral hand weakness and numbness - CT head without acute process, EKG as noted. XR neck without significant findings. h/o cervical radiculopathy may be impacting complaint Urinary tract infection w/ h/o TURP - UCx with alpha strep -improved, can treat for 7 days total. Generalized weakness w/ ambulatory dysfunction - PT/OT eval and treat, appears will need to go to SNF prior to return to [facility]. Case management working on optionsstable to go once situation is set up. encouraged pt to spend less time in bed while still waiting on placement Dysphagia - coughing while swallowing per spouse -speech input appreciated. Otherwise as above Subjective Patient seen at bedside this AM. No acute events overnight. Complains of feeling weak today. No other complaints. Review of Systems Review of Systems: per HPI Physical Exam Physical Exam: Constitutional: well-appearing, no acute distress CV: regular rhythm, no murmur appreciated, extremities well-perfused, no LE edema Resp: CTABL, no wheezes/rales/rhonchi appreciated, no increased work of breathing Neuro: AOx4, normal sensation in fingers bilaterally Results & Data Results & Data ([facility]) Vital Signs (Past 12 Hours) Vital Signs Temp Pulse Resp BP Pulse Ox 05/03/21 07:54 36.7 C 65 20 128/72 94 Resident Activity Tracking Resident Involvement: Resident Care Provided Care Provided: Adult Hospital Medicine (1) Hypertension Hypertension type: essential hypertension Qualified Code(s): I10 - Essential (primary) hypertension
--- NOTE | 2021-05-03 12:55 | Billing Data ---
Date of Service May 03, 2021 Coding Level of Care Code 94237 Subseq Hosp Care Lvl 1
[2021-05-03] MEDS: FAMOTIDINE 20 MG TAB PO SCH (20:38)
[2021-05-03] MEDS: risperiDONE 0.5 MG TABLET PO SCH (20:38)
[2021-05-03] MEDS: amLODIPine BESYLATE 5 MG TAB PO SCH (20:38)
[2021-05-03] MEDS: TAMSULOSIN HCL 0.4 MG CAP PO SCH (20:38)
--- NOTE | 2021-05-04 08:38 | Hospitalist Progress Note ---
Date of Service May 04, 2021 Assessment & Plan (1) Acute UTI: Plan: 80yo male with PMHx significant for BPH s/p TURP, urinary incontinence, nephrolithiasis, several previous UTIs, cognitive impairment, CKDIII, HTN, GERD and chronic pain, who presented to [facility] ED on 04/26 from [facility] with progressive generalized weakness, dysuria, increased urinary frequency and decreased PO intake x4 days. Urinary Tract Infection - Chronic urinary incontinence with several previous UTIs - Urinary symptoms with associated generalized weakness and decreased PO intake x4 days - Continue cefdinir 300mg BID for 14 days total antibiotics (On day 9 of antibiotics) - UCx with Alpha strep. not enterococcus - Blood Cx negative Generalized Weakness - Acute on chronic weakness in light of above - UTI tx as stated above - Fall precautions - PT/OT consults--SNF recommended at this time - Working with CM to find placement for patient--no beds available at [facility] or [place], referrals to multiple other facilities pending UE numbness, weakness - New-onset finger numbness and hand weakness on 04/28 (improved on 04/29) - EKG nsr with PVCs - CT head and XR c-spine without acute processes - Likely represents patient's known cervical radiculopathy--continue to monitor Dysphagia - Chronic; patient's reports that the patient often coughs while eating but does not think he aspirate - VIDEO SYSTEMS ENGINEER consult--recommend min/moist, aspiration precautions (no straws, fully upright for oral intake, alternate solids and liquids), follow-up speech therapy services for carryover of diet and safe swallow strategies HTN - Continue home carvedilol, amlodipine BPH s/p TURP - Continue home flomax, proscar CKD3 - Currently around baseline - Renally dose medications Cognitive Impairment - Chronic, with h/o behavioral disturbance - Continue home risperidone Anxiety - Continued home buspar, hydroxyzine Gout - Continued home amlodipine GERD - Continued home Pepcid FEN/GI: regular diet DVT Prophylaxis: SCD Code Status: DNR/DNI Disposition: med/surg (2) Weakness: (3) Chronic renal failure, stage 3b: (4) Hypertension: (5) Dementia with behavioral disturbance: (6) Cognitive impairment: (7) Urinary incontinence, urge: (8) Chronic pain syndrome: (9) Kidney stones: (10) Gout: (11) GERD (gastroesophageal reflux disease): (12) BPH (benign prostatic hyperplasia): Admission and Anticipated Discharge Date Admission Date: April 26, 2021 Supervising Physician Co-Signing Physician Notes I personally examined the patient and verified all pickens points of history and exam, discussed case, and agree with decision making with Dr Dave. In the chair! No new complaints. Still waiting on placement. Vitals noted,aao pleasant no distress. HEENT normocephalic atraumatic mucous membranes moist. Breathing unlabored no accessory muscle use good effort. Skin shows no rashes no pallor or icterus. Neuro without new focal deficits at rest. Bilateral hand weakness and numbness - CT head without acute process, EKG as noted. XR neck without significant findings. h/o cervical radiculopathy may be impacting complaint Urinary tract infection w/ h/o TURP - UCx with alpha strep -improved, would treat for 7 days total. Generalized weakness w/ ambulatory dysfunction - PT/OT eval and treat, will need to go to SNF prior to return to [facility]. Case management working on optionsstable to go once situation is set up. Applauded patient for being out of bed and in the chair. Family asked if they could wheelchair him to the [facility] wholeheartedly in favor of this. Dysphagia - coughing while swallowing per spouse -speech input appreciated. Otherwise as above Subjective Patient seen sitting in bedside chair this morning. No new complaints though continues to feel week. Otherwise stable. Afebrile, denies n/v, diarrhea, dysuria, or any other systemic s/s. Review of Systems Review of Systems: per HPI Physical Exam Physical Exam: Constitutional: well-appearing, no acute distress CV: regular rhythm, no murmur appreciated, extremities well-perfused, no LE edema Resp: CTABL, no wheezes/rales/rhonchi appreciated, no increased work of breathing Results & Data Results & Data ([facility]) Vital Signs (Past 12 Hours) Vital Signs Temp Pulse Pulse Resp BP BP Pulse Ox 05/04/21 07:34 36.5 C 69 17 122/78 97 05/03/21 20:41 36.6 C 70 17 123/77 96 Resident Activity Tracking Resident Involvement: Resident Care Provided Care Provided: Adult Hospital Medicine (1) Hypertension Hypertension type: essential hypertension Qualified Code(s): I10 - Essential (primary) hypertension
[2021-05-04] MEDS: allopurinoL 300 MG TAB PO SCH (08:57)
[2021-05-04] MEDS: CEFDINIR 300 MG CAP PO SCH ×2 (08:57→20:14)
[2021-05-04] MEDS: CHOLECALCIFEROL 1,000 UNITS 25 MCG TAB PO SCH (08:58)
[2021-05-04] MEDS: FINASTERIDE 5 MG TAB PO SCH (08:58)
[2021-05-04] MEDS: hydrOXYzine HCl 25 MG TAB PO SCH (08:59)
[2021-05-04] MEDS: CYANOCOBALAMIN 500 MCG TABLET (VITAMIN B-12) PO SCH (08:59)
[2021-05-04] MEDS: busPIRone 5 MG TAB PO SCH ×2 (09:00→16:31)
[2021-05-04] MEDS: carvediloL 6.25 MG TAB PO SCH ×2 (09:00→16:30)
--- NOTE | 2021-05-04 18:13 | Billing Data ---
Date of Service May 04, 2021 Coding Level of Care Code 92100 Subseq Hosp Care Lvl 1
[2021-05-04] MEDS: TAMSULOSIN HCL 0.4 MG CAP PO SCH (20:14)
[2021-05-04] MEDS: risperiDONE 0.5 MG TABLET PO SCH (20:14)
[2021-05-04] MEDS: FAMOTIDINE 20 MG TAB PO SCH (20:15)
[2021-05-04] MEDS: amLODIPine BESYLATE 5 MG TAB PO SCH (20:15)
--- NOTE | 2021-05-05 06:49 | Hospitalist Progress Note ---
Date of Service May 05, 2021 Assessment & Plan (1) Acute UTI: Plan: 80yo male with PMHx significant for BPH s/p TURP, urinary incontinence, nephrolithiasis, several previous UTIs, cognitive impairment, CKDIII, HTN, GERD and chronic pain, who presented to [facility] ED on 04/26 from [facility] with progressive generalized weakness, dysuria, increased urinary frequency and decreased PO intake x4 days. Urinary Tract Infection - Chronic urinary incontinence with several previous UTIs - Urinary symptoms with associated generalized weakness and decreased PO intake x4 days - Continue cefdinir 300mg BID for 14 days total antibiotics (On day 9 of antibiotics) - UCx with Alpha strep. not enterococcus - Blood Cx negative Generalized Weakness - Acute on chronic weakness in light of above - UTI tx as stated above - Fall precautions - PT/OT consults--SNF recommended at this time - Working with CM to find placement for patient--no beds available at [facility] or [place], referrals to multiple other facilities pending UE numbness, weakness - New-onset finger numbness and hand weakness on 04/28 (improved on 04/29) - EKG nsr with PVCs - CT head and XR c-spine without acute processes - Likely represents patient's known cervical radiculopathy--continue to monitor Dysphagia - Chronic; patient's reports that the patient often coughs while eating but does not think he aspirate - STOCK CLERK consult--recommend min/moist, aspiration precautions (no straws, fully upright for oral intake, alternate solids and liquids), follow-up speech therapy services for carryover of diet and safe swallow strategies HTN - Continue home carvedilol, amlodipine BPH s/p TURP - Continue home flomax, proscar CKD3 - Currently around baseline - Renally dose medications Cognitive Impairment - Chronic, with h/o behavioral disturbance - Continue home risperidone Anxiety - Continued home buspar, hydroxyzine Gout - Continued home amlodipine GERD - Continued home Pepcid FEN/GI: regular diet DVT Prophylaxis: SCD Code Status: DNR/DNI Disposition: med/surg (2) Weakness: (3) Chronic renal failure, stage 3b: (4) Hypertension: (5) Dementia with behavioral disturbance: (6) Cognitive impairment: (7) Urinary incontinence, urge: (8) Chronic pain syndrome: (9) Kidney stones: (10) Gout: (11) GERD (gastroesophageal reflux disease): (12) BPH (benign prostatic hyperplasia): Admission and Anticipated Discharge Date Admission Date: April 26, 2021 Subjective + generalized wkness, not specifically at hands. + mild numbness at hands. No other complaints. No problems w/ eating. Review of Systems Review of Systems: All systems reviewed & are unremarkable except as noted in HPI & below Physical Exam Physical Exam: General: A&Ox4. NAD. Cooperative. HEENT: Atraumatic, normocephalic. EOMI Pulm: CTAB. -wheezes, -rales, -rhonchi. Symmetrical chest rise. No respiratory distress. Cardiac: RRR, -mrg. 1-2+ BLE Abdominal: Nontender, nondistended, soft. Neuro: 5+/5 anthropometrist strength. Results & Data Results & Data ([facility]) Vital Signs (Past 12 Hours) Vital Signs vitals ok. 140s systolic x2 Temp Pulse Resp BP Pulse Ox 05/05/21 05:53 36.4 C L 71 12 146/71 H 95 05/04/21 23:22 36.9 C 61 18 106/64 94 05/04/21 20:15 63 14 144/76 H 95 Laboratory Results no new labs (1) Hypertension Hypertension type: essential hypertension Qualified Code(s): I10 - Essential (primary) hypertension
[2021-05-05] MEDS: carvediloL 6.25 MG TAB PO SCH (08:57)
[2021-05-05] MEDS: busPIRone 5 MG TAB PO SCH (08:57)
[2021-05-05] MEDS: CYANOCOBALAMIN 500 MCG TABLET (VITAMIN B-12) PO SCH (08:58)
[2021-05-05] MEDS: FINASTERIDE 5 MG TAB PO SCH (08:58)
[2021-05-05] MEDS: allopurinoL 300 MG TAB PO SCH (08:59)
[2021-05-05] MEDS: CHOLECALCIFEROL 1,000 UNITS 25 MCG TAB PO SCH (09:00)
[2021-05-05] MEDS: CEFDINIR 300 MG CAP PO SCH (09:01)
[2021-05-05] MEDS: hydrOXYzine HCl 25 MG TAB PO SCH (09:01)
--- NOTE | 2021-05-05 11:59 | Discharge Summary ---
Date of Service May 05, 2021 Admission HPI Per Admitting Provider Chief Complaint: weakness and urinary symptoms Primary Care Provider: Santosh Cassidy MD History obtained from the patient and his . Shaggy Rosenthal is an 80 yo male with PMHx significant for BPH s/p TURP, ur inary incontinence, nephrolithiasis, several previous UTIs, CKDIII, GERD and chronic pain, who presents from [facility] for progressive generalized weakness, dysuria, increased urinary frequency and decreased PO intake x4 days. Patient usually ambulates on his own with a walker but has needed more assistance in the last several days, and has mostly been in bed over the last two days. Denies associated fever/chills or flank pain. Of note patient has chronic urinary incontinence and wears diapers. In the ED the patient was mildly hypertensive to SBP 150s and intermittently t achycardic to 100s, but afebrile and otherwise stable. Laboratory evaluation was notable for WBC 14 (neutrophilic predominance and mild L shift), CRP 5.51 (but negative Lactate/Procal), dirty UA (1+ bacteria, >30 WBCs ,). CXR without acute cardiopulmonary process and COVID-19 negative. He was given Ceftriaxone 1g IV x1 and we were called for admission. Admission Exam Per Admitting Provider General: A&Ox3. NAD. Cooperative. HEENT: Atraumatic, normocephalic. Pulm: CTAB A&P. -wheezes, -rales, -rhonchi. Symmetrical chest rise. No increase work of breathing. No respiratory distress. Cardiac: RRR, -mrg. Radial pulses intact and symmetrical. Abdominal: soft, non-tender, non-distended, BS x 4, no CVA tenderness Skin: warm, dry, no rash Principal Diagnosis weakness, UTI Discharge Exam General: A&Ox4. NAD. Cooperative. HEENT: Atraumatic, normocephalic. EOMI Pulm: CTAB. -wheezes, -rales, -rhonchi. Symmetrical chest rise. No respiratory distress. Cardiac: RRR, -mrg. 1-2+ BLE Abdominal: Nontender, nondistended, soft. Neuro: 5+/5 generator switchboard operator strength. Discharge Data Allergies Allergy/AdvReac Type Severity Reaction Status Date / Time Penicillins Allergy Intermediate HIVES Verified 02/05/21 22:35 morphine AdvReac Mild N&V Verified 02/05/21 22:35 codeine AdvReac Unknown Unknown Unverified 02/05/21 22:35 Consultations 04/26/21 18:35 ED Decision to Admit Stat Ordered Studies 05/02/21 07:23 05/02/21 07:23 Chest X-Ray 04/26/21 15:04 IMPRESSION: No active disease in the chest. Head CT 04/26/21 16:21 IMPRESSION: There is no hemorrhage, mass effect, or evidence of acute territorial ischemia by CT criteria. Cervical Spine X-Ray 04/28/21 12:53 IMPRESSION: 1. No acute fracture or subluxation. 2. Degenerative changes of the lower cervical spine as above. Head CT 04/28/21 12:53 IMPRESSION: No acute intracranial abnormality. Hospital Course (1) Acute UTI: 80yo male with PMHx significant for BPH s/p TURP, urinary incontinence, nephrolithiasis, several previous UTIs, cognitive impairment, CKDIII, HTN, GERD and chronic pain, who presented to [facility] ED on 04/26 from [facility] with progressive generalized weakness, dysuria, increased urinary frequency and decreased PO intake x4 days. He was treated for UTI and discharged to SNF on 05/05/21. Follow up w/ PCP in 1 wk. Urinary Tract Infection - UTI in setting of chronic urinary incontinence w/ several UTIs. - Urinary symptoms with associated generalized weakness and decreased PO intake x4 days - Initially on IV Rocephin->IV Keflex. Continue PO cefdinir 300mg BID for 14 days total antibiotics, w/ last day on 05/15/21. - UCx with Alpha strep. not enterococcus - Blood Cx negative Generalized Weakness - Acute on chronic weakness in light of above - UTI tx as stated above - PT/OT consults--SNF recommended at this time UE numbness, weakness - New-onset finger numbness and hand weakness on 04/28 (improved on 04/29) - EKG nsr with PVCs - CT head and XR c-spine without acute processes - Likely represents patient's known cervical radiculopathy Dysphagia - Chronic; patient's reports that the patient often coughs while eating but does not think he aspirate - DEPUTY PROBATION OFFICER consult--recommend min/moist, aspiration precautions (no straws, fully upright for oral intake, alternate solids and liquids), follow-up speech therapy services for carryover of diet and safe swallow strategies HTN - Continue home carvedilol, amlodipine BPH s/p TURP - Continue home flomax, proscar CKD3 - Currently around baseline Cognitive Impairment - Chronic, with h/o behavioral disturbance - Continue home risperidone Anxiety - Continued home buspar, hydroxyzine Gout - Continued home amlodipine GERD - Continued home Pepcid (2) Weakness: (3) Chronic renal failure, stage 3b: (4) Hypertension: (5) Dementia with behavioral disturbance: (6) Cognitive impairment: (7) Urinary incontinence, urge: (8) Chronic pain syndrome: (9) Kidney stones: (10) Gout: (11) GERD (gastroesophageal reflux disease): (12) BPH (benign prostatic hyperplasia): Total Time Total Time Spent Total Time Spent (In Minutes): <30 Discharge Plan Discharge Items Patient Disposition: Transfer Snf Fac Reason For Visit: UTI, WEAKNESS Discharge Diagnosis: UTI, weakness Condition on Discharge: Good Activity: Per Instructions section Non-emergency contact: Primary Care Provider Call non-emergency contact if: you have any medication questions, your symptoms worsen, your pain is not controlled and your temperature is above 101 Follow-up/Referrals: Santosh Cassidy MD [Primary Care Provider] - Diet: Heart Healthy Diet Texture: Dental soft (bite-sized) Addtl Attending Provider Instructions: Mr. Shaggy Rosenthal was admitted to [facility] due to progressive weakness, dysuria, increased urinary frequency, and decreased oral intake for 4 days. He was found to have a urinary tract infection in the setting of chronic urinary incontinence with several previous UTIs. He was initially on ceftriaxone IV until urine cultures resulted with alpha strep not Enterococcus. As such, he was transitioned to oral cefdinir 300 mg twice daily for 10 to 14 days of total antibiotics. Day of discharge is day 6 total of antibiotic treatment will require 8 more days of the oral cefdinir for completion of treatment. Blood cultures remain negative at time of discharge. His generalized weakness is most likely multifactorial in the setting of his urinary tract infection but likely some degree of malnutrition has led to d econditioning as well. During his admission oral nutrition and hydration have been adequate. He was evaluated by PT/OT for his generalized weakness and SNF was recommended. Patient's reported concern for dysphagia. As such, speech consult was consulted. They recommended minced/moist diet, aspiration precautions open (no straws, fully upright for all intake, alternate solids and fluid), and follow-up speech therapy services for carryover of diet and safe swallow strategies. As above, patient will continue on cefdinir for 8 more days all other medications will be continued per home regimen. Pending Studies at Discharge: No Stand-Alone Forms: My [facility] Skilled Items Patient informed of condition?: Yes DNR: Yes Discharge Level of Care: Skilled Communicable Disease: No Discharge Prognosis: Stable Lines: None Urinary Catheter: No Medications and DC Order Prescriptions: New cefdinir 300 mg Capsule 300 mg PO BID 8 Days Qty: 16 RF: 0 Continued cyanocobalamin (vitamin B-12) [Vitamin B-12] 1,000 mcg Tablet 1,000 mcg PO QAM RF: 0 cholecalciferol (vitamin D3) [Vitamin D3] 5,000 unit Tablet 5,000 unit PO QAM RF: 0 acetaminophen [Tylenol Extra Strength] 500 mg Tablet 1,000 mg PO Q6H PRN (Reason: Pain) RF: 0 melatonin 5 mg Tablet 5 mg PO HS RF: 0 hydroxyzine HCl 50 mg tablet 50 mg PO DAILY RF: 0 allopurinol 300 mg tablet 300 mg PO DAILY RF: 0 tamsulosin 0.4 mg capsule 0.4 mg PO HS Qty: 30 RF: 0 amlodipine 5 mg tablet 5 mg PO HS Qty: 30 RF: 0 risperidone 0.5 mg tablet 0.5 mg PO HS Qty: 30 RF: 0 famotidine 20 mg tablet 20 mg PO HS Qty: 30 RF: 0 buspirone 5 mg tablet 5 mg PO BIDM RF: 0 carvedilol 6.25 mg tablet 6.25 mg PO BIDM RF: 0 finasteride [Proscar] 5 mg tablet 5 mg PO QAM RF: 0 Discharge Orders: Discharge Order (Routine); Ordered 05/05/21 Ordered By: Raghav Kearney Admission Data Admit Date/Time: 04/26/21 18:56 Attending Provider: Raghav Kearney Admit Provider: Ho Weathers Primary Care Provider: Santosh Cassidy Other Providers: Melvin Petty ; Alphonso Ignacio at [place] ; [facility], ; [facility] [place] Other Interventions: Discharge Summary Assessment (RN) Last Done: 05/05/21 11:21 Supervising Physician Co-Signing Physician Notes I personally examined the patient and verified all pickens points of history and exam, discussed case, and agree with decision making with Dr Humphries approved for placement Vitals noted,aao pleasant no distress. HEENT normocephalic atraumatic mucous membranes moist. Breathing unlabored no accessory muscle use good effort. Skin shows no rashes no pallor or icterus. Neuro without new focal deficits at rest. Bilateral hand weakness and numbness - CT head without acute process, EKG as noted. XR neck without significant findings. h/o cervical radiculopathy may be impacting complaint Urinary tract infection w/ h/o TURP - UCx with alpha strep -improved, finish course of abx Generalized weakness w/ ambulatory dysfunction - PT/OT eval and treat, will need to go to SNF prior to return to [facility]. for radha today Dysphagia - coughing while swallowing per spouse -speech input appreciated. Otherwise as above Resident Activity Tracking Resident Involvement: Resident Care Provided Care Provided: Adult Hospital Medicine
--- NOTE | 2021-05-05 19:00 | Billing Data ---
Date of Service May 05, 2021 Coding Level of Care Code D/C DAY MANAGEMENT <30 MINS
== END 2021-05-05 11:47 | DRG 690 ==
LOC: ED 14:52 → 3N 18:56 → SUATTDRO 18:56 → 3N 20:29
DX: N39.0 Urinary tract infection, site not specified; F41.9 Anxiety disorder, unspecified; Z87.442 Personal history of urinary calculi; R32 Unspecified urinary incontinence; Z83.3 Family history of diabetes mellitus; B95.0 Streptococcus, group A, as the cause of diseases classified elsewhere; G89.4 Chronic pain syndrome; Z88.5 Allergy status to narcotic agent; Z66 Do not resuscitate; K21.9 Gastro-esophageal reflux disease without esophagitis; M54.12 Radiculopathy, cervical region; I12.9 Hypertensive chronic kidney disease with stage 1 through stage 4 chronic kidney disease, or unspecified chronic kidney disease; G31.84 Mild cognitive impairment of uncertain or unknown etiology; N18.32 Chronic kidney disease, stage 3b; Z88.0 Allergy status to penicillin; N40.0 Benign prostatic hyperplasia without lower urinary tract symptoms; R13.10 Dysphagia, unspecified; Z87.440 Personal history of urinary (tract) infections

== ENCOUNTER 2022-11-26 11:07 | Inpatient (IN) ==
--- NOTE | 2022-11-26 11:31 | Emergency Department Note ---
Impression & Plan Acute dyspnea, Pneumonia of both lower lobes ED Provider Note INFORMANT: Patient ED PROVIDER(S): Johnathon Paul DO CHIEF COMPLAINT: Shortness of breath PLAN: Disposition: Admission Outpatient prescription management: none Discussion with: I spoke with the hospitalist, who will see the patient for admission/observation and further evaluation and consultation. MEDICAL DECISION MAKING: This is a 82-year-old male who presents to the ED with a chief complaint of shortness of breath. The patient actually is a poor historian and is unable to provide a good reason for him coming. He states that he thinks that he had a panic attack. He states that he typically does not have panic attacks. He is feeling better now. He reportedly had oxygen saturations of 86% on room air when he arrived. EMS had him on oxygen. He apparently does not use oxygen at the skilled nursing. The patient is on nasal cannula oxygen here saturating 93% on 4 L. The patient does not have any history of chronic pulmonary disease. Unable to provide any additional useful history. He is afebrile with a temp of 37.7 here. Vital signs otherwise stable. Exam reveals clear lung sounds. He is in no distress on my exam. A twelve-lead EKG shows a sinus rhythm at a rate of 86 without ischemic changes. Low voltage. Bedside ultrasound of the heart did not show any evidence of a pericardial effusion. A chest x-ray did not show any acute process, radiologist suggest possibly mild pulmonary edema. CBC shows a leukocytosis of 21.8. No significant anemia. Chemistry panel did not show electrolyte abnormality or kidney dysfunction. Troponin is negative. Procalcitonin was normal. Bio fire nasal swab was negative. CT scan of the chest did not show any clear PE. Small pleural effusions with dependent consolidation which could represent infectious or inflammatory pneumonitis. Clinically this is possibly the case as the patient is hypoxic on room air. His confirms that he is not on oxygen typically. The patient was treated with IV cefepime and IV vancomycin. He is not septic. IV hydration was held as the patient's initial chest x-ray suggest heart failure and the patient does not appear to be dehydrated. He will be seen by the hospitalist for further evaluation care. Triage Nursing notes reviewed. Vital Signs: reviewed Prior /Outside records reviewed: detention notes. Differential diagnosis: Differential includes pneumonia, pneumothorax, anemia, electrolyte disturbance, dehydration, congestive heart failure, other Diagnostics, as interpreted by me: 12 lead ECG: Sinus rhythm rate of 86. No ST elevation. No PVCs. Normal QTc Cardiac Monitoring ordered: Sinus rhythm in the 80s Medical decision rules: [none] Imaging studies: Chest x-ray: No obvious pneumonia. CT scan of the chest: Bibasilar pneumonia/atelectasis/consolidation Procedures: none. Critical care: none. HPI: See MDM above. PAST MEDICAL HISTORY: See Below PAST SURGICAL HISTORY: See Below SOCIAL HISTORY: See Below HOME MEDICATIONS: See Below ALLERGIES: See Below VITALS: See Below PHYSICAL EXAMINATION: See MDM for positive findings otherwise unremarkable. CONSTITUTIONAL/VITAL SIGNS: Reviewed GENERAL:done as appropriate INTEGUMENTARY: done as appropriate HEAD: done as appropriate EYES: done as appropriate RESPIRATORY: done as appropriate CARDIOVASCULAR:done as appropriate GI/ABDOMEN:done as appropriate EXTREMITIES: done as appropriate NEUROLOGICAL: done as appropriate PSYCHIATRIC:done as appropriate MUSCULOSKELETAL:done as appropriate TRIAGE NURSING DOCUMENTATION REVIEWED. Past Med/Surg History Medical History Abnormal urinalysis Acute bilateral knee pain Altered mental status Anxiety BPH (benign prostatic hyperplasia) C. difficile diarrhea Chronic pain syndrome Chronic prescription benzodiazepine use DVT prophylaxis DVT prophylaxis Dysphagia Elevated transaminase level Encephalopathy Fall Generally unsteady GERD (gastroesophageal reflux disease) Gout Hypokalemia Hypokalemia Hypomagnesemia Idiopathic polyneuropathy Insomnia Kidney stones Microscopic hematuria Prostate cancer screening SIRS (systemic inflammatory response syndrome) Spinal stenosis Urinary incontinence, urge Surgical History History of back surgery History of colonoscopy History of lithotripsy S/P TURP Family History Grandmother Family history of diabetes mellitus Social History Smoking Status: Never smoker Tobacco Type: Cigarettes Age Quit Using Tobacco: 25; Second Hand Exposure: No; Hx Alcohol Use: Yes Alcohol type: beer, wine and hard liquor Hx Substance Use: No Preferred Language: Yoruba Communication Ability: Effective Driver/Guide Required: No Beliefs That Will Affect Care: None marital status: Current Living Situation: Personal Care Facility Current Living Situation Comment: [facility]. Feels Safe at Home: Yes Assistive Devices: Glasses Allergies Allergies Allergy/AdvReac Type Severity Reaction Status Date / Time Penicillins Allergy Intermediate HIVES Verified 10/18/22 15:34 morphine AdvReac Mild N&V Verified 10/18/22 15:34 codeine AdvReac Unknown Unknown Verified 10/18/22 15:34 Home Meds Home Medications Medication Instructions Recorded Confirmed cholecalciferol (vitamin D3) 125 5,000 unit PO QAM 08/03/18 10/11/22 mcg (5,000 unit) tablet (Vitamin D3) cyanocobalamin (vitamin B-12) 1,000 mcg PO QAM 08/03/18 10/11/22 1,000 mcg tablet (Vitamin B-12) finasteride 5 mg tablet (Proscar) 5 mg PO QAM 01/12/21 10/11/22 acetaminophen 500 mg tablet 1,000 mg PO Q6H PRN Pain 02/05/21 10/11/22 (Tylenol Extra Strength) melatonin 5 mg tablet 5 mg PO HS 02/05/21 10/11/22 allopurinol 300 mg tablet 300 mg PO DAILY 04/26/21 10/11/22 levothyroxine 75 mcg tablet 75 mcg PO DAILY hypothroidism 12/04/21 10/11/22 mirtazapine 15 mg tablet 15 mg PO DAILY sleep/mood 12/04/21 10/11/22 diphenhydramine HCl 12.5 mg/5 mL 25 mg PO HS PRN 10/11/22 10/11/22 oral liquid (Allergy (diphenhydramine)) zolpidem 5 mg tablet 5 mg PO HS PRN sleep 10/11/22 10/11/22 Previous Rx's Medication Instructions Recorded tamsulosin 0.4 mg capsule 0.4 mg PO HS #30 caps 12/29/20 carvedilol 3.125 mg tablet 3.125 mg PO BID #60 tabs 12/04/21 famotidine 20 mg tablet 20 mg PO HS #30 tabs 12/04/21 aspirin 81 mg tablet,delayed 81 mg PO DAILY #30 tabs 12/23/21 release trimethoprim 100 mg tablet 100 mg PO DAILY #90 tabs 05/10/22 memantine 5 mg tablet 5 mg PO .COMPLEX #60 tabs 10/11/22 Results & Data (ED) Vital Signs Vital Signs - 24 hr 11/26/22 11:21 11/26/22 11:22 11/26/22 11:22 Temperature 37.7 C H Temperature Source Oral Pulse Rate 87 Pulse Rate [Apical] 84 Pulse Rate from SpO2 Sensor Respiratory Rate 16 20 Respiratory Depth Normal Blood Pressure 119/67 Blood Pressure Mean 84 Pulse Oximetry 86 L 86 L 94 Oxygen Delivery Method Room Air Room Air Nasal Cannula Oxygen Flow Rate 0 4 Sepsis Recent Fever Within 48 Hours No Sepsis New/Unexplained Change in Mental Status No Sepsis Action Taken by Nursing No Action Required 11/26/22 11:19 11/26/22 11:20 11/26/22 11:30 Temperature Temperature Source Pulse Rate 90 88 83 Pulse Rate [Apical] Pulse Rate from SpO2 Sensor 79 81 Respiratory Rate 31 H 35 H Respiratory Depth Blood Pressure Blood Pressure Mean Pulse Oximetry 93 92 Oxygen Delivery Method Oxygen Flow Rate Sepsis Recent Fever Within 48 Hours Sepsis New/Unexplained Change in Mental Status Sepsis Action Taken by Nursing 11/26/22 11:40 11/26/22 11:50 11/26/22 12:00 Temperature Temperature Source Pulse Rate 84 84 84 Pulse Rate [Apical] Pulse Rate from SpO2 Sensor 75 Respiratory Rate 38 H 20 37 H Respiratory Depth Blood Pressure Blood Pressure Mean Pulse Oximetry 91 Oxygen Delivery Method Oxygen Flow Rate Sepsis Recent Fever Within 48 Hours Sepsis New/Unexplained Change in Mental Status Sepsis Action Taken by Nursing 11/26/22 12:10 11/26/22 12:20 11/26/22 12:30 Temperature Temperature Source Pulse Rate 83 89 81 Pulse Rate [Apical] Pulse Rate from SpO2 Sensor Respiratory Rate 23 18 30 H Respiratory Depth Blood Pressure Blood Pressure Mean Pulse Oximetry 79 L Oxygen Delivery Method Oxygen Flow Rate Sepsis Recent Fever Within 48 Hours Sepsis New/Unexplained Change in Mental Status Sepsis Action Taken by Nursing 11/26/22 12:40 11/26/22 12:50 11/26/22 13:00 Temperature Temperature Source Pulse Rate 78 87 87 Pulse Rate [Apical] Pulse Rate from SpO2 Sensor 70 81 88 Respiratory Rate 36 H 27 H 33 H Respiratory Depth Blood Pressure Blood Pressure Mean Pulse Oximetry 93 93 93 Oxygen Delivery Method Oxygen Flow Rate Sepsis Recent Fever Within 48 Hours Sepsis New/Unexplained Change in Mental Status Sepsis Action Taken by Nursing 11/26/22 13:10 11/26/22 13:40 Temperature Temperature Source Pulse Rate 88 87 Pulse Rate [Apical] Pulse Rate from SpO2 Sensor 80 87 Respiratory Rate 31 H 33 H Respiratory Depth Blood Pressure Blood Pressure Mean Pulse Oximetry 94 93 Oxygen Delivery Method Oxygen Flow Rate Sepsis Recent Fever Within 48 Hours Sepsis New/Unexplained Change in Mental Status Sepsis Action Taken by Nursing Laboratory Data 11/26/22 11:55 11/26/22 11:55 Lab Results 11/26/22 11/26/22 11/26/22 Range/Units 11:55 11:55 11:55 WBC 21.82 H (4.8-10.8) K/ul RBC 3.82 L (4.70-6.10) M/uL Hgb 12.2 L (14.0-18.0) g/dl Hct 38.1 L (42.0-52.0) % MCV 99.7 (80.0-100.0) fL MCH 31.9 (25.0-34.0) pg MCHC 32.0 (32.0-36.0) g/dL RDW Std Deviation 48.7 H (36.4-46.3) fL RDW Coeff of Jaelyn 13.5 (11.5-14.5) % Plt Count 209 (130-400) K/uL MPV 9.2 L (9.4-12.4) fL Immature Gran % (Auto) 0.7 % Neut % (Auto) 79.0 % Lymph % (Auto) 9.9 % Pennington % (Auto) 7.4 % Eos % (Auto) 2.7 % Baso % (Auto) 0.3 % Neut # (Auto) 17.23 H (1.40-6.50) K/uL Lymph # (Auto) 2.15 (1.2-3.4) K/uL Pennington # (Auto) 1.62 H (0.11-0.59) K/uL Eos # (Auto) 0.59 H (0-0.50) K/uL Baso # (Auto) 0.07 (0-0.2) K/uL Immature Gran # (Auto) 0.16 (0.01-0.20) K/uL PT 10.9 (9.0-12.0) Seconds INR 1.0 (0.9-1.1) APTT 26.3 (21.0-31.0) Seconds PTT Ratio 1.0 Sodium 134 L (136-145) mmol/L Potassium 4.6 (3.5-5.1) mmol/L Chloride 103 (98-107) mmol/L Carbon Dioxide 26 (21-32) mmol/L Anion Gap 5 (3-11) BUN 23 (6-23) mg/dl Creatinine 1.37 (0.6-1.4) mg/dl Est Cr Clr Drug Dosing Not Reportable Est GFR ( Amer) 54.5 ml/min Est GFR (Non-Af Amer) 47.0 ml/min BUN/Creatinine Ratio 16.8 (10-20) Glucose 121 H (70-99(Fasting)) mg/dl Lactate (0.4-2.0) mmol/L Calcium 8.8 (8.5-10.1) mg/dl Magnesium 1.8 (1.7-2.4) mg/dl Total Bilirubin 0.8 (0.2-1.0) mg/dl Direct Bilirubin TNP AST 16 (13-39) U/L ALT 10 (7-52) U/L Alkaline Phosphatase 59 (34-104) U/L Troponin I High Sens 18.5 (0-20) pg/ml Total Protein 6.7 (6.0-8.3) gm/dl Albumin 3.3 L (3.4-5.0) gm/dl Procalcitonin (0-0.5) ng/ml Adenovirus (PCR) (NotDetected) B. pertussis DNA (PCR) (NotDetected) B.parapertussis DNA PCR (NotDetected) C. pneumoniae DNA (PCR) (NotDetected) Coronavirus OC43 (PCR) (NotDetected) Coronavirus HKU1 (PCR) (NotDetected) Coronavirus 229E (PCR) (NotDetected) SARS-CoV-2 (PCR) (NotDetected) Coronavirus NL63 (PCR) (NotDetected) Human Metapneumovir PCR (NotDetected) Influenza Type A (PCR) (NotDetected) Influenza Type B (PCR) (NotDetected) M. pneumoniae (PCR) (NotDetected) Parainfluenza 1 (PCR) (NotDetected) Parainfluenza 2 (PCR) (NotDetected) Parainfluenza 3 (PCR) (NotDetected) Parainfluenza 4 (PCR) (NotDetected) RSV (PCR) (NotDetected) Entero/Rhino (PCR) (NotDetected) 11/26/22 11/26/22 11/26/22 Range/Units 11:55 11:55 Unknown WBC (4.8-10.8) K/ul RBC (4.70-6.10) M/uL Hgb (14.0-18.0) g/dl Hct (42.0-52.0) % MCV (80.0-100.0) fL MCH (25.0-34.0) pg MCHC (32.0-36.0) g/dL RDW Std Deviation (36.4-46.3) fL RDW Coeff of Jaelyn (11.5-14.5) % Plt Count (130-400) K/uL MPV (9.4-12.4) fL Immature Gran % (Auto) % Neut % (Auto) % Lymph % (Auto) % Pennington % (Auto) % Eos % (Auto) % Baso % (Auto) % Neut # (Auto) (1.40-6.50) K/uL Lymph # (Auto) (1.2-3.4) K/uL Pennington # (Auto) (0.11-0.59) K/uL Eos # (Auto) (0-0.50) K/uL Baso # (Auto) (0-0.2) K/uL Immature Gran # (Auto) (0.01-0.20) K/uL PT (9.0-12.0) Seconds INR (0.9-1.1) APTT (21.0-31.0) Seconds PTT Ratio Sodium (136-145) mmol/L Potassium (3.5-5.1) mmol/L Chloride (98-107) mmol/L Carbon Dioxide (21-32) mmol/L Anion Gap (3-11) BUN (6-23) mg/dl Creatinine (0.6-1.4) mg/dl Est Cr Clr Drug Dosing Est GFR ( Amer) ml/min Est GFR (Non-Af Amer) ml/min BUN/Creatinine Ratio (10-20) Glucose (70-99(Fasting)) mg/dl Lactate 1.1 (0.4-2.0) mmol/L Calcium (8.5-10.1) mg/dl Magnesium (1.7-2.4) mg/dl Total Bilirubin (0.2-1.0) mg/dl Direct Bilirubin AST (13-39) U/L ALT (7-52) U/L Alkaline Phosphatase (34-104) U/L Troponin I High Sens (0-20) pg/ml Total Protein (6.0-8.3) gm/dl Albumin (3.4-5.0) gm/dl Procalcitonin 0.13 (0-0.5) ng/ml Adenovirus (PCR) Not Detected (NotDetected) B. pertussis DNA (PCR) Not Detected (NotDetected) B.parapertussis DNA PCR Not Detected (NotDetected) C. pneumoniae DNA (PCR) Not Detected (NotDetected) Coronavirus OC43 (PCR) Not Detected (NotDetected) Coronavirus HKU1 (PCR) Not Detected (NotDetected) Coronavirus 229E (PCR) Not Detected (NotDetected) SARS-CoV-2 (PCR) Not Detected (NotDetected) Coronavirus NL63 (PCR) Not Detected (NotDetected) Human Metapneumovir PCR Not Detected (NotDetected) Influenza Type A (PCR) Not Detected (NotDetected) Influenza Type B (PCR) Not Detected (NotDetected) M. pneumoniae (PCR) Not Detected (NotDetected) Parainfluenza 1 (PCR) Not Detected (NotDetected) Parainfluenza 2 (PCR) Not Detected (NotDetected) Parainfluenza 3 (PCR) Not Detected (NotDetected) Parainfluenza 4 (PCR) Not Detected (NotDetected) RSV (PCR) Not Detected (NotDetected) Entero/Rhino (PCR) Not Detected (NotDetected) Administered Medications Discontinued Medications Cefepime HCl (Maxipime) 2,000 mg in 20 mls @ 5 mls/min IV NOW STA; Protocol Stop: 11/26/22 12:44 Last Admin: 11/26/22 13:04 Dose: 5 mls/min Documented By: KV Ioversol (Optiray 320 500ml) 105 ml IV ONCE ONE Stop: 11/26/22 13:36 Last Admin: 11/26/22 13:28 Dose: 105 ml Documented By: [facility] Imaging Data Radiologist's Impression: Chest X-Ray 11/26/22 11:27 XR chest 1V portable CLINICAL HISTORY: Sepsis TECHNIQUE: Single frontal radiograph of the chest was obtained. Comparison: Comparison is made to chest radiograph 04/26/2021 FINDINGS: No lines and tubes are seen. Calcified aortic knob is seen. Lungs are u nderinflated but clear. Prominence of the vasculature is noted. No evidence of pleural effusion or pneumothorax. IMPRESSION: Mild pulmonary edema. No evidence of john pneumonia. ACT 112: Negative or not required by law. Electronically signed by: Zackary Leary M.D. 11/26/2022 11:38 AM Chest CTA 11/26/22 12:41 CT ANGIOGRAM OF THE CHEST CLINICAL HISTORY: Dyspnea COMPARISON STUDY: Chest x-ray dated 11/26/2022. TECHNIQUE: Following the IV administration of 105 cc of Optiray 320, CT angiogram of the chest was performed from the upper abdomen to the thoracic inlet utilizing the pulmonary embolus protocol. Images are reviewed in the axial, sagittal, and coronal planes. 3-D MIPS images are created and assessed. IV contrast was administered without complication. A dose lowering technique was utilized adhering to the principles of ALARA. CT DOSE: 781.40 mGy.cm FINDINGS: Thyroid: Imaged portions of the thyroid gland are normal in size and attenuation. Thoracic aorta: There is atherosclerotic calcification of the thoracic aorta, which is normal in caliber and demonstrates standard 3-vessel arch anatomy. No dissection is seen. Pulmonary vasculature: The pulmonary trunk is normal in caliber. There are no filling defects identified in main, lobar, or proximal segmental pulmonary branches to suggest pulmonary embolus. The segmental and subsegmental branches are not well assessed due to motion artifact. Heart: The heart is mildly enlarged and without pericardial effusion. The coronary arteries are densely calcified. Lungs and pleural spaces: Evaluation of the lung parenchyma is severely degraded by motion artifact. There are small pleural effusions with dependent consolidation. The trachea appears clear. Mediastinum: There is no mediastinal lymphadenopathy. Sylvia: Clear. Axillae: There is no axillary lymphadenopathy. Upper abdomen: A small hiatal hernia is noted. Partially visualized upper abdominal viscera is otherwise grossly unremarkable. Skeletal structures: The skeletal structures are osteopenic. Degenerative change is noted in the shoulders and spine. No lytic or blastic bony lesions are seen. IMPRESSION: 1. Severely motion compromised examination. 2. There is no evidence of central pulmonary embolus in the main, lobar, or proximal segmental pulmonary arteries. The segmental and subsegmental vessels are not well assessed due to motion artifact. 3. Small pleural effusions with dependent consolidation. This could represent atelectasis versus an infectious/inflammatory pneumonitis and clinical correlation will be required. 4. Mild cardiomegaly and advanced coronary artery calcification. 5. Additional findings as above. ACT 112: Negative or not required by law. Electronically signed by: Naman Ramirez M.D. 11/26/2022 1:54 PM Discharge Plan Visit Data Chief Complaint: Shortness of Breath/Dyspnea ED Provider: Johnathon Paul Discharge Problem: Acute dyspnea, Pneumonia of both lower lobes Patient Disposition: Being Evaluated by Hospitalist Forms Stand Alone [facility] Pres[facility] Prescriptions: No Action carvedilol 3.125 mg tablet 3.125 mg PO BID Qty: 60 0RF Rx Instructions: must administer with a meal/food famotidine 20 mg tablet 20 mg PO HS Qty: 30 2RF aspirin 81 mg tablet,delayed release (DR/EC) 81 mg PO DAILY Qty: 30 5RF trimethoprim 100 mg tablet 100 mg PO DAILY Qty: 90 1RF levothyroxine 75 mcg tablet 75 mcg PO DAILY mirtazapine 15 mg tablet 15 mg PO DAILY diphenhydramine HCl [Allergy (diphenhydramine)] 12.5 mg/5 mL liquid 25 mg PO HS PRN zolpidem 5 mg tablet 5 mg PO HS PRN (Reason: sleep) memantine 5 mg tablet 5 mg PO .COMPLEX Qty: 60 5RF Rx Instructions: 5 mg orally daily x 1 week, then increase to BID; cyanocobalamin (vitamin B-12) [Vitamin B-12] 1,000 mcg Tablet 1,000 mcg PO QAM cholecalciferol (vitamin D3) [Vitamin D3] 5,000 unit Tablet 5,000 unit PO QAM acetaminophen [Tylenol Extra Strength] 500 mg Tablet 1,000 mg PO Q6H PRN (Reason: Pain) melatonin 5 mg Tablet 5 mg PO HS allopurinol 300 mg tablet 300 mg PO DAILY tamsulosin 0.4 mg capsule 0.4 mg PO HS Qty: 30 0RF finasteride [Proscar] 5 mg tablet 5 mg PO QAM Referrals Referrals: [facility] [Primary Care Provider] -
--- NOTE | 2022-11-26 11:39 | XRay Report ---
XR chest 1V portable CLINICAL HISTORY: Sepsis TECHNIQUE: Single frontal radiograph of the chest was obtained. Comparison: Comparison is made to chest radiograph 04/26/2021 FINDINGS: No lines and tubes are seen. Calcified aortic knob is seen. Lungs are underinflated but clear. Promin ence of the vasculature is noted. No evidence of pleural effusion or pneumothorax. IMPRESSION: Mild pulmonary edema. No evidence of john pneumonia. ACT 112: Negative or not required by law. Electronically signed by: Zackary Leary M.D. 11/26/2022 11:38 AM
[2022-11-26 12:34] LABS: Basophils # (auto) 0.07 K/uL (0-0.2); Basophils % (auto) 0.3 %; Eosinophils # (auto) 0.59 K/uL (0-0.50); Eosinophils % (auto) 2.7 %; Hematocrit (blood only) 38.1 % (42.0-52.0); Hemoglobin 12.2 g/dl (14.0-18.0); Immature Granulocytes # (auto) 0.16 K/uL (0.01-0.20); Immature Granulocytes % (auto) 0.7 %; Lymphocytes # (auto) 2.15 K/uL (1.2-3.4); Lymphocytes % (auto) 9.9 %; Mean Corpuscular Hemoglobin 31.9 pg (25.0-34.0); Mean Corpuscular Volume 99.7 fL (80.0-100.0); Mean Platelet Volume 9.2 fL (9.4-12.4); Monocytes # (auto) 1.62 K/uL (0.11-0.59); Monocytes % (auto) 7.4 %; Neutrophils # (auto) 17.23 K/uL (1.40-6.50); Platelet Count 209 K/uL (130-400); RDW Coefficient of Variation 13.5 % (11.5-14.5); RDW Standard Deviation 48.7 fL (36.4-46.3); Red Blood Count 3.82 M/uL (4.70-6.10); White Blood Count 21.82 K/ul (4.8-10.8)
[2022-11-26] MEDS ORDERED: CEFEPIME 2,000 MG/20 ML VIAL IV STA (12:41)
[2022-11-26 12:52] LABS: Adenovirus PCR Not Detected (NotDetected); Bordetella parapertussis PCR Not Detected (NotDetected); Bordetella pertussis PCR Not Detected (NotDetected); Chlamydia pneumoniae PCR Not Detected (NotDetected); Coronavirus 229E PCR Not Detected (NotDetected); Coronavirus CoV-2 (COVID19)PCR Not Detected (NotDetected); Coronavirus HKU1 PCR Not Detected (NotDetected); Coronavirus NL63 PCR Not Detected (NotDetected); Coronavirus OC43PCR Not Detected (NotDetected); Human Metapneumovirus PCR Not Detected (NotDetected); Influenza A PCR Not Detected (NotDetected); Influenza B PCR Not Detected (NotDetected); Mycoplasma pneumoniae PCR Not Detected (NotDetected); Parainfluenza Virus 1 PCR Not Detected (NotDetected); Parainfluenza Virus 2 PCR Not Detected (NotDetected); Parainfluenza Virus 3 PCR Not Detected (NotDetected); Parainfluenza Virus 4 PCR Not Detected (NotDetected); Respiratory Syncytial VirusPCR Not Detected (NotDetected); Rhinovirus/Enterovirus PCR Not Detected (NotDetected)
[2022-11-26 12:57] LABS: Alanine Aminotransferase 10 U/L (7-52); Albumin Level 3.3 gm/dl (3.4-5.0); Alkaline Phosphatase 59 U/L (34-104); Anion Gap 5 (3-11); Aspartate Aminotransferase 16 U/L (13-39); BUN Creatinine Ratio 16.8 (10-20); Bilirubin,Total 0.8 mg/dl (0.2-1.0); Blood Urea Nitrogen 23 mg/dl (6-23); Calcium 8.8 mg/dl (8.5-10.1); Carbon Dioxide 26 mmol/L (21-32); Chloride 103 mmol/L (98-107); Est GFR (African American) 54.5 ml/min; Glucose 121 mg/dl (70-99(Fasting)); Magnesium 1.8 mg/dl (1.7-2.4); Potassium 4.6 mmol/L (3.5-5.1); Sodium 134 mmol/L (136-145); Total Protein 6.7 gm/dl (6.0-8.3); Troponin I High Sensitivity 18.5 pg/ml (0-20)
[2022-11-26 12:58] LABS: Partial Thromboplastin Time 26.3 Seconds (21.0-31.0); Prothrombin Time 10.9 Seconds (9.0-12.0)
[2022-11-26] MEDS ORDERED: OPTIRAY 320 500ml IV ONE (13:35)
--- NOTE | 2022-11-26 13:56 | CT Scan Report ---
CT ANGIOGRAM OF THE CHEST CLINICAL HISTORY: Dyspnea COMPARISON STUDY: Chest x-ray dated 11/26/2022. TECHNIQUE: Following the IV administration of 105 cc of Optiray 320, CT angiogram of the chest was pe rformed from the upper abdomen to the thoracic inlet utilizing the pulmonary embolus protocol. Images are reviewed in the axial, sagittal, and coronal planes. 3-D MIPS images are created and assessed. I V contrast was administered without complication. A dose lowering technique was utilized adhering to the principles of ALARA. CT DOSE: 781.40 mGy.cm FINDINGS: Thyroid: Imaged portions of the thyroid gland are normal in size and attenuation. Thoracic aorta: There is atherosclerotic calcification of the thoracic aorta, which is normal in damien catherine and demonstrates standard 3-vessel arch anatomy. No dissection is seen. Pulmonary vasculature: The pulmonary trunk is normal in caliber. There are no filling defects identif ied in main, lobar, or proximal segmental pulmonary branches to suggest pulmonary embolus. The segmen joellen and subsegmental branches are not well assessed due to motion artifact. Heart: The heart is mildly enlarged and without pericardial effusion. The coronary arteries are dense ly calcified. Lungs and pleural spaces: Evaluation of the lung parenchyma is severely degraded by motion artifact. There are small pleural effusions with dependent consolidation. The trachea appears clear. Mediastinum: There is no mediastinal lymphadenopathy. Sylvia: Clear. Axillae: There is no axillary lymphadenopathy. Upper abdomen: A small hiatal hernia is noted. Partially visualized upper abdominal viscera is otherw ise grossly unremarkable. Skeletal structures: The skeletal structures are osteopenic. Degenerative change is noted in the shou lders and spine. No lytic or blastic bony lesions are seen. IMPRESSION: 1. Severely motion compromised examination. 2. There is no evidence of central pulmonary embolus in the main, lobar, or proximal segmental pulmon darrel arteries. The segmental and subsegmental vessels are not well assessed due to motion artifact. 3. Small pleural effusions with dependent consolidation. This could represent atelectasis versus an i nfectious/inflammatory pneumonitis and clinical correlation will be required. 4. Mild cardiomegaly and advanced coronary artery calcification. 5. Additional findings as above. ACT 112: Negative or not required by law. Electronically signed by: Naman Ramirez M.D. 11/26/2022 1:54 PM
[2022-11-26] MEDS ORDERED: VANCOMYCIN HCL 2,500 MG in SODIUM CHLORIDE 0.9% 500 ML IV ONE (14:16)
[2022-11-26] MEDS ORDERED: VANCOMYCIN CONSULT ACTIVE PRN (14:16)
[2022-11-26] MEDS ORDERED: MAGNESIUM SULFATE / D5W 1 GM/100 ML BAG IV ONE (15:17)
[2022-11-26] MEDS ORDERED: ALBUT/IPRATROP 3MG/0.5MG NEB 3 ML VIAL NEB SCH (15:20)
--- NOTE | 2022-11-26 15:38 | History & Physical Report ---
Date of Service November 26, 2022 Assessment & Plan (1) Hypoxia: Plan: Presented with hypoxia with SpO2 84% on RA on admit -- saturating on 4L currently Biofire NEGATIVE CXR w/ mild pulmonary edema CTA chest negative for PE (note, motion artifact, subsegmental not well v isualized) WBC elevation on admit 21.8k. Lactic 1.1 Given Cefepime/Vanco in ER --> will check MRSA nasal swab Ordered Ceftriaxone/Doxy PO for CAP for now Blood cultures pending - monitor Procal added to labs, not significantly elevated to suggest sepsis at 0.23 Check ABG Sputum cx if able to produce Duonebs prn Supplemental O2 as needed to maintain sats ([facility] O2 [facility], would need 2step prior to dc) Check BNP to eval for CHF given volume overload. Prior echo w/ LVH but normal systolic function/EF. Consider repeating but no obvious murmur on exam Will give dose lasix 40mg IV x 1 and monitor response Monitor labs on repeat (2) Acute dyspnea: Plan: PNA vs CHF, suspected 2nd to CHF Checking TSH as well given pre-tibial edema to r/o other causes for volume overload. Checking BNP as above as above (3) Acute UTI: Plan: moe, patient reported burning w/ urination UA w/ WBC>30, 2+ bacteria Monitor urine cx, tailor abx (4) Urinary retention due to benign prostatic hyperplasia: Plan: check UA/monitor UOP abx as above should cover for urine continue proscar/flomax abx to cover as above (5) Chronic renal failure, stage 3b: Plan: Cr 1.37 on admit, better than prior baselines renal dose meds/avoid nephrotoxic agents Monitor BMP w/ lasix use 40mg IV x 1 as above (6) Stroke: Plan: hx such, follows with neurology. on asa daily/memantine BID (7) Hypertension: Plan: continue coreg 3.125mg BID (8) GERD (gastroesophageal reflux disease): Plan: continue usual meds, pepcid HS (9) Acute respiratory failure with hypoxia and hypercapnia: History of Present Illness Chief Complaint: shortness of breath/hypoxia Primary Care Provider: [facility] 82yo male with PMHx significant for CVA (follows with Neurology, on ASA), HTN, GERD, frequent UTIs/BPH (s/p TURP follows with Urology on chronic trimethoprim suppression), nephrolithiasis, cognitive impairment, CKDIII, GERD and chronic pain and presented with shortness of breath and hypoxia, found to be 86% on RA and placed on supplemental O2-- requiring 4L presently to maintain sat 93%. Temp 37.7C. Ordered dose Vanco/Cefepime by ER, IVF deferred in setting of volume overload/effusions on imaging. EKG w/ low voltage, bedside US performed by ER provider w/o evidence for pericardial effusion. CTA chest NO PE noted, however subsegmental vessels not well assessed due to motion artifcat. Small pleural effusions w/ dependent consolidation. Atelectasis vs infectious/inflammatory pneumonitis. Mild cardiomegaly. Patient evaluated in B5 with at bedside, resident of [facility]. Patient hypoxic this morning, reports possible panic attack. No choking/dysphagia/vomiting reported. He does note a cough, sputum production clear in color. Endorses burning with urination/frequency, on chronic antibiotics per patient/. He denies any significant shortness of breath at present at baseline on the 4L but states he does not wear oxygen at home. No reported fever/chills (but temp 37.7C), no chest pain, no nausea/vomiting. Poor appetite at present reported. ABdomen distended but nontender. Does have some LE pre-tibial edema as well, no calf tenderness. Discussed admission inpatient and suspect CHF/volume overload along with UTI. Did not get worsening SOB reported with laying bed flat however. Discussed code status and patient and he would not want sugar refiner vent/invasive measures but ok w/ temporary and will make Full Code for now. Questions/concerns addressed. Would like something to sleep tonight. ER course: Cefepime/Vanco. Labs w/ WBC 21.8k, neutrophils 17.2k. Na 134, K4.6. BUN/Cr 23/1.37. Mag 1.8. LFTs wnl. Lactic 1.1. Glu 121. UA w/ 10-30WBC, >30WBC, >30epi, 2+ bacteria, culture pending --- prior Urine cx alpha strep not enterococcus from 11/18/22. Allergies Allergy/AdvReac Type Severity Reaction Status Date / Time Penicillins Allergy Intermediate HIVES Verified 10/18/22 15:34 morphine AdvReac Mild N&V Verified 10/18/22 15:34 codeine AdvReac Unknown Unknown Verified 10/18/22 15:34 Home Medications Medication Instructions Recorded Confirmed Type cyanocobalamin (vitamin B-12) 1,000 mcg PO QAM 08/03/18 11/26/22 History 1,000 mcg tablet (Vitamin B-12) tamsulosin 0.4 mg capsule 0.4 mg PO HS #30 caps 12/29/20 11/26/22 Rx finasteride 5 mg tablet (Proscar) 5 mg PO QAM 01/12/21 11/26/22 History allopurinol 300 mg tablet 300 mg PO QAM 04/26/21 11/26/22 History carvedilol 3.125 mg tablet 3.125 mg PO BID #60 tabs 12/04/21 11/26/22 Rx famotidine 20 mg tablet 20 mg PO HS #30 tabs 12/04/21 11/26/22 Rx levothyroxine 75 mcg tablet 75 mcg PO DAILYBB hypothroidism 12/04/21 11/26/22 History mirtazapine 15 mg tablet 15 mg PO HS sleep/mood 12/04/21 11/26/22 History acetaminophen 325 mg tablet 650 mg PO Q6H PRN PAIN/FEVER >100 F 11/26/22 11/26/22 History (Tylenol) aspirin 81 mg tablet,delayed 81 mg PO QAM 11/26/22 11/26/22 History release cholecalciferol (vitamin D3) 50 50 mcg PO QAM 11/26/22 11/26/22 History mcg (2,000 unit) capsule (Vitamin D3) memantine 5 mg tablet 5 mg PO BIDM 11/26/22 11/26/22 History menthol 0.44 %-zinc oxide 20.6 % 1 applic topical TID 11/26/22 11/26/22 History topical ointment (Calmoseptine) nitrofurantoin 100 mg PO Q12H 11/26/22 11/26/22 History monohydrate/macrocrystals 100 mg capsule (Macrobid) trimethoprim 100 mg tablet 100 mg PO QAM 11/26/22 11/26/22 History zolpidem 10 mg tablet (Ambien) 10 mg PO HS PRN Insomnia 11/26/22 11/26/22 History Past Med/Surg History Medical History Abnormal urinalysis Acute bilateral knee pain Altered mental status Anxiety BPH (benign prostatic hyperplasia) C. difficile diarrhea Chronic pain syndrome Chronic prescription benzodiazepine use DVT prophylaxis DVT prophylaxis Dysphagia Elevated transaminase level Encephalopathy Fall Generally unsteady GERD (gastroesophageal reflux disease) Gout Hypokalemia Hypokalemia Hypomagnesemia Idiopathic polyneuropathy Insomnia Kidney stones Microscopic hematuria Prostate cancer screening SIRS (systemic inflammatory response syndrome) Spinal stenosis Urinary incontinence, urge Surgical History History of back surgery History of colonoscopy History of lithotripsy S/P TURP Family History Grandmother Family history of diabetes mellitus Social History Smoking Status: Never smoker Tobacco Type: Cigarettes Age Quit Using Tobacco: 25; Second Hand Exposure: No; Hx Alcohol Use: No Hx Substance Use: No Preferred Language: [place] Communication Ability: Effective Court Liaison Required: No Beliefs That Will Affect Care: None marital status: Current Living Situation: Personal Care Facility Current Living Situation Comment: [facility] Feels Safe at Home: Yes Safety Concerns: Feels Safe At This Time Assistive Devices: Glasses Physical Exam Physical Exam: General: chronically ill appearing male sitting up in bed, NAD, at bedside HEENT: head normocephalic, atraumatic, mm moist, trachea midline Resp: diminished in the bases with associated crackles, no wheezing, on 4L NC, mild tachypnea RR 24 CV: RRR, qiuet heart sounds, no obvious m/r/g, trace pre-tibial edema, pulses palpable, calves nontender GI: +BS, distended, nontender : no moore Psych: alert/oriented to person, knows in hospital, poor historian at baseline but baseline per at moment Results & Data Results & Data ([facility]) Vital Signs (Past 12 Hours) Vital Signs Temp Pulse Pulse Resp BP Pulse Ox O2 Del Method 11/26/22 15:03 94 H 11/26/22 13:40 87 33 H 93 11/26/22 13:10 88 31 H 94 11/26/22 13:00 87 33 H 93 11/26/22 12:50 87 27 H 93 11/26/22 12:40 78 36 H 93 11/26/22 12:30 81 30 H 79 L 11/26/22 12:20 89 18 11/26/22 12:10 83 23 11/26/22 12:00 84 37 H 11/26/22 11:50 84 20 11/26/22 11:40 84 38 H 91 11/26/22 11:30 83 35 H 92 11/26/22 11:20 88 31 H 93 11/26/22 11:19 90 11/26/22 11:22 84 20 94 Nasal Cannula 11/26/22 11:22 37.7 C H 87 16 119/67 86 L Room Air 11/26/22 11:21 86 L Room Air O2 Flow Rate 11/26/22 15:03 11/26/22 13:40 11/26/22 13:10 11/26/22 13:00 11/26/22 12:50 11/26/22 12:40 11/26/22 12:30 11/26/22 12:20 11/26/22 12:10 11/26/22 12:00 11/26/22 11:50 11/26/22 11:40 11/26/22 11:30 11/26/22 11:20 11/26/22 11:19 11/26/22 11:22 4 11/26/22 11:22 11/26/22 11:21 0 Laboratory Results 11/26/22 11/26/22 11/26/22 Range/Units Unknown 11:55 11:55 WBC (4.8-10.8) K/ul RBC (4.70-6.10) M/uL Hgb (14.0-18.0) g/dl Hct (42.0-52.0) % MCV (80.0-100.0) fL MCH (25.0-34.0) pg MCHC (32.0-36.0) g/dL RDW Std Deviation (36.4-46.3) fL RDW Coeff of Jaelyn (11.5-14.5) % Plt Count (130-400) K/uL MPV (9.4-12.4) fL Immature Gran % (Auto) % Neut % (Auto) % Lymph % (Auto) % [place] % (Auto) % Eos % (Auto) % Baso % (Auto) % Neut # (Auto) (1.40-6.50) K/uL Lymph # (Auto) (1.2-3.4) K/uL [place] # (Auto) (0.11-0.59) K/uL Eos # (Auto) (0-0.50) K/uL Baso # (Auto) (0-0.2) K/uL Immature Gran # (Auto) (0.01-0.20) K/uL PT (9.0-12.0) Seconds INR (0.9-1.1) APTT (21.0-31.0) Seconds PTT Ratio Sodium (136-145) mmol/L Potassium (3.5-5.1) mmol/L Chloride (98-107) mmol/L Carbon Dioxide (21-32) mmol/L Anion Gap (3-11) BUN (6-23) mg/dl Creatinine (0.6-1.4) mg/dl Est Cr Clr Drug Dosing Est GFR ( Amer) ml/min Est GFR (Non-Af Amer) ml/min BUN/Creatinine Ratio (10-20) Glucose (70-99(Fasting)) mg/dl Lactate 1.1 (0.4-2.0) mmol/L Calcium (8.5-10.1) mg/dl Magnesium (1.7-2.4) mg/dl Total Bilirubin (0.2-1.0) mg/dl Direct Bilirubin AST (13-39) U/L ALT (7-52) U/L Alkaline Phosphatase (34-104) U/L Troponin I High Sens (0-20) pg/ml Total Protein (6.0-8.3) gm/dl Albumin (3.4-5.0) gm/dl Procalcitonin 0.13 (0-0.5) ng/ml Adenovirus (PCR) Not Detected (NotDetected) B. pertussis DNA (PCR) Not Detected (NotDetected) B.parapertussis DNA PCR Not Detected (NotDetected) C. pneumoniae DNA (PCR) Not Detected (NotDetected) Coronavirus OC43 (PCR) Not Detected (NotDetected) Coronavirus HKU1 (PCR) Not Detected (NotDetected) Coronavirus 229E (PCR) Not Detected (NotDetected) SARS-CoV-2 (PCR) Not Detected (NotDetected) Coronavirus NL63 (PCR) Not Detected (NotDetected) Human Metapneumovir PCR Not Detected (NotDetected) Influenza Type A (PCR) Not Detected (NotDetected) Influenza Type B (PCR) Not Detected (NotDetected) M. pneumoniae (PCR) Not Detected (NotDetected) Parainfluenza 1 (PCR) Not Detected (NotDetected) Parainfluenza 2 (PCR) Not Detected (NotDetected) Parainfluenza 3 (PCR) Not Detected (NotDetected) Parainfluenza 4 (PCR) Not Detected (NotDetected) RSV (PCR) Not Detected (NotDetected) Entero/Rhino (PCR) Not Detected (NotDetected) 11/26/22 11/26/22 11/26/22 Range/Units 11:55 11:55 11:55 WBC 21.82 H (4.8-10.8) K/ul RBC 3.82 L (4.70-6.10) M/uL Hgb 12.2 L (14.0-18.0) g/dl Hct 38.1 L (42.0-52.0) % MCV 99.7 (80.0-100.0) fL MCH 31.9 (25.0-34.0) pg MCHC 32.0 (32.0-36.0) g/dL RDW Std Deviation 48.7 H (36.4-46.3) fL RDW Coeff of Jaelyn 13.5 (11.5-14.5) % Plt Count 209 (130-400) K/uL MPV 9.2 L (9.4-12.4) fL Immature Gran % (Auto) 0.7 % Neut % (Auto) 79.0 % Lymph % (Auto) 9.9 % Pleas[place] % (Auto) 7.4 % Eos % (Auto) 2.7 % Baso % (Auto) 0.3 % Neut # (Auto) 17.23 H (1.40-6.50) K/uL Lymph # (Auto) 2.15 (1.2-3.4) K/uL [place] # (Auto) 1.62 H (0.11-0.59) K/uL Eos # (Auto) 0.59 H (0-0.50) K/uL Baso # (Auto) 0.07 (0-0.2) K/uL Immature Gran # (Auto) 0.16 (0.01-0.20) K/uL PT 10.9 (9.0-12.0) Seconds INR 1.0 (0.9-1.1) APTT 26.3 (21.0-31.0) Seconds PTT Ratio 1.0 Sodium 134 L (136-145) mmol/L Potassium 4.6 (3.5-5.1) mmol/L Chloride 103 (98-107) mmol/L Carbon Dioxide 26 (21-32) mmol/L Anion Gap 5 (3-11) BUN 23 (6-23) mg/dl Creatinine 1.37 (0.6-1.4) mg/dl Est Cr Clr Drug Dosing Not Reportable Est GFR ( Amer) 54.5 ml/min Est GFR (Non-Af Amer) 47.0 ml/min BUN/Creatinine Ratio 16.8 (10-20) Glucose 121 H (70-99(Fasting)) mg/dl Lactate (0.4-2.0) mmol/L Calcium 8.8 (8.5-10.1) mg/dl Magnesium 1.8 (1.7-2.4) mg/dl Total Bilirubin 0.8 (0.2-1.0) mg/dl Direct Bilirubin TNP AST 16 (13-39) U/L ALT 10 (7-52) U/L Alkaline Phosphatase 59 (34-104) U/L Troponin I High Sens 18.5 (0-20) pg/ml Total Protein 6.7 (6.0-8.3) gm/dl Albumin 3.3 L (3.4-5.0) gm/dl Procalcitonin (0-0.5) ng/ml Adenovirus (PCR) (NotDetected) B. pertussis DNA (PCR) (NotDetected) B.parapertussis DNA PCR (NotDetected) C. pneumoniae DNA (PCR) (NotDetected) Coronavirus OC43 (PCR) (NotDetected) Coronavirus HKU1 (PCR) (NotDetected) Coronavirus 229E (PCR) (NotDetected) SARS-CoV-2 (PCR) (NotDetected) Coronavirus NL63 (PCR) (NotDetected) Human Metapneumovir PCR (NotDetected) Influenza Type A (PCR) (NotDetected) Influenza Type B (PCR) (NotDetected) M. pneumoniae (PCR) (NotDetected) Parainfluenza 1 (PCR) (NotDetected) Parainfluenza 2 (PCR) (NotDetected) Parainfluenza 3 (PCR) (NotDetected) Parainfluenza 4 (PCR) (NotDetected) RSV (PCR) (NotDetected) Entero/Rhino (PCR) (NotDetected) Diagnostic Findings Chest X-Ray 11/26/22 11:27 XR chest 1V portable CLINICAL HISTORY: Sepsis TECHNIQUE: Single frontal radiograph of the chest was obtained. Comparison: Comparison is made to chest radiograph 04/26/2021 FINDINGS: No lines and tubes are seen. Calcified aortic knob is seen. Lungs are underinflated but clear. Prominence of the vasculature is noted. No evidence of pleural effusion or pneumothorax. IMPRESSION: Mild pulmonary edema. No evidence of john pneumonia. ACT 112: Negative or not required by law. Electronically signed by: Zackary Leary M.D. 11/26/2022 11:38 AM Chest CTA 11/26/22 12:41 CT ANGIOGRAM OF THE CHEST CLINICAL HISTORY: Dyspnea COMPARISON STUDY: Chest x-ray dated 11/26/2022. TECHNIQUE: Following the IV administration of 105 cc of Optiray 320, CT angiogr am of the chest was performed from the upper abdomen to the thoracic inlet utilizing the pulmonary embolus protocol. Images are reviewed in the axial, sagittal, and coronal planes. 3-D MIPS images are created and assessed. IV contrast was administered without complication. A dose lowering technique was utilized adhering to the principles of ALARA. CT DOSE: 781.40 mGy.cm FINDINGS: Thyroid: Imaged portions of the thyroid gland are normal in size and attenuation. Thoracic aorta: There is atherosclerotic calcification of the thoracic aorta, which is normal in caliber and demonstrates standard 3-vessel arch anatomy. No dissection is seen. Pulmonary vasculature: The pulmonary trunk is normal in caliber. There are no filling defects identified in main, lobar, or proximal segmental pulmonary branches to suggest pulmonary embolus. The segmental and subsegmental branches are not well assessed due to motion artifact. Heart: The heart is mildly enlarged and without pericardial effusion. The coronary arteries are densely calcified. Lungs and pleural spaces: Evaluation of the lung parenchyma is severely degraded by motion artifact. There are small pleural effusions with dependent consolidation. The trachea appears clear. Mediastinum: There is no mediastinal lymphadenopathy. Sylvia: Clear. Axillae: There is no axillary lymphadenopathy. Upper abdomen: A small hiatal hernia is noted. Partially visualized upper abdominal viscera is otherwise grossly unremarkable. Skeletal structures: The skeletal structures are osteopenic. Degenerative change is noted in the shoulders and spine. No lytic or blastic bony lesions are seen. IMPRESSION: 1. Severely motion compromised examination. 2. There is no evidence of central pulmonary embolus in the main, lobar, or proximal segmental pulmonary arteries. The segmental and subsegmental vessels are not well assessed due to motion artifact. 3. Small pleural effusions with dependent consolidation. This could represent at electasis versus an infectious/inflammatory pneumonitis and clinical correlation will be required. 4. Mild cardiomegaly and advanced coronary artery calcification. 5. Additional findings as above. ACT 112: Negative or not required by law. Electronically signed by: Naman Ramirez M.D. 11/26/2022 1:54 PM Supervising Physician Co-Signing Physician Notes I personally saw and examined the patient. I verified all pickens points and agree with Martha Delgado PA-C with the following exceptions and/or additions: 82 year old male presents to the ER with shortness of breath and hypoxia progressively getting worse over last 2 days with associated cough. Also having dysuria and lower abdominal pain for the last week and has been on nitrofurantoin for a UTI with subsequent culture growing alpha strep (not enterococcus). O/E A&O to person, not aware of hospital name but otherwise orientated to place, not orientated to time, HS RRR, no murmurs, Resp: Using accessory muscles, rhonchi b/l, no reduced breath sounds, no wheezing, Abdo lower abdominal tenderness without guarding or rebound tenderness. A/P Pneumonia with hypoxia - suspect this is the main cause of admission however significant motion artifact on CT chest makes this difficult to interpret but history fits best with this with elevated WBC. Ceftriaxone + doxycycline. Biofire negative. Urine legionella sent. Acute respiratory failure with hypoxia and hypercapnia - hypercapnia appears somewhat chronic with compensatory metabolic alkalosis. Aim O2 sats 88-92%. If getting more confused, repeat ABG to make sure CO2 not getting worse and needing BiPAP. Will repeat ABG in AM. Mild pulmonary edema - Agree with Lasix 40mg IV, defer ongoing diuretics to oncoming provider but doubtful this is the major cause of his hypoxia. Lower abdominal pain - CT A/P with contrast to assess for diverticulitis - subsequently negative. Given urinary symptoms, prior culture with alpha strep (not enterococcus) and prior imaging suggesting of chronic cystitis I suspect this may represent a non-infective cystitis causing his pain. However he would be covered with ceftriaxone for infection as above and will follow up urine and blood cultures regardless. PG Care Time/CCT Total # of Minutes Spent Total Time Spent with Patient: Total time spent is greater than 50% in coordination of care (as documented) at patient's floor/unit and/or counseling patient: Coding Level of Care Code 98483 INT INP/OBS CARE 3/75MIN Diagnoses Hypoxia R09.02 Acute dyspnea R06.00 Acute UTI N39.0 Urinary retention due to benign prostatic hyperplasia N40.1; R33.8 Chronic renal failure, stage 3b N18.32 Stroke I63.9 Hypertension I10 Hypertension type: essential hypertension GERD (gastroesophageal reflux disease) K21.9 Acute respiratory failure with hypoxia and hypercapnia J96.01; J96.02 (7) Hypertension Hypertension type: essential hypertension Qualified Code(s): I10 - Essential (primary) hypertension
[2022-11-26] MEDS ORDERED: FUROSEMIDE 40 MG/4 ML VIAL IV ONE (16:03)
[2022-11-26 16:10] LABS: Base Excess ABG 2.8 mEq/L (-9-1.8); HCO3 ABG 30 mmol/L (19-24); Oxygen Saturation ABG 99.2 % (90-95); PCO2 ABG 57 mmHg (35-46); PO2 ABG 84 mmHg (80-95); pH ABG 7.33 (7.35-7.45)
[2022-11-26 16:11] LABS: Allen Test Pos (Pos)
[2022-11-26 17:05] LABS: Appearance Urine Cloudy (Clear); Bacteria Urine Automated Negative (Negative); Bilirubin Urine Negative (Negative); Blood Urine Trace (Negative); Color Urine Dark Yellow; Epithelial Cell Urine Auto 0-5 /lpf (0-5); Glucose Urine UA Negative (Negative); Ketones Urine Negative (Negative); Leukocyte Esterase Urine 2+ (Negative); Nitrite Urine Positive (Negative); Protein Urine 1+ (Negative); Urobilinogen Urine Negative (Negative); WBC Urine Automated >30 /hpf (0-5)
[2022-11-26 17:13] LABS: Mucus Urine Present (None Prsent)
[2022-11-26] MEDS ORDERED: ONDANSETRON INJ 2 MG/ML 2 ML VIAL IV PRN (18:25)
[2022-11-26] MEDS ORDERED: ALBUT/IPRATROP 3MG/0.5MG NEB 3 ML VIAL NEB PRN (18:25)
[2022-11-26] MEDS: cefTRIAXone SODIUM 2,000 MG in DEXTROSE 5% 50 ML IV SCH (21:35)
[2022-11-26] MEDS: carvediloL 3.125 MG TAB PO SCH (21:36)
[2022-11-26] MEDS: MEMANTINE HCL 5 MG TAB PO SCH (21:36)
[2022-11-26] MEDS: FAMOTIDINE 20 MG TAB PO SCH (21:37)
[2022-11-26] MEDS: DOXYCYCLINE HYCLATE 100 MG CAP PO SCH (21:37)
[2022-11-26] MEDS: MIRTAZAPINE TAB 15 MG TAB PO SCH (21:37)
[2022-11-26] MEDS: TAMSULOSIN HCL 0.4 MG CAP PO SCH (21:37)
[2022-11-26] MEDS ORDERED: OPTIRAY 350 100ml IV ONE (22:04)
[2022-11-26] MEDS: ZOLPIDEM TARTRATE 10 MG TAB PO PRN (22:39)
--- NOTE | 2022-11-26 22:42 | CT Scan Report ---
Exam(s): CT ABDOMEN + PELVIS With Contrast EXAM: CT Abdomen and Pelvis With Intravenous Contrast CLINICAL HISTORY: Reason for exam: lower abdominal pain ?diverticulitis. TECHNIQUE: Axial computed tomography images of the abdomen and pelvis with intravenous contrast. Automated exposure control was utilized for the study. A dose lowering technique was utilized adhering to the principles of ALARA. CONTRAST: Contrast must be dictated COMPARISON: No relevant prior studies available. FINDINGS: Lung bases: Unremarkable. No mass. No consolidation. Pleural space: Mild dependent airspace consolidations, correlate for mild infiltrates. Trace bilateral pleural effusions. ABDOMEN: Liver: Unremarkable. No mass. Gallbladder and bile ducts: Contracted gallbladder. No calcified stones. No ductal dilation. Pancreas: Unremarkable. No mass. No ductal dilation. Spleen: Unremarkable. No splenomegaly. Adrenals: Unremarkable. No mass. Kidneys and ureters: Moderate bilateral hydroureteronephrosis with excretion of contrast in the collecting systems. No obstructing calculus. Stomach and bowel: Diverticulosis, without acute diverticulitis. No small bowel obstruction. No free intraperitoneal air. PELVIS: Appendix: No findings to suggest acute appendicitis. Bladder: Unremarkable. No diverticulation of the urinary bladder wall. Reproductive: Unremarkable as visualized. ABDOMEN and PELVIS: Intraperitoneal space: Unremarkable. No free air. No significant fluid collection. Bones/joints: Degenerative changes of the spine. Multilevel posterior lumbar fusion. No acute fracture. No dislocation. Soft tissues: Unremarkable. Vasculature: Atherosclerotic changes of the aorta. No abdominal aortic aneurysm. Lymph nodes: Unremarkable. No enlarged lymph nodes. IMPRESSION: 1. Mild dependent airspace consolidations, correlate for mild infiltrates. Trace bilateral pleural effusions. 2. Moderate bilateral hydroureteronephrosis with excretion of contrast in the collecting systems. No obstructing calculus. 3. Diverticulosis, without acute diverticulitis. No small bowel obstruction. No free intraperitoneal air. Electronically signed by: Ruben Echevarria MD 11/26/22 22:42 PM
[2022-11-27] MEDS: LEVOTHYROXINE SODIUM 75 MCG TABLET PO SCH (06:06)
[2022-11-27 07:46] LABS: Base Excess ABG 3.6 mEq/L (-9-1.8); HCO3 ABG 30 mmol/L (19-24); Oxygen Saturation ABG 87.4 % (90-95); PCO2 ABG 52 mmHg (35-46); PO2 ABG 49 mmHg (80-95); pH ABG 7.37 (7.35-7.45)
[2022-11-27 08:01] LABS: Allen Test POS (Pos)
[2022-11-27 08:07] LABS: Calcium 8.5 mg/dl (8.5-10.1); Potassium 4.3 mmol/L (3.5-5.1)
[2022-11-27 08:13] LABS: BUN Creatinine Ratio 18.2 (10-20); C Reactive Protein 13.13 mg/dl (0-0.5); Est GFR (African American) 51.8 ml/min; Est GFR (Non-African American) 44.7 ml/min
[2022-11-27 08:28] LABS: Basophils # (auto) 0.06 K/uL (0-0.2); Basophils % (auto) 0.3 %; Eosinophils # (auto) 1.14 K/uL (0-0.50); Eosinophils % (auto) 6.3 %; Hematocrit (blood only) 36.4 % (42.0-52.0); Immature Granulocytes # (auto) 0.15 K/uL (0.01-0.20); Immature Granulocytes % (auto) 0.8 %; Lymphocytes # (auto) 3.21 K/uL (1.2-3.4); Lymphocytes % (auto) 17.8 %; Mean Corpuscular Hemoglobin 32.1 pg (25.0-34.0); Mean Corpuscular Volume 97.3 fL (80.0-100.0); Mean Platelet Volume 9.3 fL (9.4-12.4); Monocytes # (auto) 1.07 K/uL (0.11-0.59); Monocytes % (auto) 5.9 %; Neutrophils # (auto) 12.38 K/uL (1.40-6.50); Neutrophils % (auto) 68.9 %; Platelet Count 199 K/uL (130-400); Platelet Estimate Normal (Normal); Polychromasia 1+; RDW Coefficient of Variation 13.5 % (11.5-14.5); RDW Standard Deviation 48.6 fL (36.4-46.3); Red Blood Count 3.74 M/uL (4.70-6.10); White Blood Count 18.01 K/ul (4.8-10.8)
[2022-11-27] MEDS: carvediloL 3.125 MG TAB PO SCH ×2 (08:38→20:43)
[2022-11-27] MEDS: DOXYCYCLINE HYCLATE 100 MG CAP PO SCH ×2 (08:38→20:43)
[2022-11-27] MEDS: MEMANTINE HCL 5 MG TAB PO SCH ×2 (08:38→17:35)
[2022-11-27] MEDS: allopurinoL 300 MG TAB PO SCH (08:39)
[2022-11-27] MEDS: CYANOCOBALAMIN (B-12) 500 MCG TABLET PO SCH (08:39)
[2022-11-27] MEDS: CHOLECALCIFEROL 1,000 UNITS 25 MCG TAB PO SCH (08:39)
[2022-11-27] MEDS: ASPIRIN 81 MG ECTAB PO SCH (08:39)
[2022-11-27] MEDS: FINASTERIDE 5 MG TAB PO SCH (08:40)
--- NOTE | 2022-11-27 13:40 | Hospitalist Progress Note ---
Date of Service November 27, 2022 Assessment & Plan (1) Hypoxia: Plan: Presented with hypoxia with SpO2 84% on RA on admit [facility] NEGATIVE CXR w/ mild pulmonary edema, CTA chest negative for PE WBC was 21k on admission, procalcitonin is normal, CRP mildly elevated Etiology of his hypoxia is uncertain, BNP is 141 Although he is clinically much improved after antibiotics, lasix and nebs Will follow up cultures continue supplemental oxygen and nebs Continue ceftriaxone and Doxy (2) Acute dyspnea: Plan: PNA vs CHF, suspected 2nd to CHF Checking TSH as well given pre-tibial edema to r/o other causes for volume overload. Checking BNP as above as above (3) Acute UTI: Plan: moe, patient reported burning w/ urination UA w/ WBC>30, 2+ bacteria Monitor urine cx, continue abx (4) Urinary retention due to benign prostatic hyperplasia: Plan: check UA/monitor UOP abx as above should cover for urine continue proscar/flomax abx to cover as above (5) Chronic renal failure, stage 3b: Plan: Cr 1.37 on admit, better than prior baselines renal dose meds/avoid nephrotoxic agents Monitor BMP w/ lasix use 40mg IV x 1 as above (6) Stroke: Plan: hx such, follows with neurology. on asa daily/memantine BID (7) Hypertension: Plan: continue coreg 3.125mg BID (8) GERD (gastroesophageal reflux disease): Plan: continue usual meds, pepcid HS (9) Acute respiratory failure with hypoxia and hypercapnia: Plan continue hospitalization full code heparin for DVT Admission and Anticipated Discharge Date Admission Date: November 26, 2022 Subjective patient feels over all better, says sob is much improved. denies chest pain Review of Systems Review of Systems: All systems reviewed are negative, apart from the ones contained in the history. Physical Exam Physical Exam: The patient is awake, alert and oriented 3, obese, in mild respiratory distress HEENT--PERRL, EOMI, mucous membranes and oropharynx mildly dry Neck--supple. No JVD. No bruits. Thyroid normal, trachea midline, no adenopathy. Heart--normal S1 and S2. No murmurs, rubs or gallops. Lungs--clear bilaterally, no respiratory distress, no accessory muscle use. Abdomen--normal bowel sounds and soft. Mild epigastric and left sided abdominal pain Extremities--no cyanosis or clubbing. No edema. Dermatologic--normal skin turgor, normal color, no abnormal lymph nodes, no rash. Neurologic--cranial nerves II through XII grossly intact. Rheumatologic--normal range of motion. Psychiatric--normal affect. Results & Data Results & Data Vital Signs (Past 12 Hours) Vital Signs Temp Pulse Pulse Pulse Resp BP Pulse Ox 11/27/22 11:26 97.5 F L 96 H 16 136/76 90 11/27/22 08:00 11/27/22 08:14 97.5 F L 87 16 114/63 90 11/27/22 07:26 97 H 11/27/22 04:20 98.2 F 92 H 20 142/66 H 92 O2 Del Method O2 Flow Rate 11/27/22 11:26 Nasal Cannula 6 11/27/22 08:00 Nasal Cannula 6 11/27/22 08:14 Nasal Cannula 6 11/27/22 07:26 11/27/22 04:20 Room Air PG Care Time/CCT Total # of Minutes Spent Total Time Spent with Patient: Total time spent is greater than 50% in coordination of care (as documented) at patient's floor/unit and/or counseling patient: Coding Level of Care Code 82551 SUB INP/OBS CARE 2/35MIN Diagnoses Hypoxia R09.02 Acute dyspnea R06.00 Acute UTI N39.0 Urinary retention due to benign prostatic hyperplasia N40.1; R33.8 Chronic renal failure, stage 3b N18.32 Stroke I63.9 Hypertension I10 Hypertension type: essential hypertension GERD (gastroesophageal reflux disease) K21.9 Acute respiratory failure with hypoxia and hypercapnia J96.01; J96.02 Time Spent (min) 35 (7) Hypertension Hypertension type: essential hypertension Qualified Code(s): I10 - Essential (primary) hypertension
[2022-11-27] MEDS ORDERED: FUROSEMIDE 40 MG/4 ML VIAL IV ONE (15:20)
[2022-11-27] MEDS: cefTRIAXone SODIUM 2,000 MG in DEXTROSE 5% 50 ML IV SCH (18:30)
[2022-11-27] MEDS: MIRTAZAPINE TAB 15 MG TAB PO SCH (20:43)
[2022-11-27] MEDS: HEPARIN SOD 5,000 UNIT/0.5 ML VIAL SQ SCH (20:43)
[2022-11-27] MEDS: TAMSULOSIN HCL 0.4 MG CAP PO SCH (20:43)
[2022-11-27] MEDS: FAMOTIDINE 20 MG TAB PO SCH (20:43)
[2022-11-27] MEDS: ZOLPIDEM TARTRATE 10 MG TAB PO PRN (21:40)
[2022-11-27] MEDS: ACETAMINOPHEN 325 MG TAB PO PRN (23:49)
[2022-11-28 05:17] LABS: BUN Creatinine Ratio 19.6 (10-20); Calcium 8.8 mg/dl (8.5-10.1); Creatinine Clr Calc Pharmacy 38.1 ml/min; Est GFR (African American) 38.2 ml/min; Est GFR (Non-African American) 32.9 ml/min; Potassium 5.3 mmol/L (3.5-5.1)
[2022-11-28 05:27] LABS: Hematocrit (blood only) 41.4 % (42.0-52.0); Hemoglobin 12.8 g/dl (14.0-18.0); Mean Corpuscular Hemoglobin 32.1 pg (25.0-34.0); Mean Corpuscular Hgb Conc 30.9 g/dL (32.0-36.0); Mean Corpuscular Volume 103.8 fL (80.0-100.0); Mean Platelet Volume 9.4 fL (9.4-12.4); Platelet Count 242 K/uL (130-400); RDW Coefficient of Variation 13.7 % (11.5-14.5); RDW Standard Deviation 52.3 fL (36.4-46.3); Red Blood Count 3.99 M/uL (4.70-6.10); White Blood Count 23.13 K/ul (4.8-10.8)
--- NOTE | 2022-11-28 06:15 | Electrocardiogram Report ---
Test Reason : Blood Pressure : / mmHG Vent. Rate : 088 BPM Atrial Rate : 088 BPM P-R Int : 186 ms QRS Dur : 066 ms QT Int : 342 ms P-R-T Axes : 065 107 098 degrees QTc Int : 413 ms Sinus rhythm with Premature atrial complexes Rightward axis Low voltage QRS Cannot rule out Anterior infarct , age undetermined Abnormal ECG When compared with ECG of 28-APR-2021 13:02, Premature atrial complexes are now Present Premature ventricular complexes are no longer Present Confirmed by Romero Wagner ([id number]) on 11/28/2022 6:15:39 AM Referred By: Confirmed By:Romero Wagner
[2022-11-28] MEDS ORDERED: RAPID SEQUENCE INDUCTION BAG ONE (08:31)
--- NOTE | 2022-11-28 08:33 | XRay Report ---
XR chest 1V portable HISTORY: obtunded COMPARISON: Chest 11/26/2022. FINDINGS: No pneumothorax. There are low lung volumes. Moderate bilateral pleural effusions and bibas ilar densities have progressed. Mild pulmonary edema is again noted. The heart remains mildly enlarge d. There are calcifications within the aortic knob. IMPRESSION: 1. Interval progression of the moderate bilateral pleural effusions and bibasilar densities. 2. Cardiomegaly and mild pulmonary edema persists. ACT 112: Negative or not required by law. Electronically signed by: Kwabena Gotti M.D. 11/28/2022 8:32 AM
[2022-11-28] MEDS ORDERED: PROPOFOL IV EMULSION 10 MG/ML 100 ML VIAL IV ONE (08:35)
[2022-11-28] MEDS ORDERED: NOREPINEPHRINE/D5W 4 MG/250 ML IV ONE (08:43)
[2022-11-28] MEDS ORDERED: STAT IV Infusion **Titration per Protocol STA ×3 (08:43→11:06)
[2022-11-28] MEDS ORDERED: PROPOFOL BOLUS FROM BAG IV PRN (09:07)
[2022-11-28] MEDS: propofoL 1,000 MG/100 ML VIAL IV SCH ×5 (09:15→22:45)
--- NOTE | 2022-11-28 09:20 | Procedure Note ---
Procedure Note Date of Service November 28, 2022 Note CENTRAL LINE PROCEDURE NOTE: Procedure: Central Line Placement Provider: Yaniv Mercado MD Indication: Central Drug Administration, Poor Venous Access, Multiple Lab Draws Necessary, etc. Anesthesia: 5 mL lidocaine 1% Site: Left subclavian Procedure was emergent. Patient intubated and sedated. No family immediately available. A time-out was completed verifying correct patient, procedure, site, positioning, and implants(s) or special equipment if applicable. Left supraclavicular and infraclavicular area were cleansed and draped using chlorhexidine. Sterile field was established. Landmarks were identified. The superficial tissue was anesthetized using 5 mL of 1% lidocaine without epinephrine. After adequate anesthetization was achieved, the subclavian vein was cannulated using an introducer needle on a syringe. Good venous blood return was maintained prior to removal of syringe from introducer needle. Using Seldinger Technique, a guide wire was advanced through the introducer needle without resistance. The introducer needle was removed leaving the wire in place. A small incision was made in penetrating fashion at the guide wire insertion site utilizing an 11 blade scalpel. The dilator was advanced to the vessel without resistance. The dilator was exchanged for the triple lumen catheter which was advanced into the vessel without resistance. The guide wire was removed intact from the catheter without issue. Claves were placed on each catheter tip with confirmation of good blood flow from each lumen. Each port was easily flushed with sterile saline. The catheter was placed at the hub and sutured in place. BioPatch was applied to the catheter and a sterile Tegaderm dressing was applied over the catheter with careful attention to sterility. Patient tolerated procedure well. No immediate complications were met. Post procedure x-ray pending EBL: Less than 5 mL Coding CPT Codes Tubes, Drains, and Vasc Access - Tubes, Drains, and Vasc Access: [id number] Place catheter in vein superior or inferior vena cava ([id number]) [facility] [place] Procedure Codes (Charges) Tubes, Drains, and Vasc Access Procedure 1: Tubes, Drains, and Vasc Access: [id number] Place catheter in vein superior or inferior vena cava
--- NOTE | 2022-11-28 09:22 | Procedure Note ---
Procedure Note Date of Service November 28, 2022 Note Procedure: Arterial Line Placement Attending: Dr. Mercado APC: Miki Goodson PA-C Indication: Hemodynamic monitoring Anesthesia: None Emergent Consent implied in the setting of clinical deterioration and need for close hemodynamic monitoring, ABG monitoring, frequent lab draws, etc. A time-out was completed verifying correct patient, procedure, site, positioning, and implant(s) or special equipment if applicable. Allens test was performed to ensure adequate perfusion. Patients RIGHT wrist was prepped and draped in the usual sterile fashion. A 20g Arrow arterial line was introduced into the RIGHT Radial artery during second needle stick attempt. Catheter was threaded, and the needle was removed with appropriate blood return. Good waveform was observed. The patient tolerated the procedure well. Blood Loss: Minimal Complications: None Procedure Date: 11/28/2022 Indication: Hemodynamic Monitoring, Frequent ABGs/Lab draws. Attending: Dr. Mercado APC: Miki Goodson PA-C Coding CPT Codes Tubes, Drains, and Vasc Access - Tubes, Drains, and Vasc Access: [id number] Arterial Cath/Cannulation Sampling/Monitoring/Transfusion ([id number]) [facility] [place] Procedure Codes (Charges) Tubes, Drains, and Vasc Access Procedure 1: Tubes, Drains, and Vasc Access: [id number] Arterial Cath/Cannulation Sampling/ Monitoring/Transfusion
--- NOTE | 2022-11-28 09:22 | Procedure Note ---
Procedure Note Date of Service November 28, 2022 Note APC: Miki Goodson PA-C. Attending: Dr. Mercado A time-out was completed verifying correct patient, procedure, site, positioning. Patient was evaluated and required intubation for airway protection in the setting of AMS, CO2 retention, hypoxia. Sedative agent used: None Paralysis agent used: None Emergent consent was implied given patients rapidly declining clinical status and need for airway protection. The patient was prepared in the appropriate fashion. Sedation was not required as the patient was obtunded. The patient was easily ventilated using [id number] to achieve adequate oxygenation. A 7.5 Maltese endotracheal tube was placed using VL (GlideScope) to 26 cm at the lip. The stylette was removed and balloon was inflated with 10mL of air. Appropriate Colorimetric change was appreciated. Bilateral breath sounds were heard without air sounds in the abdomen. Dr. Mercado was present for the entire procedure. Post Intubation Chest X-ray confirms placement without pneumothorax. Patient tolerated the procedure well and there were no immediate complications. Coding CPT Codes Resuscitation - Resuscitation: 15044 Endotracheal Intubation, emergency ([id number]) [facility] [place] Procedure Codes (Charges) Resuscitation Resuscitation: [id number] Endotracheal Intubation, emergency
--- NOTE | 2022-11-28 09:25 | Procedure Note ---
Procedure Note Date of Service November 28, 2022 Note Procedure: Fiberoptic bronchoscopy Therapeutic aspiration of secretions, initial Provider: Yaniv Mercado MD Consent: Emergent. Patient is intubated and unable to provide verbal or written consent. No family immediately available. Patient been intubated in the ICU due to hypercarbic respiratory failure. There was concern about placing the tube as well as significant copious secretions which warranted bronchoscopy. The fiberoptic bronchoscope was advanced through the existing endotracheal tube via the Bodai adapter. Tube was approximately 1 to 2 cm above the hyun. There was significant dynamic airway collapse noted throughout the tracheobronchial tree. Thick clear secretions were present within the endotracheal tube as well as trachea and mainstem bronchi. These were aspirated free and collected for microbiologic analysis. Once the airways were cleared, and systemic inspection of the airways was conducted. The right-sided airways demonstrated normal anatomic configuration and the mucosa was unremarkable. There was significant dynamic airway collapse. Left-sided airways similarly were patent with normal anatomic configuration and demonstrating dynamic airway collapse. The scope was then removed from the endotracheal tube. The patient remained attached to the ventilator. He was hemodynamically stable throughout the procedure and tolerated it well. Impression: 1. Endotracheal tube in good position. 2. Copious thick secretions within the endotracheal tube and trachea. Coding CPT Codes Pulmonary/Thoracic - Pulmonary and Thoracic: 85237 Bronchoscopy, clear airways ([id number]) [place] Procedure Codes (Charges) Pulmonary/Thoracic Procedure 1: Pulmonary and Thoracic: 39979 Bronchoscopy, clear airways
[2022-11-28 09:39] LABS: iSTAT Art Bld Gas pCO2 Correct 62 mmHg (35-46); iSTAT Art Bld Gas pH Corrected 7.273 (7.35-7.45); iSTAT Arterial Blood Gas HCO3 30 meg/L (19-24); iSTAT Arterial Blood Gas pCO2 71 mmHg (35-46); iSTAT Arterial Blood Gas pH 7.23 (7.35-7.45); iSTAT Arterial Blood Gas pO2 65 mmHg (80-95); iSTAT Arterial Blood Gas pO2 C 53; iSTAT Carbon Dioxide 32 mmol/L (24-31); iSTAT FiO2 40 %; iSTAT Hematocrit 39 % (42-52); iSTAT Hemoglobin 13.3 g/dl (14.0-18.0); iSTAT Potassium 5.2 mmol/L (3.3-5.0); iSTAT Site Art Line; iSTAT Sodium 137 mmol/L (135-144)
--- NOTE | 2022-11-28 09:42 | XRay Report ---
XR chest 1V portable HISTORY: s/p intubation COMPARISON: Chest 11/28/2022. FINDINGS: The endotracheal tube terminates approximate 4 cm from the hyun. Left subclavian central venous catheter terminates at the expected location of the SVC. No pneumothorax. Small moderate bilat eral pleural effusions and bibasilar densities persist. Mild congestive change and cardiomegaly are a gain noted. The heart remains mildly enlarged. IMPRESSION: 1. Satisfactory support line placement. 2. No pneumothorax. 3. Bibasilar densities and pleural effusions persist. ACT 112: Negative or not required by law. Electronically signed by: Kwabena Gotti M.D. 11/28/2022 9:41 AM
--- NOTE | 2022-11-28 09:42 | Critical Care Consultation ---
Date of Consultation November 28, 2022 Assessment & Plan (1) Acute respiratory failure with hypoxia and hypercapnia: Reason Critically Ill: 82-year-old male with significant past medical history surrounding his progressive dementia, prior CVA, cognitive impairment who initially was admitted for hypoxia with concerns for bilateral lower lobe pneumonia and UTI and was unfortunately found to be obtunded and with a CO2 in excess of 130. Patient required emergent endotracheal intubation and ongoing evaluation and management in the ICU. NEURO - * [facility] ICU: Unable to assess * AMS: * Likely representing metabolic encephalopathy in the critically ill patient with elevated CO2. Unfortunately, question inciting events that resulted in patient's abrupt CO2 accumulation with subsequent change mental status. * Patient is with history of CVA. Will obtain CT head noncontrast to evaluate for possible intracranial hemorrhage or findings of acute ischemia. * Patient's mental status did seem to improve somewhat after time on the ventilator which does lend itself to CO2 narcosis as driving factor. * We will see how the patient improves once his pulmonary status is maximized and continue evaluation if necessary. * Patient also received a dose of Ambien last evening. This certainly could have contributed to respiratory depression and CO2 accumulation. * History of dementia, idiopathic polyneuropathy, chronic cerebral edema, prior CVA: * Follows locally with neurology. * Recently started on Namenda and aspirin for infarcts noted on MRI obtained in December 2021. * In conversation with , she reports that [facility] as she reports that it is too difficult for her to care for him on a daily basis as he has become profoundly weak to the point that he is essentially chair ridden at all times. * Concerned for progressive underlying myopathy or other least disease. Will order myasthenia gravis panel and CPK. * Appreciate neurology consultation. * Unfortunately, if this weakness is largely contributing to his respiratory failure, extubation will be extremely difficult. CARDIAC/VASCULAR - * Hypotension: * In the setting of infectious state, acidemia, CO2 narcosis. * Will continue to hydrate with crystalloid. * Evaluated echocardiogram. * Levophed drip as needed to maintain maps. * Monitor on telemetry. RESPIRATORY - * Acute respiratory failure with hypoxia and hypercapnia: * Again, as described above in neuro section. * Question if patient has generalized myopathy or worsening of his baseline neurologic conditions that is hindering his ability to ventilate and resulting in CO2 retention which is subsequently driving his hypoxemia. * Unfortunately, the patient required endotracheal the patient this morning. Will wean down ventilator settings as tolerated. * Ultimately, would hope to extubate as soon as possible as the patient has high risk for developing ventilator dependence. * Will have extensive conversation with patient's at bedside when available. GI/NUTRITION - * Prophylaxis: Famotidine twice daily * Difficult OGT placement RENAL/LYTES - * RAISSA on CKD 3B * Continue with gentle fluid hydration. * Hyperkalemia: * In the setting of RAISSA and acidemia. * Will repeat later today * IVF: NSS at 80 mL/hr - * UTI: * This appears to be recurrent state. * Currently covered with Rocephin. * Joyce in place - Strict I&Os. ENDO - * No history of diabetes or hypothyroidism. * BSGs per unit protocol. ISS --> gtt per unit policy. HEME - * Stable H&H. * Leukocytosis: * In the setting of underlying infectious state as well as stress response given the morning's events. ID - * Currently treated for UTI and pneumonia: * Continue Rocephin and doxycycline for now. * Chest x-ray this morning postintubation looks improved. * Urine cultures are pending. * Procalcitonin negative on admission. LINES/IV ACCESS - * LEFT upper extremity endurance catheter. * LEFT subclavian CVL * RIGHT radial arterial line * ET tube * Joyce catheter DVT PROPHYLAXIS - * Heparin subcu * SCDs I have personally spent 55 minutes of critical care time in the direct management of this patient. This is a life/limb threatening event. This includes time spent evaluating patient, direct bedside care, chart review, placing orders, interpretation of diagnostic studies, discussion with consultants, patient, and family members, as well as other required patient management activities. This time is exclusive of all separately billable procedures, and teaching time and separate from and in addition to any other critical care service time. Thank you for allowing us to participate in the care of this patient. Please refer to my attending physician's documentation for any further recommendations. (2) Hypotension: (3) Chronic cerebral ischemia: (4) Stroke: (5) Urinary tract infection: (6) Chronic renal failure, stage 3b: (7) Hypertension: Supervising Physician Co-Signing Physician Notes Patient seen and examined. EMR reviewed. Discussed with admitting physician as well as with the critical care GRIFFIN. Agree with assessment plan as noted. The patient was assessed immediately on arrival to the ICU. It was obvious that noninvasive positive pressure ventilation was failing as the patient was hypoxemic despite max settings and only achieving minimal tidal volumes. He was intubated. He developed hypotension and central line and pressors were initiated. Arterial line was also placed. Bronchoscopy was performed postintubation for collection of lower respiratory samples. Review the patient's chart appears to reveal a progressive decline in function. The patient is becoming progressively more weak. Unclear if this potentially contributed to his hypercarbic respiratory failure. Medications may also be contributing including use of nonbenzodiazepine agonist although the acute description this morning is somewhat confusing. Given his slow and steady decline, disorders such as myasthenia or other underlying myopathies may be a consideration. Labs are sent. Pending neurology consultation. Check CPK. Unfortunately, I think this may significantly impair the ability to wean the patient off the mechanical ventilator. Review of his serum bicarb does reveal its been increasing over time which is suggestive of progressive hypercarbic respiratory failure. There does not appear to be evidence of structural interstitial lung disease. This point time we will see how he does. We will n eed to meet with family to decide what interventions might be appropriate when or if the patient is able to wean from mechanical ventilator. Based on review of prior notes, it does not appear that he would want to pursue a tracheostomy. Pattern does not appear consistent with Guillain-Patel syndrome. History of Present Illness Reason for Consultation: AMS, CO2 Retention, Hypoxia Requesting Physician: Dr. Davidson Attending Physician: Jon Davidson MD History of Present Illness Patient is an 82-year-old male with a significant past medical history of BPH, GERD, chronic pain syndrome, recurrent UTIs, dementia with cognitive impairments, hypertension, CKD 3, generalized weakness, prior CVA, ataxia, chronic cerebral ischemia, and idiopathic polyneuropathy. Patient was admitted on 11/26 with hypoxia and generalized weakness. Was placed on broad-spectrum antibiotics including Rocephin and doxycycline for suspicion of community- acquired pneumonia as well as patient's findings consistent with urinary tract infection. Patient was requiring 4 L nasal cannula, however that did improve as did his breathing with treatment including Lasix. Unfortunately, at some point this morning, the patient was found to be obtunded. Blood gases demonstrated CO2 in excess of 130. Patient was placed on BiPAP and brought to the ICU. Upon evaluation in room 104, the patient is completely obtunded on BiPAP. He is on initiating breaths. Tidal volumes are in the 150s to 200s despite aggressive positive pressure settings. Patient unable to contribute to HPI. Patient re quires emergent endotracheal intubation. Please see separate note. Allergies Allergy/AdvReac Type Severity Reaction Status Date / Time Penicillins Allergy Intermediate HIVES Verified 10/18/22 15:34 morphine AdvReac Mild N&V Verified 10/18/22 15:34 codeine AdvReac Unknown Unknown Verified 10/18/22 15:34 Home Medications Medication Instructions Recorded Confirmed Type cyanocobalamin (vitamin B-12) 1,000 mcg PO QAM 08/03/18 11/26/22 History 1,000 mcg tablet (Vitamin B-12) tamsulosin 0.4 mg capsule 0.4 mg PO HS #30 caps 12/29/20 11/26/22 Rx finasteride 5 mg tablet (Proscar) 5 mg PO QAM 01/12/21 11/26/22 History allopurinol 300 mg tablet 300 mg PO QAM 04/26/21 11/26/22 History carvedilol 3.125 mg tablet 3.125 mg PO BID #60 tabs 12/04/21 11/26/22 Rx famotidine 20 mg tablet 20 mg PO HS #30 tabs 12/04/21 11/26/22 Rx levothyroxine 75 mcg tablet 75 mcg PO DAILYBB hypothroidism 12/04/21 11/26/22 History mirtazapine 15 mg tablet 15 mg PO HS sleep/mood 12/04/21 11/26/22 History acetaminophen 325 mg tablet 650 mg PO Q6H PRN PAIN/FEVER >100 F 11/26/22 11/26/22 History (Tylenol) aspirin 81 mg tablet,delayed 81 mg PO QAM 11/26/22 11/26/22 History release cholecalciferol (vitamin D3) 50 50 mcg PO QAM 11/26/22 11/26/22 History mcg (2,000 unit) capsule (Vitamin D3) memantine 5 mg tablet 5 mg PO BIDM 11/26/22 11/26/22 History menthol 0.44 %-zinc oxide 20.6 % 1 applic topical TID 11/26/22 11/26/22 History topical ointment (Calmoseptine) nitrofurantoin 100 mg PO Q12H 11/26/22 11/26/22 History monohydrate/macrocrystals 100 mg capsule (Macrobid) trimethoprim 100 mg tablet 100 mg PO QAM 11/26/22 11/26/22 History zolpidem 10 mg tablet (Ambien) 10 mg PO HS PRN Insomnia 11/26/22 11/26/22 History Patient History Medical History Abnormal urinalysis Acute bilateral knee pain Altered mental status Anxiety BPH (benign prostatic hyperplasia) C. difficile diarrhea Chronic pain syndrome Chronic prescription benzodiazepine use DVT prophylaxis DVT prophylaxis Dysphagia Elevated transaminase level Encephalopathy Fall Generally unsteady GERD (gastroesophageal reflux disease) Gout Hypokalemia Hypokalemia Hypomagnesemia Idiopathic polyneuropathy Insomnia Kidney stones Microscopic hematuria Prostate cancer screening SIRS (systemic inflammatory response syndrome) Spinal stenosis Urinary incontinence, urge Surgical History History of back surgery History of colonoscopy History of lithotripsy S/P TURP Family History Grandmother Family history of diabetes mellitus Social History Smoking Status: Never smoker Tobacco Type: Cigarettes Age Quit Using Tobacco: 25; Second Hand Exposure: No; Hx Alcohol Use: No Hx Substance Use: No Preferred Language: Singaporean Communication Ability: Effective Timber Bucker Required: No Beliefs That Will Affect Care: None marital status: Current Living Situation: Personal Care Facility Current Living Situation Comment: [facility] Feels Safe at Home: Yes Safety Concerns: Feels Safe At This Time Assistive Devices: Glasses and Wheelchair Review of Systems Review of Systems: Unable to obtain secondary to change mental status. Physical Exam Physical Exam: VITAL SIGNS - Vital signs and nursing notes were reviewed. GENERAL - 82-year-old male appearing his stated age who is obtunded and unrespon sive to painful stimuli. HEAD - NC/AT. EYES - Pupils mildly dilated but equal bilaterally. EARS - No deformities of external structures noted on gross examination bilaterally. NOSE - Midline and without cyanosis. MOUTH/OROPHARYNX - BiPAP mask in place. Without perioral cyanosis. Buccal mucosa pink and dry. NECK - No nuchal rigidity. LUNGS - Poor inspiratory effort. Diffuse rhonchi. CARDIAC - RRR with S1/S2. No murmur, rubs, or gallops appreciated. ABDOMEN - Abdominal contour obese without pulsations or visible masses. BS hypoactive. EXTREMITIES - No clubbing or peripheral cyanosis. Bilateral pretibial edema present. +2/5 radial pulses palpated throughout. NEUROLOGIC - Unable to fully assess 2/2 AMS. No focal deficits appreciated. Obtunded. Results & Data Results & Data Vital Signs (Past 12 Hours) Vital Signs Temp Pulse Pulse Resp BP Pulse Ox O2 Del Method 11/28/22 09:12 Mechanical Vent 11/28/22 09:03 88 28 H 91 11/28/22 08:15 92 H 24 93 11/28/22 07:42 34.6 C L 89 12 107/57 L 92 Oxymask 11/28/22 07:31 96 H 11/28/22 04:24 36.4 C L 108 H 20 149/76 H 93 Oxymask 11/27/22 22:04 101 H 11/28/22 00:00 16 94 Oxymask 11/27/22 23:52 77 L Nasal Cannula 11/27/22 23:47 36.6 C 96 H 20 121/69 93 Nasal Cannula O2 Flow Rate FiO2 11/28/22 09:12 11/28/22 09:03 40 11/28/22 08:15 60 11/28/22 07:42 6 11/28/22 07:31 11/28/22 04:24 6 11/27/22 22:04 11/28/22 00:00 6 11/27/22 23:52 4 11/27/22 23:47 Coding Level of Care Code 29948 CRITICAL CARE 1ST 30-74M Diagnoses Acute respiratory failure with hypoxia and hypercapnia J96.01; J96.02 Hypotension I95.9 Chronic cerebral ischemia I67.82 Stroke I63.9 Urinary tract infection N39.0 Hematuria presence: without hematuria Urinary tract infection type: site unspecified Chronic renal failure, stage 3b N18.32 Hypertension I10 Hypertension type: essential hypertension (5) Urinary tract infection Hematuria presence: without hematuria Urinary tract infection type: site unspecified Qualified Code(s): N39.0 - Urinary tract infection, site not specified (7) Hypertension Hypertension type: essential hypertension Qualified Code(s): I10 - Essential (primary) hypertension
[2022-11-28] MEDS: MEMANTINE HCL 5 MG TAB PO SCH ×2 (09:57→16:54)
[2022-11-28] MEDS: LEVOTHYROXINE SODIUM 75 MCG TABLET PO SCH (09:57)
[2022-11-28] MEDS: NOREPINEPHRINE/D5W 4 MG/250 ML PLCT IV SCH ×2 (09:58→17:44)
[2022-11-28 09:59] LABS: Basophils # (auto) 0.03 K/uL (0-0.2); Basophils % (auto) 0.2 %; Eosinophils # (auto) 0.11 K/uL (0-0.50); Eosinophils % (auto) 0.8 %; Hematocrit (blood only) 37.7 % (42.0-52.0); Hemoglobin 12.1 g/dl (14.0-18.0); Immature Granulocytes # (auto) 0.24 K/uL (0.01-0.20); Immature Granulocytes % (auto) 1.7 %; Lymphocytes # (auto) 1.11 K/uL (1.2-3.4); Lymphocytes % (auto) 7.7 %; Mean Corpuscular Hemoglobin 32.1 pg (25.0-34.0); Mean Corpuscular Hgb Conc 32.1 g/dL (32.0-36.0); Monocytes # (auto) 1.15 K/uL (0.11-0.59); Neutrophils % (auto) 81.6 %; Platelet Count 213 K/uL (130-400); RDW Coefficient of Variation 13.8 % (11.5-14.5); RDW Standard Deviation 50.5 fL (36.4-46.3); Red Blood Count 3.77 M/uL (4.70-6.10); White Blood Count 14.34 K/ul (4.8-10.8)
[2022-11-28] MEDS: carvediloL 3.125 MG TAB PO SCH ×2 (10:02→20:17)
[2022-11-28] MEDS: ASPIRIN 81 MG ECTAB PO SCH (10:02)
[2022-11-28] MEDS: CYANOCOBALAMIN (B-12) 500 MCG TABLET PO SCH (10:02)
[2022-11-28] MEDS: DOXYCYCLINE HYCLATE 100 MG CAP PO SCH ×2 (10:02→20:18)
[2022-11-28] MEDS: CHOLECALCIFEROL 1,000 UNITS 25 MCG TAB PO SCH (10:02)
[2022-11-28] MEDS: FINASTERIDE 5 MG TAB PO SCH (10:02)
[2022-11-28] MEDS: allopurinoL 300 MG TAB PO SCH (10:02)
[2022-11-28] MEDS: FAMOTIDINE 20 MG in SYRINGE 3 ML IV SCH ×2 (10:12→20:17)
[2022-11-28] MEDS: HEPARIN SOD 5,000 UNIT/0.5 ML VIAL SQ SCH ×2 (10:12→21:15)
[2022-11-28 10:16] LABS: BUN Creatinine Ratio 16.9 (10-20); Calcium 8.4 mg/dl (8.5-10.1); Creatinine Clr Calc Pharmacy 31.1 ml/min; Est GFR (African American) 29.9 ml/min; Est GFR (Non-African American) 25.8 ml/min; Magnesium 1.9 mg/dl (1.7-2.4); Phosphorus 5.9 mg/dl (2.5-4.9)
--- NOTE | 2022-11-28 10:25 | CT Scan Report ---
CT head/brain wo con CLINICAL HISTORY: 82 years-old Male with AMS, intubated. Acutely altered mental status TECHNIQUE: Multiple axial CT images of the head were obtained without contrast. A dose lowering tech nique was utilized adhering to the principles of ALARA. CT DOSE: 2894.12 mGycm COMPARISON: 04/28/2021 FINDINGS: No acute intracranial hemorrhage, midline shift, intracranial mass, hydrocephalus, territorial ischem ia or abnormal extra-axial collection. Age-related additional changes. White matter hypodensities sug gestive of chronic microvascular ischemic disease. Cerebral vascular calcifications. Motion degraded exam. The calvarium is intact. Scarring versus contusion within the superior right scalp. The paranasal sin uses, mastoid air cells, and middle ear cavities are clear. IMPRESSION: Motion degraded exam. No acute intracranial abnormality identified. ACT 112: Negative or not required by law. The above report was generated using voice recognition software. It may contain grammatical, syntax o r spelling errors. Electronically signed by: Royal Riggs M.D. 11/28/2022 10:24 AM
--- NOTE | 2022-11-28 10:30 | CT Scan Report ---
CT chest diagnostic wo con CT DOSE: HISTORY: Shortness of breath. Status post intubation. TECHNIQUE: Multiaxial CT images of the chest were performed without contrast. A dose lowering techni que was utilized adhering to the principles of ALARA. COMPARISON: Chest CTA 11/26/2022. FINDINGS: The tip of the endotracheal tube is approximately 8 mm from the hyun and is coursing towa rds the right mainstem bronchus. This should be pulled back by approximately 2 cm. Otherwise, the meliza tral airways are patent. No pneumothorax. There is a punctate calcified granuloma within the left upp er lobe on image 96. Mild interlobular septal thickening at the lung apices is consistent with mild c ongestive change. Subpleural reticulation within the periphery of the lungs is again noted and sugges t chronic interstitial change. Small bilateral pleural effusions are again noted. Consolidative airsp edmund opacities and volume loss within the bilateral lower lobes, right greater than left, has progress ed. This likely represents a combination of atelectasis and pneumonia. A small cluster of gas pockets within the consolidation at the base of the right lower lobe on image 217 could represent aerated teo ng or a developing necrotizing component of the suspected pneumonia. A few punctate densities within the consolidated base of the right lower lobe, unchanged. No acute fractures identified. A left subcl liborio central venous catheter terminates in the SVC. Severe left coronary artery calcifications again noted. Normal esophagus. Limited views of the upper abdomen demonstrate a normal liver, spleen, and adrenal glands. There is mild elevation of the right hemidiaphragm. The heart is normal in size. No p ericardial effusion. Mild calcified plaque within the normal caliber thoracic aorta. No mediastinal o r hilar lymphadenopathy. Degenerative changes again within the shoulders and thoracic spine. IMPRESSION: 1. The tip of the endotracheal tube is approximately 8 mm from the hyun and is coursing towards th e right mainstem bronchus. This should be pulled back by approximately 2 cm. 2. Small bilateral pleural effusions and mild elevation of the right hemidiaphragm, unchanged. 3. Consolidative airspace opacities and volume loss within the bilateral lower lobes, right greater t rodriguez left, has progressed. This likely represents a combination of atelectasis and pneumonia. A small cluster of gas pockets within the consolidation at the base of the right lower lobe could represent a erated lung or a developing necrotizing component of the suspected pneumonia. 4. Additional findings as described above. ACT 112: Negative or not required by law. Electronically signed by: Kwabena Gotti M.D. 11/28/2022 10:28 AM
--- NOTE | 2022-11-28 10:57 | Neurology Consultation ---
Date of Consultation November 28, 2022 Assessment & Plan (1) Acute respiratory failure with hypoxia and hypercapnia: Plan NEUROLOGY CONSULTATION Assessment & Plan: Impression: pt with advance dementia with hypoxia/respiratory failure and UTI. Overall clinical picture is not very suggestive of myopathy or NMJ disorder as his inability to walk is likely due to his multiple stroke/vascular disease and advance dementia and deconditioning. His prior clinic visit evaluations does not suggest intrinsic muscle disorder either. He is however at risk for developing critical illness neuropathy/myopathy given his age and vascular disease and infection. Recommendations: -agree with screening labs for muscle disorders and NMJ as sent by the ICU team. EMG at this point will not be useful, perhaps can be consider as outpt once pt is improved and discharged and considered as outpt. continue tx for infection, pulmonary failure. continue to follow clinically for change in his overall status and muscle strength. Dr. Mazin Watt MD [facility] Neurology Chief Complaint: pulmonary failure History of Present Illness: pt with dementia and admitted with hypoxia and UTI. pt currently intubated and sedated in ICU. asked to see pt for possible myopathy as pt has been wheelchair/bedbound at home for several months. pt is followed by [facility] neurology and upon review of chart, pt has been wheelchair bound for more than 6-8 months but with intact muscle strengths. chart reviewed. Admission/Initial HPI documentation: 82yo male with PMHx significant for CVA (follows with Neurology, on ASA), HTN, GERD, frequent UTIs/BPH (s/p TURP follows with Urology on chronic trimethoprim suppression), nephrolithiasis, cognitive impairment, CKDIII, GERD and chronic pain and presented with shortness of breath and hypoxia, found to be 86% on RA and placed on supplemental O2-- requiring 4L presently to maintain sat 93%. Temp 37.7C. Ordered dose Vanco/Cefepime by ER, IVF deferred in setting of volume overload/effusions on imaging. EKG w/ low voltage, bedside US performed by ER provider w/o evidence for pericardial effusion. CTA chest NO PE noted, however subsegmental vessels not well assessed due to motion artifcat. Small pleural effusions w/ dependent consolidation. Atelectasis vs infectious/inflammatory pneumonitis. Mild cardiomegaly. Patient evaluated in B5 with at bedside, resident of [facility]. Patient hypoxic this morning, reports possible panic attack. No choking/dysphagia/vomiting reported. He does note a cough, sputum production clear in color. Endorses burning with urination/frequency, on chronic antibiotics per patient/. He denies any significant shortness of breath at present at baseline on the 4L but states he does not wear oxygen at home. No reported fever/chills (but temp 37.7C), no chest pain, no nausea/vomiting. Poor appetite at present reported. ABdomen distended but nontender. Does have some LE pre-tibial edema as well, no calf tenderness. Discussed admission inpatient and suspect CHF/volume overload along with UTI. Did not get worsening SOB reported with laying bed flat however. 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 Questions/concerns addressed. Would like something to sleep tonight. ER course: Cefepime/Vanco. Labs w/ WBC 21.8k, neutrophils 17.2k. Na 134, K4.6. BUN/Cr 23/1.37. Mag 1.8. LFTs wnl. Lactic 1.1. Glu 121. UA w/ 10-30WBC, >30WBC, >30epi, 2+ bacteria, culture pending --- prior Urine cx alpha strep not enterococcus from 11/18/22. Past Medical History: See chart Meds: See chart I personally reviewed all of the medications Social & Family History: See chart Review of Systems: Per initial HPI on admission. Physical Exam: GEN: NAD HEENT: Normocephalic Neuro: Mental status:intubated and sedated. Cranial Nerves:PERRL b/l and eyes midposition, VOR intact. intact corneal b/l. Motor:moves his b/l lower ext with full flexion of his hip/knee with stimulations. muscle appears to be normal size. normal tone. limted exam due to sedation. pt upper limbs not much movement to stimulations. Coordination:unable to test Reflexes: toes upgoing b/l Sensation: Intact grossly b/l Chart reviewed I have spent more than 50% educating patient about potential diagnosis and neurological evaluation and coordinating care with patient's treatment team. Total time spent (including chart review and coordination of care): 80 min (this includes chart review). History of Present Illness Attending Physician: Jon Davidson MD Allergies Allergy/AdvReac Type Severity Reaction Status Date / Time Penicillins Allergy Intermediate HIVES Verified 10/18/22 15:34 morphine AdvReac Mild N&V Verified 10/18/22 15:34 codeine AdvReac Unknown Unknown Verified 10/18/22 15:34 Home Medications Medication Instructions Recorded Confirmed Type cyanocobalamin (vitamin B-12) 1,000 mcg PO QAM 08/03/18 11/26/22 History 1,000 mcg tablet (Vitamin B-12) tamsulosin 0.4 mg capsule 0.4 mg PO HS #30 caps 12/29/20 11/26/22 Rx finasteride 5 mg tablet (Proscar) 5 mg PO QAM 01/12/21 11/26/22 History allopurinol 300 mg tablet 300 mg PO QAM 04/26/21 11/26/22 History carvedilol 3.125 mg tablet 3.125 mg PO BID #60 tabs 12/04/21 11/26/22 Rx famotidine 20 mg tablet 20 mg PO HS #30 tabs 12/04/21 11/26/22 Rx levothyroxine 75 mcg tablet 75 mcg PO DAILYBB hypothroidism 12/04/21 11/26/22 History mirtazapine 15 mg tablet 15 mg PO HS sleep/mood 12/04/21 11/26/22 History acetaminophen 325 mg tablet 650 mg PO Q6H PRN PAIN/FEVER >100 F 11/26/22 11/26/22 History (Tylenol) aspirin 81 mg tablet,delayed 81 mg PO QAM 11/26/22 11/26/22 History release cholecalciferol (vitamin D3) 50 50 mcg PO QAM 11/26/22 11/26/22 History mcg (2,000 unit) capsule (Vitamin D3) memantine 5 mg tablet 5 mg PO BIDM 11/26/22 11/26/22 History menthol 0.44 %-zinc oxide 20.6 % 1 applic topical TID 11/26/22 11/26/22 History topical ointment (Calmoseptine) nitrofurantoin 100 mg PO Q12H 11/26/22 11/26/22 History monohydrate/macrocrystals 100 mg capsule (Macrobid) trimethoprim 100 mg tablet 100 mg PO QAM 11/26/22 11/26/22 History zolpidem 10 mg tablet (Ambien) 10 mg PO HS PRN Insomnia 11/26/22 11/26/22 History Patient History Medical History Abnormal urinalysis Acute bilateral knee pain Altered mental status Anxiety BPH (benign prostatic hyperplasia) C. difficile diarrhea Chronic pain syndrome Chronic prescription benzodiazepine use DVT prophylaxis DVT prophylaxis Dysphagia Elevated transaminase level Encephalopathy Fall Generally unsteady GERD (gastroesophageal reflux disease) Gout Hypokalemia Hypokalemia Hypomagnesemia Idiopathic polyneuropathy Insomnia Kidney stones Microscopic hematuria Prostate cancer screening SIRS (systemic inflammatory response syndrome) Spinal stenosis Urinary incontinence, urge Surgical History History of back surgery History of colonoscopy History of lithotripsy S/P TURP Family History Grandmother Family history of diabetes mellitus Social History Smoking Status: Never smoker Tobacco Type: Cigarettes Age Quit Using Tobacco: 25; Second Hand Exposure: No; Hx Alcohol Use: No Hx Substance Use: No Preferred Language: Uzbek Communication Ability: Effective 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 Beliefs That Will Affect Care: None marital status: Current Living Situation: Personal Care Facility Current Living Situation Comment: [place] [facility] Feels Safe at Home: Yes Safety Concerns: Feels Safe At This Time Assistive Devices: Glasses and Wheelchair Results & Data Vital Signs (Past 12 Hours) Vital Signs Temp Pulse Pulse Resp BP Pulse Ox O2 Del Method 11/28/22 09:12 Mechanical Vent 11/28/22 09:03 88 28 H 91 11/28/22 08:15 92 H 24 93 11/28/22 07:42 34.6 C L 89 12 107/57 L 92 Oxymask 11/28/22 07:31 96 H 11/28/22 04:24 36.4 C L 108 H 20 149/76 H 93 Oxymask 11/28/22 00:00 16 94 Oxymask 11/27/22 23:52 77 L Nasal Cannula 11/27/22 23:47 36.6 C 96 H 20 121/69 93 Nasal Cannula O2 Flow Rate FiO2 11/28/22 09:12 11/28/22 09:03 40 11/28/22 08:15 60 11/28/22 07:42 6 11/28/22 07:31 11/28/22 04:24 6 11/28/22 00:00 6 11/27/22 23:52 4 11/27/22 23:47
[2022-11-28] MEDS ORDERED: fentaNYL citrate 2,500 MCG/250 ML BAG IV ONE (11:03)
[2022-11-28] MEDS ORDERED: fentaNYL BOLUS from BAG IV PRN (11:06)
[2022-11-28] MEDS ORDERED: ETOMIDATE 2 MG/ML 20 ML VIAL IV ONE (11:14)
[2022-11-28] MEDS: fentaNYL citrate 2,500 MCG/250 ML BAG IV SCH (11:30)
[2022-11-28] MEDS ORDERED: SODIUM CHLORIDE 0.9% 1000ML 1,000 ML IV SCH (11:45)
[2022-11-28] MEDS: ICU Protocol for HYPERglycemia SCH ×3 (12:00→22:44)
[2022-11-28] MEDS ORDERED: LACTATED RINGER'S 500 ML IV ONE (12:48)
[2022-11-28] MEDS ORDERED: PLASMA-LYTE A 500 ML IV ONE (13:18)
--- NOTE | 2022-11-28 15:01 | Hospitalist Progress Note ---
Date of Service November 28, 2022 Assessment & Plan (1) Acute respiratory failure with hypoxia and hypercapnia: Plan: Presented to the hospital with hypoxia with SpO2 84% on RA on admit [employer] NEGATIVE CXR w/ mild pulmonary edema, CTA chest negative for PE WBC was 21k on admission, procalcitonin was normal, CRP mildly elevated Etiology of his hypoxia is uncertain, BNP was 141 Patient now intubated and ventilated after a code purple Initial bedside ABG showed PH of 7, PCo2 130 He was started on BIPAP and eventually transferred to ICU where he was intubated. 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 Checking BNP as above as above (3) Acute UTI: Plan: moe, patient reported burning w/ urination UA w/ WBC>30, 2+ bacteria Monitor urine cx, continue abx (4) Urinary retention due to benign prostatic hyperplasia: Plan: check UA/monitor UOP abx as above should cover for urine continue proscar/flomax abx to cover as above (5) Chronic renal failure, stage 3b: Plan: Cr 1.37 on admit, better than prior baselines renal dose meds/avoid nephrotoxic agents Monitor BMP w/ lasix use 40mg IV x 1 as above (6) Stroke: Plan: hx such, follows with neurology. on asa daily/memantine BID Neurology has been consulted (7) Hypertension: Plan: continue coreg 3.125mg BID when he is awake (8) Hypoxia: (9) GERD (gastroesophageal reflux disease): Plan: continue usual meds, pepcid HS Plan continue hospitalization full code heparin for DVT Admission and Anticipated Discharge Date Admission Date: November 26, 2022 Subjective I was called by the nurse this morning that the patient was unresponsive, he was eventually started on BIPAP and transferred to ICU Review of Systems Review of Systems: Unable to obtain Physical Exam Physical Exam: The patient is unresponsive HEENT--PERRL, EOMI, mucous membranes and oropharynx mildly dry Neck--supple. No JVD. No bruits. Thyroid normal, trachea midline, no adenopathy. Heart--normal S1 and S2. No murmurs, rubs or gallops. Lungs--clear bilaterally, no respiratory distress, no accessory muscle use. Abdomen--normal bowel sounds and soft. Mild epigastric and left sided abdominal pain Extremities--no cyanosis or clubbing. No edema. Dermatologic--normal skin turgor, normal color, no abnormal lymph nodes, no rash. Neurologic--unresponsive Rheumatologic--normal range of motion. Psychiatric--unable to assess Results & Data Results & Data Vital Signs (Past 12 Hours) Vital Signs Temp Pulse Pulse Resp BP BP Pulse Ox 11/28/22 12:11 11/28/22 09:19 11/28/22 11:30 96.6 F L 65 28 H 97 11/28/22 11:30 109/78 11/28/22 11:15 96.3 F L 67 28 H 98 11/28/22 11:01 104/74 11/28/22 11:01 95.9 F L 65 28 H 98 11/28/22 11:00 95.9 F L 69 28 H 98 11/28/22 10:45 95.5 F L 67 28 H 97 11/28/22 10:31 95.2 F L 63 28 H 97 11/28/22 10:31 98/70 L 11/28/22 10:30 95.2 F L 66 28 H 97 11/28/22 10:15 94.6 F L 66 28 H 97 11/28/22 10:15 89/64 L 11/28/22 10:12 28 H 95 11/28/22 09:45 70 28 H 93 11/28/22 09:36 121/73 11/28/22 09:36 84 28 H 87 L 11/28/22 09:30 78 28 H 93 11/28/22 09:15 87 25 H 95 11/28/22 09:06 89 22 90 11/28/22 09:06 144/103 H 11/28/22 09:03 155/95 H 11/28/22 09:03 96 H 28 H 87 L 11/28/22 09:00 90 28 H 89 L 11/28/22 09:00 136/107 H 11/28/22 08:55 96 H 19 87 L 11/28/22 08:55 110/93 11/28/22 08:51 88 25 H 92 11/28/22 08:51 96/74 L 11/28/22 08:49 89 20 92 11/28/22 08:49 72/52 L 11/28/22 08:45 86 19 95 11/28/22 08:45 63/48 L 11/28/22 08:43 65/47 L 11/28/22 08:43 85 21 97 11/28/22 08:42 91 H 16 97 11/28/22 08:42 66/45 L 11/28/22 08:40 81/51 L 11/28/22 08:40 93 H 20 96 11/28/22 08:39 97 H 17 97 11/28/22 08:39 93/63 L 11/28/22 08:39 93/63 L 11/28/22 08:32 99/62 L 11/28/22 08:32 85 27 H 88 L 11/28/22 08:31 87 17 11/28/22 08:15 89 27 H 93 11/28/22 08:00 91 H 22 86 L 11/28/22 11:37 65 28 H 96 11/28/22 09:12 11/28/22 09:03 88 28 H 91 11/28/22 08:15 92 H 24 93 11/28/22 07:42 94.3 F L 89 12 107/57 L 92 11/28/22 07:31 96 H 11/28/22 04:24 97.5 F L 108 H 20 149/76 H 93 Pulse Ox O2 Del Method O2 Del Method O2 Flow Rate FiO2 11/28/22 12:11 Mechanical Vent 11/28/22 09:19 93 Mechanical Vent 11/28/22 11:30 11/28/22 11:30 11/28/22 11:15 11/28/22 11:01 11/28/22 11:01 11/28/22 11:00 11/28/22 10:45 11/28/22 10:31 11/28/22 10:31 11/28/22 10:30 11/28/22 10:15 11/28/22 10:15 11/28/22 10:12 11/28/22 09:45 11/28/22 09:36 11/28/22 09:36 11/28/22 09:30 11/28/22 09:15 11/28/22 09:06 11/28/22 09:06 11/28/22 09:03 11/28/22 09:03 11/28/22 09:00 11/28/22 09:00 11/28/22 08:55 11/28/22 08:55 11/28/22 08:51 11/28/22 08:51 11/28/22 08:49 11/28/22 08:49 11/28/22 08:45 11/28/22 08:45 11/28/22 08:43 11/28/22 08:43 11/28/22 08:42 11/28/22 08:42 11/28/22 08:40 11/28/22 08:40 11/28/22 08:39 11/28/22 08:39 11/28/22 08:39 11/28/22 08:32 11/28/22 08:32 11/28/22 08:31 11/28/22 08:15 11/28/22 08:00 11/28/22 11:37 40 11/28/22 09:12 Mechanical Vent 11/28/22 09:03 40 11/28/22 08:15 60 11/28/22 07:42 Oxymask 6 11/28/22 07:31 11/28/22 04:24 Oxymask 6 PG Care Time/CCT Total # of Minutes Spent Total Time Spent with Patient: Total time spent is greater than 50% in coordination of care (as documented) at patient's floor/unit and/or counseling patient: Coding Level of Care Code 63388 SUB INP/OBS CARE 2/35MIN Diagnoses Acute respiratory failure with hypoxia and hypercapnia J96.01; J96.02 Acute dyspnea R06.00 Acute UTI N39.0 Urinary retention due to benign prostatic hyperplasia N40.1; R33.8 Chronic renal failure, stage 3b N18.32 Stroke I63.9 Hypertension I10 Hypertension type: essential hypertension Hypoxia R09.02 GERD (gastroesophageal reflux disease) K21.9 Time Spent (min) 35 (7) Hypertension Hypertension type: essential hypertension Qualified Code(s): I10 - Essential (primary) hypertension
[2022-11-28 15:15] LABS: BUN Creatinine Ratio 19.6 (10-20); Calcium 8.7 mg/dl (8.5-10.1); Est GFR (African American) 30.9 ml/min; Est GFR (Non-African American) 26.7 ml/min; Potassium 4.5 mmol/L (3.5-5.1)
[2022-11-28 15:32] LABS: iSTAT Art Bld Gas pCO2 Correct 29 mmHg (35-46); iSTAT Art Bld Gas pH Corrected 7.558 (7.35-7.45); iSTAT Arterial Blood Gas HCO3 26 meg/L (19-24); iSTAT Arterial Blood Gas pCO2 29 mmHg (35-46); iSTAT Arterial Blood Gas pH 7.56 (7.35-7.45); iSTAT Arterial Blood Gas pO2 51 mmHg (80-95); iSTAT Arterial Blood Gas pO2 C 50; iSTAT Carbon Dioxide 27 mmol/L (24-31); iSTAT FiO2 40 %; iSTAT Hematocrit 33 % (42-52); iSTAT Hemoglobin 11.2 g/dl (14.0-18.0); iSTAT Potassium 4.3 mmol/L (3.3-5.0); iSTAT Site Art Line; iSTAT Sodium 136 mmol/L (135-144)
--- NOTE | 2022-11-28 16:49 | XRay Report ---
KUB CLINICAL HISTORY: s/p OGT placement COMPARISON STUDY: CT of the abdomen and pelvis November 26, 2022. FINDINGS: Visualized bowel gas pattern is unremarkable. The tip of the nasogastric tube projects over the distal body of the stomach. Postoperative findings within the spine are partially imaged. Bilate ral pleural effusions and bibasilar opacities are better depicted on chest CT. IMPRESSION: Tip of nasogastric tube projects over the distal body of the stomach. ACT 112: Negative or not required by law. Electronically signed by: Clifton Jasso M.D. 11/28/2022 4:48 PM
[2022-11-28] MEDS: ACETAMINOPHEN 325 MG TAB PO PRN (16:54)
[2022-11-28 16:59] LABS: iSTAT Art Bld Gas pCO2 Correct 37 mmHg (35-46); iSTAT Art Bld Gas pH Corrected 7.473 (7.35-7.45); iSTAT Arterial Blood Gas HCO3 26 meg/L (19-24); iSTAT Arterial Blood Gas pCO2 34 mmHg (35-46); iSTAT Arterial Blood Gas pO2 64 mmHg (80-95); iSTAT Arterial Blood Gas pO2 C 73; iSTAT Carbon Dioxide 27 mmol/L (24-31); iSTAT FiO2 50 %; iSTAT Hematocrit 33 % (42-52); iSTAT Hemoglobin 11.2 g/dl (14.0-18.0); iSTAT Potassium 4.1 mmol/L (3.3-5.0); iSTAT Site Art Line; iSTAT Sodium 137 mmol/L (135-144)
[2022-11-28] MEDS: cefTRIAXone SODIUM 2,000 MG in DEXTROSE 5% 50 ML IV SCH (20:17)
[2022-11-28] MEDS: MIRTAZAPINE TAB 15 MG TAB PO SCH (20:18)
--- NOTE | 2022-11-28 21:20 | XCELERA ---
[id number]}___[id number].pdf
[2022-11-28] MEDS: DOXYCYCLINE HYCLATE 100 MG in DEXTROSE 5% 100 ML IV SCH (21:30)
[2022-11-28] MEDS ORDERED: PLASMA-LYTE A 250 ML IV ONE (23:08)
[2022-11-29] MEDS: NOREPINEPHRINE/D5W 4 MG/250 ML PLCT IV SCH ×2 (00:53→08:36)
--- NOTE | 2022-11-29 00:53 | Communication Note ---
Date of Service: November 29, 2022 Patient with episode of hypoxia and hypotension while turning for personal care. Patient not receiving his ventilator breaths and subsequently required BVM to provide ventilation and oxygenation. Noted disconnection from humidifier, Connections re-secured to humidifier with return of ventilator trigger. Patient Spo2 increased from 70s to 98% with BVM. Patient reconnected to ventilator with adequate VT and EtCO2. Lung sounds assessed with no change noted and bilateral breath sounds. Remained hypoxic at 87-88% requiring increase of PEEP to 12 and FIo2 70%. CXR obtained with no change in ETT position, no Pneumothorax, and no worsening of opacifications. SPo2 back to 94%, attempt to wean PEEP and FIo2 as able. Likely with de-recruitment following disconnection from ventilator. Ezequiel NORRIS ([facility]-)
[2022-11-29] MEDS: propofoL 1,000 MG/100 ML VIAL IV SCH ×7 (03:42→22:56)
[2022-11-29 04:23] LABS: iSTAT Arterial Blood Gas HCO3 27 meg/L (19-24); iSTAT Arterial Blood Gas pCO2 41 mmHg (35-46); iSTAT Arterial Blood Gas pH 7.42 (7.35-7.45); iSTAT Arterial Blood Gas pO2 108 mmHg (80-95); iSTAT Carbon Dioxide 28 mmol/L (24-31); iSTAT FiO2 70 %; iSTAT Site Art Line
[2022-11-29 05:10] LABS: Basophils # (auto) 0.07 K/uL (0-0.2); Basophils % (auto) 0.4 %; Eosinophils # (auto) 0.69 K/uL (0-0.50); Hematocrit (blood only) 33.9 % (42.0-52.0); Hemoglobin 11.2 g/dl (14.0-18.0); Immature Granulocytes # (auto) 0.13 K/uL (0.01-0.20); Immature Granulocytes % (auto) 0.8 %; Lymphocytes # (auto) 4.51 K/uL (1.2-3.4); Lymphocytes % (auto) 26.2 %; Mean Corpuscular Hemoglobin 32.1 pg (25.0-34.0); Mean Corpuscular Volume 97.1 fL (80.0-100.0); Mean Platelet Volume 9.3 fL (9.4-12.4); Monocytes # (auto) 1.61 K/uL (0.11-0.59); Monocytes % (auto) 9.3 %; Neutrophils # (auto) 10.23 K/uL (1.40-6.50); Neutrophils % (auto) 59.3 %; Platelet Count 203 K/uL (130-400); RDW Coefficient of Variation 13.7 % (11.5-14.5); RDW Standard Deviation 47.8 fL (36.4-46.3); Red Blood Count 3.49 M/uL (4.70-6.10); White Blood Count 17.24 K/ul (4.8-10.8)
[2022-11-29 05:36] LABS: BUN Creatinine Ratio 18.6 (10-20); Creatinine Clr Calc Pharmacy 29.5 ml/min; Est GFR (African American) 28.1 ml/min; Est GFR (Non-African American) 24.2 ml/min; Magnesium 1.7 mg/dl (1.7-2.4); Potassium 3.8 mmol/L (3.5-5.1)
[2022-11-29] MEDS ORDERED: SODIUM PHOSPHATE 3 MMOL/1 ML INFUSION IV STA (05:41)
[2022-11-29] MEDS: LEVOTHYROXINE SODIUM 75 MCG TABLET PO SCH (06:17)
[2022-11-29] MEDS: MAGNESIUM SULFATE / D5W 1 GM/100 ML BAG IV SCH ×2 (06:21→08:34)
[2022-11-29] MEDS ORDERED: SODIUM PHOSPHATE 6 MMOL in 0.9 % SODIUM CHLORIDE 100 ML IV ONE (06:30)
--- NOTE | 2022-11-29 07:17 | XRay Report ---
XR chest 1V portable HISTORY: 82 years-old Male evaluate ETT and lung macias acute respiratory failure COMPARISON: Chest radiograph 11/28/2022 TECHNIQUE: AP view the chest FINDINGS: Endotracheal tube overlies the midline, 2.8 cm superior mesenteric tube courses below the diaphragm w ith distal tip outside the [id number]. Left subclavian central venous catheter is unchanged. No pn eumothorax. Layering pleural effusions with bibasilar opacities redemonstrated. Mild pulmonary vascul ar congestion. Unchanged right hemidiaphragmatic elevation. Bones appear grossly intact. IMPRESSION: 1. Lines and tubes as above. 2. Unchanged right hemidiaphragmatic elevation. 3. Persistent small pleural effusions with bibasilar consolidation. ACT 112: Negative or not required by law. The above report was generated using voice recognition software. It may contain grammatical, syntax o r spelling errors. Electronically signed by: Royal Riggs M.D. 11/29/2022 7:14 AM
[2022-11-29] MEDS: ICU Protocol for HYPERglycemia SCH ×4 (08:15→22:55)
[2022-11-29] MEDS ORDERED: ACETAMINOPHEN 1,000 MG/100 ML VIAL IV PRN (08:23)
[2022-11-29] MEDS: HEPARIN SOD 5,000 UNIT/0.5 ML VIAL SQ SCH ×2 (08:34→19:53)
[2022-11-29] MEDS: DOXYCYCLINE HYCLATE 100 MG in DEXTROSE 5% 100 ML IV SCH ×2 (08:35→19:53)
[2022-11-29] MEDS: FAMOTIDINE 20 MG in SYRINGE 3 ML IV SCH ×2 (08:35→19:52)
[2022-11-29] MEDS: MEMANTINE HCL 5 MG TAB PO SCH (09:15)
[2022-11-29] MEDS ORDERED: POTASSIUM CHLORIDE 20 MEQ/15 ML UDC PO STA (09:37)
--- NOTE | 2022-11-29 09:52 | Critical Care Progress Note ---
Date of Service November 29, 2022 Assessment & Plan (1) Acute respiratory failure with hypoxia and hypercapnia: Plan: Reason Critically Ill: 82-year-old male with significant past medical history surrounding his progressive dementia, prior CVA, cognitive impairment who initially was admitted for hypoxia with concerns for bilateral lower lobe pneumonia and UTI and was unfortunately found to be obtunded and with a CO2 in excess of 130. Patient required emergent endotracheal intubation and ongoing evaluation and management in the ICU. 24-hour events: Patient was admitted to the ICU. He was promptly intubated and central and arterial lines were placed. Bronchoscopy was performed with collection of lower respiratory specimens for microbiologic analysis. He has been maintained on antibiotics. He is intermittently required pressors the doses which have been mildly increasing. His endotracheal tube disconnected inadvertently from the ventilator earlier this morning and the patient rapidly desaturated down in the 60s requiring manual [id number] ventilation. He is back to his prior vent settings. Recommendations NEURO -progressive neuromuscular weakness with hypercarbic respiratory failure. CPK is normal. Awaiting myasthenia panel although that appears less likely. I am concerned that without positive airway pressure ventilation, the patient likely will have recurrence of his hypercarbic respiratory failure. The family has expressed a desire to not pursue long-term ventilation or tracheostomy which I think is reasonable. We will meet with him today and discuss long-term options. Continue current sedation with as needed fentanyl and propofol CARDIAC/VASCULAR -multifactorial hypotension and shock. Continue norepinephrine as needed. The patient peers adequately volume resuscitated. We will hold on additional crystalloids at this point time. Check random cortisol and replace if needed. Echo without obvious abnormality. He does have PACs with compensatory pauses and occasional sinus pauses RESPIRATORY -hypoxemic and hypercarbic respiratory failure: Again, suspect some degree of neuromuscular weakness contributing. Failed trial of T-piece ventilation earlier today so we will hold off on additional SBT's today. Continue respiratory support. We will update family to try and get guidance in the future although preliminarily, they indicated that if he were to be extubated, they would not want to pursue reintubation. May consider assessment of negative inspiratory force prior to extubation although the patient's underlying dementia and neurocognitive issues may impede the ability to get accurate data GI/NUTRITION -continue GI prophylaxis. Start trophic tube feeding and free water replacement RENAL/LYTES -acute renal insufficiency superimposed on chronic kidney disease. Slightly worse today but electrolytes and acid-base status are acceptable. He appears mildly hypervolemic. We will hold additional fluids. Would like to consider diuretics but we will see how he does with his hemodynamics. If kidney function continues to worsen, nephrology consultation may be appropriate. I think the patient is a poor candidate for renal replacement therapy. -Joyce catheter in place. ENDO - glycemic control per protocol HEME -mild anemia without evidence of blood loss. No indication for transfusion. Leukocytosis secondary to probable infection. Continue to trend. ID -currently day #2 Rocephin doxycycline for possible UTI versus pneumonia. Consolidation in the right lower lobe on CT scan. Bronchoscopy specimens from 11/28/2022 have shown no growth to date. Cultures have shown no growth to date. Follow-up blood cell count and trend procalcitonin. LINES/IV ACCESS - * LEFT upper extremity endurance catheter. * LEFT subclavian CVL * RIGHT radial arterial line * ET tube * Joyce catheter DVT PROPHYLAXIS - * Heparin subcu * SCDs I have personally spent 48 minutes of critical care time in the direct management of this patient. This is a life/limb threatening event. This includes time spent evaluating patient, direct bedside care, chart review, placing orders, interpretation of diagnostic studies, discussion with consultants, patient, and family members, as well as other required patient management activities. This time is exclusive of all separately billable procedures, and teaching time and separate from and in addition to any other critical care service time. Thank you for allowing us to participate in the care of this patient. We will follow in ICU (2) Hypotension: (3) Chronic cerebral ischemia: (4) Stroke: (5) Urinary tract infection: (6) Chronic renal failure, stage 3b: (7) Hypertension: Admission and Anticipated Discharge Date Admission Date: November 26, 2022 Subjective Patient is intubated and sedated Review of Systems Review of Systems: All systems reviewed & are unremarkable except as noted in Subjective Physical Exam Constitutional: + ill appearing, + obese and + mechanically ventilated Neck: trachea midline, no thyromegaly Respiratory: Auscultation: + crackles and + rhonchi; no wheezes Cardiovascular: RRR, no murmur, no edema Gastrointestinal (Abdomen): normal bowel sounds, soft, nontender, no hepatosplenomegaly Musculoskeletal: Extremities: extremities normal to inspection Skin: no rashes, warm and dry Neurologic: sedated Lymphatic: no cervical lymphadenopathy Results & Data Results & Data Vital Signs (Past 12 Hours) Vital Signs Temp Pulse Resp BP Pulse Ox Pulse Ox O2 Del Method 11/29/22 09:15 37.7 C H 68 14 95 11/29/22 09:01 133/69 11/29/22 09:01 37.7 C H 69 16 94 11/29/22 09:00 37.7 C H 78 14 94 11/29/22 08:45 37.7 C H 67 14 96 11/29/22 08:30 37.7 C H 68 14 95 11/29/22 08:30 102/68 11/29/22 08:15 37.7 C H 67 14 96 11/29/22 08:01 99/61 L 11/29/22 08:01 37.7 C H 66 16 94 11/29/22 08:00 37.7 C H 69 14 95 11/29/22 08:00 109/62 11/29/22 07:45 37.7 C H 65 14 94 11/29/22 07:30 37.7 C H 67 14 93 11/29/22 07:30 100/56 L 11/29/22 07:15 37.7 C H 68 14 95 11/29/22 07:00 37.7 C H 64 14 96 11/29/22 07:00 111/62 11/29/22 06:45 37.7 C H 66 14 95 11/29/22 06:30 37.7 C H 69 14 96 11/29/22 06:30 136/70 11/29/22 06:15 37.7 C H 65 14 96 11/29/22 06:00 37.8 C H 64 14 95 11/29/22 06:00 114/68 11/29/22 05:45 37.8 C H 66 14 95 11/29/22 05:30 37.8 C H 65 14 96 11/29/22 05:30 125/67 11/29/22 05:15 37.8 C H 70 14 96 11/29/22 05:00 37.8 C H 72 14 97 11/29/22 05:00 124/73 11/29/22 04:45 37.8 C H 70 14 96 11/29/22 04:30 37.8 C H 71 14 96 11/29/22 04:30 129/73 11/29/22 04:15 37.8 C H 68 14 97 11/29/22 09:19 94 11/29/22 07:34 70 16 94 11/29/22 07:39 11/29/22 07:30 Mechanical Vent 11/29/22 04:30 11/29/22 04:00 37.8 C H 71 14 96 11/29/22 04:00 117/65 11/29/22 03:45 37.7 C H 73 14 96 11/29/22 03:30 37.7 C H 67 14 97 11/29/22 03:30 126/76 11/29/22 03:15 37.7 C H 68 14 96 11/29/22 03:00 37.7 C H 66 14 97 11/29/22 03:00 122/68 11/29/22 04:34 11/29/22 03:38 69 16 96 11/29/22 02:45 37.6 C H 71 14 94 11/29/22 02:30 37.6 C H 71 14 93 11/29/22 02:30 120/74 11/29/22 02:15 37.6 C H 66 13 93 11/29/22 02:00 37.6 C H 73 14 95 11/29/22 02:00 125/77 11/29/22 01:45 37.6 C H 67 14 94 11/29/22 01:30 37.6 C H 66 14 93 11/29/22 01:30 117/81 11/29/22 01:15 37.6 C H 67 16 94 11/29/22 01:00 37.7 C H 69 16 94 11/29/22 01:00 116/69 11/29/22 00:45 37.7 C H 73 16 95 11/29/22 00:30 37.7 C H 78 16 93 11/29/22 00:30 97/54 L 11/29/22 00:15 11/29/22 00:15 37.8 C H 81 16 88 L 11/29/22 00:09 105/56 L 11/29/22 00:09 37.8 C H 82 16 94 11/29/22 00:04 37.8 C H 92 H 0 L 98 11/29/22 00:04 188/90 H 03/17/23 00:00 37.8 C H 79 0 L 39 L 11/29/22 00:00 83/54 L 11/28/22 23:45 38.0 C H 63 16 96 11/28/22 23:30 38.0 C H 70 16 96 11/28/22 23:30 112/79 11/28/22 23:15 38.1 C H 63 16 97 11/28/22 23:00 38.1 C H 65 16 95 11/28/22 23:00 106/67 11/28/22 22:45 38.2 C H 66 16 96 11/28/22 22:30 38.2 C H 64 16 96 11/28/22 22:30 109/64 11/28/22 22:15 38.2 C H 70 16 96 11/28/22 22:00 38.3 C H 66 16 96 11/28/22 22:00 115/61 11/28/22 23:14 66 16 96 O2 Del Method FiO2 11/29/22 09:15 11/29/22 09:01 11/29/22 09:01 11/29/22 09:00 11/29/22 08:45 11/29/22 08:30 11/29/22 08:30 11/29/22 08:15 11/29/22 08:01 11/29/22 08:01 11/29/22 08:00 11/29/22 08:00 11/29/22 07:45 11/29/22 07:30 11/29/22 07:30 11/29/22 07:15 11/29/22 07:00 11/29/22 07:00 11/29/22 06:45 11/29/22 06:30 11/29/22 06:30 11/29/22 06:15 11/29/22 06:00 11/29/22 06:00 11/29/22 05:45 11/29/22 05:30 11/29/22 05:30 11/29/22 05:15 11/29/22 05:00 11/29/22 05:00 11/29/22 04:45 11/29/22 04:30 11/29/22 04:30 11/29/22 04:15 11/29/22 09:19 Mechanical Vent 11/29/22 07:34 50 11/29/22 07:39 50 11/29/22 07:30 11/29/22 04:30 60 11/29/22 04:00 11/29/22 04:00 11/29/22 03:45 11/29/22 03:30 11/29/22 03:30 11/29/22 03:15 11/29/22 03:00 11/29/22 03:00 11/29/22 04:34 60 11/29/22 03:38 70 11/29/22 02:45 11/29/22 02:30 11/29/22 02:30 11/29/22 02:15 11/29/22 02:00 11/29/22 02:00 11/29/22 01:45 11/29/22 01:30 11/29/22 01:30 11/29/22 01:15 11/29/22 01:00 11/29/22 01:00 11/29/22 00:45 11/29/22 00:30 11/29/22 00:30 11/29/22 00:15 70 11/29/22 00:15 11/29/22 00:09 11/29/22 00:09 11/29/22 00:04 11/29/22 00:04 11/29/22 00:00 11/29/22 00:00 11/28/22 23:45 11/28/22 23:30 11/28/22 23:30 11/28/22 23:15 11/28/22 23:00 11/28/22 23:00 11/28/22 22:45 11/28/22 22:30 11/28/22 22:30 11/28/22 22:15 11/28/22 22:00 11/28/22 22:00 11/28/22 23:14 50 Diagnostic Findings Echocardiogram from 11/28/2022 showed an EF of 55 to 60% without regional wall motion abnormalities. Valves were not well visualized but no obvious abnormality identified. The study was poor quality. Right ventricular systolic pressure appeared normal. Unchanged from December 2021 Critical Care Results & Data Vital Signs (Past 12 Hours) Vital Signs Temp Pulse Resp BP Pulse Ox Pulse Ox O2 Del Method 11/29/22 09:15 37.7 C H 68 14 95 11/29/22 09:01 133/69 11/29/22 09:01 37.7 C H 69 16 94 11/29/22 09:00 37.7 C H 78 14 94 11/29/22 08:45 37.7 C H 67 14 96 11/29/22 08:30 37.7 C H 68 14 95 11/29/22 08:30 102/68 11/29/22 08:15 37.7 C H 67 14 96 11/29/22 08:01 99/61 L 11/29/22 08:01 37.7 C H 66 16 94 11/29/22 08:00 37.7 C H 69 14 95 11/29/22 08:00 109/62 11/29/22 07:45 37.7 C H 65 14 94 11/29/22 07:30 37.7 C H 67 14 93 11/29/22 07:30 100/56 L 11/29/22 07:15 37.7 C H 68 14 95 11/29/22 07:00 37.7 C H 64 14 96 11/29/22 07:00 111/62 11/29/22 06:45 37.7 C H 66 14 95 11/29/22 06:30 37.7 C H 69 14 96 11/29/22 06:30 136/70 11/29/22 06:15 37.7 C H 65 14 96 11/29/22 06:00 37.8 C H 64 14 95 11/29/22 06:00 114/68 11/29/22 05:45 37.8 C H 66 14 95 11/29/22 05:30 37.8 C H 65 14 96 11/29/22 05:30 125/67 11/29/22 05:15 37.8 C H 70 14 96 11/29/22 05:00 37.8 C H 72 14 97 11/29/22 05:00 124/73 11/29/22 04:45 37.8 C H 70 14 96 11/29/22 04:30 37.8 C H 71 14 96 11/29/22 04:30 129/73 11/29/22 04:15 37.8 C H 68 14 97 11/29/22 09:19 94 11/29/22 07:34 70 16 94 11/29/22 07:39 11/29/22 07:30 Mechanical Vent 11/29/22 04:30 11/29/22 04:00 37.8 C H 71 14 96 11/29/22 04:00 117/65 11/29/22 03:45 37.7 C H 73 14 96 11/29/22 03:30 37.7 C H 67 14 97 11/29/22 03:30 126/76 11/29/22 03:15 37.7 C H 68 14 96 11/29/22 03:00 37.7 C H 66 14 97 11/29/22 03:00 122/68 11/29/22 04:34 11/29/22 03:38 69 16 96 11/29/22 02:45 37.6 C H 71 14 94 11/29/22 02:30 37.6 C H 71 14 93 11/29/22 02:30 120/74 11/29/22 02:15 37.6 C H 66 13 93 11/29/22 02:00 37.6 C H 73 14 95 11/29/22 02:00 125/77 11/29/22 01:45 37.6 C H 67 14 94 11/29/22 01:30 37.6 C H 66 14 93 11/29/22 01:30 117/81 11/29/22 01:15 37.6 C H 67 16 94 11/29/22 01:00 37.7 C H 69 16 94 11/29/22 01:00 116/69 11/29/22 00:45 37.7 C H 73 16 95 11/29/22 00:30 37.7 C H 78 16 93 11/29/22 00:30 97/54 L 11/29/22 00:15 11/29/22 00:15 37.8 C H 81 16 88 L 11/29/22 00:09 105/56 L 11/29/22 00:09 37.8 C H 82 16 94 11/29/22 00:04 37.8 C H 92 H 0 L 98 11/29/22 00:04 188/90 H 11/29/22 00:00 37.8 C H 79 0 L 39 L 11/29/22 00:00 83/54 L 11/28/22 23:45 38.0 C H 63 16 96 0316/23 23:30 38.0 C H 70 16 96 11/28/22 23:30 112/79 11/28/22 23:15 38.1 C H 63 16 97 11/28/22 23:00 38.1 C H 65 16 95 11/28/22 23:00 106/67 11/28/22 22:45 38.2 C H 66 16 96 11/28/22 22:30 38.2 C H 64 16 96 11/28/22 22:30 109/64 11/28/22 22:15 38.2 C H 70 16 96 11/28/22 22:00 38.3 C H 66 16 96 11/28/22 22:00 115/61 11/28/22 23:14 66 16 96 O2 Del Method FiO2 11/29/22 09:15 11/29/22 09:01 11/29/22 09:01 11/29/22 09:00 11/29/22 08:45 11/29/22 08:30 11/29/22 08:30 11/29/22 08:15 11/29/22 08:01 11/29/22 08:01 11/29/22 08:00 11/29/22 08:00 11/29/22 07:45 11/29/22 07:30 11/29/22 07:30 11/29/22 07:15 11/29/22 07:00 11/29/22 07:00 11/29/22 06:45 11/29/22 06:30 11/29/22 06:30 11/29/22 06:15 11/29/22 06:00 11/29/22 06:00 11/29/22 05:45 11/29/22 05:30 11/29/22 05:30 11/29/22 05:15 11/29/22 05:00 11/29/22 05:00 11/29/22 04:45 11/29/22 04:30 11/29/22 04:30 11/29/22 04:15 11/29/22 09:19 Mechanical Vent 11/29/22 07:34 50 11/29/22 07:39 50 11/29/22 07:30 11/29/22 04:30 60 11/29/22 04:00 11/29/22 04:00 11/29/22 03:45 11/29/22 03:30 11/29/22 03:30 11/29/22 03:15 11/29/22 03:00 11/29/22 03:00 11/29/22 04:34 60 11/29/22 03:38 70 11/29/22 02:45 11/29/22 02:30 11/29/22 02:30 11/29/22 02:15 11/29/22 02:00 11/29/22 02:00 11/29/22 01:45 11/29/22 01:30 11/29/22 01:30 11/29/22 01:15 11/29/22 01:00 11/29/22 01:00 11/29/22 00:45 11/29/22 00:30 11/29/22 00:30 11/29/22 00:15 70 11/29/22 00:15 11/29/22 00:09 11/29/22 00:09 11/29/22 00:04 11/29/22 00:04 11/29/22 00:00 11/29/22 00:00 11/28/22 23:45 11/28/22 23:30 11/28/22 23:30 11/28/22 23:15 11/28/22 23:00 11/28/22 23:00 11/28/22 22:45 11/28/22 22:30 11/28/22 22:30 11/28/22 22:15 11/28/22 22:00 11/28/22 22:00 11/28/22 23:14 50 Lab & Micro Results (Past 24 Hours) RBC 3.49 M/uL (4.70-6.10) L 11/29/22 WBC 17.24 K/ul (4.8-10.8) H 11/29/22 Hgb 11.2 g/dl (14.0-18.0) L 11/29/22 Hct 33.9 % (42.0-52.0) L 11/29/22 MCV 97.1 fL (80.0-100.0) 11/29/22 MCH 32.1 pg (25.0-34.0) 11/29/22 MCHC 33.0 g/dL (32.0-36.0) 11/29/22 RDW Standard Deviation 47.8 fL (36.4-46.3) H 11/29/22 RDW Coefficient of Variation 13.7 % (11.5-14.5) 11/29/22 Plt Count 203 K/uL (130-400) 11/29/22 MPV 9.3 fL (9.4-12.4) L 11/29/22 Neutrophils (%) (Auto) 59.3 % 11/29/22 Lymphocytes (%) (Auto) 26.2 % 11/29/22 Monocytes # (Auto) 1.61 K/uL (0.11-0.59) H 11/29/22 Eosinophils # (Auto) 0.69 K/uL (0-0.50) H 11/29/22 Immature Granulocyte % (Auto) 0.8 % 11/29/22 Neutrophils # (Auto) 10.23 K/uL (1.40-6.50) H 11/29/22 Lymphocytes # (Auto) 4.51 K/uL (1.2-3.4) H 11/29/22 Monocytes # (Auto) 1.61 K/uL (0.11-0.59) H 11/29/22 Eosinophils # (Auto) 0.69 K/uL (0-0.50) H 11/29/22 Basophils # (Auto) 0.07 K/uL (0-0.2) 11/29/22 Immature Granulocyte # (Auto) 0.13 K/uL (0.01-0.20) 3 Na 135 mmol/L (136-145) L 11/29/22 K 3.8 mmol/L (3.5-5.1) 11/29/22 Cl 102 mmol/L (98-107) 11/29/22 CO2 23 mmol/L (21-32) 11/29/22 Anion Gap 10 (3-11) 11/29/22 BUN 44 mg/dl (6-23) H 11/29/22 Creatinine 2.37 mg/dl (0.6-1.4) H 11/29/22 Estimated GFR ( Amer) 28.1 ml/min 11/29/22 Estimated GFR (Non-Af Amer) 24.2 ml/min 11/29/22 BUN/Creatinine Ratio 18.6 (10-20) 11/29/22 Glu 132 mg/dl (70-99(Fasting)) H 11/29/22 Ca 8.0 mg/dl (8.5-10.1) L 11/29/22 Phosphorus Level 2.0 mg/dl (2.5-4.9) L 11/29/22 Mg 1.7 mg/dl (1.7-2.4) 11/29/22 04:44 Calcium Level 8.0 mg/dl (8.5-10.1) L 11/29/22 04:44 Kurtis Test NA 11/29/22 04:09 Microbiology 11/28/22 08:40 Gram Stain - Final Trachea 11/26/22 11:55 Aerobic Blood Culture - Preliminary Blood No growth in Aerobic bottle after 48 hours. Anaerobic Blood Culture - Preliminary No growth in Anaerobic bottle after 48 hours. 11/26/22 12:05 Aerobic Blood Culture - Preliminary Blood No growth in Aerobic bottle after 48 hours. Anaerobic Blood Culture - Preliminary No growth in Anaerobic bottle after 48 hours. 11/26/22 16:25 Urine Culture - Final Urine,Straight Cath No growth - less than 1,000 colonies/mL. Diagnostic Findings (Past 24 Hours) Chest CT 11/28/22 07:59 CT chest diagnostic wo con CT DOSE: HISTORY: Shortness of breath. Status post intubation. TECHNIQUE: Multiaxial CT images of the chest were performed without contrast. A dose lowering technique was utilized adhering to the principles of ALARA. COMPARISON: Chest CTA 11/26/2022. FINDINGS: The tip of the endotracheal tube is approximately 8 mm from the hyun and is coursing towards the right mainstem bronchus. This should be pulled back by approximately 2 cm. Otherwise, the central airways are patent. No pne umothorax. There is a punctate calcified granuloma within the left upper lobe on image 96. Mild interlobular septal thickening at the lung apices is consistent with mild congestive change. Subpleural reticulation within the periphery of the lungs is again noted and suggest chronic interstitial change. Small bilateral pleural effusions are again noted. Consolidative airspace opacities and volume loss within the bilateral lower lobes, right greater than left, has progressed. This likely represents a combination of atelectasis and pneumonia. A small cluster of gas pockets within the consolidation at the base of the right lower lobe on image 217 could represent aerated lung or a developing necrotizing component of the suspected pneumonia. A few punctate densities within the consolidated base of the right lower lobe, unchanged. No acute fractures identified. A left subclavian central venous catheter terminates in the SVC. Severe left coronary artery calcifications again noted. Normal esophagus. Limited views of the upper abdomen demonstrate a normal liver, spleen, and adrenal glands. There is mild elevation of the right hemidiaphragm. The heart is normal in size. No pericardial effusion. Mild calcified plaque within the normal caliber thoracic aorta. No mediastinal or hilar lymphadenopathy. Degenerative changes again within the shoulders and thoracic spine. IMPRESSION: 1. The tip of the endotracheal tube is approximately 8 mm from the hyun and is coursing towards the right mainstem bronchus. This should be pulled back by approximately 2 cm. 2. Small bilateral pleural effusions and mild elevation of the right hemidiaphragm, unchanged. 3. Consolidative airspace opacities and volume loss within the bilateral lower lobes, right greater than left, has progressed. This likely represents a combination of atelectasis and pneumonia. A small cluster of gas pockets within the consolidation at the base of the right lower lobe could represent aerated lung or a developing necrotizing component of the suspected pneumonia. 4. Additional findings as described above. ACT 112: Negative or not required by law. Electronically signed by: Kwabena Gotti M.D. 11/28/2022 10:[address] 11/28/22 09:13 CT head/brain wo con CLINICAL HISTORY: 82 years-old Male with AMS, intubated. Acutely altered mental status TECHNIQUE: Multiple axial CT images of the head were obtained without contrast. A dose lowering technique was utilized adhering to the principles of ALARA. CT DOSE: 2894.12 mGycm COMPARISON: 04/28/2021 FINDINGS: No acute intracranial hemorrhage, midline shift, intracranial mass, hydrocephalus, territorial ischemia or abnormal extra-axial collection. Age- related additional changes. White matter hypodensities suggestive of chronic microvascular ischemic disease. Cerebral vascular calcifications. Motion degraded exam. The calvarium is intact. Scarring versus contusion within the superior right scalp. The paranasal sinuses, mastoid air cells, and middle ear cavities are clear. IMPRESSION: Motion degraded exam. No acute intracranial abnormality identified. ACT 112: Negative or not required by law. The above report was generated using voice recognition software. It may contain grammatical, syntax or spelling errors. Electronically signed by: Royal Riggs M.D. 11/28/2022 10:24 AM KUB X-Ray 11/28/22 15:30 KUB CLINICAL HISTORY: s/p OGT placement COMPARISON STUDY: CT of the abdomen and pelvis November 26, 2022. FINDINGS: Visualized bowel gas pattern is unremarkable. The tip of the nasogastric tube projects over the distal body of the stomach. Postoperative findings within the spine are partially imaged. Bilateral pleural effusions and bibasilar opacities are better depicted on chest CT. IMPRESSION: Tip of nasogastric tube projects over the distal body of the stomach. ACT 112: Negative or not required by law. Electronically signed by: Clifton Jasso M.D. 11/28/2022 4:48 PM Chest X-Ray 11/29/22 00:19 XR chest 1V portable HISTORY: 82 years-old Male evaluate ETT and lung macias acute respiratory failure COMPARISON: Chest radiograph 11/28/2022 TECHNIQUE: AP view the chest FINDINGS: Endotracheal tube overlies the midline, 2.8 cm superior mesenteric tube courses below the diaphragm with distal tip outside the [id number]. Left subclavian central venous catheter is unchanged. No pneumothorax. Layering pleural effusions with bibasilar opacities redemonstrated. Mild pulmonary vascular congestion. Unchanged right hemidiaphragmatic elevation. Bones appear grossly intact. IMPRESSION: 1. Lines and tubes as above. 2. Unchanged right hemidiaphragmatic elevation. 3. Persistent small pleural effusions with bibasilar consolidation. ACT 112: Negative or not required by law. The above report was generated using voice recognition software. It may contain grammatical, syntax or spelling errors. Electronically signed by: Royal Riggs M.D. 11/29/2022 7:14 AM I & O Totals 24 Hours 11/28/22 11/29/22 11/30/22 06:59 06:59 06:59 Intake Total 830 / 830 3226.261 / 3226.261 254.01 / 254.01 Output Total 400 / 400 985 / 1085 225 / 225 Balance 430 / 430 2241.261 / 2141.261 29.01 / 29. Cumulative 11/26/22 10:57 thru 11/29/22 09:15 Intake Total 4900.271 Output Total 1610 Balance 3290.271 RT Ventilator Mngmt (Last Documented) Ventilator Ordered Settings Ventilator Support Mode Assist Control 11/29/22 07:39 Respiratory Rate 14 11/29/22 09:15 Ventilator Tidal Volume 450 11/29/22 07:39 Setting Minute Ventilation 7.3 11/29/22 07:34 Positive End Expiratory 10 11/29/22 07:39 Pressure Fraction of Inspired Oxygen 50 11/29/22 07:39 Peak Inspiratory Flow 40 11/29/22 07:34 Machine Comment settings changed post abg per 11/29/22 04:30 Brenton Interiano. Ventilator - PT Measurements Respiratory Rate 14 Exhaled Tidal Volume 451 Minute Ventilation 7.3 Peak Inspiratory Airway 20 Pressure Plateau Pressure 17.3 Respiratory Cycle Inspiratory: 1:3.2 Expiratory Ratio Inspiratory Phase Time 0.90 End-Tidal CO2 35 Static Lung Compliance 61.78 Dynamic Lung Compliance 45.10 Normal Static Lung Compliance 48.00 Patient Measurements Comment RT called to bedside, pt not getting volumes and desat. Upon arrival Brenton Interiano bagging pt. Limb of vent circuit became disconnected. Placed back on vent and Sp02 stayed 87%. Settings changed per Brenton. Will continue to monitor. Coding Level of Care Code 18931 CRITICAL CARE 1ST 30-74M Diagnoses Acute respiratory failure with hypoxia and hypercapnia J96.01; J96.02 Hypotension I95.9 Chronic cerebral ischemia I67.82 Stroke I63.9 Urinary tract infection N39.0 Hematuria presence: without hematuria Urinary tract infection type: site unspecified Chronic renal failure, stage 3b N18.32 Hypertension I10 Hypertension type: essential hypertension (5) Urinary tract infection Hematuria presence: without hematuria Urinary tract infection type: site unspecified Qualified Code(s): N39.0 - Urinary tract infection, site not specified (7) Hypertension Hypertension type: essential hypertension Qualified Code(s): I10 - Essential (primary) hypertension
[2022-11-29] MEDS ORDERED: PEPTAMEN INTENSE VHP 1.0 CAL 1,000 ML BAG GT SCH (11:00)
[2022-11-29] MEDS: TUBE FEEDING WATER FLUSH GT SCH ×2 (11:30→17:30)
--- NOTE | 2022-11-29 11:30 | Hospitalist Progress Note ---
Date of Service November 29, 2022 Assessment & Plan (1) Acute respiratory failure with hypoxia and hypercapnia: Plan: Patient Presented to the hospital with hypoxia with SpO2 84% on RA on admit [facility] NEGATIVE CXR w/ mild pulmonary edema, BNP was only 141 CTA chest negative for PE Although WBC was 21k on admission, procalcitonin was normal, CRP only mildly elevated Etiology of his hypoxia is uncertain, could be due to progressive neuromuscular weakness as reported by the who said patient has been wheelchair bound for the past 6 months Work up for myasthenia gravis is in process Patient currently intubated and ventilated after Initial bedside ABG showed PH of 7, PCo2 130 Etiology of his CO2 narcosis could still point to the aforementioned possible neuromuscular weakness There is a possibility of prolonged dependence on ventilator or trachelotomy, the is not inclined to re intubation after he is extubated Appreciate Rn Imaging Continue empiric antibiotics. bronchial aspirate cultures still negative so far (2) Acute dyspnea: Plan: Initial tests do not suggest PNA or CHF, its most likely secondary to neuromuscular weakness Myasthenia work up pending (3) Acute UTI: Plan: continue antibiotics (4) Urinary retention due to benign prostatic hyperplasia: Plan: check UA/monitor UOP abx as above should cover for urine continue proscar/flomax abx to cover as above (5) Chronic renal failure, stage 3b: Plan: Monitor renal functions Avoid nephrotoxics (6) Stroke: Plan: hx such, follows with neurology. on asa daily/memantine BID Neurology has been consulted, no new recs (7) Hypertension: Plan: continue coreg 3.125mg BID when he is awake (8) Hypoxia: (9) GERD (gastroesophageal reflux disease): Plan: continue usual meds, pepcid HS Plan continue hospitalization, ongoing discussion with the regarding prognosis full code heparin for DVT Admission and Anticipated Discharge Date Admission Date: November 26, 2022 Subjective patient seen and examined, intubated ,sedated and ventilated Review of Systems Review of Systems: Unable to obtain Physical Exam Physical Exam: The patient is intubated , sedated and ventilated HEENT--PERRL, EOMI, mucous membranes and oropharynx mildly dry Neck--supple. No JVD. No bruits. Thyroid normal, trachea midline, no adenopathy. Heart--normal S1 and S2. No murmurs, rubs or gallops. Lungs--clear bilaterally, no respiratory distress, no accessory muscle use. Abdomen--normal bowel sounds and soft. Mild epigastric and left sided abdominal pain Extremities--no cyanosis or clubbing. No edema. Dermatologic--normal skin turgor, normal color, no abnormal lymph nodes, no rash. Neurologic--unresponsive Rheumatologic--normal range of motion. Psychiatric--unable to assess Results & Data Results & Data Vital Signs (Past 12 Hours) Vital Signs Temp Pulse Resp BP Pulse Ox Pulse Ox O2 Del Method 11/29/22 11:00 99.0 F 60 14 94 11/29/22 11:00 120/69 11/29/22 10:45 99.1 F 64 14 94 11/29/22 10:30 99.3 F 63 14 94 11/29/22 10:30 130/77 11/29/22 10:15 99.3 F 69 14 94 11/29/22 10:00 99.5 F 66 14 94 11/29/22 10:00 115/70 11/29/22 09:45 99.7 F H 65 14 94 11/29/22 09:30 99.9 F H 69 14 94 11/29/22 09:30 121/68 11/29/22 09:15 99.9 F H 68 14 95 11/29/22 09:01 133/69 11/29/22 09:01 99.9 F H 69 16 94 11/29/22 09:00 99.9 F H 78 14 94 11/29/22 08:45 99.9 F H 67 14 96 11/29/22 08:30 99.9 F H 68 14 95 11/29/22 08:30 102/68 11/29/22 08:15 99.9 F H 67 14 96 11/29/22 08:01 99/61 L 11/29/22 08:01 99.9 F H 66 16 94 11/29/22 08:00 99.9 F H 69 14 95 11/29/22 08:00 109/62 11/29/22 07:45 99.9 F H 65 14 94 11/29/22 07:30 99.9 F H 67 14 93 11/29/22 07:30 100/56 L 11/29/22 07:15 99.9 F H 68 14 95 11/29/22 07:00 99.9 F H 64 14 96 11/29/22 07:00 111/62 11/29/22 06:45 99.9 F H 66 14 95 11/29/22 06:30 99.9 F H 69 14 96 11/29/22 06:30 136/70 11/29/22 06:15 99.9 F H 65 14 96 11/29/22 06:00 100.0 F H 64 14 95 11/29/22 06:00 114/68 11/29/22 05:45 100.0 F H 66 14 95 11/29/22 05:30 100.0 F H 65 14 96 11/29/22 05:30 125/67 11/29/22 05:15 100.0 F H 70 14 96 11/29/22 05:00 100.0 F H 72 14 97 11/29/22 05:00 124/73 11/29/22 04:45 100.0 F H 70 14 96 11/29/22 04:30 100.0 F H 71 14 96 11/29/22 04:30 129/73 11/29/22 04:15 100.0 F H 68 14 97 11/29/22 09:19 94 11/29/22 07:34 70 16 94 11/29/22 07:39 11/29/22 07:30 Mechanical Vent 11/29/22 04:30 11/29/22 04:00 100.0 F H 71 14 96 11/29/22 04:00 117/65 11/29/22 03:45 99.9 F H 73 14 96 11/29/22 03:30 99.9 F H 67 14 97 11/29/22 03:30 126/76 11/29/22 03:15 99.9 F H 68 14 96 11/29/22 03:00 99.9 F H 66 14 97 11/29/22 03:00 122/68 11/29/22 04:34 11/29/22 03:38 69 16 96 11/29/22 02:45 99.7 F H 71 14 94 11/29/22 02:30 99.7 F H 71 14 93 11/29/22 02:30 120/74 11/29/22 02:15 99.7 F H 66 13 93 11/29/22 02:00 99.7 F H 73 14 95 11/29/22 02:00 125/77 11/29/22 01:45 99.7 F H 67 14 94 11/29/22 01:30 99.7 F H 66 14 93 11/29/22 01:30 117/81 11/29/22 01:15 99.7 F H 67 16 94 11/29/22 01:00 99.9 F H 69 16 94 11/29/22 01:00 116/69 11/29/22 00:45 99.9 F H 73 16 95 11/29/22 00:30 99.9 F H 78 16 93 11/29/22 00:30 97/54 L 11/29/22 00:15 11/29/22 00:15 100.0 F H 81 16 88 L 11/29/22 00:09 105/56 L 11/29/22 00:09 100.0 F H 82 16 94 11/29/22 00:04 100.0 F H 92 H 0 L 98 11/29/22 00:04 188/90 H 11/29/22 00:00 100.0 F H 79 0 L 39 L 11/29/22 00:00 83/54 L 11/28/22 23:45 100.4 F H 63 16 96 11/28/22 23:30 100.4 F H 70 16 96 11/28/22 23:30 112/79 O2 Del Method FiO2 11/29/22 11:00 11/29/22 11:00 11/29/22 10:45 11/29/22 10:30 11/29/22 10:30 11/29/22 10:15 11/29/22 10:00 11/29/22 10:00 11/29/22 09:45 11/29/22 09:30 11/29/22 09:30 11/29/22 09:15 11/29/22 09:01 11/29/22 09:01 11/29/22 09:00 11/29/22 08:45 11/29/22 08:30 11/29/22 08:30 11/29/22 08:15 11/29/22 08:01 11/29/22 08:01 11/29/22 08:00 11/29/22 08:00 11/29/22 07:45 11/29/22 07:30 11/29/22 07:30 11/29/22 07:15 11/29/22 07:00 11/29/22 07:00 11/29/22 06:45 11/29/22 06:30 11/29/22 06:30 11/29/22 06:15 11/29/22 06:00 11/29/22 06:00 11/29/22 05:45 11/29/22 05:30 11/29/22 05:30 11/29/22 05:15 11/29/22 05:00 11/29/22 05:00 11/29/22 04:45 11/29/22 04:30 11/29/22 04:30 11/29/22 04:15 11/29/22 09:19 Mechanical Vent 11/29/22 07:34 50 11/29/22 07:39 50 11/29/22 07:30 11/29/22 04:30 60 11/29/22 04:00 11/29/22 04:00 11/29/22 03:45 11/29/22 03:30 11/29/22 03:30 11/29/22 03:15 11/29/22 03:00 11/29/22 03:00 11/29/22 04:34 60 11/29/22 03:38 70 11/29/22 02:45 11/29/22 02:30 11/29/22 02:30 11/29/22 02:15 11/29/22 02:00 11/29/22 02:00 11/29/22 01:45 11/29/22 01:30 11/29/22 01:30 11/29/22 01:15 11/29/22 01:00 11/29/22 01:00 11/29/22 00:45 11/29/22 00:30 11/29/22 00:30 11/29/22 00:15 70 11/29/22 00:15 11/29/22 00:09 11/29/22 00:09 11/29/22 00:04 11/29/22 00:04 11/29/22 00:00 11/29/22 00:00 11/28/22 23:45 11/28/22 23:30 11/28/22 23:30 PG Care Time/CCT Total # of Minutes Spent Total Time Spent with Patient: Total time spent is greater than 50% in coordination of care (as documented) at patient's floor/unit and/or counseling patient: Coding Level of Care Code 36830 SUB INP/OBS CARE 2/35MIN Diagnoses Acute respiratory failure with hypoxia and hypercapnia J96.01; J96.02 Acute dyspnea R06.00 Acute UTI N39.0 Urinary retention due to benign prostatic hyperplasia N40.1; R33.8 Chronic renal failure, stage 3b N18.32 Stroke I63.9 Hypertension I10 Hypertension type: essential hypertension Hypoxia R09.02 GERD (gastroesophageal reflux disease) K21.9 Time Spent (min) 35 (7) Hypertension Hypertension type: essential hypertension Qualified Code(s): I10 - Essential (primary) hypertension
[2022-11-29] MEDS: cefTRIAXone SODIUM 2,000 MG in DEXTROSE 5% 50 ML IV SCH (19:52)
--- NOTE | 2022-11-30 00:23 | Electrocardiogram Report ---
Test Reason : Blood Pressure : / mmHG Vent. Rate : 090 BPM Atrial Rate : 090 BPM P-R Int : 224 ms QRS Dur : 080 ms QT Int : 354 ms P-R-T Axes : 055 029 057 degrees QTc Int : 433 ms Sinus rhythm with 1st degree A-V block with occasional Premature ventricular complexes Low voltage QRS Borderline ECG When compared with ECG of 26-NOV-2022 11:15, Premature ventricular complexes are now Present Premature atrial complexes are no longer Present RI interval has increased QRS axis Shifted left Minimal criteria for Anterior infarct are no longer Present Confirmed by Romero Wagner ([id number]) on 11/30/2022 12:23:24 AM Referred By: [facility] Confirmed By:Romero Wagner
[2022-11-30] MEDS: propofoL 1,000 MG/100 ML VIAL IV SCH ×4 (00:32→19:32)
[2022-11-30] MEDS: TUBE FEEDING WATER FLUSH GT SCH ×4 (00:33→17:23)
[2022-11-30] MEDS: NOREPINEPHRINE/D5W 4 MG/250 ML PLCT IV SCH ×2 (03:41→19:32)
[2022-11-30] MEDS: fentaNYL citrate 2,500 MCG/250 ML BAG IV SCH (03:42)
[2022-11-30 04:39] LABS: BUN Creatinine Ratio 20.4 (10-20); Calcium 7.8 mg/dl (8.5-10.1); Creatinine Clr Calc Pharmacy 37.9 ml/min; Est GFR (African American) 37.7 ml/min; Est GFR (Non-African American) 32.5 ml/min; Phosphorus 2.1 mg/dl (2.5-4.9); Potassium 3.3 mmol/L (3.5-5.1)
[2022-11-30] MEDS ORDERED: POTASSIUM CHLORIDE 20 MEQ/15 ML UDC PO STA (06:31)
[2022-11-30 06:32] LABS: Basophils # (auto) 0.06 K/uL (0-0.2); Basophils % (auto) 0.4 %; Eosinophils # (auto) 0.92 K/uL (0-0.50); Eosinophils % (auto) 6.6 %; Hematocrit (blood only) 33.4 % (42.0-52.0); Hemoglobin 11.2 g/dl (14.0-18.0); Immature Granulocytes # (auto) 0.12 K/uL (0.01-0.20); Immature Granulocytes % (auto) 0.9 %; Lymphocytes # (auto) 4.05 K/uL (1.2-3.4); Mean Corpuscular Hemoglobin 32.2 pg (25.0-34.0); Mean Corpuscular Hgb Conc 33.5 g/dL (32.0-36.0); Mean Platelet Volume 9.9 fL (9.4-12.4); Monocytes # (auto) 1.14 K/uL (0.11-0.59); Monocytes % (auto) 8.2 %; Neutrophils # (auto) 7.66 K/uL (1.40-6.50); Neutrophils % (auto) 54.9 %; Platelet Count 196 K/uL (130-400); RDW Coefficient of Variation 13.8 % (11.5-14.5); RDW Standard Deviation 47.8 fL (36.4-46.3); Red Blood Count 3.48 M/uL (4.70-6.10); White Blood Count 13.95 K/ul (4.8-10.8)
[2022-11-30] MEDS: DOXYCYCLINE HYCLATE 100 MG in DEXTROSE 5% 100 ML IV SCH ×2 (08:07→19:33)
[2022-11-30] MEDS: FAMOTIDINE 20 MG in SYRINGE 3 ML IV SCH ×2 (08:07→19:33)
[2022-11-30] MEDS: HEPARIN SOD 5,000 UNIT/0.5 ML VIAL SQ SCH ×2 (08:08→19:33)
[2022-11-30] MEDS: ICU Protocol for HYPERglycemia SCH (08:09)
[2022-11-30] MEDS ORDERED: STAT IV STA (08:09)
[2022-11-30] MEDS ORDERED: CALCIUM GLUCONATE 10% 2,000 MG in DEXTROSE 5% 50 ML IV ONE (08:30)
[2022-11-30] MEDS: POT PHOSPHATE MONOBASIC W/ SOD TAB PO SCH ×4 (08:34→19:33)
[2022-11-30] MEDS ORDERED: PEPTAMEN INTENSE VHP 1.0 CAL 1,000 ML BAG GT SCH (09:00)
--- NOTE | 2022-11-30 09:24 | Critical Care Progress Note ---
Date of Service November 30, 2022 Assessment & Plan (1) Acute respiratory failure with hypoxia and hypercapnia: Plan: Reason Critically Ill: 82-year-old male with significant past medical history surrounding his progressive dementia, prior CVA, cognitive impairment who initially was admitted for hypoxia with concerns for bilateral lower lobe pneumonia and UTI and was unfortunately found to be obtunded and with a CO2 in excess of 130. Patient required emergent endotracheal intubation and ongoing evaluation and management in the ICU. 24-hour events: Patient's remained hemodynamically unstable requiring pressor agents. He did develop bradycardia yesterday which appears to be related to propofol. Bradycardia resolved with discontinuation of the propofol and restarting at a lower dose. His lines still flushed but they are having difficulty drawing from them. Family has elected to extubate the patient and see how he does. If he does well we will continue supportive measures. If not, rapid transition to palliative care Recommendations NEURO -progressive neuromuscular weakness with hypercarbic respiratory failure. CPK is normal. Awaiting myasthenia panel although that appears less likely. We will see how he does after being extubated CARDIAC/VASCULAR -multifactorial hypotension and shock. Per family discussion, we will discontinue pressor agents at this point in time and see how the patient does RESPIRATORY -hypoxemic and hypercarbic respiratory failure: Again, suspect some degree of neuromuscular weakness contributing. Family is all in agreement that we are pursuing a care that the patient would not be agreeable to. He was already unhappy being in a retirement with a poor quality of life. They are agreeable to extubate the patient without plans to reintubate him. GI/NUTRITION -hold tube feeds RENAL/LYTES -acute renal insufficiency superimposed on chronic kidney disease. Improved today. We will see how he does with extubation -Joyce catheter in place. ENDO - glycemic control per protocol HEME -mild anemia without evidence of blood loss. No indication for transfusion. Leukocytosis secondary to probable infection. Continue to trend. ID -currently day #3 Rocephin doxycycline for possible UTI versus pneumonia. Consolidation in the right lower lobe on CT scan. Bronchoscopy specimens from 11/28/2022 have shown no growth to date. Cultures have shown no growth to date. Can likely discontinue antibiotics at this point in time LINES/IV ACCESS - * LEFT upper extremity endurance catheter. * LEFT subclavian CVL * RIGHT radial arterial line * ET tube * Joyce catheter DVT PROPHYLAXIS - * Heparin subcu * SCDs I have personally spent 50 minutes of critical care time in the direct management of this patient. This is a life/limb threatening event. This includes time spent evaluating patient, direct bedside care, chart review, placing orders, interpretation of diagnostic studies, discussion with consultants, patient, and family members, as well as other required patient management activities. This time is exclusive of all separately billable procedures, and teaching time and separate from and in addition to any other critical care service time. We will plan on extubating patient without plans to reintubate. If he does well, supportive care will be continued. If not we will transition rapidly to comfort care measures. Family aware. (2) Hypotension: (3) Chronic cerebral ischemia: (4) Stroke: (5) Urinary tract infection: (6) Chronic renal failure, stage 3b: (7) Hypertension: Admission and Anticipated Discharge Date Admission Date: November 26, 2022 Subjective intubated and sedated Review of Systems Review of Systems: Unobtainable due to endotracheal tube Physical Exam Constitutional: + ill appearing, + obese and + mechanically ventilated Neck: trachea midline, no thyromegaly Respiratory: Auscultation: + crackles and + rhonchi; no wheezes Cardiovascular: RRR, no murmur, no edema Gastrointestinal (Abdomen): normal bowel sounds, soft, nontender, no hepatosplenomegaly Musculoskeletal: Extremities: extremities normal to inspection Skin: no rashes, warm and dry Lymphatic: no cervical lymphadenopathy Results & Data Results & Data Vital Signs (Past 12 Hours) Vital Signs Temp Pulse Resp BP Pulse Ox Pulse Ox O2 Del Method 11/30/22 09:01 37.6 C H 70 14 95 11/30/22 09:01 114/53 L 11/30/22 09:00 37.6 C H 68 16 95 11/30/22 08:45 37.6 C H 55 L 16 96 11/30/22 08:31 37.5 C 66 14 95 11/30/22 08:31 137/69 11/30/22 08:30 37.5 C 63 16 95 11/30/22 08:15 37.5 C 60 16 95 11/30/22 08:01 136/69 11/30/22 08:01 37.5 C 46 L 13 96 11/30/22 08:00 37.5 C 53 L 16 95 11/30/22 07:45 37.5 C 52 L 16 95 11/30/22 07:30 37.5 C 62 16 96 11/30/22 07:30 129/64 11/30/22 07:15 37.4 C 62 16 96 11/30/22 07:00 37.4 C 61 16 94 11/30/22 07:00 122/62 11/30/22 06:45 37.4 C 56 L 16 95 11/30/22 06:30 37.4 C 61 16 95 11/30/22 06:30 129/71 11/30/22 06:15 37.4 C 60 16 94 11/30/22 06:00 37.4 C 64 16 94 11/30/22 06:00 129/63 11/30/22 05:45 37.4 C 68 16 94 11/30/22 05:30 37.4 C 64 16 93 11/30/22 05:30 119/59 L 11/30/22 05:15 37.4 C 63 16 93 11/30/22 05:00 37.4 C 59 L 16 93 11/30/22 05:00 119/57 L 11/30/22 04:45 37.4 C 64 16 94 11/30/22 04:30 37.4 C 59 L 16 94 11/30/22 04:30 110/60 11/30/22 04:15 37.4 C 56 L 16 94 11/30/22 04:00 37.4 C 63 16 94 11/30/22 04:00 107/58 L 11/30/22 03:45 37.4 C 60 16 94 11/30/22 03:30 37.5 C 67 16 95 11/30/22 03:30 125/60 11/30/22 03:15 37.5 C 66 16 95 11/30/22 03:00 37.5 C 69 16 95 11/30/22 03:00 134/68 11/30/22 02:45 37.6 C H 51 L 16 96 11/30/22 02:34 107/59 L 11/30/22 02:34 37.5 C 55 L 14 93 11/30/22 02:30 37.6 C H 65 16 94 11/30/22 02:30 78/46 L 11/30/22 02:15 37.6 C H 65 16 94 11/30/22 02:00 37.6 C H 68 16 94 11/30/22 02:00 110/61 11/30/22 01:45 37.6 C H 66 13 93 11/30/22 09:00 94 11/30/22 07:53 11/30/22 07:51 63 11/30/22 07:38 Mechanical Vent 11/30/22 07:33 62 16 95 11/30/22 02:26 64 16 95 11/29/22 22:51 65 16 94 O2 Del Method FiO2 11/30/22 09:01 11/30/22 09:01 11/30/22 09:00 11/30/22 08:45 11/30/22 08:31 11/30/22 08:31 11/30/22 08:30 11/30/22 08:15 11/30/22 08:01 11/30/22 08:01 11/30/22 08:00 11/30/22 07:45 11/30/22 07:30 11/30/22 07:30 11/30/22 07:15 11/30/22 07:00 11/30/22 07:00 11/30/22 06:45 11/30/22 06:30 11/30/22 06:30 11/30/22 06:15 11/30/22 06:00 11/30/22 06:00 11/30/22 05:45 11/30/22 05:30 11/30/22 05:30 11/30/22 05:15 11/30/22 05:00 11/30/22 05:00 11/30/22 04:45 11/30/22 04:30 11/30/22 04:30 11/30/22 04:15 11/30/22 04:00 11/30/22 04:00 11/30/22 03:45 11/30/22 03:30 11/30/22 03:30 11/30/22 03:15 11/30/22 03:00 11/30/22 03:00 11/30/22 02:45 11/30/22 02:34 11/30/22 02:34 11/30/22 02:30 11/30/22 02:30 11/30/22 02:15 11/30/22 02:00 11/30/22 02:00 11/30/22 01:45 11/30/22 09:00 Mechanical Vent 11/30/22 07:53 50 11/30/22 07:51 11/30/22 07:38 11/30/22 07:33 50 11/30/22 02:26 50 11/29/22 22:51 50 Critical Care Results & Data Vital Signs (Past 12 Hours) Vital Signs Temp Pulse Resp BP Pulse Ox Pulse Ox O2 Del Method 11/30/22 09:01 37.6 C H 70 14 95 11/30/22 09:01 114/53 L 11/30/22 09:00 37.6 C H 68 16 95 11/30/22 08:45 37.6 C H 55 L 16 96 11/30/22 08:31 37.5 C 66 14 95 11/30/22 08:31 137/69 11/30/22 08:30 37.5 C 63 16 95 11/30/22 08:15 37.5 C 60 16 95 11/30/22 08:01 136/69 11/30/22 08:01 37.5 C 46 L 13 96 11/30/22 08:00 37.5 C 53 L 16 95 11/30/22 07:45 37.5 C 52 L 16 95 11/30/22 07:30 37.5 C 62 16 96 11/30/22 07:30 129/64 11/30/22 07:15 37.4 C 62 16 96 11/30/22 07:00 37.4 C 61 16 94 11/30/22 07:00 122/62 11/30/22 06:45 37.4 C 56 L 16 95 11/30/22 06:30 37.4 C 61 16 95 11/30/22 06:30 129/71 11/30/22 06:15 37.4 C 60 16 94 11/30/22 06:00 37.4 C 64 16 94 11/30/22 06:00 129/63 11/30/22 05:45 37.4 C 68 16 94 11/30/22 05:30 37.4 C 64 16 93 11/30/22 05:30 119/59 L 11/30/22 05:15 37.4 C 63 16 93 11/30/22 05:00 37.4 C 59 L 16 93 11/30/22 05:00 119/57 L 11/30/22 04:45 37.4 C 64 16 94 11/30/22 04:30 37.4 C 59 L 16 94 11/30/22 04:30 110/60 11/30/22 04:15 37.4 C 56 L 16 94 11/30/22 04:00 37.4 C 63 16 94 11/30/22 04:00 107/58 L 11/30/22 03:45 37.4 C 60 16 94 11/30/22 03:30 37.5 C 67 16 95 11/30/22 03:30 125/60 11/30/22 03:15 37.5 C 66 16 95 11/30/22 03:00 37.5 C 69 16 95 11/30/22 03:00 134/68 11/30/22 02:45 37.6 C H 51 L 16 96 11/30/22 02:34 107/59 L 11/30/22 02:34 37.5 C 55 L 14 93 11/30/22 02:30 37.6 C H 65 16 94 11/30/22 02:30 78/46 L 11/30/22 02:15 37.6 C H 65 16 94 11/30/22 02:00 37.6 C H 68 16 94 11/30/22 02:00 110/61 11/30/22 01:45 37.6 C H 66 13 93 11/30/22 09:00 94 11/30/22 07:53 11/30/22 07:51 63 11/30/22 07:38 Mechanical Vent 11/30/22 07:33 62 16 95 11/30/22 02:26 64 16 95 11/29/22 22:51 65 16 94 O2 Del Method FiO2 11/30/22 09:01 11/30/22 09:01 11/30/22 09:00 11/30/22 08:45 11/30/22 08:31 11/30/22 08:31 11/30/22 08:30 11/30/22 08:15 11/30/22 08:01 11/30/22 08:01 11/30/22 08:00 11/30/22 07:45 11/30/22 07:30 11/30/22 07:30 11/30/22 07:15 11/30/22 07:00 11/30/22 07:00 11/30/22 06:45 11/30/22 06:30 11/30/22 06:30 11/30/22 06:15 11/30/22 06:00 11/30/22 06:00 11/30/22 05:45 11/30/22 05:30 11/30/22 05:30 11/30/22 05:15 11/30/22 05:00 11/30/22 05:00 11/30/22 04:45 11/30/22 04:30 11/30/22 04:30 11/30/22 04:15 11/30/22 04:00 11/30/22 04:00 11/30/22 03:45 11/30/22 03:30 11/30/22 03:30 11/30/22 03:15 11/30/22 03:00 11/30/22 03:00 11/30/22 02:45 11/30/22 02:34 11/30/22 02:34 11/30/22 02:30 11/30/22 02:30 11/30/22 02:15 11/30/22 02:00 11/30/22 02:00 11/30/22 01:45 11/30/22 09:00 Mechanical Vent 11/30/22 07:53 50 11/30/22 07:51 11/30/22 07:38 11/30/22 07:33 50 11/30/22 02:26 50 11/29/22 22:51 50 Lab & Micro Results (Past 24 Hours) RBC 3.48 M/uL (4.70-6.10) L 11/30/22 WBC 13.95 K/ul (4.8-10.8) H 11/30/22 Hgb 11.2 g/dl (14.0-18.0) L 11/30/22 Hct 33.4 % (42.0-52.0) L 11/30/22 MCV 96.0 fL (80.0-100.0) 11/30/22 MCH 32.2 pg (25.0-34.0) 11/30/22 MCHC 33.5 g/dL (32.0-36.0) 11/30/22 RDW Standard Deviation 47.8 fL (36.4-46.3) H 11/30/22 RDW Coefficient of Variation 13.8 % (11.5-14.5) 11/30/22 Plt Count 196 K/uL (130-400) 11/30/22 MPV 9.9 fL (9.4-12.4) 11/30/22 Neutrophils (%) (Auto) 54.9 % 11/30/22 Lymphocytes (%) (Auto) 29.0 % 11/30/22 Monocytes # (Auto) 1.14 K/uL (0.11-0.59) H 11/30/22 Eosinophils # (Auto) 0.92 K/uL (0-0.50) H 11/30/22 Immature Granulocyte % (Auto) 0.9 % 11/30/22 Neutrophils # (Auto) 7.66 K/uL (1.40-6.50) H 11/30/22 Lymphocytes # (Auto) 4.05 K/uL (1.2-3.4) H 11/30/22 Monocytes # (Auto) 1.14 K/uL (0.11-0.59) H 11/30/22 Eosinophils # (Auto) 0.92 K/uL (0-0.50) H 11/30/22 Basophils # (Auto) 0.06 K/uL (0-0.2) 11/30/22 Immature Granulocyte # (Auto) 0.12 K/uL (0.01-0.20) 3 Na 134 mmol/L (136-145) L 11/30/22 K 3.3 mmol/L (3.5-5.1) L 11/30/22 Cl 104 mmol/L (98-107) 11/30/22 CO2 23 mmol/L (21-32) 11/30/22 Anion Gap 7 (3-11) 11/30/22 BUN 38 mg/dl (6-23) H 11/30/22 Creatinine 1.86 mg/dl (0.6-1.4) H 11/30/22 Estimated GFR ( Amer) 37.7 ml/min 11/30/22 Estimated GFR (Non-Af Amer) 32.5 ml/min 11/30/22 BUN/Creatinine Ratio 20.4 (10-20) H 11/30/22 Glu 126 mg/dl (70-99(Fasting)) H 11/30/22 Ca 7.8 mg/dl (8.5-10.1) L 11/30/22 Phosphorus Level 2.1 mg/dl (2.5-4.9) L 11/30/22 Mg 2.0 mg/dl (1.7-2.4) 11/30/22 04:05 Calcium Level 7.8 mg/dl (8.5-10.1) L 11/30/22 04:05 Microbiology 11/28/22 08:40 Gram Stain - Final Trachea Bronchial Culture - Final Light normal alonzo. 11/28/22 20:13 Aerobic Blood Culture - Preliminary Blood No growth in Aerobic bottle after 24 hours. Anaerobic Blood Culture - Preliminary No growth in Anaerobic bottle after 24 hours. 11/28/22 20:08 Aerobic Blood Culture - Preliminary Blood No growth in Aerobic bottle after 24 hours. Anaerobic Blood Culture - Preliminary No growth in Anaerobic bottle after 24 hours. I & O Totals 24 Hours 11/29/22 11/30/22 12/01/22 06:59 06:59 06:59 Intake Total 3226.261 / 3226.261 1297.339 / 1418.192 216.483 / 216.483 Output Total 985 / 1085 1710 / 1710 150 / 150 Balance 2241.261 / 2141.261 -412.661 / -291.808 66.483 / 66.483 Cumulative 11/26/22 10:57 thru 11/30/22 09:05 Intake Total 6160.083 Output Total 3245 Balance 2915.083 RT Ventilator Mngmt (Last Documented) Ventilator Ordered Settings Ventilator Support Mode Assist Control 11/30/22 07:53 Respiratory Rate 14 11/30/22 09:01 Ventilator Tidal Volume 450 11/30/22 07:53 Setting Minute Ventilation 7.2 11/30/22 07:33 Positive End Expiratory 10 11/30/22 07:53 Pressure Fraction of Inspired Oxygen 50 11/30/22 07:53 Peak Inspiratory Flow 40 11/29/22 11:24 Machine Comment settings changed post abg per 11/29/22 04:30 Brenton Interinao. Ventilator - PT Measurements Respiratory Rate 14 Exhaled Tidal Volume 450 Minute Ventilation 7.2 Peak Inspiratory Airway 25 Pressure Plateau Pressure 21 Respiratory Cycle Inspiratory: 1:3.2 Expiratory Ratio Inspiratory Phase Time 0.9 End-Tidal CO2 35 Static Lung Compliance 40.91 Dynamic Lung Compliance 30.00 Normal Static Lung Compliance 47.00 Patient Measurements Comment RT called to bedside, pt not getting volumes and desat. Upon arrival Brenton Interiano bagging pt. Limb of vent circuit became disconnected. Placed back on vent and Sp02 stayed 87%. Settings changed per Brenton. Will continue to monitor. Coding Level of Care Code 47430 CRITICAL CARE 1ST 30-74M Diagnoses Acute respiratory failure with hypoxia and hypercapnia J96.01; J96.02 Hypotension I95.9 Chronic cerebral ischemia I67.82 Stroke I63.9 Urinary tract infection N39.0 Hematuria presence: without hematuria Urinary tract infection type: site unspecified Chronic renal failure, stage 3b N18.32 Hypertension I10 Hypertension type: essential hypertension (5) Urinary tract infection Hematuria presence: without hematuria Urinary tract infection type: site unspecified Qualified Code(s): N39.0 - Urinary tract infection, site not specified (7) Hypertension Hypertension type: essential hypertension Qualified Code(s): I10 - Essential (primary) hypertension
[2022-11-30] MEDS ORDERED: FLUDROCORTISONE ACETATE 0.1 MG TAB PO SCH (09:45)
[2022-11-30] MEDS ORDERED: POTASSIUM CHLORIDE 20 MEQ/15 ML UDC PO SCH (10:00)
[2022-11-30] MEDS: HYDROCORTISONE SOD 50 MG in SYRINGE 0 ML IV SCH ×3 (10:06→19:33)
[2022-11-30] MEDS ORDERED: MoRPHine SULFATE 4 MG/ML 1 ML CARP\\VIAL ONE (10:23)
[2022-11-30] MEDS ORDERED: LORazepam 2 MG/1 ML VIAL IV STA (10:24)
[2022-11-30] MEDS ORDERED: MoRPHine SULFATE 2 MG/ML CARP IV PRN ×2 (10:24→10:59)
[2022-11-30] MEDS ORDERED: LORazepam 2 MG/1 ML VIAL ONE (10:26)
[2022-11-30] MEDS ORDERED: MoRPHine SULFATE 4 MG/ML 1 ML CARP\\VIAL IV STA (10:27)
[2022-11-30] MEDS ORDERED: LORazepam 0.5 MG TAB PO PRN (10:59)
[2022-11-30] MEDS ORDERED: LORazepam 2 MG/1 ML VIAL IV PRN (10:59)
[2022-11-30] MEDS ORDERED: ONDANSETRON INJ 2 MG/ML 2 ML VIAL IV PRN (10:59)
[2022-11-30] MEDS ORDERED: ONDANSETRON 4 MG OD TAB SL PRN (10:59)
[2022-11-30] MEDS ORDERED: MoRPHine SULFATE 2 MG/ML CARP IV STA (11:08)
[2022-11-30] MEDS ORDERED: MoRPHine SULFATE 2 MG/ML CARP ONE (11:09)
[2022-11-30] MEDS: MoRPHine SULFATE 2 MG/ML CARP IV PRN ×5 (12:15→19:32)
--- NOTE | 2022-11-30 16:04 | Hospitalist Progress Note ---
Date of Service November 30, 2022 Assessment & Plan (1) Acute respiratory failure with hypoxia and hypercapnia: Plan: Patient Presented to the hospital with hypoxia with SpO2 84% on RA on admit [employer] NEGATIVE CXR w/ mild pulmonary edema, BNP was only 141 on admission CTA chest negative for PE Although WBC was 21k on admission, procalcitonin was normal, CRP only mildly elevated Etiology of his hypoxia is uncertain, could be due to progressive neuromuscular weakness as reported by the who said patient has been wheelchair bound for the past 6 months Work up for myasthenia gravis is in process Patient was intubated when he was found poorly responsive and ABG showed PH of 7, PCo2 130 Etiology of his CO2 narcosis could still point to the aforementioned possible neuromuscular weakness family was informed of a possibility of prolonged dependence on ventilator or trachelotomy, the does not wish for him to be reintubated This morning, he was extubated, saturations still very low. Pressors have been stopped. 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 on asa daily/memantine BID Neurology has been consulted, no new recs (7) Hypertension: Plan: BP is soft (8) Hypoxia: (9) GERD (gastroesophageal reflux disease): Plan: continue usual meds, pepcid HS Plan prognosis is poor, he may pass in the next few hours Admission and Anticipated Discharge Date Admission Date: November 26, 2022 Subjective patient seen and examined, he was extubated earlier today, not responding to any verbal stimulus, but breathing Review of Systems Review of Systems: Unable to obtain Physical Exam Physical Exam: The patient extubated, but not responsive HEENT--PERRL, EOMI, mucous membranes and oropharynx mildly dry Neck--supple. No JVD. No bruits. Thyroid normal, trachea midline, no adenopathy. Heart--normal S1 and S2. No murmurs, rubs or gallops. Lungs--reduced air entry on auscultation. Abdomen--normal bowel sounds and soft. Extremities--no cyanosis or clubbing. No edema. Dermatologic--normal skin turgor, normal color, no abnormal lymph nodes, no rash. Neurologic--unresponsive Rheumatologic--normal range of motion. Psychiatric--unable to assess Results & Data Results & Data Vital Signs (Past 12 Hours) Vital Signs Temp Pulse Resp BP Pulse Ox Pulse Ox O2 Del Method 11/30/22 12:01 102/64 11/30/22 12:01 100.0 F H 102 H 28 H 49 L 11/30/22 12:00 100.0 F H 116 H 28 H 47 L 11/30/22 11:30 100.0 F H 122 H 32 H 45 L 11/30/22 11:30 124/66 11/30/22 11:00 100.2 F H 124 H 29 H 47 L 11/30/22 11:00 134/75 11/30/22 10:30 100.2 F H 113 H 26 H 62 L 11/30/22 10:30 133/77 11/30/22 10:01 181/128 H 11/30/22 10:01 100.0 F H 105 H 21 94 11/30/22 10:00 100.0 F H 105 H 12 93 11/30/22 09:30 99.9 F H 76 16 94 11/30/22 09:30 144/69 H 11/30/22 09:01 99.7 F H 70 14 95 11/30/22 09:01 114/53 L 11/30/22 09:00 99.7 F H 68 16 95 11/30/22 08:45 99.7 F H 55 L 16 96 11/30/22 08:31 99.5 F 66 14 95 11/30/22 08:31 137/69 11/30/22 08:30 99.5 F 63 16 95 11/30/22 08:15 99.5 F 60 16 95 11/30/22 08:01 136/69 11/30/22 08:01 99.5 F 46 L 13 96 11/30/22 08:00 99.5 F 53 L 16 95 11/30/22 07:45 99.5 F 52 L 16 95 11/30/22 07:30 99.5 F 62 16 96 11/30/22 07:30 129/64 11/30/22 07:15 99.3 F 62 16 96 11/30/22 07:00 99.3 F 61 16 94 11/30/22 07:00 122/62 11/30/22 06:45 99.3 F 56 L 16 95 11/30/22 06:30 99.3 F 61 16 95 11/30/22 06:30 129/71 11/30/22 06:15 99.3 F 60 16 94 11/30/22 06:00 99.3 F 64 16 94 11/30/22 06:00 129/63 11/30/22 05:45 99.3 F 68 16 94 11/30/22 05:30 99.3 F 64 16 93 11/30/22 05:30 119/59 L 11/30/22 05:15 99.3 F 63 16 93 11/30/22 05:00 99.3 F 59 L 16 93 11/30/22 05:00 119/57 L 11/30/22 04:45 99.3 F 64 16 94 11/30/22 04:30 99.3 F 59 L 16 94 11/30/22 04:30 110/60 11/30/22 04:15 99.3 F 56 L 16 94 11/30/22 04:00 99.3 F 63 16 94 11/30/22 04:00 107/58 L 11/30/22 09:00 94 11/30/22 07:53 11/30/22 07:51 63 11/30/22 07:38 Mechanical Vent 11/30/22 07:33 62 16 95 O2 Del Method FiO2 11/30/22 12:01 11/30/22 12:01 11/30/22 12:00 11/30/22 11:30 11/30/22 11:30 11/30/22 11:00 11/30/22 11:00 11/30/22 10:30 11/30/22 10:30 11/30/22 10:01 11/30/22 10:01 11/30/22 10:00 11/30/22 09:30 11/30/22 09:30 11/30/22 09:01 11/30/22 09:01 11/30/22 09:00 11/30/22 08:45 11/30/22 08:31 11/30/22 08:31 11/30/22 08:30 11/30/22 08:15 11/30/22 08:01 11/30/22 08:01 11/30/22 08:00 11/30/22 07:45 11/30/22 07:30 11/30/22 07:30 11/30/22 07:15 11/30/22 07:00 11/30/22 07:00 11/30/22 06:45 11/30/22 06:30 11/30/22 06:30 11/30/22 06:15 11/30/22 06:00 11/30/22 06:00 11/30/22 05:45 11/30/22 05:30 11/30/22 05:30 11/30/22 05:15 11/30/22 05:00 11/30/22 05:00 11/30/22 04:45 11/30/22 04:30 11/30/22 04:30 11/30/22 04:15 11/30/22 04:00 11/30/22 04:00 11/30/22 09:00 Mechanical Vent 11/30/22 07:53 50 11/30/22 07:51 11/30/22 07:38 11/30/22 07:33 50 PG Care Time/CCT Total # of Minutes Spent Total Time Spent with Patient: Total time spent is greater than 50% in coordination of care (as documented) at patient's floor/unit and/or counseling patient: Coding Level of Care Code 35857 SUB INP/OBS CARE 2/35MIN Diagnoses Acute respiratory failure with hypoxia and hypercapnia J96.01; J96.02 Acute dyspnea R06.00 Acute UTI N39.0 Urinary retention due to benign prostatic hyperplasia N40.1; R33.8 Chronic renal failure, stage 3b N18.32 Stroke I63.9 Hypertension I10 Hypertension type: essential hypertension Hypoxia R09.02 GERD (gastroesophageal reflux disease) K21.9 Time Spent (min) 35 (7) Hypertension Hypertension type: essential hypertension Qualified Code(s): I10 - Essential (primary) hypertension
[2022-11-30] MEDS: cefTRIAXone SODIUM 2,000 MG in DEXTROSE 5% 50 ML IV SCH (19:32)
--- NOTE | 2022-11-30 21:00 | Death Pronouncement Note ---
Date of Service November 30, 2022 Pronouncement Note Admission Date Admission Date: November 26, 2022 Date and Time of Date of : 11/30/22 Time of : 20:42 Contributing Factors (1) Acute respiratory failure with hypoxia and hypercapnia: (2) Shock: (3) Acute dyspnea: (4) Acute UTI: (5) Urinary retention due to benign prostatic hyperplasia: (6) Chronic renal failure, stage 3b: (7) Stroke: (8) Hypertension: (9) Hypoxia: (10) GERD (gastroesophageal reflux disease): Contributing factors: 1.) Acute Hypercarbic/hypoxic Respiratory failure requiring intubation and mechanical ventilation 2.) Shock multifactorial requiring vasopressor support 3. Progressive neuromuscular weakness Hospital Course Hospital Course: Patient admitted 11/26/22 for hypoxia and presumed pneumonia and UTI. Treated with antibiotics and diureses for his hypoxia on admission. Patient progressed on 11/28 to hypercarbic/hypoxic respiratory failure requiring intubation and mechanical ventilation, as well as vasopressor support for multifactorial shock. Patient failed to improve with ability to be weaned from ventilatory support and was made DNR/DNI with transition to palliative/comfort care with palliative extubation as family voiced that patient would not want prolonged aggressive care. 11/30 the patient had vasopressor and sedating medications discontinued. He was extubated. Notified at 2041 of asystole. Pronounced at 2044. Summary Additional details: Date: 11/30/22 Time: 1920 I was contacted by nursing staff regarding the patients rythm of asystole at 2041 and for pronouncement following palliative extubation earlier today and withdraw of life sustaining measures. In short, Patient admitted 11/26/22 for hypoxia and presumed pneumonia and UTI. Patient progressed on 11/28 to hypercarbic/hypoxic respiratory failure requiring intubation and mechanical ventilation, as well as vasopressor support for multifactorial shock. Patient failed to improve with ability to be weaned from ventilatory support and was made DNR/DNI with transition to palliative/comfort care with paliative extubation as family voiced that patient would not want prolonged aggressive care. 11/30 the patient had vasopressor and sedating medications discontinued. He was extubated. Notified at 2041 of asystole. Pronounced at 2044. Assessment: I presented to the patients room for evaluation. Upon assessment, the patient was found to be in a terminal state. Pupils were fixed and dilated without response. No palpable pulses appreciated. No spontaneous breaths noted. Heart sounds were absent as well as absence of palpable central pulse. No response to painful stimuli. Time of : 2044 as pronounced by myself. Family was present at bedside. Appropriate response to grief appreciated. Condolences provided by nursing staff. Patients primary service was contacted and made aware of patient demise- at 2044 Pronouncement section of the Certificate was filled out and signed by myself. Cause of : Primary - Hypercarbic/Hypoxic Respiratory Failure Secondary - Shock Contributing Causes of - Progressive nuerological weakness Please feel free to contact me with any questions regarding the above-mentioned course. Additional Data Attending physician: Jon Davidson MD
--- NOTE | 2022-11-30 21:58 | Discharge Summary ---
Date of Service November 30, 2022 Admission HPI Per Admitting Provider 82yo male with PMHx significant for CVA (follows with Neurology, on ASA), HTN, GERD, frequent UTIs/BPH (s/p TURP follows with Urology on chronic trimethoprim suppression), nephrolithiasis, cognitive impairment, CKDIII, GERD and chronic pain and presented with shortness of breath and hypoxia, found to be 86% on RA and placed on supplemental O2-- requiring 4L presently to maintain sat 93%. Temp 37.7C. Ordered dose Vanco/Cefepime by ER, IVF deferred in setting of volume overload/effusions on imaging. EKG w/ low voltage, bedside US performed by ER provider w/o evidence for pericardial effusion. CTA chest NO PE noted, however subsegmental vessels not well assessed due to motion artifcat. Small pleural effusions w/ dependent consolidation. Atelectasis vs infectious/inflammatory pneumonitis. Mild cardiomegaly. Patient evaluated in B5 with at bedside, resident of [facility]. Patient hypoxic this morning, reports possible panic attack. No choking/dysphagia/vomiting reported. He does note a cough, sputum production clear in color. Endorses burning with urination/frequency, on chronic antibiotics per patient/. He denies any significant shortness of breath at present at baseline on the 4L but states he does not wear oxygen at home. No reported fever/chills (but temp 37.7C), no chest pain, no nausea/vomiting. Poor appetite at present reported. ABdomen distended but nontender. Does have some LE pre-tibial edema as well, no calf tenderness. Discussed admission inpatient and suspect CHF/volume overload along with UTI. Did not get worsening SOB reported with laying bed flat however. Discussed code status and patient and he would not want usp vent/invasive measures but ok w/ temporary and will make Full Code for now. Questions/concerns addressed. Would like something to sleep tonight. ER course: Cefepime/Vanco. Labs w/ WBC 21.8k, neutrophils 17.2k. Na 134, K4.6. BUN/Cr 23/1.37. Mag 1.8. LFTs wnl. Lactic 1.1. Glu 121. UA w/ 10-30WBC, >30WBC, >30epi, 2+ bacteria, culture pending --- prior Urine cx alpha strep not enterococcus from 11/18/22. Admission Exam Per Admitting Provider General: chronically ill appearing male sitting up in bed, NAD, at bedside HEENT: head normocephalic, atraumatic, mm moist, trachea midline Resp: diminished in the bases with associated crackles, no wheezing, on 4L NC, mild tachypnea RR 24 CV: RRR, qiuet heart sounds, no obvious m/r/g, trace pre-tibial edema, pulses palpable, calves nontender GI: +BS, distended, nontender : no moore Psych: alert/oriented to person, knows in hospital, poor historian at baseline but baseline per at moment Principal Diagnosis Respiratory failure Discharge Exam see note Discharge Data Allergies Allergy/AdvReac Type Severity Reaction Status Date / Time Penicillins Allergy Intermediate HIVES Verified 10/18/22 15:34 morphine AdvReac Mild N&V Verified 10/18/22 15:34 codeine AdvReac Unknown Unknown Verified 10/18/22 15:34 Consultations 11/26/22 14:20 ED Decision to Admit Stat 11/28/22 07:57 Consult Pulmonology Routine 11/28/22 09:52 Consult Trolley Car Mechanic Routine 11/28/22 10:38 Consult Neurology Routine Procedures Performed intubation central venous access arterial line placement bronchoscopy Ordered Studies 11/26/22 12:41 CT angio chest PE protocol Stat 11/26/22 21:09 CT Abd and Pelvis [CT abd pelvis IV con only] Urgent 11/28/22 07:59 CT chest diagnostic wo con Routine 11/28/22 09:[address] [CT head/brain wo con] Stat Hospital Course (1) Shock: (2) Acute respiratory failure with hypoxia and hypercapnia: (3) Pneumonia of both lower lobes: (4) Stroke: (5) Weakness: (6) Chronic renal failure, stage 3b: (7) Urinary retention due to benign prostatic hyperplasia: (8) Dementia with behavioral disturbance: (9) Weakness: Plan Hospital Course: Patient admitted 11/26/22 for hypoxia and presumed pneumonia and UTI. Treated with antibiotics and diureses for his hypoxia on admission. Patient progressed on 11/28 to hypercarbic/hypoxic respiratory failure requiring intubation and mechanical ventilation, as well as vasopressor support for multifactorial shock. Patient failed to improve with ability to be weaned from ventilatory support and was made DNR/DNI with transition to palliative/comfort care with palliative extubation as family voiced that patient would not want prolonged aggressive care. 11/30 the patient had vasopressor and sedating medications discontinued. He was extubated. Notified at 2041 of asystole. Pronounced at 2044. Total Time Total Time Spent Total Time Spent (In Minutes): 30 minutes Discharge Plan Discharge Items Patient Disposition: Discharge Diagnosis: hypercarbic/hypoxic respiratory failure complicated by shock Other Date/Time: 11/30/22 20:42 Supervising Physician Co-Signing Physician Notes Attending addendum: I have physically seen this patient, have supervised the GRIFFIN's activities, and agree with the H&P unless as otherwise noted. Assessment and Plan: Agree with the discharge summary as noted by the GRIFFIN Ezequiel Interiano Coding Level of Care Code 24611 IN/OBS DISCH 30 MIN/LESS Diagnoses Shock R57.9 Acute respiratory failure with hypoxia and hypercapnia J96.01; J96.02 Pneumonia of both lower lobes J18.9 Stroke I63.9 Weakness R53.1 Chronic renal failure, stage 3b N18.32 Urinary retention due to benign prostatic hyperplasia N40.1; R33.8 Dementia with behavioral disturbance F03.91
--- NOTE | 2022-12-04 12:33 | Coding Query ---
CODING QUERY To promote full compliance with coding requirements relating to patient care, provider participation is requested in all cases of bindery machine tender uncertainty. Please assist us with the question(s) below: Coding Question(s): Pt admitted with SOB,hypoxia. No history of COPD. CXR=pneumonia. mild pulmonary edema on adm. 02 sat in ed 84%.. CHF . 2 days after adm pt adm to CCU due to acute hypoxic/hpyercapnic respiratory failure. Pt intubated .. Neuro contsulted : myopathy, neuromuscular disorder ruled out . Please document, if known or suspected , the etiology of patient's presenting symptoms of hypoxia and hypercapnia. Thanks for your help! Bert Alonzo [facility] Physician's Response(s): Principal Diagnosis: "that condition established after study, to be chiefly responsible for occasioning the admission of the patient to the hospital for care." Co-Existing Principal Diagnosis: "when two or more diagnoses equally meet the criteria for principal diagnosis as determined by the circumstances of admission, diagnostic work up, and/or therapy provided, and the Alphabetic Index, Tabular List, or another coding guideline does not provide sequencing direction, any one of the diagnoses may be sequenced first." "When the physician has documented what appears to be a current diagnosis in the body of the record, but has not included the diagnosis in the final diagnostic statement, the physician should be asked whether the diagnosis should be added." (Source [facility]oding [facility] 2 QTR90. p3-4) KLEBER
--- NOTE | 2022-12-16 12:12 | Coding Query ---
CODING QUERY To promote full compliance with coding requirements relating to patient care, provider participation is requested in all cases of copy manager uncertainty. Please assist us with the question(s) below: Coding Question(s): ('s Query) Pt admitted with SOB,hypoxia. No History of COPD. CXR = pneumonia, mild pulmonary edema on admission. O2 sats in ED 84% -also CHF. 2 days after admission pt admitted to CCU d/t acute hypoxia/hypercapnic respiratory failure. Pt was intubated at that time. Neuro consulted: myopathy, neuromuscular disorder ruled out. Please document, if known or suspected, the etiology of patient's admitting symptoms of hypoxia and hypercapnia. I appreciate your help! Bert Alonzo, [facility] Physician's Response(s): acute respiratory failure with hypoxia from pneuomia poa Principal Diagnosis: "that condition established after study, to be chiefly responsible for occasioning the admission of the patient to the hospital for care." Co-Existing Principal Diagnosis: "when two or more diagnoses equally meet the criteria for principal diagnosis as determined by the circumstances of admission, diagnostic work up, and/or therapy provided, and the Alphabetic Index, Tabular List, or another coding guideline does not provide sequencing direction, any one of the diagnoses may be sequenced first." "When the physician has documented what appears to be a current diagnosis in the body of the record, but has not included the diagnosis in the final diagnostic statement, the physician should be asked whether the diagnosis should be added." (Source Coding [facility] 2 QTR90. p3-4) KLEBER
[2022-12-16 13:07] LABS: Anti-Striated Muscle NEGATIVE (NEGATIVE); Receptor Binding Ab <0.30 nmol/L
== END 2022-11-30 20:42 | disposition expired | DRG 208 ==
LOC: ED 11:07 → SUATTDRO 15:57 → 2N 15:57 → 1E 11-28 08:30